=== PATIENT | male | born 1950 | race Caucasian/White ===

== ENCOUNTER 2016-09-15 09:40 | Inpatient (IN) | payer MEDICARE, OTHER ==
[~2016-09-15] VITALS: Ht 182.9 cm; Wt 116.0 kg
[~2016-09-15 09:40] MED LIST: ALEN35TA23 PO; AMAN100C65 PO; AMAN100T PO; AMLO5TAB4 PO; BETH25TA PO; CITA-104 PO; DALF10TA PO; DOCU-159 PO; GLAT40SY SQ; MIRT30TA5 PO; MULTI PO; PANT40TA4 PO; SPIR50TA PO; TAMS0.4C2 PO; TERA10CA42 PO
[2016-09-15] MEDS ORDERED: CEFEPIME 2GM/50 ML (PMX) 50 ML IVPB STA (10:14)
[2016-09-15] MEDS ORDERED: ACETAMINOPHEN 325 MG TAB PO STA (10:14)
[2016-09-15] MEDS ORDERED: SODIUM CHLORIDE 0.9% 1L BAG IV* STA (10:14)
[2016-09-15] MEDS ORDERED: VANCOMYCIN 1 GM (PMX) 250 ML IVPB ONE (10:30)
--- NOTE | 2016-09-15 10:43 | ERA ---
ER Documentation Chief Complaint Date/Time DATE: 09/15/16 TIME: 10:32 Chief Complaint ABD DISTENSION & BILATERAL LEG SWELLING, SENT FROM [facility] HPI This is a 66-year-old male sent from a nursing facility for abdominal distention. The patient arrived to the ER the patient started having projectile vomiting multiple episodes. Patient states that he has no headache no chest pain but feels he has abdominal distention. He says he has chronic swelling in his scrotum and legs. Patient was found to have a 102 fever here as well. Says he is not coughing or has any dysuria. Vomit is nonbilious and nonbloody. Patient is a very poor historian ROS All systems reviewed and are negative except as per history of present illness. Medications Home Meds Active Scripts Pantoprazole (Protonix) 40 Mg Tabec, 40 MG PO DAILY@06, #30 Prov:HUMZA CALHOUN M.D. 03/26/14 Multivitamins* (Theragran*) 1 Tab Tab, 1 TAB PO DAILY, #30 TAB Prov:HUMZA CALHOUN M.D. 03/26/14 Reported Medications Amlodipine Besylate* (Amlodipine Besylate*) 5 Mg Tablet, 5 MG ORAL DAILY, #31 09/15/16 Metoprolol Tartrate* (Lopressor*) 25 Mg Tab, 25 MG ORAL BID, #16 09/15/16 Citalopram Hydrobromide* (Citalopram Hydrobromide*) 10 Mg Tablet, 10 MG ORAL BID , #90 09/15/16 Famotidine* (Famotidine*) 20 Mg Tablet, 20 MG ORAL DAILY, #31 09/15/16 Alendronate Sodium* (Fosamax*) 70 Mg Tablet, 70 MG ORAL WEEKLY, #4 09/15/16 Spironolactone* (Aldactone*) 50 Mg Tablet, 50 MG PO DAILY, #30 TAB 03/28/15 Bethanechol Chloride* (Bethanechol Chloride*) 25 Mg Tablet, 25 MG PO QID, TAB 03/28/15 Docusate Sodium* (Docusate Sodium*) 100 Mg Capsule, 100 MG PO BID, CAP 03/28/15 Tamsulosin Hcl* (Tamsulosin Hcl*) 0.4 Mg Cap.er.24h, 0.8 MG PO HS, CAP 03/28/15 Glatiramer Acetate (Copaxone) 40 Mg/1 Ml Syringe, 40 MG SQ MONWEDFRI 03/28/15 Amantadine Hcl* (Amantadine Hcl*) 100 Mg Capsule, 200 MG PO AT NOON, CAP 03/28/15 Amantadine Hcl* (Amantadine Hcl*) 100 Mg Tablet, 100 MG PO QAM, TAB 03/18/14 Mirtazapine* (Mirtazapine*) 30 Mg Tablet, 15 MG PO DAILY, TAB 03/18/14 Terazosin Hcl* (Terazosin Hcl*) 10 Mg Capsule, 10 MG PO HS, CAP 03/18/14 Dalfampridine (Ampyra) 10 Mg Tab.sr.12h, 10 MG PO BID 03/18/14 Discontinued Reported Medications Citalopram Hydrobromide* (Citalopram Hydrobromide*) 40 Mg Tablet, 40 MG PO DAILY , TAB 03/18/14 Alendronate Sodium* (Alendronate Sodium*) 35 Mg Tablet, 35 MG PO EVERY THURSDAY , TAB 03/18/14 Discontinued Scripts Amlodipine Besylate* (Norvasc*) 5 Mg Tab, 10 MG PO DAILY, #30 Prov:HUMZA CALHOUN M.D. 03/26/14 Allergies Allergies: Coded Allergies: Penicillins (Verified Allergy, Unknown, HIVES, 03/20/14) PT STATES HE GETS HIVES WHEN HE GOT PENICILLIN Sulfa (Sulfonamide Antibiotics) (Verified Allergy, Unknown, UNKNOWN, 03/20) PT ONLY KNOWS THAT HES ALLERGIC TO IT WHEN HE WAS YOUNGER PMhx/Soc History of Surgery: Yes (R knee surgery) Anesthesia Reaction: No Hx Neurological Disorder: Yes (MS ) Hx Respiratory Disorders: No Hx Cardiac Disorders: Yes (HTN) Hx Psychiatric Problems: No Hx Miscellaneous Medical Probl: Yes (MS) Hx Alcohol Use: No Hx Substance Use: No Hx Tobacco Use: No FmHx Family History: No coronary disease Physical Exam Vitals Vital Signs Date Time Temp Pulse Resp B/P Pulse Ox O2 Delivery O2 Flow Rate FiO2 09/15/16 15:01 98.0 122 26 97/67 96 Nasal Cannula 4.0 09/15/16 14:14 126 28 100/69 96 Nasal Cannula 4.0 09/15/16 13:48 125 28 117/71 96 Nasal Cannula 4.0 09/15/16 13:10 122 30 114/75 96 Nasal Cannula 4.0 09/15/16 12:11 122 30 130/83 96 Nasal Cannula 4.0 09/15/16 10:43 Nasal Cannula 09/15/16 09:52 102.1 140 24 183/119 96 Physical Exam Const: Well-developed, well-nourished Head: Atraumatic, normocephalic Eyes: Normal Conjunctiva, PERRLA, EOMI, normal sclera, no nystagmus ENT: Normal External Ears, Nose and Mouth, moist mucus membranes. Neck: Full range of motion. No meningismus, no lymphadenopathy. Resp: Clear to auscultation bilaterally, no wheezing, rhonchi, rales Cardio: Tachycardia, no murmurs, S1 S2 present Abd: Soft, distended, diffuse mild tenderness. Normal bowel sounds, no guarding or rebound, no pulsitile abdominal masses or bruits, scrotal edema with erythema to the scrotum and thickened scrotum and erythema to the penis, there is a demarcated line across the mons pubis erythema consistent with cellulitis, no crepitus is was palpated Skin: No petechiae or rashes, no ecchymosis , no maculopapular rash Back: No midline or flank tenderness Ext: No cyanosis, or edema, FROM x 4, edema to legs, neurovascularly intact x 4 Neur: Awake and alert, STR 5/5 x 4, sensation intact x 4, no focal findings, cerebellum intact Psych: Normal Mood and Affect Result Diagram: 09/15/16 1043 09/15/16 1043 Results 24 hrs Laboratory Tests Test 09/15/16 10:43 09/15/16 12:51 White Blood Count 4.010^3/ul Red Blood Count 4.8010^6/ul Hemoglobin 14.3g/dl Hematocrit 44.9% Mean Corpuscular Volume 93.5fl Mean Corpuscular Hemoglobin 29.8pg Mean Corpuscular Hemoglobin Concent 31.8g/dl Red Cell Distribution Width 14.3% Platelet Count 88683^3/UL Mean Platelet Volume 8.2fl Neutrophils % 89.4% Lymphocytes % 6.8% Monocytes % 2.0% Eosinophils % 0.0% Basophils % 0.3% Nucleated Red Blood Cells % 0.5/100WBC Neutrophils # 3.610^3/ul Lymphocytes # 0.310^3/ul Monocytes # 0.110^3/ul Eosinophils # 0.010^3/ul Basophils # 0.010^3/ul Nucleated Red Blood Cells # 0.010^3/ul Prothrombin Time 14.9Sec Prothrombin Time Ratio 1.2 INR International Normalized Ratio 1.16 Activated Partial Thromboplast Time 28.2Sec Sodium Level 141mmol/L Potassium Level 5.0mmol/L Chloride Level 102mmol/L Carbon Dioxide Level 20mmol/L Anion Gap 24 Blood Urea Nitrogen 40mg/dl Creatinine 3.22mg/dl Glucose Level 183mg/dl Lactic Acid Level 6.3mmol/L 4.5mmol/L Calcium Level 9.5mg/dl Total Bilirubin 1.1mg/dl Direct Bilirubin 0.00mg/dl Indirect Bilirubin 1.1mg/dl Aspartate Amino Transf (AST/SGOT) 41IU/L Alanine Aminotransferase (ALT/SGPT) 37IU/L Alkaline Phosphatase 225IU/L Troponin I < 0.012ng/ml B-Type Natriuretic Peptide 638PG/ML Total Protein 8.2g/dl Albumin 4.2g/dl Globulin 4.00g/dl Albumin/Globulin Ratio 1.05 Lipase 11U/L Current Medications Medications (Trade) Dose Ordered Sig/Donte Route PRN Reason Start Time Stop Time Status Last Admin Dose Admin Sodium Chloride (NS) 3,520 ml BOLUS OVER 2 HOURS STAT IV* 09/15/16 10:14 09/15/16 10:24 DC 09/15/16 11:17 Acetaminophen 650 mg 650 mg ONCE STAT PO 09/15/16 10:14 09/15/16 10:24 DC 09/15/16 11:17 Vancomycin HCl 250 ml @ 125 mls/hr ONCE ONCE IVPB 09/15/16 10:30 09/15/16 12:29 DC 09/15/16 11:18 Cefepime HCl (Maxipime 2gm/50 ml (Pmx)) 50 ml @ 100 mls/hr ONCE STAT IVPB 09/15/16 10:14 09/15/16 10:43 DC 09/15/16 13:05 Ondansetron HCl 4 mg 4 mg ONCE STAT IV 09/15/16 10:58 09/15/16 10:59 DC 09/15/16 11:17 Sodium Chloride (NS) 1,000 ml @ 80 mls/hr [id number] IV 09/15/16 14:23 09/16/16 02:52 09/15/16 14:59 Ondansetron HCl (Zofran Inj) 4 mg ER BRIDGE PRN IV NAUSEA AND/OR VOMITING 09/15/16 14:30 09/16/16 14:29 Acetaminophen (Tylenol Tab) 650 mg ER BRIDGE PRN PO MILD PAIN/FEVER 09/15/16 14:30 09/16/16 14:29 Procedures/MDM PROCEDURE: Chest x-ray CLINICAL INDICATION: Shortness of breath TECHNIQUE: Chest single view COMPARISON: 03/25/2014 FINDINGS: The heart is normal in size. The pulmonary vessels are normal in caliber. There is mild bibasilar atelectasis. Lungs otherwise clear. Costophrenic angles are sharp. Bony thorax is unremarkable IMPRESSION: No acute cardiopulmonary disease. Mild bibasilar atelectasis RPTAT: HH .Carson Perkins MD, MD Date Time Electronically viewed and signed by .Carson Perkins MD, MD on 09/15/2016 11:40 .W/ CC: ROHAN BELLE DO PROCEDURE: CT Abdomen and Pelvis without contrast. CLINICAL INDICATION: Sepsis TECHNIQUE: CT of the abdomen and pelvis was performed on a multi-detector scanner without IV contrast. Coronal and sagittal images were reformatted from the axial data set. One or more of the following dose reduction techniques were used: automated exposure control, adjustment of the mA and/or kV according to patient size, use of iterative reconstruction technique. CTDI = 22.63 mGy. DLP = 1834.36 mGy-cm. COMPARISON: CT, 03/18/2014 FINDINGS: CT abdomen: The lung bases are clear. The heart size is normal, without pericardial effusion. Coronary arterial calcifications are noted. The liver is fatty infiltrated, without evidence of focal mass. Cholelithiasis is seen without evidence for cholecystitis. There is no biliary dilatation. 2.9 cm lobulated cystic structure is seen arising from pancreatic tail (3-74), stable in size and appearance when compared to the prior CT from 2013. Spleen demonstrates a small cyst anteriorly, decreased in size when compared to the prior exam. Adrenal glands are unremarkable. There is mild bilateral hydroureteronephrosis to the level of the urinary bladder. No urinary calculus is identified. The stomach is grossly unremarkable. The aorta is of normal caliber. Aortic vascular calcifications are present. There is no retroperitoneal lymphadenopathy. The bandar hepatis region is clear. CT pelvis: No bowel obstruction, free intraperitoneal air or abscess is identified. Scattered colonic diverticula are seen without diverticulitis. The appendix is well visualized and normal. There is no colitis. Urinary bladder is distended , concerning for urinary retention. Bladder wall is thickened and trabeculated , likely indicating muscular hypertrophy secondary to chronic retention. Indeterminate 4.6 x 4.6 cm gas and fluid collection is seen in the expected region of the urethra at the base of the penis (3-247). There is significant dilatation of the ureter proximally. Scrotal wall is diffusely thickened and edematous. Bilateral fat containing inguinal hernias are noted without incarceration. The surrounding osseous structures are remarkable for degenerative spondylosis of the spine. No osteolytic or osteoblastic lesion is detected. IMPRESSION: 1. Indeterminate 4.6 cm gas and fluid collection is seen in the expected location of the urethra at the base of the penis - considerations include abscess and urethral diverticulum. There is significant dilatation of the ureter proximally, compatible with at least partial ureteral obstruction by the above described collection. 2. Scrotal wall is diffusely thickened and edematous, possibly indicating cellulitis. 3. Urinary bladder is distended, likely indicating urinary retention. There is mild bilateral hydroureteronephrosis, likely representing urinary backflow secondary to bladder distension. Bladder wall is thickened and trabeculated, suggestive of chronic retention. 3 coronary arterial and aortoiliac atherosclerotic calcifications are present. 4. Hepatic steatosis is noted. 5. Lobulated 2.9 cm cystic structure is seen arising from pancreatic tail, stable in size and appearance when compared to prior CT from 2013, and presumed benign. 6. Scattered colonic diverticula are seen without diverticulitis. A call report was made to Rohan Welsh on 09/15/2016 1:43:07 PM. RPTAT: PP .Jl Garcia MD, Date Time Electronically viewed and signed by .Jl Garcia MD, MD on 09/15/2016 13: 43 .R/ CC: ROHAN BELLE DO Spoke with Dr. Reed of urology who will see the patient in consultation around 5 PM Admit MDM: Patient's infectious symptoms have not stabilized and the patient is at risk of rapid decompensation. The patient will be admitted for careful hydration, antibiotic therapy, and infectious source control. Severe Sepsis criteria: Infectious source: Scrotal cellulitis End organ damage indicated by: [] Lactate > 2.0 mmol/L Hypotension (SBP < 90 or >40 mmHG drop or MAP < 65) Acute Resp Failure (sat < 92% w/o oxygen) Locate Technician > 2.0 INR > 1.5 Plt < 100 Bili > 2 Sepsis Management: Time of recognition of severe sepsis/septic shock:11 Within 3 hours of recognition: Blood cultures x 2 before broad-spectrum antibiotics: Yes 30 ml/kg NS bolus []Completed Initial lactate 6.3 Repeat lactate 4. Septic Shock Assessment: Any lactic acid > 4.0 yes Persistent hypotension (SBP < 90 or 40 mmHg drop, MAP < 65) despite 30 mL/kg IV fluid bolus []No Volume Re-assessment for Septic Shock (post 30 ml/kg bolus @ 1410 time): Temp98 , BP104/69, HR 120, RR22, Pox 95 Heart 124Regular rate & rhythm Lungs No crackles Skin ]Warm & dry Cap Refill Less than 2 seconds Peripheral pulses Radially present Accepting Care Team Current data and ongoing care discussed. Time: [] Admitting Physician: jose Gas Tender(s): Outstanding Data: []None Critical Care Time: 35 minutes Treatments/Evaluations: Close monitoring and treatment of unstable vital signs, cardiorespiratory, and neurologic status, while maintaining tight balance of fluid, respiratory, and cardiac interventions. This includes the administration of emergency fluid management while maintaining close respiratory support as well as the provision of immediate and broad-spectrum antibiotic therapy, while performing a simultaneous assessment for possible sources in order to direct targeted therapy. This time includes discussing the case with the patient and the patient's family. This time also includes the consideration for invasive and chemical support to prevent cardiopulmonary collapse. This time does not include all procedures stated elsewhere in this record. This time also includes reviewing old records, labs and radiological studies. This time includes examining and re-examining the patient. Additionally, this time also includes arranging care with admitting and consulting physicians. EKG interpreted by me: Sinus tachycardia heart rate 135 right superior axis deviation, right ventricular hypertrophy, normal IA QRS and QT, abnormal EKG Departure Diagnosis: Primary Impression: Sepsis Qualified Code: A41.9 - Sepsis, due to unspecified organism Additional Impressions: Cellulitis of scrotum Penile abscess Condition: ROHAN Butler DO September 15, 2016 10:43
[2016-09-15] MEDS ORDERED: ONDANSETRON 4 MG INJ IV STA (10:58)
[2016-09-15 11:01] LABS: ADD SCAN DIFF NO
[2016-09-15 11:09] LABS: ABNORMAL IP MESSAGE 1; BASOPHILS % 0.3 % (0.0-2.0); HEMATOCRIT 44.9 % (42.0-52.0); HEMOGLOBIN 14.3 g/dl (14.0-18.0); LYMPHOCYTES # 0.3 10^3/ul (0.8-2.9); LYMPHOCYTES % 6.8 % (15.0-51.0); MEAN CORPUSCULAR HEMOGLOBIN 29.8 pg (29.0-33.0); MEAN CORPUSCULAR HGB CONC 31.8 g/dl (32.0-37.0); MEAN CORPUSCULAR VOLUME 93.5 fl (82.0-101.0); MEAN PLATELET VOLUME 8.2 fl (7.4-10.4); MONOCYTE # 0.1 10^3/ul (0.3-0.9); NEUTROPHIL # 3.6 10^3/ul (1.6-7.5); NEUTROPHILS % 89.4 % (39.0-77.0); NUCLEATED RED BLOOD CELLS% 0.5 /100WBC (0.0-0.0); PLATELET COUNT 147 10^3/UL (140-415); RED CELL DISTRIBUTION WIDTH 14.3 % (11.5-14.5)
[2016-09-15 11:19] LABS: ALBUMIN 4.2 g/dl (3.3-4.9); CHLORIDE 102 mmol/L (97-110); SODIUM 141 mmol/L (135-144)
[2016-09-15] MEDS ORDERED: ALEN70TA30 ORAL (11:19)
[2016-09-15 11:21] LABS: CREATININE 3.22 mg/dl (0.61-1.24)
[2016-09-15 11:22] LABS: ALANINE AMINOTRANSFERASE 37 IU/L (13-69); ALBUMIN/GLOBULIN RATIO 1.05; ALKALINE PHOSPHATASE 225 IU/L (42-121); ANION GAP 24 (8-16); ASPARTATE AMINO TRANSFERASE 41 IU/L (15-46); BILIRUBIN,INDIRECT 1.1 mg/dl (0-1.1); BILIRUBIN,TOTAL 1.1 mg/dl (0.2-1.3); BLOOD UREA NITROGEN 40 mg/dl (7-20); CALCIUM 9.5 mg/dl (8.4-10.2); CARBON DIOXIDE 20 mmol/L (21-31); GLUCOSE 183 mg/dl (70-220); TOTAL PROTEIN 8.2 g/dl (6.1-8.1)
[2016-09-15] MEDS ORDERED: METO-448 ORAL (11:22)
[2016-09-15] MEDS ORDERED: FAMO20TA18 ORAL (11:22)
[2016-09-15] MEDS ORDERED: CITA10TA84 ORAL (11:22)
[2016-09-15] MEDS ORDERED: AMLO-145 ORAL (11:25)
[2016-09-15 11:33] LABS: TROPONIN-I < 0.012 ng/ml (0.00-0.12)
--- NOTE | 2016-09-15 11:40 | RADRPT ---
PROCEDURE: Chest x-ray CLINICAL INDICATION: Shortness of breath TECHNIQUE: Chest single view COMPARISON: 03/25/2014 FINDINGS: The heart is normal in size. The pulmonary vessels are normal in caliber. There is mild bibasilar a telectasis. Lungs otherwise clear. Costophrenic angles are sharp. Bony thorax is unremarkable IMPRESSION: No acute cardiopulmonary disease. Mild bibasilar atelectasis RPTAT: HH .Carson Perkins MD, Date Time Electronically viewed and signed by .Carson Perkins MD, on 09/15/2016 11:40 .W/
[2016-09-15 11:46] LABS: INR 1.16; PARTIAL THROMBOPLASTIN TIME 28.2 Sec (25.0-35.0); PROTIME 14.9 Sec (12.2-14.2); PT RATIO 1.2
--- NOTE | 2016-09-15 13:43 | RADRPT ---
PROCEDURE: CT Abdomen and Pelvis without contrast. CLINICAL INDICATION: Sepsis TECHNIQUE: CT of the abdomen and pelvis was performed on a multi-detector scanner without IV contr ast. Coronal and sagittal images were reformatted from the axial data set. One or more of the foll owing dose reduction techniques were used: automated exposure control, adjustment of the mA and/or kV according to patient size, use of iterative reconstruction technique. CTDI = 22.63 mGy. DLP = 18 34.36 mGy-cm. COMPARISON: CT, 03/18/2014 FINDINGS: CT abdomen: The lung bases are clear. The heart size is normal, without pericardial effusion. Coronary arteria l calcifications are noted. The liver is fatty infiltrated, without evidence of focal mass. Cholel ithiasis is seen without evidence for cholecystitis. There is no biliary dilatation. 2.9 cm lobula damian cystic structure is seen arising from pancreatic tail (3-74), stable in size and appearance when compared to the prior CT from 2013. Spleen demonstrates a small cyst anteriorly, decreased in size when compared to the prior exam. Adrenal glands are unremarkable. There is mild bilateral hydrour eteronephrosis to the level of the urinary bladder. No urinary calculus is identified. The stomach is grossly unremarkable. The aorta is of normal caliber. Aortic vascular calcifications are present. There is no retroperit cassidy lymphadenopathy. The bandar hepatis region is clear. CT pelvis: No bowel obstruction, free intraperitoneal air or abscess is identified. Scattered colonic divertic karin are seen without diverticulitis. The appendix is well visualized and normal. There is no colit is. Urinary bladder is distended, concerning for urinary retention. Bladder wall is thickened and trabeculated, likely indicating muscular hypertrophy secondary to chronic retention. Indeterminate 4.6 x 4.6 cm gas and fluid collection is seen in the expected region of the urethra at the base of t he penis (3-247). There is significant dilatation of the ureter proximally. Scrotal wall is diffuse ly thickened and edematous. Bilateral fat containing inguinal hernias are noted without incarcerati on. The surrounding osseous structures are remarkable for degenerative spondylosis of the spine. No ost eolytic or osteoblastic lesion is detected. IMPRESSION: 1. Indeterminate 4.6 cm gas and fluid collection is seen in the expected location of the urethra at the base of the penis - considerations include abscess and urethral diverticulum. There is signifi cant dilatation of the ureter proximally, compatible with at least partial ureteral obstruction by t he above described collection. 2. Scrotal wall is diffusely thickened and edematous, possibly indicating cellulitis. 3. Urinary bladder is distended, likely indicating urinary retention. There is mild bilateral hydr oureteronephrosis, likely representing urinary backflow secondary to bladder distension. Bladder wa ll is thickened and trabeculated, suggestive of chronic retention. 3 coronary arterial and aortoili ac atherosclerotic calcifications are present. 4. Hepatic steatosis is noted. 5. Lobulated 2.9 cm cystic structure is seen arising from pancreatic tail, stable in size and appea juan when compared to prior CT from 2013, and presumed benign. 6. Scattered colonic diverticula are seen without diverticulitis. A call report was made to Rohan Welsh on 09/15/2016 1:43:07 PM. RPTAT: PP .Jl Garcia MD, MD Date Time Electronically viewed and signed by .Jl Garcia MD, MD on 09/15/2016 13:43 .R/
[2016-09-15] MEDS ORDERED: SOD CHLORIDE 0.9% 1,000 ML IV SCH (14:23)
[2016-09-15] MEDS ORDERED: ACETAMINOPHEN 325 MG TAB PO PRN (14:30)
[2016-09-15] MEDS ORDERED: ONDANSETRON 4 MG INJ IV PRN ×2 (14:30→17:00)
[2016-09-15 15:01] VITALS: TEMP 98
--- NOTE | 2016-09-15 15:07 | RADRPT ---
PROCEDURE: Scrotal ultrasound CLINICAL INDICATION: Scrotal thickening seen on CT. TECHNIQUE: Scrotal ultrasound was performed with sagittal and transverse views. Finch scale and co dian imaging was performed. Images were reviewed on high resolution PACS monitors. COMPARISON: CT abdomen pelvis from earlier the same date. FINDINGS: The right testicle measures 4.3 x 3.2 x 3.2 cm. The left testicle measures 3.9 x 3.0 x 2.2 cm. Testes are normal in size with microlithiasis seen bilaterally.. Blood flow is seen to both testes and epididymi. There is some scrotal hyperemia Right epididymis is mildly enlarged and demonstrates a 1.7 x 1.9 cm cyst. No hydrocele is identified. There is no evidence for varicocele. There is marked scrotal thickening and edema IMPRESSION: 1. Marked scrotal thickening and hyperemia suggestive of cellulitis. 2. Mild right epididymal enlargement with a 1.7 x 1.9 cm cyst identified. No evidence of epididymit is or abscess. 3. Trace bilateral hydroceles. The bilateral hernias seen on the CT may have reduced since the CT and are not observed on ultrasound. 4. The testes are remarkable for bilateral microlithiasis. No evidence of orchitis or abscess. RPTAT: [facility] Physician Axel Date Time Electronically viewed and signed by Physician Axel on 09/15/2016 15:07 /
[2016-09-15] MEDS: SOD CHLORIDE 0.9% 1,000 ML IV SCH ×2 (16:42→22:13)
[2016-09-15] MEDS ORDERED: LIDOCAINE 1% (MDV) 20 ML INJ ONE (16:57)
[2016-09-15] MEDS ORDERED: VANCOMYCIN IV PER PHARMACY XX SCH (17:00)
[2016-09-15] MEDS ORDERED: DOCUSATE SODIUM 100 MG CAP PO PRN (17:00)
[2016-09-15] MEDS ORDERED: BISACODYL 10 MG SUPP PR PRN (17:00)
[2016-09-15] MEDS ORDERED: ACETAMINOPHEN 650 MG SUPP PR PRN (17:00)
[2016-09-15] MEDS ORDERED: MAGNESIUM HYDROXIDE 30ML CUP PO PRN (17:00)
[2016-09-15] MEDS ORDERED: BETHANECHOL 25 MG TAB PO SCH (17:00)
[2016-09-15] MEDS ORDERED: NACL 0.9% 3 ML SYG IV SCH (17:00)
[2016-09-15] MEDS ORDERED: HYDROCODONE/APAP (5/325) TAB PO PRN ×2 (17:00)
--- NOTE | 2016-09-15 17:18 | HP ---
Date/Time of Note Date/Time of Note DATE: 09/15/16 TIME: 17:05 Assessment/Plan VTE Prophylaxis VTE Prophylaxis Intervention: SCD's Assessment/Plan Chief Complaint/Hosp Course Impression and plan 1. Sepsis secondary to scrotal cellulitis as well as possible penile abscess/ cellulitis. Urologist consulted. Will also get ID consult to follow. Will follow up on wound culture as well as urine culture. Continue on antibiotics for now. Will provide with IV hydration and antipyretics as needed 2. Urinary retention. Per CT scan of the abdomen and pelvis did show loculation of the urethra at the base of the penis as well as possible ureteral obstruction. Urologist consultation pending. Await placement of catheter. 3. Acute on likely chronic kidney injury. Patient with noted creatinine of 3.22 likely secondary to his urinary retention. Will get marble installer to follow. Monitor renal panel. Medications to be renally dosed. 4. History of BPH. Patient to be resumed on his Flomax and terazosin. Await urologist consultation. 5. History of multiple sclerosis. Patient to be resumed on his home medications 6. History of essential hypertension. Continue antihypertensives and adjust as needed 7. Deconditioning secondary to multiple sclerosis. Will get physical therapy to follow. 8. Tachycardia secondary to septic state. Continue antibiotics. 9. Possible CHF. Patient noted with elevated BNP and increased swelling bilateral lower extremities. Follow-up on echocardiogram Admission process 40 minutes Discussed plan of care with Dr. Burden Problems: HPI/ROS Admit Date/Time Admit Date/Time Hx of Present Illness This is a 66-year-old male with history of multiple sclerosis, dyslipidemia hypertension,, major depression, lower extremity weakness secondary to his multiple sclerosis who came to [facility] due to reports of reported vomiting as well as abdominal distention. Patient does currently reside at a boarding care facility. He did report that he had been having difficulty with urination for 1 week duration but more notably he has not had any urinary output for 2 days. He states that he was previously with a Carson catheter for urine a half due to inability to urinate from his MS. Reported that he had his Carson catheter removed about a month ago. As such she has been having difficulty with urination. Upon examination patient did have abdominal pelvic CT scan that did show indeterminate 4.6 cm gas and fluid collection seen in the expected location of the urethra at the base of the penis. There is suspicion for abscess and urethral diverticulum. The significant dilation of the ureter proximally was compatible with at least partial ureteral obstruction. There was also seen scrotal wall diffuse thickness and edematous possibly indicating cellulitis. His urinary bladder was noted to be distended from urinary retention and there is also seen now mild bilateral hydroureteronephrosis. Bladder was also noted to be thickened suggestive of chronic retention. Notably there is also seen scattered colonic diverticula without diverticulitis. Patient did have also additional testicular ultrasound that did show marked scrotal thickening and hyperemia suggestive of cellulitis as well as a mild right epididymal enlargement with a 1.7 x 1.9 cm cyst. Of note testes were also remarkable for bilateral microlithiasis but no evidence of orchitis or abscess. Patient was seen with elevated temperature as high as 102.1 and also seen to be tachycardic. He did have septic picture. He also had a lactic acid as high as 6.3 on admission and renal injury with creatinine of 3.22. Patient denied any shortness of breath but did report having some subjective fevers on the day of his admission. He only reports having abdominal pain more lower parts of the abdomen likely where his bladder is. Denies any chest pain. He did also report having increased bilateral lower extremity edema for a week and noted with a BNP of 638 although he denies any history of heart failure. We will evaluate him for the aformentiond issues ROS 12 point review of systems obtained entirely negative except as mentioned in history of present illness PMH/Family/Social Past Medical History Medical/surgical history multiple sclerosis, dyslipidemia hypertension,, major depression, lower extremity weakness secondary to his multiple sclerosis, chronic urinary retention Social History Alcohol Use: none Smoking Status: Never smoker Drug Use: none Exam/Review of Systems Vital Signs Vitals Vital Signs Date Time Temp Pulse Resp B/P Pulse Ox O2 Delivery O2 Flow Rate FiO2 09/15/16 15:46 124 26 109/66 96 Nasal Cannula 4.0 09/15/16 15:01 98.0 Exam Constitutional: alert, oriented Psych: nl mood/affect Neck: supple, No jvd Respiratory: clear to auscultation Cardiovascular: other Gastrointestinal: soft (Tachycardic), tender ( on lower abdomen) Genitourinary - Male: No nl penis ( noted with erythematous penis), No nl scrotum (Edematous. No obvious drainage seen. Seen with erythema) Musculoskeletal: swelling (Edema seen bilateral lower extremities), No nl gait and stance (Bilateral lower extremity weakness) Labs Result Diagram: 09/15/16 1043 09/15/16 1043 Medications Medications Current Medications Sodium Chloride (NS) 1,000 ml @ 80 mls/hr [id number] IV Last administered on 09/15t 14:59; Admin Dose 80 MLS/HR; Start 09/15/16 at 14:23; Stop 09/16/16 at 02: 52 Amantadine HCl (Symmetrel) 100 mg QAM PO ; Start 09/16/16 at 09:00; Status UNV Amlodipine Besylate (Norvasc) 5 mg DAILY PO ; Start 09/16/16 at 09:00; Status UNV Bethanechol Chloride (Urecholine) 25 mg QID PO ; Start 09/15/16 at 17:00; Status UNV Citalopram Hydrobromide (Celexa) 10 mg BID PO ; Start 09/15/16 at 21:00; Status UNV Docusate Sodium (Colace) 100 mg BID PO ; Start 09/15/16 at 21:00; Status UNV Famotidine (Pepcid) 20 mg DAILY PO ; Start 09/16/16 at 09:00; Status UNV Metoprolol Tartrate (Lopressor) 25 mg BID PO ; Start 09/15/16 at 21:00; Status UNV Mirtazapine (Remeron) 15 mg DAILY PO ; Start 09/16/16 at 09:00; Status UNV Multivitamins Therapeutic (Theragran) 1 tab DAILY PO ; Start 09/16/16 at 09:00; Status UNV Pantoprazole (Protonix Tab) 40 mg DAILY@06 PO ; Start 09/16/16 at 06:00; Status UNV Spironolactone (Aldactone) 50 mg DAILY PO ; Start 09/16/16 at 09:00; Status UNV Tamsulosin HCl (Flomax) 0.8 mg HS PO ; Start 09/15/16 at 21:00; Status UNV Terazosin HCl (Hytrin) 10 mg HS PO ; Start 09/15/16 at 21:00; Status UNV Miscellaneous Information 10 mg BID PO ; Start 09/15/16 at 21:00; Status UNV Miscellaneous Information 40 mg 40 mg [id number] SQ ; Start 09/17/16 at 09:00; Status UNV Cefepime HCl 50 ml @ 100 mls/hr BID IVPB ; Start 09/15/16 at 21:00; Status UNV Sodium Chloride (NS) 1,000 ml @ 80 mls/hr [id number] IV ; Start 09/15/16 at 16:42 ; Status UNV Ondansetron HCl (Zofran Inj) 4 mg Q6H PRN IV NAUSEA AND/OR VOMITING; Start at 17:00; Status UNV Acetaminophen (Tylenol Tab) 650 mg Q6H PRN PO PAIN LEVEL 1-3 OR FEVER; Start at 17:00; Status UNV Acetaminophen (Tylenol Supp) 650 mg Q6H PRN TN PAIN LEVEL 1-3 OR FEVER; Start 09/15/16 at 17:00; Status UNV Acetaminophen/ Hydrocodone Bitart (Campus (5/325)) 1 tab Q6H PRN PO MODERATE PAIN LEVEL 4-6; Start 09/15/16 at 17:00; Status UNV Acetaminophen/ Hydrocodone Bitart (Campus (5/325)) 2 tab Q6H PRN PO SEVERE PAIN LEVEL 7-10; Start 09/15/16 at 17:00; Status UNV Morphine Sulfate (morphine) 2 mg Q4H PRN IV SEVERE PAIN LEVEL 7-10; Start 09/15 at 17:00; Status UNV Docusate Sodium (Colace) 100 mg Q12H PRN PO CONSTIPATION; Start 09/15/16 at 17: 00; Status UNV Magnesium Hydroxide (Milk Of Mag) 30 ml DAILY PRN PO CONSTIPATION; Start at 17:00; Status UNV Bisacodyl (Dulcolax Supp) 10 mg DAILY PRN TN CONSTIPATION; Start 09/15/16 at 17 :00; Status UNV Pantoprazole (Protonix Iv) 40 mg DAILY@06 IV ; Start 09/16/16 at 06:00; Status UNV Heparin Sodium (Porcine) (Heparin (5000 Units/0.5 ml)) 5,000 unit Q12 SC ; Start 09/15/16 at 21:00; Status UNV SEGUNDO TONY September 15, 2016 17:17
[2016-09-15] MEDS: DALFAMPRIDINE 10 MG XX SCH (17:30)
[2016-09-15] MEDS ORDERED: VANCOMYCIN 1.25 GM in SOD CHLORIDE 0.9% 250 ML IVPB SCH (18:00)
[2016-09-15] MEDS ORDERED: LIDOCAINE 2% 20 ML UROJET SYRINGE MM ONE (18:00)
[2016-09-15 18:27] LABS: ADD UMIC YES; URINE BILIRUBIN (Dip) NEGATIVE (NEGATIVE); URINE BLOOD (Dip) 3+ (NEGATIVE); URINE COLOR YELLOW (YELLOW); URINE GLUCOSE (Dip) NEGATIVE (NEGATIVE); URINE KETONES (Dip) TRACE (NEGATIVE); URINE LEUKOCYTE ESTERASE (Dip) 3+ (NEGATIVE); URINE NITRITE (Dip) POSITIVE (NEGATIVE); URINE TOTAL PROTEIN (Dip) TRACE (NEGATIVE); URINE UROBILINOGEN (Dip) 0.2 E.U./dL (0.1-1.0)
[2016-09-15 18:34] LABS: BACTERIA,URINE MANY
[2016-09-15 18:35] LABS: URINE RBCS 25-50 /HPF (0)
--- NOTE | 2016-09-15 20:12 | HP ---
DATE OF ADMISSION: 09/15/2016 CHIEF COMPLAINT: Difficulty in urination, increasing scrotal swelling, and scrotal erythema. HISTORY OF PRESENT ILLNESS: The patient is a 66-year-old gentleman well known to me from previous a dmission and I [facility]. The patient nurse called me because of increasingly swollen scrotum and erythema and suprapubic pain. The patient was sent to [facility] ER where he was noted to have temperature of 102.1. The patient was tachycardic with heart rate of 140, respirations in mid 20s to low 30s. The patient had lactic acid level of 6 .3. BUN was 40, creatinine of 3.2. The patient's recent labs done at the [facility] back in July 2016 revealed BUN of 23, creatinine of 1.3, which is close to his baseline. The patie nt was diagnosed with sepsis due to urinary tract infection as well as scrotal cellulitis. The [place] ent also reported that he has not been able to urinate. The patient underwent CT of the abdomen and pelvis in the ER, which revealed 4.6 cm gas and fluid collection in the expected location of the ur eter at the base of the penis. Considerations include abscess and urethral diverticulum. I met Dr. Norton from urology standpoint in the ER and he is unable to insert Carson catheter and the plan is to try one more time and, if he is unable to do so, he will be inserting a suprapubic catheter. Th e patient's CT scan also revealed diffusely thickened scrotal wall, indicating cellulitis, and there was incidental finding of ____.9 cm cystic structure arising from the pancreatic tail, stable in si ze and appearance when compared to CT in 2014. The patient also underwent testicular ultrasound, wh ich revealed remarkable for bilateral microlithiasis and there is mild right epididymal enlargement with 1.7 x 1.9 cm cyst. The patient has marked scrotal thickening and hyperemia suggestive of cellu litis. Chest x-ray was unremarkable except for mild bibasilar atelectasis. The patient is being ad mitted for further evaluation and management. The patient has weakness in all extremities due to mu ltiple sclerosis. The patient is wheelchair bound. The patient also has history of benign prostati c hypertrophy, hypertension, and depression. The patient denied any nausea, vomiting, no reported c hest pain. The patient is breathing comfortably at rest, although does report generalized weakness and is diaphoretic. The patient denies any resting pain in lower extremity. The patient has chroni c bilateral lower extremity edema, but it is only mild. The patient denies any headache, cough, sor e throat. No reported hematuria. PAST MEDICAL HISTORY: As stated above. PAST SURGICAL HISTORY: The patient is status post bilateral knee surgery. ALLERGIES: 1. PENICILLIN. 2. SULFA. SOCIAL HISTORY: No smoking, no alcohol. MEDICATIONS: List from intermediate reviewed and reconciled. FAMILY HISTORY: Noncontributory to the patient's condition. PHYSICAL EXAMINATION: GENERAL: The patient is conscious, awake, alert, fairly oriented. VITAL SIGNS: In the ER, temperature 102.1, pulse 140, respirations 24, blood pressure 183/119, O2 s aturation 96% on 4 liters nasal cannula. HEENT: Atraumatic, normocephalic. Conjunctivae and lids normal. Oropharynx revealed dry oral muco sa. Nose and ears normal. NECK: Supple. No mass, no thyromegaly. LUNGS: Diminished air entry at bases. No use of accessory muscles. CARDIOVASCULAR: S1, S2 normal. Sinus tachycardia. ABDOMEN: Soft. The patient has suprapubic tenderness. No guarding, rigidity. Bowel sounds plus. EXTREMITIES: 1+ edema. No clubbing, cyanosis. Pedal pulses palpable. GENITOURINARY: The patient has large scrotal swelling and erythema. LABORATORY DATA: Done in the ER: Sodium 141, potassium 5, BUN 40, creatinine 3.2, glucose 183. La ctic acid 6.3. Calcium 9.5. AST 41, ALT 27, alkaline phosphatase 225. Troponin negative. Albumin 4.2, lipase 11. CBC revealed WBC 4, hemoglobin 14.3, platelet 147 with ____% neutrophils. IMPRESSION: 1. Acute urinary retention. 2. Severe sepsis due to urinary tract infection. 3. Scrotal cellulitis. 4. Acute on chronic kidney injury. 5. Multiple sclerosis. 6. Benign prostatic hypertrophy. 7. Hypertension. 8. Depression. PLAN: The patient admitted on telemetry floor. The patient will be started on IV fluids. The [place] ent received IV cefepime in ER and IV vancomycin. ID consult from Dr. Godfrey has been requested. T he patient will be continued on Norvasc. Will hold off on urecholine for now. Continue metoprolol. The patient is also on Flomax and Hytrin for BPH. If ultimately requires suprapubic catheter, may not need Flomax. Will hold off on Aldactone, as the patient's potassium is 5 and the patient has a BUN of 40, creatinine 3.2 and is likely at risk for developing hyperkalemia. ID consult from Dr. Jacquie andrade and urology consult from Dr. Norton have been requested. Will repeat renal functions tomorro w. If the patient's creatinine does not improve, then we will obtain a nephrology consultation also . The patient may also have acute tubular injury due to urinary tract infection and scrotal celluli tis. Urine sample is pending, but patient does have clinical evidence of scrotal cellulitis. We wi ll do follow up labs. I spoke with the patient's mother who happened to be in the ER and updated he r regarding plan of care. As far as depression is concerned, patient will be continued on Remeron a nd Celexa. Further recommendations will depend on patient's hospital course. Dictated By: GISELA ROWAN/NTS Conf#: [id number] DID#: [id number]
[2016-09-15] MEDS: METOPROLOL 25 MG TAB PO SCH (21:00)
[2016-09-15] MEDS ORDERED: DALFAMPRIDINE 10 MG XX SCH (21:00)
[2016-09-15] MEDS: HEPARIN 5,000 UNIT/0.5 ML VIAL SC SCH (21:00)
[2016-09-15] MEDS: TERAZOSIN 5 MG CAP PO SCH (21:00)
[2016-09-15 21:28] VITALS: PULSE 110
[2016-09-15] MEDS: DOCUSATE SODIUM 100 MG CAP PO SCH (21:55)
[2016-09-15] MEDS: TAMSULOSIN (SR) 0.4 MG CAP PO SCH (21:55)
[2016-09-15] MEDS: CITALOPRAM 20 MG TAB PO SCH (21:59)
[2016-09-15 22:00] VITALS: Ht 182.9 cm; Wt 116.0 kg
[2016-09-15 22:14] VITALS: BP 92/56; RESP 17
[2016-09-15] MEDS ORDERED: SOD CHLORIDE 0.9% 500 ML IV ONE (22:30)
[2016-09-15 23:47] VITALS: BP 102/68; RESP 20
[2016-09-16] VITALS (11 sets, daily range): BP systolic 86–101; BP diastolic 54–61; PULSE 108–123; RESP 18–21
[2016-09-16] MEDS: DALFAMPRIDINE 10 MG XX SCH (01:30)
[2016-09-16] MEDS: SOD CHLORIDE 0.9% 1,000 ML IV SCH ×3 (04:39→19:30)
[2016-09-16] MEDS ORDERED: PANTOPRAZOLE 40 MG INJ IV SCH (06:00)
[2016-09-16] MEDS: PANTOPRAZOLE (EC) 40 MG TAB PO SCH (06:49)
[2016-09-16 08:10] LABS: ALBUMIN 2.7 g/dl (3.3-4.9); ALBUMIN/GLOBULIN RATIO 0.9; BILIRUBIN,INDIRECT 0.2 mg/dl (0-1.1); BILIRUBIN,TOTAL 0.2 mg/dl (0.2-1.3); CALCIUM 8.1 mg/dl (8.4-10.2); CHOL/HDL RATIO 6.2 RATIO; CREATININE 3.06 mg/dl (0.61-1.24); MAGNESIUM 2.4 mg/dl (1.7-2.5); PHOSPHORUS 4.1 mg/dl (2.5-4.9); POTASSIUM 5.6 mmol/L (3.5-5.1); TOTAL PROTEIN 5.7 g/dl (6.1-8.1)
[2016-09-16 08:24] LABS: T3 UPTAKE 44.7 % (23.5-40.5)
[2016-09-16 08:37] LABS: THYROID STIMULATING HORMONE 2.06 MIU/L (0.465-4.680)
[2016-09-16] MEDS ORDERED: SPIRONOLACTONE 50 MG TAB PO SCH (09:00)
[2016-09-16] MEDS: METOPROLOL 25 MG TAB PO SCH ×2 (09:00→21:00)
[2016-09-16] MEDS ORDERED: AMLODIPINE 5 MG TAB PO SCH (09:00)
[2016-09-16] MEDS: DOCUSATE SODIUM 100 MG CAP PO SCH ×2 (10:34→21:10)
[2016-09-16] MEDS: CITALOPRAM 20 MG TAB PO SCH ×2 (10:35→21:10)
[2016-09-16] MEDS: FAMOTIDINE 20 MG TAB PO SCH (10:35)
[2016-09-16] MEDS: MIRTAZAPINE 15 MG TAB PO SCH (10:35)
[2016-09-16] MEDS: AMANTADINE 100 MG CAP PO SCH (10:35)
[2016-09-16] MEDS: HEPARIN 5,000 UNIT/0.5 ML VIAL SC SCH ×2 (10:37→21:27)
[2016-09-16] MEDS: MULTIVITAMINS THERAPEUTIC TAB PO SCH (10:43)
[2016-09-16] MEDS ORDERED: SOD CHLORIDE 0.9% 250 ML IV ONE (12:00)
[2016-09-16] MEDS ORDERED: CEFEPIME 2GM/50 ML (PMX) 50 ML IVPB SCH (13:00)
[2016-09-16] MEDS: ACETAMINOPHEN 325 MG TAB PO PRN ×2 (13:12→21:21)
--- NOTE | 2016-09-16 13:27 | RADRPT ---
Echocardiogram Report Patient Name: TIMI HERNANDEZ Gender: Male Date: 1950 Study Date: 16-Sep-2016 Silver Chaser: Jazzy Sun [facility] Location: 5550 Ref. Physician: SEGUNOD TONY Quality: Adequate Procedures: Transthoracic echocardiogram with complete 2D, M-Mode, and doppler examination. Indications: suspect Congestive Heart Failure. 2D/M Mode Doppler Measurement Value Normal Ranges Measurement Value Normal Ranges LVIDd 2D 4.5 3.5 - 5.6 cm AV Peak [place] 1.4 m/sec LVIDs 2D 2.3 2.1 - 4.1 cm AV Peak PG 7.7 mmHg LVPWd 2D 1.2 0.6 - 1.1 cm LVOT Peak [place] 1.3 m/sec IVSd 2D 1.2 0.6 - 1.1 cm LVOT Peak PG 6.3 mmHg AoR Diam 2D 3.4 2.0 - 3.7 cm MV E Peak [place] 0.6 m/sec EDV 2D 91.0 cm3 MV A Peak [place] 0.7 m/sec ESV 2D 12.5 cm3 MV E/A 0.8 LA Dimen 2D 3.4 2.3 - 4.0 cm MV Decel Time 106 msec MV Decel Harrison 6 MV E/A 0.8 Findings Left Ventricle: Normal left ventricular systolic function. Normal left ventricular cavity size. Mild concentric left ventricular hypertrophy. Ejection fraction is visually estimated at 65 - 70 %. Tissue Doppler/Mitral Doppler indices are consistent with impaired relaxation (Stage I diastolic dysfunction). Right Ventricle: Normal right ventricular size. Normal right ventricular systolic function. Left Atrium: The left atrium is normal in size. Right Atrium: The right atrium is normal in size. Mitral Valve: Normal appearance and function of the mitral valve with trace physiologic regurgitation. Aortic Valve: Normal appearance of the aortic valve. No significant aortic stenosis or insufficiency. Tricuspid Valve: Normal appearance of the tricuspid valve. Unable to obtain RVSP due to minimal presence of tricuspid regurgitation. Pulmonic Valve: Pulmonic valve not well visualized. Pericardium: Normal pericardium with no significant pericardial effusion. Aorta: Normal aortic root. IVC: Normal size and normal respiratory collapse consistent with normal right atrial pressure. Conclusions 1.Normal left ventricular systolic function. Normal left ventricular cavity size. Mild concentric left ventricular hypertrophy. Ejection fraction is visually estimated at 65 - 70 %. Tissue Doppler/Mitral Doppler indices are consistent with impaired relaxation (Stage I diastolic dysfunction). 2.Normal appearance of the aortic valve. No significant aortic stenosis or insufficiency. 3.Normal appearance and function of the mitral valve with trace physiologic regurgitation. 4.Normal appearance of the tricuspid valve. Unable to obtain RVSP due to minimal presence of tricuspid regurgitation. Electronically Signed By: Danish Head 16-Sep-2016 13:26:59 -0700 Patient Name: TIMI HERNANDEZ Study Date: 16-Sep-2016 [id number]
--- NOTE | 2016-09-16 17:16 | CONS ---
Date/Time of Note Date/Time of Note DATE: 09/16/16 TIME: 17:13 Assessment/Plan Assessment/Plan Additional Assessment/Plan 1. Acute urinary retention. 2. Severe sepsis due to urinary tract infection. 3. Scrotal cellulitis. 4. Acute on chronic kidney injury. 5. Multiple sclerosis. 6. Benign prostatic hypertrophy. 7. Hypertension. 8. Depression. 9. Hyperkalemia BRUCE in the setting above, Obstructive Uropathy S/p SP Catheter Non oliguric No acute indication for HD Cont to monitor electrolytes, UO, Volume status and renal function daily. Will order Kayexalate for K+>5.5 Repeat Labs in am Hold Anti_HTN Rx at this time due to Borderline BPs F/u Urine Cxs Avoid nephrotoxic Rx whenever possible. Renal dose Rx. Consultation Date/Type/Reason Admit Date/Time September 15, 2016 at 14:26 Type of Consultation: Nephrology Reason for Consultation BRUCE Referring Provider: GISELA GREER MD 24 HR Interval Summary Free Text/Dictation 66-year-old male [facility] with increasing scrotum swelling and redness, pain. The patient was sent to [facility] ER where he was found to have temperature of 102.1, tachycardia a lactic acid level of 6.3 and elevated BUN 40, creatinine of 3.2. Baseline 1.3 Pt was diagnosed with sepsis due to urinary tract infection and scrotal cellulitis. Patient also reported that he has not been able to urinate, underwent CT of the abdomen and pelvis in the ER, which revealed 4.6 cm gas and fluid collection in the expected location of the ureter at the base of the penis. S/p Suprapubic catheter placement with immediate UO. Today patient has already put out approx 2L UO. States he is doing much better today. Constitutional: requiring O2 Exam/Review of Systems Vital Signs Vitals Vital Signs Date Time Temp Pulse Resp B/P Pulse Ox O2 Delivery O2 Flow Rate FiO2 09/16/16 16:40 118 09/16/16 16:11 99.5 21 98/55 92 09/16/16 07:45 Nasal Cannula 3.0 Intake and Output 09/15/16 09/15/16 09/16/16 15:00 23:00 07:00 Intake Total 1300 ml Output Total 1850 ml Balance -550 ml Exam Constitutional: alert, oriented, No distress Eyes: EOMI ENMT: mucosa pink and moist Neck: No jvd Respiratory: No diminished breath sounds, No labored breathing Cardiovascular: edema, other (Sinus tachy) Gastrointestinal: soft, tender (SP), No distended Genitourinary - Male: other (as noted) Extremities: edema Neurological: nl mental status, No confused, No lethargic Skin: No diaphoresis, No rash or lesions Results Result Diagram: 09/15/16 1043 09/16/16 0716 Results 24 hrs Laboratory Tests Test 09/15/16 18:06 09/16/16 07:16 Urine Color YELLOW Urine Clarity CLEAR Urine pH 6.0 Urine Specific [place] 1.010 Urine Ketones TRACE Urine Nitrite POSITIVE H Urine Bilirubin NEGATIVE Urine Urobilinogen 0.2 E.U./dL Urine Leukocyte Esterase 3+ H Urine Microscopic RBC 25-50 Urine Microscopic WBC >200 Urine Bacteria MANY Urine Hemoglobin 3+ H Urine Glucose NEGATIVE Urine Total Protein TRACE Sodium Level 139 Potassium Level 5.6 H Chloride Level 111 H Carbon Dioxide Level 21 Anion Gap 13 # Blood Urea Nitrogen 44 H Creatinine 3.06 H Glucose Level 105 # Hemoglobin A1c 5.6 Calcium Level 8.1 L Phosphorus Level 4.1 Magnesium Level 2.4 Total Bilirubin 0.2 Direct Bilirubin 0.00 Indirect Bilirubin 0.2 Aspartate Amino Transf (AST/SGOT) 22 Alanine Aminotransferase (ALT/SGPT) 30 Alkaline Phosphatase 110 # Total Protein 5.7 #L Albumin 2.7 #L Globulin 3.00 Albumin/Globulin Ratio 0.90 Triglycerides Level 164 H Cholesterol Level 87 L LDL Cholesterol, Calculated 40 HDL Cholesterol 14 L Cholesterol/HDL Ratio 6.2 Thyroid Stimulating Hormone (TSH) 2.060 Free Thyroxine Index 2.64 Thyroxine (T4) 5.9 Triiodothyronine (T3) Uptake 44.7 H Medications Medications Current Medications Amantadine HCl (Symmetrel) 100 mg QAM PO Last administered on 09/16/16 10:35; Admin Dose 100 MG; Start 09/16/16 at 09:00 Amlodipine Besylate (Norvasc) 5 mg DAILY PO ; Start 09/16/16 at 09:00 Citalopram Hydrobromide (Celexa) 10 mg BID PO Last administered on 09/16/16 10 :35; Admin Dose 10 MG; Start 09/15/16 at 21:00 Docusate Sodium (Colace) 100 mg BID PO Last administered on 09/16/16 10:34; Admin Dose 100 MG; Start 09/15/16 at 21:00 Famotidine (Pepcid) 20 mg DAILY PO Last administered on 09/16/16 10:35; Admin Dose 20 MG; Start 09/16/16 at 09:00 Metoprolol Tartrate (Lopressor) 25 mg BID PO ; Start 09/15/16 at 21:00 Mirtazapine (Remeron) 15 mg DAILY PO Last administered on 09/16/16 10:35; Admin Dose 15 MG; Start 09/16/16 at 09:00 Multivitamins Therapeutic (Theragran) 1 tab DAILY PO Last administered on 10:43; Admin Dose 1 TAB; Start 09/16/16 at 09:00 Pantoprazole (Protonix Tab) 40 mg DAILY@06 PO Last administered on 09/16/16 06 :49; Admin Dose 40 MG; Start 09/16/16 at 06:00 Tamsulosin HCl (Flomax) 0.8 mg HS PO Last administered on 09/15/16 21:55; Admin Dose 0.8 MG; Start 09/15/16 at 21:00 Terazosin HCl (Hytrin) 10 mg HS PO ; Start 09/15/16 at 21:00 Miscellaneous Information 10 mg BID XX ; Start 09/15/16 at 21:00; Status UNV Miscellaneous Information 40 mg 40 mg MONWEDFRI XX ; Start 09/17/16 at 09:00; Status UNV Sodium Chloride (NS) 1,000 ml @ 80 mls/hr [id number] IV Last administered on 09/15 22:13; Admin Dose 80 MLS/HR; Start 09/15/16 at 16:42 Ondansetron HCl (Zofran Inj) 4 mg Q6H PRN IV NAUSEA AND/OR VOMITING; Start at 17:00 Acetaminophen (Tylenol Tab) 650 mg Q6H PRN PO PAIN LEVEL 1-3 OR FEVER Last administered on 09/16/16 13:12; Admin Dose 650 MG; Start 09/15/16 at 17:00 Acetaminophen (Tylenol Supp) 650 mg Q6H PRN [place] PAIN LEVEL 1-3 OR FEVER; Start 09/15/16 at 17:00 Acetaminophen/ Hydrocodone Bitart ([place] (5/325)) 1 tab Q6H PRN PO MODERATE PAIN LEVEL 4-6; Start 09/15/16 at 17:00 Acetaminophen/ Hydrocodone Bitart ([place] (5/325)) 2 tab Q6H PRN PO SEVERE PAIN LEVEL 7-10; Start 09/15/16 at 17:00 Morphine Sulfate (morphine) 2 mg Q4H PRN IV SEVERE PAIN LEVEL 7-10; Start 09/15 at 17:00 Docusate Sodium (Colace) 100 mg Q12H PRN PO CONSTIPATION; Start 09/15/16 at 17: 00 Magnesium Hydroxide (Milk Of Mag) 30 ml DAILY PRN PO CONSTIPATION; Start at 17:00 Bisacodyl (Dulcolax Supp) 10 mg DAILY PRN [place] CONSTIPATION; Start 09/15/16 at 17 :00 Heparin Sodium (Porcine) (Heparin (5000 Units/0.5 ml)) 5,000 unit Q12 SC Last administered on 09/16/16t 10:37; Admin Dose 5,000 UNIT; Start 09/15/16 at 21:00 Miscellaneous Information VANCO RANDOM W/ AM LABS... ONCE ONCE XX ; Start 09/17 at 05:00; Stop 09/17/16 at 05:01 Meropenem (Merrem 500 Mg/ 100 ml (Pmx)) 100 ml @ 200 mls/hr Q12 IVPB ; Start at 21:00 Procedures Procedures CXR IMPRESSION: No acute cardiopulmonary disease. Mild bibasilar atelectasis RPTAT: HH .Carson Perkins MD, MD Date Time Electronically viewed and signed by .Carson Perkins MD, on 09/15/2016 11:40 CT ABD IMPRESSION: 1. Indeterminate 4.6 cm gas and fluid collection is seen in the expected location of the urethra at the base of the penis - considerations include abscess and urethral diverticulum. There is significant dilatation of the ureter proximally, compatible with at least partial ureteral obstruction by the above described collection. 2. Scrotal wall is diffusely thickened and edematous, possibly indicating cellulitis. 3. Urinary bladder is distended, likely indicating urinary retention. There is mild bilateral hydroureteronephrosis, likely representing urinary backflow secondary to bladder distension. Bladder wall is thickened and trabeculated, suggestive of chronic retention. 3 coronary arterial and aortoiliac atherosclerotic calcifications are present. 4. Hepatic steatosis is noted. 5. Lobulated 2.9 cm cystic structure is seen arising from pancreatic tail, stable in size and appearance when compared to prior CT from 2013, and presumed benign. 6. Scattered colonic diverticula are seen without diverticulitis. A call report was made to Rohan Welsh on 09/15/2016 1:43:07 PM. RPTAT: PP .Jl Garcia MD, MD Date Time Electronically viewed and signed by .Jl Garcia MD, MD on 09/15/2016 13: 43 Testicular US IMPRESSION: 1. Marked scrotal thickening and hyperemia suggestive of cellulitis. 2. Mild right epididymal enlargement with a 1.7 x 1.9 cm cyst identified. No evidence of epididymitis or abscess. 3. Trace bilateral hydroceles. The bilateral hernias seen on the CT may have reduced since the CT and are not observed on ultrasound. 4. The testes are remarkable for bilateral microlithiasis. No evidence of orchitis or abscess. SAEED SUGGS MD September 16, 2016 17:16
--- NOTE | 2016-09-16 18:25 | PN ---
Date/Time of Note Date/Time of Note DATE: 09/16/16 TIME: 18:18 Assessment/Plan VTE Prophylaxis VTE Prophylaxis Intervention: SCD's Lines/Catheters IV [facility]atheter [facility] (from [facility]): Peripheral IV Urinary Cath still in place: No Assessment/Plan Chief Complaint/Hosp Course Patient is sitting at bedside eating dinner, stated that he feels better. Patient is status post suprapubic catheter insertion. Assessment and plan: - Severe sepsis with bacteremia due to urinary tract infection. Dr. Godfrey is following patient in ID consultation. Continue broad-spectrum antibiotics. Follow up on cultures. - Urinary tract infection. - Urinary retention, status post supra pubic catheter insertion. - Scrotal cellulitis. - Acute on chronic kidney injury. - Multiple sclerosis. - Benign prostatic hypertrophy. - Hypertension. - Depression. -Obesity Further recommendations based on clinical course. Plan of care discussed with Dr. Samson. 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 intact Results Result Diagram: 09/15/16 1043 09/16/16 0716 Results 24 hrs Laboratory Tests Test 09/16/16 07:16 Sodium Level 139 Potassium Level 5.6 H Chloride Level 111 H Carbon Dioxide Level 21 Anion Gap 13 # Blood Urea Nitrogen 44 H Creatinine 3.06 H Glucose Level 105 # Hemoglobin A1c 5.6 Calcium Level 8.1 L Phosphorus Level 4.1 Magnesium Level 2.4 Total Bilirubin 0.2 Direct Bilirubin 0.00 Indirect Bilirubin 0.2 Aspartate Amino Transf (AST/SGOT) 22 Alanine Aminotransferase (ALT/SGPT) 30 Alkaline Phosphatase 110 # Total Protein 5.7 #L Albumin 2.7 #L Globulin 3.00 Albumin/Globulin Ratio 0.90 Triglycerides Level 164 H Cholesterol Level 87 L LDL Cholesterol, Calculated 40 HDL Cholesterol 14 L Cholesterol/HDL Ratio 6.2 Thyroid Stimulating Hormone (TSH) 2.060 Free Thyroxine Index 2.64 Thyroxine (T4) 5.9 Triiodothyronine (T3) Uptake 44.7 H Medications Medications Current Medications Amantadine HCl (Symmetrel) 100 mg QAM PO Last administered on 09/16/16 10:35; Admin Dose 100 MG; Start 09/16/16 at 09:00 Citalopram Hydrobromide (Celexa) 10 mg BID PO Last administered on 09/16/16 10 :35; Admin Dose 10 MG; Start 09/15/16 at 21:00 Docusate Sodium (Colace) 100 mg BID PO Last administered on 09/16/16 10:34; Admin Dose 100 MG; Start 09/15/16 at 21:00 Famotidine (Pepcid) 20 mg DAILY PO Last administered on 09/16/16 10:35; Admin Dose 20 MG; Start 09/16/16 at 09:00 Metoprolol Tartrate (Lopressor) 25 mg BID PO ; Start 09/15/16 at 21:00 Mirtazapine (Remeron) 15 mg DAILY PO Last administered on 09/16/16 10:35; Admin Dose 15 MG; Start 09/16/16 at 09:00 Multivitamins Therapeutic (Theragran) 1 tab DAILY PO Last administered on 10:43; Admin Dose 1 TAB; Start 09/16/16 at 09:00 Pantoprazole (Protonix Tab) 40 mg DAILY@06 PO Last administered on 09/16/16 06 :49; Admin Dose 40 MG; Start 09/16/16 at 06:00 Tamsulosin HCl (Flomax) 0.8 mg HS PO Last administered on 09/15/16 21:55; Admin Dose 0.8 MG; Start 09/15/16 at 21:00 Terazosin HCl (Hytrin) 10 mg HS PO ; Start 09/15/16 at 21:00 Miscellaneous Information 10 mg BID XX ; Start 09/15/16 at 21:00; Status UNV Miscellaneous Information 40 mg 40 mg MONWEDFRI XX ; Start 09/17/16 at 09:00; Status UNV Sodium Chloride (NS) 1,000 ml @ 80 mls/hr [id number] IV Last administered on 09/16 17:51; Admin Dose 80 MLS/HR; Start 09/15/16 at 16:42 Ondansetron HCl (Zofran Inj) 4 mg Q6H PRN IV NAUSEA AND/OR VOMITING; Start at 17:00 Acetaminophen (Tylenol Tab) 650 mg Q6H PRN PO PAIN LEVEL 1-3 OR FEVER Last administered on 09/16/16 13:12; Admin Dose 650 MG; Start 09/15/16 at 17:00 Acetaminophen (Tylenol Supp) 650 mg Q6H PRN [place] PAIN LEVEL 1-3 OR FEVER; Start 09/15/16 at 17:00 Acetaminophen/ Hydrocodone Bitart ([place] (5/325)) 1 tab Q6H PRN PO MODERATE PAIN LEVEL 4-6; Start 09/15/16 at 17:00 Acetaminophen/ Hydrocodone Bitart ([place] (5/325)) 2 tab Q6H PRN PO SEVERE PAIN LEVEL 7-10; Start 09/15/16 at 17:00 Morphine Sulfate (morphine) 2 mg Q4H PRN IV SEVERE PAIN LEVEL 7-10; Start 09/15 at 17:00 Docusate Sodium (Colace) 100 mg Q12H PRN PO CONSTIPATION; Start 09/15/16 at 17: 00 Magnesium Hydroxide (Milk Of Mag) 30 ml DAILY PRN PO CONSTIPATION; Start at 17:00 Bisacodyl (Dulcolax Supp) 10 mg DAILY PRN [place] CONSTIPATION; Start 09/15/16 at 17 :00 Heparin Sodium (Porcine) (Heparin (5000 Units/0.5 ml)) 5,000 unit Q12 SC Last administered on 09/16/16 10:37; Admin Dose 5,000 UNIT; Start 09/15/16 at 21:00 Miscellaneous Information VANCO RANDOM W/ AM LABS... ONCE ONCE XX ; Start 09/17 at 05:00; Stop 09/17/16 at 05:01 Meropenem (Merrem 500 Mg/ 100 ml (Pmx)) 100 ml @ 200 mls/hr Q12 IVPB ; Start at 21:00 CLARIBEL HERNANDEZ September 16, 2016 18:25
--- NOTE | 2016-09-16 18:59 | CONS ---
DATE OF ADMISSION: 09/15/2016 DATE OF CONSULTATION: 09/16/2016 TYPE OF CONSULTATION: Infectious Disease. REASON FOR CONSULTATION: Antibiotic management. HISTORY OF PRESENT ILLNESS: Bari Gonzalez is a 66-year-old male who comes in with difficulty in urin ation with increasing scrotal swelling and erythema. The patient is a resident of a [facility] facility. He has a number of problems includin. Multiple sclerosis. 2. Dyslipidemia. 3. Hypertension. 4. Major depression. 5. Lower extremity weakness secondary to multiple sclerosis. He came in with reported vomiting as well as abdominal distention. He has had difficulty in urinating for the last week or so and had no urinary output for 2 days. He previously had a [place] catheter but it was removed about a month ago . He had an abdominal pelvic CT scan, which did show indeterminate 4.6 cm with gas and fluid collec tions seen in the expected location of the urethra the base of the penis. There was suspicion for a bscess in the diverticulum. There is significant dilatation of the ureter proximally which is roge tible with at least partial ureteral obstruction. The scrotal wall had diffuse thickness and edema, possibly intermittent cellulitis. Urinary bladder was noted to be distended from urinary retention and he has mild bilateral hydroureteronephrosis. Bladder was also noted to be thickened suggesting chronic retention. His testicular ultrasound did show marked scrotal thickening and hyperemia sugg estive of cellulitis as well as small right epididymal enlargement with 1.7 x 1.9 cm cyst. There is no evidence of orchitis or abscess there. He had a temperature of 102.1 and was tachycardic and temple d a septic picture with lactic acid which was 6.3 on admission. His white count was 4.0, H and H 14 .3 and 44.9, platelet count 147,000. BUN and creatinine are 40/3.22. Random glucose of 183. BNP w as 638. PAST MEDICAL HISTORY: As outlined. FAMILY HISTORY: Noncontributory. SOCIAL HISTORY: He does not smoke, drink or abuse drugs. ALLERGIES: NONE TO PENICILLIN, SULFA OR FOODS. MEDICATIONS: Per chart. REVIEW OF SYSTEMS: As per HPI. PHYSICAL EXAMINATION: GENERAL: The patient is a chronically ill appearing male who is alert, responsive, in no acute dist ress. VITAL SIGNS: Stable. He is currently afebrile, although his T-max is 102.1. SKIN: Without generalized rash. HEENT: Within normal limits. NECK: Supple. LYMPH NODES: None palpable. CHEST: Decreased breath sounds at the bases. HEART: Tachycardic. ABDOMEN: Soft, tender in the lower abdomen. There is no organosplenomegaly or masses. EXTREMITIES: Without cyanosis or clubbing. He has edema bilaterally lower extremities. RECTAL: Deferred. GENITOURINARY: He had an erythematous penis. His scrotum was edematous with erythema. MICROBIOLOGY: The patient has gram-negative rods in his urine and his blood and he is on cefepime. I may change him to meropenem. He received vancomycin for UTI with sepsis. 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 There is no evidence of that, but we need a urologist to take a look, I belie ve Dr. Norton. When it has been called, I will dictate my findings to Dr. Samson and to the hosp italist. Dictated By: INGRIS CAMACHO MD, JD/LEIGH Conf#: [id number] DID#: [id number]
[2016-09-16] MEDS ORDERED: NA POLYST SULFON 15 GM/60 ML BTL PO ONE ×2 (19:00)
--- NOTE | 2016-09-16 19:01 | PN ---
DATE: 09/16/2016 SUBJECTIVE: No acute changes overnight. The patient is lying comfortably in bed. He is awake, com plaining of scrotal pain. He is in no distress. No CBC this morning. BUN 44, creatinine 3.06. La ctic acid yesterday was 4. MICROBIOLOGY: Blood and urine cultures growing gram-negative rods. DIAGNOSTICS: Testicular ultrasound from yesterday revealed cellulitis with right epididymal enlarge ment with a cyst. No evidence of epididymitis or abscess. No evidence for orchitis. CT of the abd omen and pelvis revealed 4.26 cm gas and fluid collection in the expected location of the urethra at the base of the penis. Considerations include abscess and urethral diverticulum. Urinary bladder distended but mild bilateral hydroureteronephrosis, likely representing urinary back-flow secondary to bladder distention. ANTIMICROBIALS: The patient was started on meropenem, status post cefepime. He is also on IV vanco mycin. PHYSICAL EXAMINATION: GENERAL: This is a chronically ill-appearing, elderly man who is awake, sluggish and in no distress . HEENT: Head atraumatic, normocephalic. Sclerae anicteric. Buccal mucosa dry. NECK: Supple, trachea midline. CHEST: Rise symmetrical. Breath sounds diminished to bases. HEART: S1, S2. ABDOMEN: Soft. Bowel tones present. Suprapubic catheter present. GENITALIA: Scrotum with severe edema, swelling, erythema and painful on palpation. EXTREMITIES: With trace edema. ASSESSMENT: 1. Severe sepsis with fever, tachycardia, lactic acidosis. 2. Gram-negative doron bacteremia, likely secondary to #3. 3. Gram-negative doron urinary tract infection. 4. Scrotal edema with questionable penile abscess. 5. Benign prostatic hypertrophy. 6. History of multiple sclerosis. 7. Urinary retention. PLAN: The patient remains stable clinically. He is on appropriate antimicrobials. Cultures are pe nding. Urology evaluation pending. Continue scrotal elevation, pain management and supportive dorita ures. Dictated By: KAVITA ANDERSON INFECTIOUS DISEASES PHYSICIAN for INGRIS CONNORS/LEIGH Conf#: [id number] DID#: [id number]
[2016-09-16] MEDS: TERAZOSIN 5 MG CAP PO SCH (21:00)
[2016-09-16] MEDS: TAMSULOSIN (SR) 0.4 MG CAP PO SCH (21:10)
[2016-09-16] MEDS: MEROPENEM 500 MG/100 ML (PMX) 100 ML IVPB SCH (21:11)
[2016-09-17] VITALS (12 sets, daily range): BP systolic 99–144; BP diastolic 55–71; PULSE 110–124; RESP 16–20
[2016-09-17] MEDS: ACETAMINOPHEN 325 MG TAB PO PRN ×3 (04:57→20:08)
[2016-09-17] MEDS: PANTOPRAZOLE (EC) 40 MG TAB PO SCH (05:05)
[2016-09-17] MEDS: SOD CHLORIDE 0.9% 1,000 ML IV SCH ×2 (05:22→18:57)
[2016-09-17 05:42] LABS: ADD SCAN DIFF NO
[2016-09-17 06:01] LABS: ABNORMAL IP MESSAGE 1; BASOPHIL # 0.1 10^3/ul (0.0-0.1); BASOPHILS % 0.5 % (0.0-2.0); EOSINOPHILS # 0.3 10^3/ul (0.0-0.5); EOSINOPHILS % 2.6 % (0.0-7.0); HEMATOCRIT 33.1 % (42.0-52.0); HEMOGLOBIN 10.9 g/dl (14.0-18.0); LYMPHOCYTES # 0.6 10^3/ul (0.8-2.9); LYMPHOCYTES % 5.4 % (15.0-51.0); MEAN CORPUSCULAR HEMOGLOBIN 31.1 pg (29.0-33.0); MEAN CORPUSCULAR HGB CONC 32.9 g/dl (32.0-37.0); MEAN CORPUSCULAR VOLUME 94.6 fl (82.0-101.0); MONOCYTE # 0.5 10^3/ul (0.3-0.9); MONOCYTES % 4.8 % (0.0-11.0); NEUTROPHIL # 9.7 10^3/ul (1.6-7.5); NEUTROPHILS % 86.2 % (39.0-77.0); PLATELET COUNT 131 10^3/UL (140-415); RED CELL DISTRIBUTION WIDTH 15.3 % (11.5-14.5); WHITE BLOOD COUNT 11.3 10^3/ul (4.8-10.8)
[2016-09-17 06:11] LABS: ALBUMIN 2.8 g/dl (3.3-4.9)
[2016-09-17 06:12] LABS: POTASSIUM 4.4 mmol/L (3.5-5.1)
[2016-09-17 06:14] LABS: ALBUMIN/GLOBULIN RATIO 0.77; BILIRUBIN,INDIRECT 0.3 mg/dl (0-1.1); BILIRUBIN,TOTAL 0.3 mg/dl (0.2-1.3); CREATININE 2.23 mg/dl (0.61-1.24); TOTAL PROTEIN 6.4 g/dl (6.1-8.1)
[2016-09-17 06:15] LABS: CALCIUM 8.2 mg/dl (8.4-10.2)
[2016-09-17] MEDS ORDERED: NON-FORMULARY/PATIENT OWN MED (Glatiramer Acetate (Copaxone) 40 MG) XX SCH (09:00)
[2016-09-17] MEDS: FAMOTIDINE 20 MG TAB PO SCH (09:05)
[2016-09-17] MEDS: MIRTAZAPINE 15 MG TAB PO SCH (09:05)
[2016-09-17] MEDS: AMANTADINE 100 MG CAP PO SCH (09:05)
[2016-09-17] MEDS: CITALOPRAM 20 MG TAB PO SCH ×2 (09:05→20:07)
[2016-09-17] MEDS: MULTIVITAMINS THERAPEUTIC TAB PO SCH (09:05)
[2016-09-17] MEDS: DOCUSATE SODIUM 100 MG CAP PO SCH ×2 (09:05→20:06)
[2016-09-17] MEDS: METOPROLOL 25 MG TAB PO SCH ×2 (09:06→20:08)
[2016-09-17] MEDS: HEPARIN 5,000 UNIT/0.5 ML VIAL SC SCH ×2 (09:13→20:03)
[2016-09-17] MEDS: MEROPENEM 500 MG/100 ML (PMX) 100 ML IVPB SCH ×2 (09:21→20:00)
[2016-09-17] MEDS: VANCOMYCIN 2 GM in SOD CHLORIDE 0.9% 500 ML IVPB SCH (11:22)
--- NOTE | 2016-09-17 13:55 | PN ---
DATE: 09/17/2016 SUBJECTIVE: No acute changes. The patient is awake, feels better. Looks comfortable, still with l ow grade fevers. LABORATORY DATA: WBC today 11.3 with platelets 131, neutrophils 86.2, no bands. BUN 41, creatinine 2.23. MICROBIOLOGY: Blood culture and urine culture growing gram-negative rods. Scrotal culture growing gram-negative rods. Urine culture also growing Staph aureus , preliminary. ANTIMICROBIALS: The patient is on: 1. Vancomycin. 2. Merrem. INDWELLINGS: Suprapubic catheter. PHYSICAL EXAMINATION: GENERAL: Obese, chronically ill-appearing, elderly man who is in no distress. HEENT: Head atraumatic, normocephalic. Sclerae anicteric. Buccal mucosa dry. NECK: Supple, trachea midline. CHEST: Rise symmetrical. Breath sounds diminished to bases. HEART: S1, S2. ABDOMEN: Soft, bowel sounds present. EXTREMITIES: Without cyanosis. ASSESSMENT: 1. Severe sepsis with acute encephalopathy, fevers, tachycardia, and lactic acidosis. 2. Bacteremia, likely secondary to urinary tract infection. 3. Multidrug resistant urinary tract infection. 4. Significant urinary retention, status post suprapubic catheter placement. 5. Scrotal edema. 6. Advanced multiple sclerosis. 7. Benign prostatic hypertrophy. PLAN: The patient remains stable, covered with appropriate antimicrobials. Overall improving. We will continue him on current regimen. Follow repeat blood cultures. Follow final cultures. Yehuda morataya urology evaluation if not done yet. Dictated By: KAVITA ANDERSON BOTTOM MAN for INGRIS CONNORS/LEIGH Conf#: [id number] DID#: [id number]
--- NOTE | 2016-09-17 14:58 | CONS ---
Date/Time of Note Date/Time of Note DATE: 09/17/16 TIME: 14:58 Assessment/Plan Assessment/Plan Additional Assessment/Plan 1. Acute urinary retention. 2. Severe sepsis due to urinary tract infection. 3. Scrotal cellulitis. 4. Acute on chronic kidney injury. 5. Multiple sclerosis. 6. Benign prostatic hypertrophy. 7. Hypertension. 8. Depression. 9. Hyperkalemia BRUCE in the setting above, Obstructive Uropathy S/p SP Catheter Non oliguric No acute indication for HD Cont to monitor electrolytes, UO, Volume status and renal function daily. Repeat Labs in am Hold Anti_HTN Rx at this time due to Borderline BPs F/u Urine Cxs Avoid nephrotoxic Rx whenever possible. Renal dose Rx. Consultation Date/Type/Reason Admit Date/Time September 15, 2016 at 14:26 Type of Consultation: Nephrology Referring Provider: GISELA GREER MD Exam/Review of Systems Vital Signs Vitals Vital Signs Date Time Temp Pulse Resp B/P Pulse Ox O2 Delivery O2 Flow Rate FiO2 09/17/16 12:00 110 09/17/16 11:47 99.6 20 116/58 90 09/17/16 07:30 Nasal Cannula 3.0 Intake and Output 09/16/16 09/16/16 09/17/16 15:00 23:00 07:00 Intake Total 1800 ml 1430 ml Output Total 2300 ml 1800 ml Balance -500 ml -370 ml Exam Constitutional: No distress Head: atraumatic Eyes: EOMI Neck: No jvd Respiratory: clear to auscultation Cardiovascular: regular rate and rhythm, No edema Gastrointestinal: non-tender, soft Extremities: edema Neurological: No confused, No lethargic Results Result Diagram: 09/17/16 0420 09/17/16 0420 Results 24 hrs Laboratory Tests Test 09/17/16 04:20 White Blood Count 11.3 #H Red Blood Count 3.50 #L Hemoglobin 10.9 #L Hematocrit 33.1 #L Mean Corpuscular Volume 94.6 Mean Corpuscular Hemoglobin 31.1 Mean Corpuscular Hemoglobin Concent 32.9 Red Cell Distribution Width 15.3 H Platelet Count 131 L Mean Platelet Volume 9.0 Neutrophils % 86.2 H Lymphocytes % 5.4 L Monocytes % 4.8 Eosinophils % 2.6 Basophils % 0.5 Nucleated Red Blood Cells % 0.0 Neutrophils # 9.7 H Lymphocytes # 0.6 L Monocytes # 0.5 Eosinophils # 0.3 Basophils # 0.1 Nucleated Red Blood Cells # 0.0 Sodium Level 144 Potassium Level 4.4 Chloride Level 109 Carbon Dioxide Level 24 Anion Gap 15 Blood Urea Nitrogen 41 H Creatinine 2.23 H Glucose Level 115 Calcium Level 8.2 L Total Bilirubin 0.3 Direct Bilirubin 0.00 Indirect Bilirubin 0.3 Aspartate Amino Transf (AST/SGOT) 21 Alanine Aminotransferase (ALT/SGPT) 30 Alkaline Phosphatase 160 H Total Protein 6.4 Albumin 2.8 L Globulin 3.60 H Albumin/Globulin Ratio 0.77 Random Vancomycin Level 5.3 Medications Medications Current Medications Amantadine HCl (Symmetrel) 100 mg QAM PO Last administered on 09/17/16 09:05; Admin Dose 100 MG; Start 09/16/16 at 09:00 Citalopram Hydrobromide (Celexa) 10 mg BID PO Last administered on 09/17/16 09 :05; Admin Dose 10 MG; Start 09/15/16 at 21:00 Docusate Sodium (Colace) 100 mg BID PO Last administered on 09/17/16 09:05; Admin Dose 100 MG; Start 09/15/16 at 21:00 Famotidine (Pepcid) 20 mg DAILY PO Last administered on 09/17/16 09:05; Admin Dose 20 MG; Start 09/16/16 at 09:00 Metoprolol Tartrate (Lopressor) 25 mg BID PO Last administered on 09/17/16 09: 06; Admin Dose 25 MG; Start 09/15/16 at 21:00 Mirtazapine (Remeron) 15 mg DAILY PO Last administered on 09/17/16 09:05; Admin Dose 15 MG; Start 09/16/16 at 09:00 Multivitamins Therapeutic (Theragran) 1 tab DAILY PO Last administered on 09:05; Admin Dose 1 TAB; Start 09/16/16 at 09:00 Pantoprazole (Protonix Tab) 40 mg DAILY@06 PO Last administered on 09/17/16 05 :05; Admin Dose 40 MG; Start 09/16/16 at 06:00 Tamsulosin HCl (Flomax) 0.8 mg HS PO Last administered on 09/16/16 21:10; Admin Dose 0.8 MG; Start 09/15/16 at 21:00 Terazosin HCl 10 mg 10 mg HS PO ; Start 09/15/16 at 21:00 Sodium Chloride (NS) 1,000 ml @ 80 mls/hr [id number] IV Last administered on 09/16 19:30; Admin Dose 80 MLS/HR; Start 09/15/16 at 16:42 Ondansetron HCl (Zofran Inj) 4 mg Q6H PRN IV NAUSEA AND/OR VOMITING; Start at 17:00 Acetaminophen (Tylenol Tab) 650 mg Q6H PRN PO PAIN LEVEL 1-3 OR FEVER Last administered on 09/17/16 09:05; Admin Dose 650 MG; Start 09/15/16 at 17:00 Acetaminophen (Tylenol Supp) 650 mg Q6H PRN [place] PAIN LEVEL 1-3 OR FEVER; Start 09/15/16 at 17:00 Acetaminophen/ Hydrocodone Bitart ([place] (5/325)) 1 tab Q6H PRN PO MODERATE PAIN LEVEL 4-6; Start 09/15/16 at 17:00 Acetaminophen/ Hydrocodone Bitart ([place] (5/325)) 2 tab Q6H PRN PO SEVERE PAIN LEVEL 7-10; Start 09/15/16 at 17:00 Morphine Sulfate (morphine) 2 mg Q4H PRN IV SEVERE PAIN LEVEL 7-10; Start 09/15 at 17:00 Docusate Sodium (Colace) 100 mg Q12H PRN PO CONSTIPATION; Start 09/15/16 at 17: 00 Magnesium Hydroxide (Milk Of Mag) 30 ml DAILY PRN PO CONSTIPATION; Start at 17:00 Bisacodyl (Dulcolax Supp) 10 mg DAILY PRN [place] CONSTIPATION; Start 09/15/16 at 17 :00 Heparin Sodium (Porcine) 5000 unit 5,000 unit Q12 SC Last administered on 09:13; Admin Dose 5,000 UNIT; Start 09/15/16 at 21:00 Meropenem 100 ml @ 200 mls/hr Q12 IVPB Last administered on 09/17/16 09:21; Admin Dose 200 MLS/HR; Start 09/16/16 at 21:00 Vancomycin HCl/ Sodium Chloride (Vancocin/NS) 500 ml @ 125 mls/hr Q24H IVPB Last administered on 09/17/16t 11:22; Admin Dose 125 MLS/HR; Start 09/17/16 at 11:00 SAEED SUGGS MD September 17, 2016 14:58
--- NOTE | 2016-09-17 18:29 | PN ---
Date/Time of Note Date/Time of Note DATE: 09/17/16 TIME: 18:25 Assessment/Plan VTE Prophylaxis VTE Prophylaxis Intervention: SCD's Lines/Catheters IV Catheter Type (from [facility]): Peripheral IV Urinary Cath still in place: No (suprapubic catheter) Assessment/Plan Chief Complaint/Hosp Course Patient is tachycardic with low-grade fever, patient stated that he feels better , good urine output via suprapubic catheter. Assessment and plan: - Severe sepsis with polymicrobial bacteremia due to urinary tract infection. Dr. Godfrey is following patient in ID consultation. Continue broad-spectrum antibiotics. Follow up on cultures. - Urinary tract infection. - Urinary retention, status post supra pubic catheter insertion. - Scrotal cellulitis. - Acute on chronic kidney injury. Dr. Walter is following in nephrology consultation. - Multiple sclerosis. - Benign prostatic hypertrophy. Continue Flomax. - Hypertension. - Depression. - Obesity Further recommendations based on clinical course. Plan of care discussed with Dr. Samson. Problems: Subjective 24 Hr Interval Summary Constitutional: no complaints Exam/Review of Systems Vital Signs Vitals Vital Signs Date Time Temp Pulse Resp B/P Pulse Ox O2 Delivery O2 Flow Rate FiO2 09/17/16 16:00 110 09/17/16 15:56 98.6 20 128/67 91 09/17/16 07:30 Nasal Cannula 3.0 Intake and Output 09/16/16 09/16/16 09/17/16 14:59 22:59 06:59 Intake Total 1800 ml 1430 ml Output Total 2300 ml 1800 ml Balance -500 ml -370 ml Exam Constitutional: alert, obese Head: normocephalic Neck: supple Respiratory: clear to auscultation Cardiovascular: regular rate and rhythm Gastrointestinal: non-tender, soft Genitourinary - Male: other (Suprapubic catheter) Extremities: normal pulses Skin: nl turgor Results Result Diagram: 09/17/1641909/17/16419 Results 24 hrs Laboratory Tests Test 09/17/16 04:20 White Blood Count 11.3 #H Red Blood Count 3.50 #L Hemoglobin 10.9 #L Hematocrit 33.1 #L Mean Corpuscular Volume 94.6 Mean Corpuscular Hemoglobin 31.1 Mean Corpuscular Hemoglobin Concent 32.9 Red Cell Distribution Width 15.3 H Platelet Count 131 L Mean Platelet Volume 9.0 Neutrophils % 86.2 H Lymphocytes % 5.4 L Monocytes % 4.8 Eosinophils % 2.6 Basophils % 0.5 Nucleated Red Blood Cells % 0.0 Neutrophils # 9.7 H Lymphocytes # 0.6 L Monocytes # 0.5 Eosinophils # 0.3 Basophils # 0.1 Nucleated Red Blood Cells # 0.0 Sodium Level 144 Potassium Level 4.4 Chloride Level 109 Carbon Dioxide Level 24 Anion Gap 15 Blood Urea Nitrogen 41 H Creatinine 2.23 H Glucose Level 115 Calcium Level 8.2 L Total Bilirubin 0.3 Direct Bilirubin 0.00 Indirect Bilirubin 0.3 Aspartate Amino Transf (AST/SGOT) 21 Alanine Aminotransferase (ALT/SGPT) 30 Alkaline Phosphatase 160 H Total Protein 6.4 Albumin 2.8 L Globulin 3.60 H Albumin/Globulin Ratio 0.77 Random Vancomycin Level 5.3 Medications Medications Current Medications Amantadine HCl (Symmetrel) 100 mg QAM PO Last administered on 09/17/16 09:05; Admin Dose 100 MG; Start 09/16/16 at 09:00 Citalopram Hydrobromide (Celexa) 10 mg BID PO Last administered on 09/17/16 09 :05; Admin Dose 10 MG; Start 09/15/16 at 21:00 Docusate Sodium (Colace) 100 mg BID PO Last administered on 09/17/16 09:05; Admin Dose 100 MG; Start 09/15/16 at 21:00 Famotidine (Pepcid) 20 mg DAILY PO Last administered on 09/17/16 09:05; Admin Dose 20 MG; Start 09/16/16 at 09:00 Metoprolol Tartrate (Lopressor) 25 mg BID PO Last administered on 09/17/16 09: 06; Admin Dose 25 MG; Start 09/15/16 at 21:00 Mirtazapine (Remeron) 15 mg DAILY PO Last administered on 09/17/16 09:05; Admin Dose 15 MG; Start 09/16/16 at 09:00 Multivitamins Therapeutic (Theragran) 1 tab DAILY PO Last administered on 09:05; Admin Dose 1 TAB; Start 09/16/16 at 09:00 Pantoprazole (Protonix Tab) 40 mg DAILY@06 PO Last administered on 09/17/16 05 :05; Admin Dose 40 MG; Start 09/16/16 at 06:00 Tamsulosin HCl (Flomax) 0.8 mg HS PO Last administered on 09/16/16 21:10; Admin Dose 0.8 MG; Start 09/15/16 at 21:00 Terazosin HCl 10 mg 10 mg HS PO ; Start 09/15/16 at 21:00 Sodium Chloride (NS) 1,000 ml @ 80 mls/hr [id number] IV Last administered on 09/16 19:30; Admin Dose 80 MLS/HR; Start 09/15/16 at 16:42 Ondansetron HCl (Zofran Inj) 4 mg Q6H PRN IV NAUSEA AND/OR VOMITING; Start at 17:00 Acetaminophen (Tylenol Tab) 650 mg Q6H PRN PO PAIN LEVEL 1-3 OR FEVER Last administered on 09/17/16 09:05; Admin Dose 650 MG; Start 09/15/16 at 17:00 Acetaminophen (Tylenol Supp) 650 mg Q6H PRN [place] PAIN LEVEL 1-3 OR FEVER; Start 09/15/16 at 17:00 Acetaminophen/ Hydrocodone Bitart ([place] (5/325)) 1 tab Q6H PRN PO MODERATE PAIN LEVEL 4-6; Start 09/15/16 at 17:00 Acetaminophen/ Hydrocodone Bitart ([place] (5/325)) 2 tab Q6H PRN PO SEVERE PAIN LEVEL 7-10; Start 09/15/16 at 17:00 Morphine Sulfate (morphine) 2 mg Q4H PRN IV SEVERE PAIN LEVEL 7-10; Start 09/15 at 17:00 Docusate Sodium (Colace) 100 mg Q12H PRN PO CONSTIPATION; Start 09/15/16 at 17: 00 Magnesium Hydroxide (Milk Of Mag) 30 ml DAILY PRN PO CONSTIPATION; Start at 17:00 Bisacodyl (Dulcolax Supp) 10 mg DAILY PRN [place] CONSTIPATION; Start 09/15/16 at 17 :00 Heparin Sodium (Porcine) 5000 unit 5,000 unit Q12 SC Last administered on 09:13; Admin Dose 5,000 UNIT; Start 09/15/16 at 21:00 Meropenem 100 ml @ 200 mls/hr Q12 IVPB Last administered on 09/17/16 09:21; Admin Dose 200 MLS/HR; Start 09/16/16 at 21:00 Vancomycin HCl/ Sodium Chloride (Vancocin/NS) 500 ml @ 125 mls/hr Q24H IVPB Last administered on 09/17/16 11:22; Admin Dose 125 MLS/HR; Start 09/17/16 at 11:00 CLARIBEL HERNANDEZ September 17, 2016 18:29
[2016-09-17] MEDS: TAMSULOSIN (SR) 0.4 MG CAP PO SCH (20:06)
[2016-09-17] MEDS: TERAZOSIN 5 MG CAP PO SCH (20:07)
[2016-09-18] VITALS (12 sets, daily range): BP systolic 106–148; BP diastolic 65–82; PULSE 99–106; RESP 17–21
[2016-09-18] MEDS: PANTOPRAZOLE (EC) 40 MG TAB PO SCH (05:11)
[2016-09-18] MEDS: SOD CHLORIDE 0.9% 1,000 ML IV SCH ×3 (05:13→20:00)
[2016-09-18 07:16] LABS: ADD SCAN DIFF NO
[2016-09-18 07:26] LABS: HEMOGLOBIN 10.7 g/dl (14.0-18.0); MEAN CORPUSCULAR HEMOGLOBIN 30.7 pg (29.0-33.0); MEAN CORPUSCULAR HGB CONC 33.4 g/dl (32.0-37.0); MEAN PLATELET VOLUME 9.1 fl (7.4-10.4); PLATELET COUNT 147 10^3/UL (140-415); RED BLOOD COUNT 3.48 10^6/ul (4.70-6.10); RED CELL DISTRIBUTION WIDTH 15.4 % (11.5-14.5); WHITE BLOOD COUNT 12.3 10^3/ul (4.8-10.8)
[2016-09-18 07:43] LABS: CREATININE 1.59 mg/dl (0.61-1.24); POTASSIUM 3.9 mmol/L (3.5-5.1)
--- NOTE | 2016-09-18 08:53 | CONS ---
Date/Time of Note Date/Time of Note DATE: 09/18/16 TIME: 08:53 Assessment/Plan Assessment/Plan Additional Assessment/Plan 1. Acute urinary retention. 2. Severe sepsis due to urinary tract infection. 3. Scrotal cellulitis. 4. Acute on chronic kidney injury. 5. Multiple sclerosis. 6. Benign prostatic hypertrophy. 7. Hypertension. 8. Depression. 9. Hyperkalemia BRUCE in the setting above, Obstructive Uropathy S/p SP Catheter Renal function continues to improve Non oliguric Cont to monitor electrolytes, UO, Volume status and renal function daily. Consultation Date/Type/Reason Admit Date/Time September 15, 2016 at 14:26 Type of Consultation: Nephrology Referring Provider: GISELA GREER MD Exam/Review of Systems Vital Signs Vitals Vital Signs Date Time Temp Pulse Resp B/P Pulse Ox O2 Delivery O2 Flow Rate FiO2 09/18/16 07:36 Nasal Cannula 3.0 09/18/16 07:28 98.6 104 20 137/82 94 Intake and Output 09/17/16 09/17/16 09/18/16 15:00 23:00 07:00 Intake Total 100 ml 1960 ml 1600 ml Output Total 1400 ml 1800 ml Balance 100 ml 560 ml -200 ml Exam Constitutional: No distress ENMT: mucosa pink and moist Cardiovascular: edema Gastrointestinal: soft Neurological: No lethargic Results Result Diagram: 09/18/1670409/18/16704 Results 24 hrs Laboratory Tests Test 09/18/16 07:05 White Blood Count 12.3 H Red Blood Count 3.48 L Hemoglobin 10.7 L Hematocrit 32.0 L Mean Corpuscular Volume 92.0 Mean Corpuscular Hemoglobin 30.7 Mean Corpuscular Hemoglobin Concent 33.4 Red Cell Distribution Width 15.4 H Platelet Count 147 Mean Platelet Volume 9.1 Neutrophils % Eosinophils % Neutrophils # Eosinophils # Sodium Level 140 Potassium Level 3.9 Chloride Level 111 H Carbon Dioxide Level 24 Anion Gap 9 # Blood Urea Nitrogen 33 H Creatinine 1.59 H Glucose Level 102 Calcium Level 8.0 L Medications Medications Current Medications Amantadine HCl (Symmetrel) 100 mg QAM PO Last administered on 09/17/16t 09:05; Admin Dose 100 MG; Start 09/16/16 at 09:00 Citalopram Hydrobromide (Celexa) 10 mg BID PO Last administered on 09/17/16 20 :07; Admin Dose 10 MG; Start 09/15/16 at 21:00 Docusate Sodium (Colace) 100 mg BID PO Last administered on 09/17/16 20:06; Admin Dose 100 MG; Start 09/15/16 at 21:00 Famotidine (Pepcid) 20 mg DAILY PO Last administered on 09/17/16 09:05; Admin Dose 20 MG; Start 09/16/16 at 09:00 Metoprolol Tartrate (Lopressor) 25 mg BID PO Last administered on 09/17/16 20: 08; Admin Dose 25 MG; Start 09/15/16 at 21:00 Mirtazapine (Remeron) 15 mg DAILY PO Last administered on 09/17/16 09:05; Admin Dose 15 MG; Start 09/16/16 at 09:00 Multivitamins Therapeutic (Theragran) 1 tab DAILY PO Last administered on 09:05; Admin Dose 1 TAB; Start 09/16/16 at 09:00 Pantoprazole (Protonix Tab) 40 mg DAILY@06 PO Last administered on 09/18/16 05 :11; Admin Dose 40 MG; Start 09/16/16 at 06:00 Tamsulosin HCl (Flomax) 0.8 mg HS PO Last administered on 09/17/16 20:06; Admin Dose 0.8 MG; Start 09/15/16 at 21:00 Terazosin HCl 10 mg 10 mg HS PO Last administered on 09/17/16 20:07; Admin Dose 10 MG; Start 09/15/16 at 21:00 Sodium Chloride (NS) 1,000 ml @ 80 mls/hr [id number] IV Last administered on 09/18 05:13; Admin Dose 80 MLS/HR; Start 09/15/16 at 16:42 Ondansetron HCl (Zofran Inj) 4 mg Q6H PRN IV NAUSEA AND/OR VOMITING; Start at 17:00 Acetaminophen (Tylenol Tab) 650 mg Q6H PRN PO PAIN LEVEL 1-3 OR FEVER Last administered on 09/17/16 20:08; Admin Dose 650 MG; Start 09/15/16 at 17:00 Acetaminophen (Tylenol Supp) 650 mg Q6H PRN [place] PAIN LEVEL 1-3 OR FEVER; Start 09/15/16 at 17:00 Acetaminophen/ Hydrocodone Bitart ([place] (5/325)) 1 tab Q6H PRN PO MODERATE PAIN LEVEL 4-6; Start 09/15/16 at 17:00 Acetaminophen/ Hydrocodone Bitart ([place] (5/325)) 2 tab Q6H PRN PO SEVERE PAIN LEVEL 7-10; Start 09/15/16 at 17:00 Morphine Sulfate (morphine) 2 mg Q4H PRN IV SEVERE PAIN LEVEL 7-10; Start 09/15 at 17:00 Docusate Sodium (Colace) 100 mg Q12H PRN PO CONSTIPATION; Start 09/15/16 at 17: 00 Magnesium Hydroxide (Milk Of Mag) 30 ml DAILY PRN PO CONSTIPATION; Start at 17:00 Bisacodyl (Dulcolax Supp) 10 mg DAILY PRN [place] CONSTIPATION; Start 09/15/16 at 17 :00 Heparin Sodium (Porcine) 5000 unit 5,000 unit Q12 SC Last administered on 20:03; Admin Dose 5,000 UNIT; Start 09/15/16 at 21:00 Meropenem 100 ml @ 200 mls/hr Q12 IVPB Last administered on 09/17/16 20:00; Admin Dose 200 MLS/HR; Start 09/16/16 at 21:00 Vancomycin HCl/ Sodium Chloride (Vancocin/NS) 500 ml @ 125 mls/hr Q24H IVPB Last administered on 09/17/16 11:22; Admin Dose 125 MLS/HR; Start 09/17/16 at 11:00 SAEED SUGGS MD September 18, 2016 08:53
[2016-09-18] MEDS: FAMOTIDINE 20 MG TAB PO SCH (09:37)
[2016-09-18] MEDS: AMANTADINE 100 MG CAP PO SCH (09:37)
[2016-09-18] MEDS: CITALOPRAM 20 MG TAB PO SCH ×2 (09:37→20:53)
[2016-09-18] MEDS: MIRTAZAPINE 15 MG TAB PO SCH (09:37)
[2016-09-18] MEDS: MULTIVITAMINS THERAPEUTIC TAB PO SCH (09:37)
[2016-09-18] MEDS: METOPROLOL 25 MG TAB PO SCH ×2 (09:37→20:53)
[2016-09-18] MEDS: DOCUSATE SODIUM 100 MG CAP PO SCH ×2 (09:37→20:54)
[2016-09-18] MEDS: HEPARIN 5,000 UNIT/0.5 ML VIAL SC SCH ×2 (09:41→20:43)
[2016-09-18] MEDS: MEROPENEM 500 MG/100 ML (PMX) 100 ML IVPB SCH (10:05)
[2016-09-18 11:17] LABS: EOSINOPHILS # 0.2 10^3/ul (0.0-0.5); LYMPHOCYTES # 0.6 10^3/ul (0.8-2.9); MONOCYTE # 0.7 10^3/ul (0.3-0.9); NEUTROPHIL # 10.5 10^3/ul (1.6-7.5)
[2016-09-18] MEDS: VANCOMYCIN 2 GM in SOD CHLORIDE 0.9% 500 ML IVPB SCH (12:07)
--- NOTE | 2016-09-18 13:48 | CONS ---
Date/Time of Note Date/Time of Note DATE: 09/18/16 TIME: 13:45 Assessment/Plan Assessment/Plan Chief Complaint/Hosp Course SUBJECTIVE: No acute changes. The patient is awake. Looks comfortable MICROBIOLOGY: Blood culture and urine culture growing multiple bacteria ANTIMICROBIALS: 1. Vancomycin. 2. Merrem. INDWELLINGS: Suprapubic catheter. PHYSICAL EXAMINATION: GENERAL: Obese, chronically ill-appearing, elderly man who is in no distress. HEENT: Head atraumatic, normocephalic. Sclerae anicteric. Buccal mucosa dry. NECK: Supple, trachea midline. CHEST: Rise symmetrical. Breath sounds diminished to bases. HEART: S1, S2. ABDOMEN: Soft, bowel sounds present. EXTREMITIES: Without cyanosis. ASSESSMENT: 1. Severe sepsis with acute encephalopathy, fevers, tachycardia, and lactic acidosis. 2. Bacteremia, likely secondary to urinary tract infection. 3. Multidrug resistant urinary tract infection. 4. Significant urinary retention, status post suprapubic catheter placement. 5. Scrotal edema/cellulitis. 6. Advanced multiple sclerosis. 7. Benign prostatic hypertrophy. PLAN: The patient remains stable, covered with appropriate antimicrobials. Pending repeat blood cultures. Consider urology eval. DW staff Problems: Consultation Date/Type/Reason Admit Date/Time September 15, 2016 at 14:26 Initial Consult Date Type of Consultation: id Referring Provider: GISELA GREER MD Exam/Review of Systems Vital Signs Vitals Vital Signs Date Time Temp Pulse Resp B/P Pulse Ox O2 Delivery O2 Flow Rate FiO2 09/18/16 12:49 101 09/18/16 11:55 98.7 20 137/66 96 09/18/16 07:36 Nasal Cannula 3.0 Intake and Output 09/17/16 09/17/16 09/18/16 15:00 23:00 07:00 Intake Total 100 ml 1960 ml 1600 ml Output Total 1400 ml 1800 ml Balance 100 ml 560 ml -200 ml Results Result Diagram: 09/18/1670409/18/16704 Results 24 hrs Laboratory Tests Test 09/18/16 07:05 White Blood Count 12.3 H Red Blood Count 3.48 L Hemoglobin 10.7 L Hematocrit 32.0 L Mean Corpuscular Volume 92.0 Mean Corpuscular Hemoglobin 30.7 Mean Corpuscular Hemoglobin Concent 33.4 Red Cell Distribution Width 15.4 H Platelet Count 147 Mean Platelet Volume 9.1 Neutrophils % 85.0 H Band Neutrophils % 2.0 Lymphocytes % 5.0 L Monocytes % 6.0 Eosinophils % 2.0 Neutrophils # 10.5 H Lymphocytes # 0.6 L Monocytes # 0.7 Eosinophils # 0.2 Sodium Level 140 Potassium Level 3.9 Chloride Level 111 H Carbon Dioxide Level 24 Anion Gap 9 # Blood Urea Nitrogen 33 H Creatinine 1.59 H Glucose Level 102 Calcium Level 8.0 L Medications Medications Current Medications Amantadine HCl (Symmetrel) 100 mg QAM PO Last administered on 09/18/16 09:37; Admin Dose 100 MG; Start 09/16/16 at 09:00 Citalopram Hydrobromide (Celexa) 10 mg BID PO Last administered on 09/18/16 09 :37; Admin Dose 10 MG; Start 09/15/16 at 21:00 Docusate Sodium (Colace) 100 mg BID PO Last administered on 09/18/16 09:37; Admin Dose 100 MG; Start 09/15/16 at 21:00 Famotidine (Pepcid) 20 mg DAILY PO Last administered on 09/18/16 09:37; Admin Dose 20 MG; Start 09/16/16 at 09:00 Metoprolol Tartrate (Lopressor) 25 mg BID PO Last administered on 09/18/16 09: 37; Admin Dose 25 MG; Start 09/15/16 at 21:00 Mirtazapine (Remeron) 15 mg DAILY PO Last administered on 09/18/16 09:37; Admin Dose 15 MG; Start 09/16/16 at 09:00 Multivitamins Therapeutic (Theragran) 1 tab DAILY PO Last administered on 09:37; Admin Dose 1 TAB; Start 09/16/16 at 09:00 Pantoprazole (Protonix Tab) 40 mg DAILY@06 PO Last administered on 09/18/16 05 :11; Admin Dose 40 MG; Start 09/16/16 at 06:00 Tamsulosin HCl (Flomax) 0.8 mg HS PO Last administered on 09/17/16 20:06; Admin Dose 0.8 MG; Start 09/15/16 at 21:00 Terazosin HCl 10 mg 10 mg HS PO Last administered on 09/17/16 20:07; Admin Dose 10 MG; Start 09/15/16 at 21:00 Sodium Chloride (NS) 1,000 ml @ 80 mls/hr [id number] IV Last administered on 09/18 05:13; Admin Dose 80 MLS/HR; Start 09/15/16 at 16:42 Ondansetron HCl (Zofran Inj) 4 mg Q6H PRN IV NAUSEA AND/OR VOMITING; Start at 17:00 Acetaminophen (Tylenol Tab) 650 mg Q6H PRN PO PAIN LEVEL 1-3 OR FEVER Last administered on 09/17/16 20:08; Admin Dose 650 MG; Start 09/15/16 at 17:00 Acetaminophen (Tylenol Supp) 650 mg Q6H PRN [place] PAIN LEVEL 1-3 OR FEVER; Start 09/15/16 at 17:00 Acetaminophen/ Hydrocodone Bitart ([place] (5/325)) 1 tab Q6H PRN PO MODERATE PAIN LEVEL 4-6; Start 09/15/16 at 17:00 Acetaminophen/ Hydrocodone Bitart ([place] (5/325)) 2 tab Q6H PRN PO SEVERE PAIN LEVEL 7-10; Start 09/15/16 at 17:00 Morphine Sulfate (morphine) 2 mg Q4H PRN IV SEVERE PAIN LEVEL 7-10; Start 09/15 at 17:00 Docusate Sodium (Colace) 100 mg Q12H PRN PO CONSTIPATION; Start 09/15/16 at 17: 00 Magnesium Hydroxide (Milk Of Mag) 30 ml DAILY PRN PO CONSTIPATION; Start at 17:00 Bisacodyl (Dulcolax Supp) 10 mg DAILY PRN [place] CONSTIPATION; Start 09/15/16 at 17 :00 Heparin Sodium (Porcine) 5000 unit 5,000 unit Q12 SC Last administered on 09:41; Admin Dose 5,000 UNIT; Start 09/15/16 at 21:00 Vancomycin HCl 2 gm/Sodium Chloride 500 ml @ 125 mls/hr Q24H IVPB Last administered on 09/18/16 12:07; Admin Dose 125 MLS/HR; Start 09/17/16 at 11:00 Meropenem (Merrem 1 Gm/100 ml (Pmx)) 100 ml @ 200 mls/hr Q12 IVPB ; Start 09/18 at 21:00 KAVITA ANDERSON NP September 18, 2016 13:48
--- NOTE | 2016-09-18 18:02 | PN ---
Date/Time of Note Date/Time of Note DATE: 09/18/16 TIME: 17:57 Assessment/Plan VTE Prophylaxis VTE Prophylaxis Intervention: other Lines/Catheters IV Catheter Type (from [facility]): Peripheral IV Urinary Cath still in place: No (SUPRAPUBIC CATHETER) Assessment/Plan Assessment/Plan - Severe sepsis with polymicrobial bacteremia due to urinary tract infection. Dr. Godfrey is following patient in ID consultation. Continue broad-spectrum antibiotics. Follow up on cultures. - Urinary tract infection. - Urinary retention, status post supra pubic catheter insertion. - Scrotal cellulitis. - Acute on chronic kidney injury. Dr. Walter is following in nephrology consultation. - Multiple sclerosis. - Benign prostatic hypertrophy. Continue Flomax. - Hypertension. - Depression. - Obesity Further recommendations based on clinical course. Plan of care discussed with Dr. Samson. Exam/Review of Systems Vital Signs Vitals Vital Signs Date Time Temp Pulse Resp B/P Pulse Ox O2 Delivery O2 Flow Rate FiO2 09/18/16 16:17 99 09/18/16 15:41 98.6 20 148/70 93 09/18/16 07:36 Nasal Cannula 3.0 Intake and Output 09/17/16 09/17/16 09/18/16 15:00 23:00 07:00 Intake Total 100 ml 1960 ml 1600 ml Output Total 1400 ml 1800 ml Balance 100 ml 560 ml -200 ml Exam Constitutional: alert Psych: nl mood/affect Respiratory: clear to auscultation Cardiovascular: nl pulses Gastrointestinal: non-tender, soft Neurological: nl mental status Skin: nl turgor Lymph: nontender Results Result Diagram: 09/18/16 0709/18/16704 Results 24 hrs Laboratory Tests Test 09/18/16 07:05 White Blood Count 12.3 H Red Blood Count 3.48 L Hemoglobin 10.7 L Hematocrit 32.0 L Mean Corpuscular Volume 92.0 Mean Corpuscular Hemoglobin 30.7 Mean Corpuscular Hemoglobin Concent 33.4 Red Cell Distribution Width 15.4 H Platelet Count 147 Mean Platelet Volume 9.1 Neutrophils % 85.0 H Band Neutrophils % 2.0 Lymphocytes % 5.0 L Monocytes % 6.0 Eosinophils % 2.0 Neutrophils # 10.5 H Lymphocytes # 0.6 L Monocytes # 0.7 Eosinophils # 0.2 Sodium Level 140 Potassium Level 3.9 Chloride Level 111 H Carbon Dioxide Level 24 Anion Gap 9 # Blood Urea Nitrogen 33 H Creatinine 1.59 H Glucose Level 102 Calcium Level 8.0 L Medications Medications Current Medications Amantadine HCl (Symmetrel) 100 mg QAM PO Last administered on 09/18/16 09:37; Admin Dose 100 MG; Start 09/16/16 at 09:00 Citalopram Hydrobromide (Celexa) 10 mg BID PO Last administered on 09/18/16 09 :37; Admin Dose 10 MG; Start 09/15/16 at 21:00 Docusate Sodium (Colace) 100 mg BID PO Last administered on 09/18/16 09:37; Admin Dose 100 MG; Start 09/15/16 at 21:00 Famotidine (Pepcid) 20 mg DAILY PO Last administered on 09/18/16 09:37; Admin Dose 20 MG; Start 09/16/16 at 09:00 Metoprolol Tartrate (Lopressor) 25 mg BID PO Last administered on 09/18/16 09: 37; Admin Dose 25 MG; Start 09/15/16 at 21:00 Mirtazapine (Remeron) 15 mg DAILY PO Last administered on 09/18/16 09:37; Admin Dose 15 MG; Start 09/16/16 at 09:00 Multivitamins Therapeutic (Theragran) 1 tab DAILY PO Last administered on 09:37; Admin Dose 1 TAB; Start 09/16/16 at 09:00 Pantoprazole (Protonix Tab) 40 mg DAILY@06 PO Last administered on 09/18/16 05 :11; Admin Dose 40 MG; Start 09/16/16 at 06:00 Tamsulosin HCl (Flomax) 0.8 mg HS PO Last administered on 09/17/16 20:06; Admin Dose 0.8 MG; Start 09/15/16 at 21:00 Terazosin HCl 10 mg 10 mg HS PO Last administered on 09/17/16 20:07; Admin Dose 10 MG; Start 09/15/16 at 21:00 Sodium Chloride (NS) 1,000 ml @ 80 mls/hr [id number] IV Last administered on 09/18 05:13; Admin Dose 80 MLS/HR; Start 09/15/16 at 16:42 Ondansetron HCl (Zofran Inj) 4 mg Q6H PRN IV NAUSEA AND/OR VOMITING; Start at 17:00 Acetaminophen (Tylenol Tab) 650 mg Q6H PRN PO PAIN LEVEL 1-3 OR FEVER Last administered on 09/17/16 20:08; Admin Dose 650 MG; Start 09/15/16 at 17:00 Acetaminophen (Tylenol Supp) 650 mg Q6H PRN [place] PAIN LEVEL 1-3 OR FEVER; Start 09/15/16 at 17:00 Acetaminophen/ Hydrocodone Bitart ([place] (5/325)) 1 tab Q6H PRN PO MODERATE PAIN LEVEL 4-6; Start 09/15/16 at 17:00 Acetaminophen/ Hydrocodone Bitart ([place] (5/325)) 2 tab Q6H PRN PO SEVERE PAIN LEVEL 7-10; Start 09/15/16 at 17:00 Morphine Sulfate (morphine) 2 mg Q4H PRN IV SEVERE PAIN LEVEL 7-10; Start 09/15 at 17:00 Docusate Sodium (Colace) 100 mg Q12H PRN PO CONSTIPATION; Start 09/15/16 at 17: 00 Magnesium Hydroxide (Milk Of Mag) 30 ml DAILY PRN PO CONSTIPATION; Start at 17:00 Bisacodyl (Dulcolax Supp) 10 mg DAILY PRN [place] CONSTIPATION; Start 09/15/16 at 17 :00 Heparin Sodium (Porcine) 5000 unit 5,000 unit Q12 SC Last administered on 09:41; Admin Dose 5,000 UNIT; Start 09/15/16 at 21:00 Vancomycin HCl 2 gm/Sodium Chloride 500 ml @ 125 mls/hr Q24H IVPB Last administered on 09/18/16 12:07; Admin Dose 125 MLS/HR; Start 09/17/16 at 11:00 Meropenem (Merrem 1 Gm/100 ml (Pmx)) 100 ml @ 200 mls/hr Q12 IVPB ; Start 09/18 at 21:00 WHITNEY WEINSTEIN September 18, 2016 18:02
[2016-09-18] MEDS ORDERED: LACTULOSE 30ML CUP PO PRN (18:30)
[2016-09-18] MEDS ORDERED: BISACODYL (EC) 5 MG TAB PO PRN (18:30)
[2016-09-18] MEDS: TERAZOSIN 5 MG CAP PO SCH (20:52)
[2016-09-18] MEDS: TAMSULOSIN (SR) 0.4 MG CAP PO SCH (20:52)
[2016-09-18] MEDS: ACETAMINOPHEN 325 MG TAB PO PRN (20:53)
[2016-09-18] MEDS: morphine 2 MG INJ IV PRN (20:54)
[2016-09-18] MEDS ORDERED: MEROPENEM 1 GM/100 ML (PMX) 100 ML IVPB SCH (21:00)
[2016-09-19] VITALS (12 sets, daily range): BP systolic 108–150; BP diastolic 62–87; PULSE 90–102; RESP 15–21
[2016-09-19] MEDS: morphine 2 MG INJ IV PRN (01:32)
[2016-09-19] MEDS: PANTOPRAZOLE (EC) 40 MG TAB PO SCH (06:08)
[2016-09-19 08:55] LABS: ADD SCAN DIFF NO
[2016-09-19 08:59] LABS: BASOPHILS % 0.3 % (0.0-2.0); EOSINOPHILS # 0.6 10^3/ul (0.0-0.5); EOSINOPHILS % 6.1 % (0.0-7.0); HEMATOCRIT 32.8 % (42.0-52.0); HEMOGLOBIN 10.7 g/dl (14.0-18.0); LYMPHOCYTES # 0.8 10^3/ul (0.8-2.9); MEAN CORPUSCULAR HEMOGLOBIN 30.4 pg (29.0-33.0); MEAN CORPUSCULAR HGB CONC 32.6 g/dl (32.0-37.0); MEAN CORPUSCULAR VOLUME 93.2 fl (82.0-101.0); MONOCYTE # 0.9 10^3/ul (0.3-0.9); MONOCYTES % 9.1 % (0.0-11.0); NEUTROPHIL # 7.3 10^3/ul (1.6-7.5); NEUTROPHILS % 73.8 % (39.0-77.0); PLATELET COUNT 149 10^3/UL (140-415); RED BLOOD COUNT 3.52 10^6/ul (4.70-6.10); WHITE BLOOD COUNT 9.9 10^3/ul (4.8-10.8)
[2016-09-19] MEDS: DOCUSATE SODIUM 100 MG CAP PO SCH ×2 (09:18→20:49)
[2016-09-19] MEDS: FAMOTIDINE 20 MG TAB PO SCH (09:18)
[2016-09-19] MEDS: MULTIVITAMINS THERAPEUTIC TAB PO SCH (09:18)
[2016-09-19] MEDS: AMANTADINE 100 MG CAP PO SCH (09:18)
[2016-09-19] MEDS: MIRTAZAPINE 15 MG TAB PO SCH (09:18)
[2016-09-19] MEDS: METOPROLOL 25 MG TAB PO SCH ×2 (09:19→20:51)
[2016-09-19] MEDS: CITALOPRAM 20 MG TAB PO SCH ×2 (09:19→20:50)
[2016-09-19] MEDS: HEPARIN 5,000 UNIT/0.5 ML VIAL SC SCH ×2 (09:22→20:53)
[2016-09-19 09:23] LABS: CALCIUM 7.9 mg/dl (8.4-10.2); CREATININE 1.48 mg/dl (0.61-1.24); POTASSIUM 4.5 mmol/L (3.5-5.1)
[2016-09-19] MEDS ORDERED: LINEZOLID 600 MG/D5W (PMX) 300 ML IVPB SCH (12:00)
[2016-09-19] MEDS: SOD CHLORIDE 0.9% 1,000 ML IV SCH (13:25)
[2016-09-19] MEDS: DAPTOMYCIN 700 MG in SOD CHLORIDE 0.9% 100 ML IVPB SCH (13:28)
[2016-09-19] MEDS: ERTAPENEM SODIUM 1 GM in SOD CHLORIDE 0.9% 100 ML IVPB SCH (14:24)
--- NOTE | 2016-09-19 14:24 | CONS ---
Date/Time of Note Date/Time of Note DATE: 09/19/16 TIME: 14:23 Assessment/Plan Assessment/Plan Additional Assessment/Plan 1. Acute urinary retention. 2. Severe sepsis due to urinary tract infection. 3. Scrotal cellulitis. 4. Acute on chronic kidney injury. 5. Multiple sclerosis. 6. Benign prostatic hypertrophy. 7. Hypertension. 8. Depression. 9. Hyperkalemia BRUCE in the setting above, Obstructive Uropathy S/p SP Catheter Renal function continues to improve Non oliguric Cont to monitor electrolytes, UO, Volume status and renal function daily. Consultation Date/Type/Reason Admit Date/Time September 15, 2016 at 14:26 Type of Consultation: Renal Referring Provider: GISELA GREER MD Exam/Review of Systems Vital Signs Vitals Vital Signs Date Time Temp Pulse Resp B/P Pulse Ox O2 Delivery O2 Flow Rate FiO2 09/19/16 12:14 90 09/19/16 11:48 97.8 18 117/65 98 09/19/16 08:20 Nasal Cannula 3.0 Intake and Output 09/18/16 09/18/16 09/19/16 15:00 23:00 07:00 Intake Total 1540 ml 1060 ml Output Total 1900 ml 1350 ml Balance -360 ml -290 ml Exam Constitutional: No distress ENMT: mucosa pink and moist Respiratory: No diminished breath sounds, No labored breathing Cardiovascular: edema Gastrointestinal: non-tender, soft Neurological: No lethargic Results Result Diagram: 09/19/16 0748 09/19/16 0745 Results 24 hrs Laboratory Tests Test 09/19/16 07:45 09/19/16 07:48 Sodium Level 139 Potassium Level 4.5 Chloride Level 109 Carbon Dioxide Level 23 Anion Gap 12 Blood Urea Nitrogen 31 H Creatinine 1.48 H Glucose Level 87 Calcium Level 7.9 L White Blood Count 9.9 Red Blood Count 3.52 L Hemoglobin 10.7 L Hematocrit 32.8 L Mean Corpuscular Volume 93.2 Mean Corpuscular Hemoglobin 30.4 Mean Corpuscular Hemoglobin Concent 32.6 Red Cell Distribution Width 16.0 H Platelet Count 149 Mean Platelet Volume 9.0 Neutrophils % 73.8 Lymphocytes % 8.0 L Monocytes % 9.1 Eosinophils % 6.1 Basophils % 0.3 Nucleated Red Blood Cells % 0.0 Neutrophils # 7.3 Lymphocytes # 0.8 Monocytes # 0.9 Eosinophils # 0.6 H Basophils # 0.0 Nucleated Red Blood Cells # 0.0 Medications Medications Current Medications Amantadine HCl (Symmetrel) 100 mg QAM PO Last administered on 09/19/16 09:18; Admin Dose 100 MG; Start 09/16/16 at 09:00 Citalopram Hydrobromide (Celexa) 10 mg BID PO Last administered on 09/19/16 09 :19; Admin Dose 10 MG; Start 09/15/16 at 21:00 Famotidine (Pepcid) 20 mg DAILY PO Last administered on 09/19/16 09:18; Admin Dose 20 MG; Start 09/16/16 at 09:00 Metoprolol Tartrate (Lopressor) 25 mg BID PO Last administered on 09/19/16 09: 19; Admin Dose 25 MG; Start 09/15/16 at 21:00 Mirtazapine (Remeron) 15 mg DAILY PO Last administered on 09/19/16 09:18; Admin Dose 15 MG; Start 09/16/16 at 09:00 Multivitamins Therapeutic (Theragran) 1 tab DAILY PO Last administered on 09:18; Admin Dose 1 TAB; Start 09/16/16 at 09:00 Pantoprazole (Protonix Tab) 40 mg DAILY@06 PO Last administered on 09/19/16 06 :08; Admin Dose 40 MG; Start 09/16/16 at 06:00 Tamsulosin HCl (Flomax) 0.8 mg HS PO Last administered on 09/18/16 20:52; Admin Dose 0.8 MG; Start 09/15/16 at 21:00 Terazosin HCl 10 mg 10 mg HS PO Last administered on 09/18/16 20:52; Admin Dose 10 MG; Start 09/15/16 at 21:00 Sodium Chloride (NS) 1,000 ml @ 80 mls/hr [id number] IV Last administered on 09/19 13:25; Admin Dose 80 MLS/HR; Start 09/15/16 at 16:42 Ondansetron HCl (Zofran Inj) 4 mg Q6H PRN IV NAUSEA AND/OR VOMITING; Start at 17:00 Acetaminophen (Tylenol Tab) 650 mg Q6H PRN PO PAIN LEVEL 1-3 OR FEVER Last administered on 09/18/16 20:53; Admin Dose 650 MG; Start 09/15/16 at 17:00 Acetaminophen (Tylenol Supp) 650 mg Q6H PRN [place] PAIN LEVEL 1-3 OR FEVER; Start 09/15/16 at 17:00 Acetaminophen/ Hydrocodone Bitart ([place] (5/325)) 1 tab Q6H PRN PO MODERATE PAIN LEVEL 4-6; Start 09/15/16 at 17:00 Acetaminophen/ Hydrocodone Bitart ([place] (5/325)) 2 tab Q6H PRN PO SEVERE PAIN LEVEL 7-10; Start 09/15/16 at 17:00 Morphine Sulfate (morphine) 2 mg Q4H PRN IV SEVERE PAIN LEVEL 7-10 Last administered on 09/19/16 01:32; Admin Dose 2 MG; Start 09/15/16 at 17:00 Docusate Sodium (Colace) 100 mg Q12H PRN PO CONSTIPATION; Start 09/15/16 at 17: 00 Magnesium Hydroxide (Milk Of Mag) 30 ml DAILY PRN PO CONSTIPATION; Start at 17:00 Bisacodyl (Dulcolax Supp) 10 mg DAILY PRN [place] CONSTIPATION; Start 09/15/16 at 17 :00 Heparin Sodium (Porcine) (Heparin (5000 Units/0.5 ml)) 5,000 unit Q12 SC Last administered on 09/19/16 09:22; Admin Dose 5,000 UNIT; Start 09/15/16 at 21:00 Docusate Sodium (Colace) 100 mg BID PO Last administered on 09/19/16 09:18; Admin Dose 100 MG; Start 09/18/16 at 21:00 Bisacodyl (Dulcolax) 5 mg DAILY PRN PO CONSTIPATION; Start 09/18/16 at 18:30 Lactulose 20 gm 20 gm DAILY PRN PO CONSTIPATION; Start 09/18/16 at 18:30 Ertapenem 1 gm/ Sodium Chloride 100 ml @ 200 mls/hr Q24H IVPB ; Start 09/19/16 at 12:00 Daptomycin/Sodium Chloride (Cubicin/NS) 100 ml @ 200 mls/hr Q24H IVPB Last administered on 09/19/16 13:28; Admin Dose 200 MLS/HR; Start 09/19/16 at 12:00 SAEED SUGGS MD September 19, 2016 14:24
[2016-09-19] MEDS ORDERED: LIDOCAINE 1% (MPF) 5 ML VIAL SC ONE (14:30)
--- NOTE | 2016-09-19 14:30 | CONS ---
Date/Time of Note Date/Time of Note DATE: 09/19/16 TIME: 14:27 Assessment/Plan Assessment/Plan Chief Complaint/Hosp Course SUBJECTIVE: No acute changes. The patient is sleeping. Looks comfortable, afebrile MICROBIOLOGY: Blood culture and urine culture growing multiple bacteria==> VRE/ BORIS/GNR ESBL ANTIMICROBIALS: 1. Vancomycin. 2. Merrem. INDWELLINGS: Suprapubic catheter. PHYSICAL EXAMINATION: GENERAL: Obese, chronically ill-appearing, elderly man who is in no distress. HEENT: Head atraumatic, normocephalic. Sclerae anicteric. Buccal mucosa dry. NECK: Supple, trachea midline. CHEST: Rise symmetrical. Breath sounds diminished to bases. HEART: S1, S2. ABDOMEN: Soft, bowel sounds present. EXTREMITIES: Without cyanosis. ASSESSMENT: 1. Severe sepsis with acute encephalopathy, fevers, tachycardia, and lactic acidosis. 2. Bacteremia, likely secondary to urinary tract infection. 3. Multidrug resistant urinary tract infection. 4. Significant urinary retention, status post suprapubic catheter placement. 5. Scrotal edema/cellulitis. 6. Advanced multiple sclerosis. 7. Benign prostatic hypertrophy. PLAN: The patient remains stable, will change abx to Daptomycin and Invanz, consider PICC DW staff Problems: Consultation Date/Type/Reason Admit Date/Time September 15, 2016 at 14:26 Type of Consultation: ID Referring Provider: GISELA GREER MD Exam/Review of Systems Vital Signs Vitals Vital Signs Date Time Temp Pulse Resp B/P Pulse Ox O2 Delivery O2 Flow Rate FiO2 09/19/16 12:14 90 09/19/16 11:48 97.8 18 117/65 98 09/19/16 08:20 Nasal Cannula 3.0 Intake and Output 09/18/16 09/18/16 09/19/16 15:00 23:00 07:00 Intake Total 1540 ml 1060 ml Output Total 1900 ml 1350 ml Balance -360 ml -290 ml Results Result Diagram: 09/19/16 0748 09/19/16 0745 Results 24 hrs Laboratory Tests Test 09/19/16 07:45 09/19/16 07:48 Sodium Level 139 Potassium Level 4.5 Chloride Level 109 Carbon Dioxide Level 23 Anion Gap 12 Blood Urea Nitrogen 31 H Creatinine 1.48 H Glucose Level 87 Calcium Level 7.9 L White Blood Count 9.9 Red Blood Count 3.52 L Hemoglobin 10.7 L Hematocrit 32.8 L Mean Corpuscular Volume 93.2 Mean Corpuscular Hemoglobin 30.4 Mean Corpuscular Hemoglobin Concent 32.6 Red Cell Distribution Width 16.0 H Platelet Count 149 Mean Platelet Volume 9.0 Neutrophils % 73.8 Lymphocytes % 8.0 L Monocytes % 9.1 Eosinophils % 6.1 Basophils % 0.3 Nucleated Red Blood Cells % 0.0 Neutrophils # 7.3 Lymphocytes # 0.8 Monocytes # 0.9 Eosinophils # 0.6 H Basophils # 0.0 Nucleated Red Blood Cells # 0.0 Medications Medications Current Medications Amantadine HCl (Symmetrel) 100 mg QAM PO Last administered on 09/19/16 09:18; Admin Dose 100 MG; Start 09/16/16 at 09:00 Citalopram Hydrobromide (Celexa) 10 mg BID PO Last administered on 09/19/16 09 :19; Admin Dose 10 MG; Start 09/15/16 at 21:00 Famotidine (Pepcid) 20 mg DAILY PO Last administered on 09/19/16 09:18; Admin Dose 20 MG; Start 09/16/16 at 09:00 Metoprolol Tartrate (Lopressor) 25 mg BID PO Last administered on 09/19/16 09: 19; Admin Dose 25 MG; Start 09/15/16 at 21:00 Mirtazapine (Remeron) 15 mg DAILY PO Last administered on 09/19/16 09:18; Admin Dose 15 MG; Start 09/16/16 at 09:00 Multivitamins Therapeutic (Theragran) 1 tab DAILY PO Last administered on 09:18; Admin Dose 1 TAB; Start 09/16/16 at 09:00 Pantoprazole (Protonix Tab) 40 mg DAILY@06 PO Last administered on 09/19/16 06 :08; Admin Dose 40 MG; Start 09/16/16 at 06:00 Tamsulosin HCl (Flomax) 0.8 mg HS PO Last administered on 09/18/16 20:52; Admin Dose 0.8 MG; Start 09/15/16 at 21:00 Terazosin HCl 10 mg 10 mg HS PO Last administered on 09/18/16 20:52; Admin Dose 10 MG; Start 09/15/16 at 21:00 Sodium Chloride (NS) 1,000 ml @ 80 mls/hr [id number] IV Last administered on 09/19 13:25; Admin Dose 80 MLS/HR; Start 09/15/16 at 16:42 Ondansetron HCl (Zofran Inj) 4 mg Q6H PRN IV NAUSEA AND/OR VOMITING; Start at 17:00 Acetaminophen (Tylenol Tab) 650 mg Q6H PRN PO PAIN LEVEL 1-3 OR FEVER Last administered on 09/18/16 20:53; Admin Dose 650 MG; Start 09/15/16 at 17:00 Acetaminophen (Tylenol Supp) 650 mg Q6H PRN [place] PAIN LEVEL 1-3 OR FEVER; Start 09/15/16 at 17:00 Acetaminophen/ Hydrocodone Bitart ([place] (5/325)) 1 tab Q6H PRN PO MODERATE PAIN LEVEL 4-6; Start 09/15/16 at 17:00 Acetaminophen/ Hydrocodone Bitart ([place] (5/325)) 2 tab Q6H PRN PO SEVERE PAIN LEVEL 7-10; Start 09/15/16 at 17:00 Morphine Sulfate (morphine) 2 mg Q4H PRN IV SEVERE PAIN LEVEL 7-10 Last administered on 09/19/16 01:32; Admin Dose 2 MG; Start 09/15/16 at 17:00 Docusate Sodium (Colace) 100 mg Q12H PRN PO CONSTIPATION; Start 09/15/16 at 17: 00 Magnesium Hydroxide (Milk Of Mag) 30 ml DAILY PRN PO CONSTIPATION; Start at 17:00 Bisacodyl (Dulcolax Supp) 10 mg DAILY PRN [place] CONSTIPATION; Start 09/15/16 at 17 :00 Heparin Sodium (Porcine) (Heparin (5000 Units/0.5 ml)) 5,000 unit Q12 SC Last administered on 09/19/16 09:22; Admin Dose 5,000 UNIT; Start 09/15/16 at 21:00 Docusate Sodium (Colace) 100 mg BID PO Last administered on 09/19/16 09:18; Admin Dose 100 MG; Start 09/18/16 at 21:00 Bisacodyl (Dulcolax) 5 mg DAILY PRN PO CONSTIPATION; Start 09/18/16 at 18:30 Lactulose 20 gm 20 gm DAILY PRN PO CONSTIPATION; Start 09/18/16 at 18:30 Ertapenem 1 gm/ Sodium Chloride 100 ml @ 200 mls/hr Q24H IVPB Last administered on 09/19/16 14:24; Admin Dose 200 MLS/HR; Start 09/19/16 at 12:00 Daptomycin/Sodium Chloride (Cubicin/NS) 100 ml @ 200 mls/hr Q24H IVPB Last administered on 09/19/16 13:28; Admin Dose 200 MLS/HR; Start 09/19/16 at 12:00 KAVITA ANDERSON NP September 19, 2016 14:29
--- NOTE | 2016-09-19 16:55 | PN ---
Date/Time of Note Date/Time of Note DATE: 09/19/16 TIME: 16:53 Assessment/Plan VTE Prophylaxis VTE Prophylaxis Intervention: SCD's Lines/Catheters IV Catheter Type (from [facility]): Peripheral IV Urinary Cath still in place: Yes (SUPRA PUBIC CATHETER.) Reason Cath still needed: urinary retention Assessment/Plan Chief Complaint/Hosp Course Patient stated that she feels better, remains afebrile, good urine urine output via suprapubic catheter Assessment and plan: - Severe sepsis with polymicrobial bacteremia due to urinary tract infection. Dr. Godfrey is following patient in ID consultation. Continue broad-spectrum antibiotics. Follow up on cultures. - Urinary tract infection. - Urinary retention, status post supra pubic catheter insertion. - Scrotal cellulitis. - Acute on chronic kidney injury. Dr. Walter is following in nephrology consultation. - Multiple sclerosis. - Benign prostatic hypertrophy. Continue Flomax. - Hypertension. - Depression. - Obesity Further recommendations based on clinical course. Plan of care discussed with Dr. Samson. Problems: Exam/Review of Systems Vital Signs Vitals Vital Signs Date Time Temp Pulse Resp B/P Pulse Ox O2 Delivery O2 Flow Rate FiO2 09/19/16 16:19 99 09/19/16 16:09 97.5 18 150/87 97 09/19/16 15:06 2.0 09/19/16 08:20 Nasal Cannula Intake and Output 09/18/16 09/18/16 09/19/16 15:00 23:00 07:00 Intake Total 1540 ml 1060 ml Output Total 1900 ml 1350 ml Balance -360 ml -290 ml Exam Constitutional: alert, obese Head: normocephalic Neck: supple Respiratory: clear to auscultation Cardiovascular: regular rate and rhythm Gastrointestinal: non-tender, soft Genitourinary - Male: other (Suprapubic catheter) Extremities: normal pulses Skin: nl turgor Results Result Diagram: 09/19/16 0748 09/19/16 0745 Results 24 hrs Laboratory Tests Test 09/19/16 07:45 09/19/16 07:48 Sodium Level 139 Potassium Level 4.5 Chloride Level 109 Carbon Dioxide Level 23 Anion Gap 12 Blood Urea Nitrogen 31 H Creatinine 1.48 H Glucose Level 87 Calcium Level 7.9 L White Blood Count 9.9 Red Blood Count 3.52 L Hemoglobin 10.7 L Hematocrit 32.8 L Mean Corpuscular Volume 93.2 Mean Corpuscular Hemoglobin 30.4 Mean Corpuscular Hemoglobin Concent 32.6 Red Cell Distribution Width 16.0 H Platelet Count 149 Mean Platelet Volume 9.0 Neutrophils % 73.8 Lymphocytes % 8.0 L Monocytes % 9.1 Eosinophils % 6.1 Basophils % 0.3 Nucleated Red Blood Cells % 0.0 Neutrophils # 7.3 Lymphocytes # 0.8 Monocytes # 0.9 Eosinophils # 0.6 H Basophils # 0.0 Nucleated Red Blood Cells # 0.0 Medications Medications Current Medications Amantadine HCl (Symmetrel) 100 mg QAM PO Last administered on 09/19/16 09:18; Admin Dose 100 MG; Start 09/16/16 at 09:00 Citalopram Hydrobromide (Celexa) 10 mg BID PO Last administered on 09/19/16 09 :19; Admin Dose 10 MG; Start 09/15/16 at 21:00 Famotidine (Pepcid) 20 mg DAILY PO Last administered on 09/19/16 09:18; Admin Dose 20 MG; Start 09/16/16 at 09:00 Metoprolol Tartrate (Lopressor) 25 mg BID PO Last administered on 09/19/16 09: 19; Admin Dose 25 MG; Start 09/15/16 at 21:00 Mirtazapine (Remeron) 15 mg DAILY PO Last administered on 09/19/16 09:18; Admin Dose 15 MG; Start 09/16/16 at 09:00 Multivitamins Therapeutic (Theragran) 1 tab DAILY PO Last administered on 09:18; Admin Dose 1 TAB; Start 09/16/16 at 09:00 Pantoprazole (Protonix Tab) 40 mg DAILY@06 PO Last administered on 09/19/16 06 :08; Admin Dose 40 MG; Start 09/16/16 at 06:00 Tamsulosin HCl (Flomax) 0.8 mg HS PO Last administered on 09/18/16 20:52; Admin Dose 0.8 MG; Start 09/15/16 at 21:00 Terazosin HCl 10 mg 10 mg HS PO Last administered on 09/18/16 20:52; Admin Dose 10 MG; Start 09/15/16 at 21:00 Sodium Chloride (NS) 1,000 ml @ 80 mls/hr [id number] IV Last administered on 09/19 13:25; Admin Dose 80 MLS/HR; Start 09/15/16 at 16:42 Ondansetron HCl (Zofran Inj) 4 mg Q6H PRN IV NAUSEA AND/OR VOMITING; Start at 17:00 Acetaminophen (Tylenol Tab) 650 mg Q6H PRN PO PAIN LEVEL 1-3 OR FEVER Last administered on 09/18/16 20:53; Admin Dose 650 MG; Start 09/15/16 at 17:00 Acetaminophen (Tylenol Supp) 650 mg Q6H PRN [place] PAIN LEVEL 1-3 OR FEVER; Start 09/15/16 at 17:00 Acetaminophen/ Hydrocodone Bitart ([place] (5/325)) 1 tab Q6H PRN PO MODERATE PAIN LEVEL 4-6; Start 09/15/16 at 17:00 Acetaminophen/ Hydrocodone Bitart ([place] (5/325)) 2 tab Q6H PRN PO SEVERE PAIN LEVEL 7-10; Start 09/15/16 at 17:00 Morphine Sulfate (morphine) 2 mg Q4H PRN IV SEVERE PAIN LEVEL 7-10 Last administered on 09/19/16 01:32; Admin Dose 2 MG; Start 09/15/16 at 17:00 Docusate Sodium (Colace) 100 mg Q12H PRN PO CONSTIPATION; Start 09/15/16 at 17: 00 Magnesium Hydroxide (Milk Of Mag) 30 ml DAILY PRN PO CONSTIPATION; Start at 17:00 Bisacodyl (Dulcolax Supp) 10 mg DAILY PRN [place] CONSTIPATION; Start 09/15/16 at 17 :00 Heparin Sodium (Porcine) (Heparin (5000 Units/0.5 ml)) 5,000 unit Q12 SC Last administered on 09/19/16 09:22; Admin Dose 5,000 UNIT; Start 09/15/16 at 21:00 Docusate Sodium (Colace) 100 mg BID PO Last administered on 09/19/16 09:18; Admin Dose 100 MG; Start 09/18/16 at 21:00 Bisacodyl (Dulcolax) 5 mg DAILY PRN PO CONSTIPATION; Start 09/18/16 at 18:30 Lactulose 20 gm 20 gm DAILY PRN PO CONSTIPATION; Start 09/18/16 at 18:30 Ertapenem 1 gm/ Sodium Chloride 100 ml @ 200 mls/hr Q24H IVPB Last administered on 09/19/16 14:24; Admin Dose 200 MLS/HR; Start 09/19/16 at 12:00 Daptomycin/Sodium Chloride (Cubicin/NS) 100 ml @ 200 mls/hr Q24H IVPB Last administered on 09/19/16 13:28; Admin Dose 200 MLS/HR; Start 09/19/16 at 12:00 CLARIBEL HERNANDEZ September 19, 2016 16:55
[2016-09-19] MEDS: TAMSULOSIN (SR) 0.4 MG CAP PO SCH (20:50)
[2016-09-19] MEDS: TERAZOSIN 5 MG CAP PO SCH (20:51)
[2016-09-20] VITALS (12 sets, daily range): BP systolic 106–139; BP diastolic 59–77; PULSE 93–104; RESP 18–19
[2016-09-20] MEDS: SOD CHLORIDE 0.9% 1,000 ML IV SCH ×3 (03:05→21:40)
[2016-09-20] MEDS: PANTOPRAZOLE (EC) 40 MG TAB PO SCH (05:50)
[2016-09-20 08:18] LABS: ADD SCAN DIFF NO
[2016-09-20 08:19] LABS: BASOPHILS % 0.4 % (0.0-2.0); EOSINOPHILS # 0.5 10^3/ul (0.0-0.5); EOSINOPHILS % 4.6 % (0.0-7.0); HEMATOCRIT 32.2 % (42.0-52.0); HEMOGLOBIN 10.7 g/dl (14.0-18.0); LYMPHOCYTES # 1.1 10^3/ul (0.8-2.9); LYMPHOCYTES % 9.7 % (15.0-51.0); MEAN CORPUSCULAR HEMOGLOBIN 30.7 pg (29.0-33.0); MEAN CORPUSCULAR HGB CONC 33.2 g/dl (32.0-37.0); MEAN CORPUSCULAR VOLUME 92.5 fl (82.0-101.0); MEAN PLATELET VOLUME 8.9 fl (7.4-10.4); MONOCYTE # 0.8 10^3/ul (0.3-0.9); MONOCYTES % 6.9 % (0.0-11.0); NEUTROPHILS % 73.5 % (39.0-77.0); PLATELET COUNT 191 10^3/UL (140-415); RED BLOOD COUNT 3.48 10^6/ul (4.70-6.10); RED CELL DISTRIBUTION WIDTH 15.7 % (11.5-14.5); WHITE BLOOD COUNT 10.9 10^3/ul (4.8-10.8)
[2016-09-20] MEDS: MULTIVITAMINS THERAPEUTIC TAB PO SCH (08:31)
[2016-09-20] MEDS: FAMOTIDINE 20 MG TAB PO SCH (08:31)
[2016-09-20] MEDS: AMANTADINE 100 MG CAP PO SCH (08:31)
[2016-09-20] MEDS: MIRTAZAPINE 15 MG TAB PO SCH (08:31)
[2016-09-20] MEDS: DOCUSATE SODIUM 100 MG CAP PO SCH ×2 (08:31→20:26)
[2016-09-20] MEDS: METOPROLOL 25 MG TAB PO SCH ×2 (08:31→20:29)
[2016-09-20] MEDS: CITALOPRAM 20 MG TAB PO SCH ×2 (08:32→20:28)
[2016-09-20] MEDS: HEPARIN 5,000 UNIT/0.5 ML VIAL SC SCH ×2 (08:33→20:30)
[2016-09-20 08:43] LABS: CREATININE 1.44 mg/dl (0.61-1.24); POTASSIUM 3.9 mmol/L (3.5-5.1)
[2016-09-20] MEDS: DAPTOMYCIN 700 MG in SOD CHLORIDE 0.9% 100 ML IVPB SCH (12:23)
[2016-09-20] MEDS: ERTAPENEM SODIUM 1 GM in SOD CHLORIDE 0.9% 100 ML IVPB SCH (13:18)
--- NOTE | 2016-09-20 13:22 | PN ---
Date/Time of Note Date/Time of Note DATE: 09/20/16 TIME: 13:21 Assessment/Plan VTE Prophylaxis VTE Prophylaxis Intervention: other Lines/Catheters [facility] Type (from [facility] Peripheral IV Urinary Cath still in place: Yes (SUPRA PUBIC CATHETER.) Reason Cath still needed: skin wounds contaminated by urine Assessment/Plan Chief Complaint/Hosp Course - Severe sepsis with polymicrobial bacteremia due to urinary tract infection. Dr. Godfrey is following patient in ID consultation. Continue broad-spectrum antibiotics. Follow up on cultures. - Urinary tract infection. - Urinary retention, status post supra pubic catheter insertion. - Scrotal cellulitis. - Acute on chronic kidney injury. Dr. Walter is following in nephrology consultation. - Multiple sclerosis. - Benign prostatic hypertrophy. Continue Flomax. - Hypertension. - Depression. - Obesity Problems: Subjective 24 Hr Interval Summary Free Text/Dictation Patient states is feeling better Exam/Review of Systems Vital Signs Vitals Vital Signs Date Time Temp Pulse Resp B/P Pulse Ox O2 Delivery O2 Flow Rate FiO2 09/20/16 12:19 97 09/20/16 11:21 98.3 18 106/67 97 09/20/16 08:10 2.0 09/20/16 08:00 Nasal Cannula Intake and Output 09/19/16 09/19/16 09/20/16 15:00 23:00 07:00 Intake Total 100 ml 100 ml 1150 ml Output Total 1600 ml 1800 ml Balance 100 ml -1500 ml -650 ml Exam Constitutional: well developed Head: atraumatic, normocephalic Neck: supple Respiratory: diminished breath sounds Cardiovascular: regular rate and rhythm Gastrointestinal: non-tender, soft Extremities: normal pulses Results Result Diagram: 09/20/16 0719 09/20/16 0719 Results 24 hrs Laboratory Tests Test 09/20/16 07:19 White Blood Count 10.9 H Red Blood Count 3.48 L Hemoglobin 10.7 L Hematocrit 32.2 L Mean Corpuscular Volume 92.5 Mean Corpuscular Hemoglobin 30.7 Mean Corpuscular Hemoglobin Concent 33.2 Red Cell Distribution Width 15.7 H Platelet Count 191 # Mean Platelet Volume 8.9 Neutrophils % 73.5 Lymphocytes % 9.7 L Monocytes % 6.9 Eosinophils % 4.6 Basophils % 0.4 Nucleated Red Blood Cells % 0.0 Neutrophils # 8.0 H Lymphocytes # 1.1 Monocytes # 0.8 Eosinophils # 0.5 Basophils # 0.0 Nucleated Red Blood Cells # 0.0 Sodium Level 138 Potassium Level 3.9 Chloride Level 107 Carbon Dioxide Level 25 Anion Gap 10 Blood Urea Nitrogen 28 H Creatinine 1.44 H Glucose Level 89 Calcium Level 8.0 L Creatine Kinase 111 Medications Medications Current Medications Amantadine HCl (Symmetrel) 100 mg QAM PO Last administered on 09/20/16 08:31; Admin Dose 100 MG; Start 09/16/16 at 09:00 Citalopram Hydrobromide (Celexa) 10 mg BID PO Last administered on 09/20/16 08 :32; Admin Dose 10 MG; Start 09/15/16 at 21:00 Famotidine (Pepcid) 20 mg DAILY PO Last administered on 09/20/16 08:31; Admin Dose 20 MG; Start 09/16/16 at 09:00 Metoprolol Tartrate (Lopressor) 25 mg BID PO Last administered on 09/20/16 08: 31; Admin Dose 25 MG; Start 09/15/16 at 21:00 Mirtazapine (Remeron) 15 mg DAILY PO Last administered on 09/20/16 08:31; Admin Dose 15 MG; Start 09/16/16 at 09:00 Multivitamins Therapeutic (Theragran) 1 tab DAILY PO Last administered on 08:31; Admin Dose 1 TAB; Start 09/16/16 at 09:00 Pantoprazole (Protonix Tab) 40 mg DAILY@06 PO Last administered on 09/20/16 05 :50; Admin Dose 40 MG; Start 09/16/16 at 06:00 Tamsulosin HCl (Flomax) 0.8 mg HS PO Last administered on 09/19/16 20:50; Admin Dose 0.8 MG; Start 09/15/16 at 21:00 Terazosin HCl 10 mg 10 mg HS PO Last administered on 09/19/16 20:51; Admin Dose 10 MG; Start 09/15/16 at 21:00 Sodium Chloride (NS) 1,000 ml @ 80 mls/hr [id number] IV Last administered on 09/20 03:05; Admin Dose 80 MLS/HR; Start 09/15/16 at 16:42 Ondansetron HCl (Zofran Inj) 4 mg Q6H PRN IV NAUSEA AND/OR VOMITING; Start at 17:00 Acetaminophen (Tylenol Tab) 650 mg Q6H PRN [place] PAIN LEVEL 1-3 OR FEVER Last administered on 09/18/16 20:53; Admin Dose 650 MG; Start 09/15/16 at 17:00 Acetaminophen (Tylenol Supp) 650 mg Q6H PRN [place] PAIN LEVEL 1-3 OR FEVER; Start 09/15/16 at 17:00 Acetaminophen/ Hydrocodone Bitart ([place] (5/325)) 1 tab Q6H PRN PO MODERATE PAIN LEVEL 4-6; Start 09/15/16 at 17:00 Acetaminophen/ Hydrocodone Bitart ([place] (5/325)) 2 tab Q6H PRN PO SEVERE PAIN LEVEL 7-10; Start 09/15/16 at 17:00 Morphine Sulfate (morphine) 2 mg Q4H PRN IV SEVERE PAIN LEVEL 7-10 Last administered on 09/19/16 01:32; Admin Dose 2 MG; Start 09/15/16 at 17:00 Docusate Sodium (Colace) 100 mg Q12H PRN PO CONSTIPATION; Start 09/15/16 at 17: 00 Magnesium Hydroxide (Milk Of Mag) 30 ml DAILY PRN PO CONSTIPATION; Start at 17:00 Bisacodyl (Dulcolax Supp) 10 mg DAILY PRN [place] CONSTIPATION; Start 09/15/16 at 17 :00 Heparin Sodium (Porcine) (Heparin (5000 Units/0.5 ml)) 5,000 unit Q12 SC Last administered on 09/20/16 08:33; Admin Dose 5,000 UNIT; Start 09/15/16 at 21:00 Docusate Sodium (Colace) 100 mg BID PO Last administered on 09/20/16 08:31; Admin Dose 100 MG; Start 09/18/16 at 21:00 Bisacodyl (Dulcolax) 5 mg DAILY PRN PO CONSTIPATION; Start 09/18/16 at 18:30 Lactulose 20 gm 20 gm DAILY PRN PO CONSTIPATION; Start 09/18/16 at 18:30 Ertapenem 1 gm/ Sodium Chloride 100 ml @ 200 mls/hr Q24H IVPB Last administered on 09/20/16 13:18; Admin Dose 200 MLS/HR; Start 09/19/16 at 12:00 Daptomycin/Sodium Chloride (Cubicin/NS) 100 ml @ 200 mls/hr Q24H IVPB Last administered on 09/20/16t 12:23; Admin Dose 200 MLS/HR; Start 09/19/16 at 12:00 RAJ FERRER September 20, 2016 13:22
--- NOTE | 2016-09-20 20:04 | CONS ---
Date/Time of Note Date/Time of Note DATE: 09/20/16 TIME: 19:56 Assessment/Plan Assessment/Plan Chief Complaint/Hosp Course ID PROGRESS NOTE ABX: Daptomycin + Invanz s/p Vanco Merrem 24H INTERVAL SUMMARY * A/A/O -- very pleasant, agrees to PICC line after risks/benefits reviewed * Feels better, no fevers, O2 via NC without dyspnea PHYSICAL EXAMINATION: GENERAL: Large M A/A/O, no fevers, VSS, NAD HEENT: Unremarkable -- NECK: Supple, trachea midline. CHEST: Rise symmetrical without dyspnea ABDOMEN: Soft : Deferred -- see photos EXTREMITIES: Moves all extremities, Without cyanosis. ID ASSESSMENT: 66 yo M admit with: 1. Severe sepsis with acute encephalopathy, fevers, tachycardia, and lactic acidosis. 2. Bacteremia, likely secondary to urinary tract infection. Organism 1 ESCHERICHIA COLI (ESBL) Organism 2 KLEBSIELLA PNEUMONIAE Organism 3 STAPHYLOCOCCUS AUREUS 3. Multidrug resistant urinary tract infection. * uRINE CULTURE Final Organism 1 STAPHYLOCOCCUS AUREUS COLONY COUNT 50,000 - 60,000 CFU/ml Organism 2 ESCHERICHIA COLI (ESBL) COLONY COUNT 50,000 - 60,000 CFU/ml . MULTI DRUG RESISTANT ORGANISM 4. Significant urinary retention, status post suprapubic catheter placement. 5. Scrotal edema/cellulitis * WOUND CULTURE Final Organism 1 ESCHERICHIA COLI (ESBL) QUANTITY 3+ . MULTI DRUG RESISTANT ORGANISM Organism 2 VANCO RESISTANT ENTEROCOCCUS QUANTITY 3+ . MULTI DRUG RESISTANT ORGANISM Organism 3 PROTEUS MIRABILIS 6. Advanced multiple sclerosis. 7. Benign prostatic hypertrophy. (-) MRSA Nares screen INVASIVES: PIV ALLERGY: PCN/SULFA CURRENT ABX: Daptomycin + Invanz s/p Vanco Merrem ID PLAN: * Continue ABX => Will need at minimum 14 days total to cover septicemia, possibly longer until scrotal cellulitis/wound resolves. . Problems: Consultation Date/Type/Reason Admit Date/Time September 15, 2016 at 14:26 Initial Consult Date Type of Consultation: ID Referring Provider: GISELA GREER MD Exam/Review of Systems Vital Signs Vitals Vital Signs Date Time Temp Pulse Resp B/P Pulse Ox O2 Delivery O2 Flow Rate FiO2 09/20/16 19:45 Nasal Cannula 3.0 09/20/16 16:17 104 09/20/16 15:32 98.1 18 137/77 98 Intake and Output 09/19/16 09/19/16 09/20/16 15:00 23:00 07:00 Intake Total 100 ml 100 ml 1150 ml Output Total 1600 ml 1800 ml Balance 100 ml -1500 ml -650 ml Results Result Diagram: 09/20/1619 09/20/16 0719 Results 24 hrs Laboratory Tests Test 09/20/16 07:19 White Blood Count 10.9 H Red Blood Count 3.48 L Hemoglobin 10.7 L Hematocrit 32.2 L Mean Corpuscular Volume 92.5 Mean Corpuscular Hemoglobin 30.7 Mean Corpuscular Hemoglobin Concent 33.2 Red Cell Distribution Width 15.7 H Platelet Count 191 # Mean Platelet Volume 8.9 Neutrophils % 73.5 Lymphocytes % 9.7 L Monocytes % 6.9 Eosinophils % 4.6 Basophils % 0.4 Nucleated Red Blood Cells % 0.0 Neutrophils # 8.0 H Lymphocytes # 1.1 Monocytes # 0.8 Eosinophils # 0.5 Basophils # 0.0 Nucleated Red Blood Cells # 0.0 Sodium Level 138 Potassium Level 3.9 Chloride Level 107 Carbon Dioxide Level 25 Anion Gap 10 Blood Urea Nitrogen 28 H Creatinine 1.44 H Glucose Level 89 Calcium Level 8.0 L Creatine Kinase 111 Medications Medications Current Medications Amantadine HCl (Symmetrel) 100 mg QAM PO Last administered on 09/20/16 08:31; Admin Dose 100 MG; Start 09/16/16 at 09:00 Citalopram Hydrobromide (Celexa) 10 mg BID PO Last administered on 09/20/16 08 :32; Admin Dose 10 MG; Start 09/15/16 at 21:00 Famotidine (Pepcid) 20 mg DAILY PO Last administered on 09/20/16 08:31; Admin Dose 20 MG; Start 09/16/16 at 09:00 Metoprolol Tartrate (Lopressor) 25 mg BID PO Last administered on 09/20/16 08: 31; Admin Dose 25 MG; Start 09/15/16 at 21:00 Mirtazapine (Remeron) 15 mg DAILY PO Last administered on 09/20/16 08:31; Admin Dose 15 MG; Start 09/16/16 at 09:00 Multivitamins Therapeutic (Theragran) 1 tab DAILY PO Last administered on 08:31; Admin Dose 1 TAB; Start 09/16/16 at 09:00 Pantoprazole (Protonix Tab) 40 mg DAILY@06 PO Last administered on 09/20/16 05 :50; Admin Dose 40 MG; Start 09/16/16 at 06:00 Tamsulosin HCl (Flomax) 0.8 mg HS PO Last administered on 09/19/16 20:50; Admin Dose 0.8 MG; Start 09/15/16 at 21:00 Terazosin HCl 10 mg 10 mg HS PO Last administered on 09/19/16 20:51; Admin Dose 10 MG; Start 09/15/16 at 21:00 Sodium Chloride (NS) 1,000 ml @ 80 mls/hr [id number] IV Last administered on 09/20 03:05; Admin Dose 80 MLS/HR; Start 09/15/16 at 16:42 Ondansetron HCl (Zofran Inj) 4 mg Q6H PRN IV NAUSEA AND/OR VOMITING; Start at 17:00 Acetaminophen (Tylenol Tab) 650 mg Q6H PRN PO PAIN LEVEL 1-3 OR FEVER Last administered on 09/18/16 20:53; Admin Dose 650 MG; Start 09/15/16 at 17:00 Acetaminophen (Tylenol Supp) 650 mg Q6H PRN [place] PAIN LEVEL 1-3 OR FEVER; Start 09/15/16 at 17:00 Acetaminophen/ Hydrocodone Bitart ([place] (5/325)) 1 tab Q6H PRN PO MODERATE PAIN LEVEL 4-6; Start 09/15/16 at 17:00 Acetaminophen/ Hydrocodone Bitart ([place] (5/325)) 2 tab Q6H PRN PO SEVERE PAIN LEVEL 7-10; Start 09/15/16 at 17:00 Morphine Sulfate (morphine) 2 mg Q4H PRN IV SEVERE PAIN LEVEL 7-10 Last administered on 09/19/16 01:32; Admin Dose 2 MG; Start 09/15/16 at 17:00 Docusate Sodium (Colace) 100 mg Q12H PRN PO CONSTIPATION; Start 09/15/16 at 17: 00 Magnesium Hydroxide (Milk Of Mag) 30 ml DAILY PRN PO CONSTIPATION; Start at 17:00 Bisacodyl (Dulcolax Supp) 10 mg DAILY PRN [place] CONSTIPATION; Start 09/15/16 at 17 :00 Heparin Sodium (Porcine) (Heparin (5000 Units/0.5 ml)) 5,000 unit Q12 SC Last administered on 09/20/16 08:33; Admin Dose 5,000 UNIT; Start 09/15/16 at 21:00 Docusate Sodium (Colace) 100 mg BID PO Last administered on 09/20/16 08:31; Admin Dose 100 MG; Start 09/18/16 at 21:00 Bisacodyl (Dulcolax) 5 mg DAILY PRN PO CONSTIPATION; Start 09/18/16 at 18:30 Lactulose 20 gm 20 gm DAILY PRN PO CONSTIPATION; Start 09/18/16 at 18:30 Ertapenem 1 gm/ Sodium Chloride 100 ml @ 200 mls/hr Q24H IVPB Last administered on 09/20/16 13:18; Admin Dose 200 MLS/HR; Start 09/19/16 at 12:00 Daptomycin/Sodium Chloride (Cubicin/NS) 100 ml @ 200 mls/hr Q24H IVPB Last administered on 09/20/16 12:23; Admin Dose 200 MLS/HR; Start 09/19/16 at 12:00 KARUNA LONGORIA NP September 20, 2016 20:04
[2016-09-20] MEDS: TAMSULOSIN (SR) 0.4 MG CAP PO SCH (20:27)
[2016-09-20] MEDS: TERAZOSIN 5 MG CAP PO SCH (20:28)
[2016-09-21] VITALS (12 sets, daily range): BP systolic 113–135; BP diastolic 60–83; PULSE 90–102; RESP 18–20
[2016-09-21] MEDS: PANTOPRAZOLE (EC) 40 MG TAB PO SCH (06:37)
[2016-09-21] MEDS: DOCUSATE SODIUM 100 MG CAP PO SCH ×2 (09:01→21:18)
[2016-09-21] MEDS: AMANTADINE 100 MG CAP PO SCH (09:01)
[2016-09-21] MEDS: FAMOTIDINE 20 MG TAB PO SCH (09:01)
[2016-09-21] MEDS: MIRTAZAPINE 15 MG TAB PO SCH (09:01)
[2016-09-21] MEDS: MULTIVITAMINS THERAPEUTIC TAB PO SCH (09:01)
[2016-09-21] MEDS: METOPROLOL 25 MG TAB PO SCH ×2 (09:02→21:18)
[2016-09-21] MEDS: CITALOPRAM 20 MG TAB PO SCH ×2 (09:03→21:19)
[2016-09-21] MEDS: HEPARIN 5,000 UNIT/0.5 ML VIAL SC SCH ×2 (09:03→21:32)
[2016-09-21] MEDS: DAPTOMYCIN 700 MG in SOD CHLORIDE 0.9% 100 ML IVPB SCH (11:14)
[2016-09-21] MEDS: SOD CHLORIDE 0.9% 1,000 ML IV SCH ×2 (11:14→23:45)
[2016-09-21] MEDS: ERTAPENEM SODIUM 1 GM in SOD CHLORIDE 0.9% 100 ML IVPB SCH (12:13)
--- NOTE | 2016-09-21 13:33 | PN ---
Date/Time of Note Date/Time of Note DATE: 09/21/16 TIME: 13:32 Assessment/Plan VTE Prophylaxis VTE Prophylaxis Intervention: other Lines/Catheters IV Catheter Type (from [facility]): Peripheral IV Urinary Cath still in place: Yes (SUPRA PUBIC CATHETER.) Reason Cath still needed: skin wounds contaminated by urine Assessment/Plan Chief Complaint/Hosp Course - Severe sepsis with polymicrobial bacteremia due to urinary tract infection. Dr. Godfrey is following patient in ID consultation. Continue broad-spectrum antibiotics. Follow up on cultures. - Urinary tract infection. - Urinary retention, status post supra pubic catheter insertion. - Scrotal cellulitis. - Acute on chronic kidney injury. Dr. Walter is following in nephrology consultation. - Multiple sclerosis. - Benign prostatic hypertrophy. Continue Flomax. - Hypertension. - Depression. - Obesity Problems: Subjective 24 Hr Interval Summary Free Text/Dictation Patient has no complaints Exam/Review of Systems Vital Signs Vitals Vital Signs Date Time Temp Pulse Resp B/P Pulse Ox O2 Delivery O2 Flow Rate FiO2 09/21/16 12:23 90 09/21/16 11:26 98.1 18 118/62 97 09/21/16 08:20 Nasal Cannula 3.0 Intake and Output 09/20/16 09/20/16 09/21/16 15:00 23:00 07:00 Intake Total 200 ml 1480 ml 200 ml Output Total 2500 ml 1400 ml Balance 200 ml -1020 ml -1200 ml Exam Constitutional: well developed Head: atraumatic, normocephalic Respiratory: clear to auscultation Cardiovascular: regular rate and rhythm Gastrointestinal: non-tender, soft Extremities: normal pulses Results Result Diagram: 09/20/16 0719 09/20/16 0719 Medications Medications Current Medications Amantadine HCl (Symmetrel) 100 mg QAM PO Last administered on 09/21/16 09:01; Admin Dose 100 MG; Start 09/16/16 at 09:00 Citalopram Hydrobromide (Celexa) 10 mg BID PO Last administered on 09/21/16 09 :03; Admin Dose 10 MG; Start 09/15/16 at 21:00 Famotidine (Pepcid) 20 mg DAILY PO Last administered on 09/21/16 09:01; Admin Dose 20 MG; Start 09/16/16 at 09:00 Metoprolol Tartrate (Lopressor) 25 mg BID PO Last administered on 09/21/16 09: 02; Admin Dose 25 MG; Start 09/15/16 at 21:00 Mirtazapine (Remeron) 15 mg DAILY PO Last administered on 09/21/16 09:01; Admin Dose 15 MG; Start 09/16/16 at 09:00 Multivitamins Therapeutic (Theragran) 1 tab DAILY PO Last administered on 09:01; Admin Dose 1 TAB; Start 09/16/16 at 09:00 Pantoprazole (Protonix Tab) 40 mg DAILY@06 PO Last administered on 09/21/16 06 :37; Admin Dose 40 MG; Start 09/16/16 at 06:00 Tamsulosin HCl (Flomax) 0.8 mg HS PO Last administered on 09/20/16 20:27; Admin Dose 0.8 MG; Start 09/15/16 at 21:00 Terazosin HCl 10 mg 10 mg HS PO Last administered on 09/20/16 20:28; Admin Dose 10 MG; Start 09/15/16 at 21:00 Sodium Chloride (NS) 1,000 ml @ 80 mls/hr [id number] IV Last administered on 09/21 11:14; Admin Dose 80 MLS/HR; Start 09/15/16 at 16:42 Ondansetron HCl (Zofran Inj) 4 mg Q6H PRN IV NAUSEA AND/OR VOMITING; Start at 17:00 Acetaminophen (Tylenol Tab) 650 mg Q6H PRN PO PAIN LEVEL 1-3 OR FEVER Last administered on 09/18/16 20:53; Admin Dose 650 MG; Start 09/15/16 at 17:00 Acetaminophen (Tylenol Supp) 650 mg Q6H PRN [place] PAIN LEVEL 1-3 OR FEVER; Start 09/15/16 at 17:00 Acetaminophen/ Hydrocodone Bitart ([place] (5/325)) 1 tab Q6H PRN PO MODERATE PAIN LEVEL 4-6; Start 09/15/16 at 17:00 Acetaminophen/ Hydrocodone Bitart ([place] (5/325)) 2 tab Q6H PRN PO SEVERE PAIN LEVEL 7-10; Start 09/15/16 at 17:00 Morphine Sulfate (morphine) 2 mg Q4H PRN IV SEVERE PAIN LEVEL 7-10 Last administered on 09/19/16 01:32; Admin Dose 2 MG; Start 09/15/16 at 17:00 Docusate Sodium (Colace) 100 mg Q12H PRN PO CONSTIPATION; Start 09/15/16 at 17: 00 Magnesium Hydroxide (Milk Of Mag) 30 ml DAILY PRN PO CONSTIPATION; Start at 17:00 Bisacodyl (Dulcolax Supp) 10 mg DAILY PRN [place] CONSTIPATION; Start 09/15/16 at 17 :00 Heparin Sodium (Porcine) (Heparin (5000 Units/0.5 ml)) 5,000 unit Q12 SC Last administered on 09/21/16 09:03; Admin Dose 5,000 UNIT; Start 09/15/16 at 21:00 Docusate Sodium (Colace) 100 mg BID PO Last administered on 09/21/16 09:01; Admin Dose 100 MG; Start 09/18/16 at 21:00 Bisacodyl (Dulcolax) 5 mg DAILY PRN PO CONSTIPATION; Start 09/18/16 at 18:30 Lactulose 20 gm 20 gm DAILY PRN PO CONSTIPATION; Start 09/18/16 at 18:30 Ertapenem 1 gm/ Sodium Chloride 100 ml @ 200 mls/hr Q24H IVPB Last administered on 09/21/16 12:13; Admin Dose 200 MLS/HR; Start 09/19/16 at 12:00 Daptomycin/Sodium Chloride (Cubicin/NS) 100 ml @ 200 mls/hr Q24H IVPB Last administered on 09/21/16 11:14; Admin Dose 200 MLS/HR; Start 09/19/16 at 12:00 RAJ FERRER September 21, 2016 13:33
--- NOTE | 2016-09-21 13:37 | RADRPT ---
PROCEDURE: XR Chest. CLINICAL INDICATION: PICC line placement TECHNIQUE: Single frontal chest x-ray. COMPARISON: None. FINDINGS: Left PICC line is in place with tip in mid SVC. There are scattered bilateral atelectasis. The car diomediastinal silhouette is magnified. There are no pleural effusions or pneumothoraces. The osse ous structures are intact. IMPRESSION: Left PICC line is in satisfactory position. RPTAT: QQ .Akua Ny MD, Date Time Electronically viewed and signed by .Akua Ny MD, on 09/21/2016 13:36 .O/
--- NOTE | 2016-09-21 14:14 | CONS ---
Date/Time of Note Date/Time of Note DATE: 09/21/16 TIME: 14:13 Assessment/Plan Assessment/Plan Chief Complaint/Hosp Course ID PROGRESS NOTE ABX: Daptomycin + Invanz s/p Vanco Merrem 24H INTERVAL SUMMARY * New PICC -- patient is coping well, NAD, pleasant * Feels better, no fevers, O2 via NC without dyspnea PHYSICAL EXAMINATION: GENERAL: Large M A/A/O, no fevers, VSS, NAD HEENT: Unremarkable -- NECK: Supple, trachea midline. CHEST: Rise symmetrical without dyspnea ABDOMEN: Soft : Deferred -- see photos EXTREMITIES: Moves all extremities, Without cyanosis. ID ASSESSMENT: 66 yo M admit with: 1. Severe sepsis with acute encephalopathy, fevers, tachycardia, and lactic acidosis=RESOLVING 2. Bacteremia, likely secondary to urinary tract infection. Organism 1 ESCHERICHIA COLI (ESBL) Organism 2 KLEBSIELLA PNEUMONIAE Organism 3 STAPHYLOCOCCUS AUREUS 3. Multidrug resistant urinary tract infection. * uRINE CULTURE Final Organism 1 STAPHYLOCOCCUS AUREUS COLONY COUNT 50,000 - 60,000 CFU/ml Organism 2 ESCHERICHIA COLI (ESBL) COLONY COUNT 50,000 - 60,000 CFU/ml . MULTI DRUG RESISTANT ORGANISM 4. Significant urinary retention, status post suprapubic catheter placement. 5. Scrotal edema/cellulitis * WOUND CULTURE Final Organism 1 ESCHERICHIA COLI (ESBL) QUANTITY 3+ . MULTI DRUG RESISTANT ORGANISM Organism 2 VANCO RESISTANT ENTEROCOCCUS QUANTITY 3+ . MULTI DRUG RESISTANT ORGANISM Organism 3 PROTEUS MIRABILIS 6. Advanced multiple sclerosis. 7. Benign prostatic hypertrophy. (-) MRSA Nares screen INVASIVES: PIV ALLERGY: PCN/SULFA CURRENT ABX: Daptomycin + Invanz s/p Vanco Merrem ID PLAN: * Continue ABX => Will need at minimum 14 days total to cover septicemia, possibly longer until scrotal cellulitis/wound resolves. . Problems: Consultation Date/Type/Reason Admit Date/Time September 15, 2016 at 14:26 Type of Consultation: ID Referring Provider: GISELA GREER MD Exam/Review of Systems Vital Signs Vitals Vital Signs Date Time Temp Pulse Resp B/P Pulse Ox O2 Delivery O2 Flow Rate FiO2 09/21/16 12:23 90 09/21/16 11:26 98.1 18 118/62 97 09/21/16 08:20 Nasal Cannula 3.0 Intake and Output 509/20/16 09/21/16 15:00 23:00 07:00 Intake Total 200 ml 1480 ml 200 ml Output Total 2500 ml 1400 ml Balance 200 ml -1020 ml -1200 ml Results Result Diagram: 09/20/1619 09/20/1619 Medications Medications Current Medications Amantadine HCl (Symmetrel) 100 mg QAM PO Last administered on 09/21/16 09:01; Admin Dose 100 MG; Start 09/16/16 at 09:00 Citalopram Hydrobromide (Celexa) 10 mg BID PO Last administered on 09/21/16 09 :03; Admin Dose 10 MG; Start 09/15/16 at 21:00 Famotidine (Pepcid) 20 mg DAILY PO Last administered on 09/21/16 09:01; Admin Dose 20 MG; Start 09/16/16 at 09:00 Metoprolol Tartrate (Lopressor) 25 mg BID PO Last administered on 09/21/16 09: 02; Admin Dose 25 MG; Start 09/15/16 at 21:00 Mirtazapine (Remeron) 15 mg DAILY PO Last administered on 09/21/16 09:01; Admin Dose 15 MG; Start 09/16/16 at 09:00 Multivitamins Therapeutic (Theragran) 1 tab DAILY PO Last administered on 09:01; Admin Dose 1 TAB; Start 09/16/16 at 09:00 Pantoprazole (Protonix Tab) 40 mg DAILY@06 PO Last administered on 09/21/16 06 :37; Admin Dose 40 MG; Start 09/16/16 at 06:00 Tamsulosin HCl (Flomax) 0.8 mg HS PO Last administered on 09/20/16 20:27; Admin Dose 0.8 MG; Start 09/15/16 at 21:00 Terazosin HCl 10 mg 10 mg HS PO Last administered on 09/20/16 20:28; Admin Dose 10 MG; Start 09/15/16 at 21:00 Sodium Chloride (NS) 1,000 ml @ 80 mls/hr [id number] IV Last administered on 09/21 11:14; Admin Dose 80 MLS/HR; Start 09/15/16 at 16:42 Ondansetron HCl (Zofran Inj) 4 mg Q6H PRN IV NAUSEA AND/OR VOMITING; Start at 17:00 Acetaminophen (Tylenol Tab) 650 mg Q6H PRN [place] PAIN LEVEL 1-3 OR FEVER Last administered on 09/18/16 20:53; Admin Dose 650 MG; Start 09/15/16 at 17:00 Acetaminophen (Tylenol Supp) 650 mg Q6H PRN [place] PAIN LEVEL 1-3 OR FEVER; Start 09/15/16 at 17:00 Acetaminophen/ Hydrocodone Bitart ([place] (5/325)) 1 tab Q6H PRN PO MODERATE PAIN LEVEL 4-6; Start 09/15/16 at 17:00 Acetaminophen/ Hydrocodone Bitart ([place] (5/325)) 2 tab Q6H PRN PO SEVERE PAIN LEVEL 7-10; Start 09/15/16 at 17:00 Morphine Sulfate (morphine) 2 mg Q4H PRN [place] SEVERE PAIN LEVEL 7-10 Last administered on 09/19/16 01:32; Admin Dose 2 MG; Start 09/15/16 at 17:00 Docusate Sodium (Colace) 100 mg Q12H PRN PO CONSTIPATION; Start 09/15/16 at 17: 00 Magnesium Hydroxide (Milk Of Mag) 30 ml DAILY PRN PO CONSTIPATION; Start at 17:00 Bisacodyl (Dulcolax Supp) 10 mg DAILY PRN [place] CONSTIPATION; Start 09/15/16 at 17 :00 Heparin Sodium (Porcine) (Heparin (5000 Units/0.5 ml)) 5,000 unit Q12 SC Last administered on 09/21/16 09:03; Admin Dose 5,000 UNIT; Start 09/15/16 at 21:00 Docusate Sodium (Colace) 100 mg BID PO Last administered on 09/21/16 09:01; Admin Dose 100 MG; Start 09/18/16 at 21:00 Bisacodyl (Dulcolax) 5 mg DAILY PRN PO CONSTIPATION; Start 09/18/16 at 18:30 Lactulose 20 gm 20 gm DAILY PRN PO CONSTIPATION; Start 09/18/16 at 18:30 Ertapenem 1 gm/ Sodium Chloride 100 ml @ 200 mls/hr Q24H IVPB Last administered on 09/21/16 12:13; Admin Dose 200 MLS/HR; Start 09/19/16 at 12:00 Daptomycin/Sodium Chloride (Cubicin/NS) 100 ml @ 200 mls/hr Q24H IVPB Last administered on 09/21/16t 11:14; Admin Dose 200 MLS/HR; Start 09/19/16 at 12:00 KARUNA LONGORIA NP September 21, 2016 14:14
[2016-09-21] MEDS ORDERED: HEPARIN (10 UNITS/ML) 5ML SYG IV ONE (16:30)
[2016-09-21] MEDS: TAMSULOSIN (SR) 0.4 MG CAP PO SCH (21:18)
[2016-09-21] MEDS: TERAZOSIN 5 MG CAP PO SCH (21:18)
[2016-09-22] VITALS (12 sets, daily range): BP systolic 102–145; BP diastolic 62–68; PULSE 87–100; RESP 18–20
[2016-09-22] MEDS: PANTOPRAZOLE (EC) 40 MG TAB PO SCH (05:52)
[2016-09-22] MEDS: CITALOPRAM 20 MG TAB PO SCH ×2 (09:24→20:59)
[2016-09-22] MEDS: FAMOTIDINE 20 MG TAB PO SCH (09:24)
[2016-09-22] MEDS: DOCUSATE SODIUM 100 MG CAP PO SCH ×2 (09:24→21:00)
[2016-09-22] MEDS: MIRTAZAPINE 15 MG TAB PO SCH (09:25)
[2016-09-22] MEDS: AMANTADINE 100 MG CAP PO SCH (09:25)
[2016-09-22] MEDS: MULTIVITAMINS THERAPEUTIC TAB PO SCH (09:25)
[2016-09-22] MEDS: METOPROLOL 25 MG TAB PO SCH ×2 (09:25→21:00)
[2016-09-22] MEDS: HEPARIN 5,000 UNIT/0.5 ML VIAL SC SCH ×2 (09:26→21:02)
--- NOTE | 2016-09-22 10:57 | PN ---
Date/Time of Note Date/Time of Note DATE: 09/22/16 TIME: 10:57 Assessment/Plan VTE Prophylaxis VTE Prophylaxis Intervention: other Lines/Catheters IV [facility] Type (from [facility] PICC Line Central line still needed: Yes Urinary Cath still in place: No (SUPRAPUBIC) Assessment/Plan Chief Complaint/Hosp Course - Severe sepsis with polymicrobial bacteremia due to urinary tract infection. Dr. Godfrey is following patient in ID consultation. Continue broad-spectrum antibiotics. Follow up on cultures. - Urinary tract infection. - Urinary retention, status post supra pubic catheter insertion. - Scrotal cellulitis. - Acute on chronic kidney injury. Dr. Walter is following in nephrology consultation. - Multiple sclerosis. - Benign prostatic hypertrophy. Continue Flomax. - Hypertension. - Depression. - Obesity Problems: Subjective 24 Hr Interval Summary Free Text/Dictation Patient has no complaints Exam/Review of Systems Vital Signs Vitals Vital Signs Date Time Temp Pulse Resp B/P Pulse Ox O2 Delivery O2 Flow Rate FiO2 09/22/16 08:26 88 09/22/16 07:48 98.2 18 145/68 95 09/21/16 23:47 5.0 09/21/16 21:00 Nasal Cannula Intake and Output 09/21/16 09/21/16 09/22/16 15:00 23:00 07:00 Intake Total 200 ml 1520 ml 250 ml Output Total 1700 ml 2200 ml Balance 200 ml -180 ml -1950 ml Exam Constitutional: well developed Head: atraumatic, normocephalic Neck: supple Respiratory: diminished breath sounds Cardiovascular: regular rate and rhythm Gastrointestinal: non-tender, soft Extremities: normal pulses Results Result Diagram: 09/20/16 0719 09/20/16 0719 Medications Medications Current Medications Amantadine HCl (Symmetrel) 100 mg QAM PO Last administered on 09/22/16 09:25; Admin Dose 100 MG; Start 09/16/16 at 09:00 Citalopram Hydrobromide (Celexa) 10 mg BID PO Last administered on 09/22/16 09 :24; Admin Dose 10 MG; Start 09/15/16 at 21:00 Famotidine (Pepcid) 20 mg DAILY PO Last administered on 09/22/16 09:24; Admin Dose 20 MG; Start 09/16/16 at 09:00 Metoprolol Tartrate (Lopressor) 25 mg BID PO Last administered on 09/22/16 09: 25; Admin Dose 25 MG; Start 09/15/16 at 21:00 Mirtazapine (Remeron) 15 mg DAILY PO Last administered on 09/22/16 09:25; Admin Dose 15 MG; Start 09/16/16 at 09:00 Multivitamins Therapeutic (Theragran) 1 tab DAILY PO Last administered on 09:25; Admin Dose 1 TAB; Start 09/16/16 at 09:00 Pantoprazole (Protonix Tab) 40 mg DAILY@06 PO Last administered on 09/22/16 05 :52; Admin Dose 40 MG; Start 09/16/16 at 06:00 Tamsulosin HCl (Flomax) 0.8 mg HS PO Last administered on 09/21/16 21:18; Admin Dose 0.8 MG; Start 09/15/16 at 21:00 Terazosin HCl 10 mg 10 mg HS PO Last administered on 09/21/16 21:18; Admin Dose 10 MG; Start 09/15/16 at 21:00 Sodium Chloride (NS) 1,000 ml @ 80 mls/hr [id number] IV Last administered on 09/21 23:45; Admin Dose 80 MLS/HR; Start 09/15/16 at 16:42 Ondansetron HCl (Zofran Inj) 4 mg Q6H PRN IV NAUSEA AND/OR VOMITING; Start at 17:00 Acetaminophen (Tylenol Tab) 650 mg Q6H PRN PO PAIN LEVEL 1-3 OR FEVER Last administered on 09/18/16 20:53; Admin Dose 650 MG; Start 09/15/16 at 17:00 Acetaminophen (Tylenol Supp) 650 mg Q6H PRN [place] PAIN LEVEL 1-3 OR FEVER; Start 09/15/16 at 17:00 Acetaminophen/ Hydrocodone Bitart ([place] (5/325)) 1 tab Q6H PRN PO MODERATE PAIN LEVEL 4-6; Start 09/15/16 at 17:00 Acetaminophen/ Hydrocodone Bitart ([place] (5/325)) 2 tab Q6H PRN PO SEVERE PAIN LEVEL 7-10; Start 09/15/16 at 17:00 Morphine Sulfate (morphine) 2 mg Q4H PRN IV SEVERE PAIN LEVEL 7-10 Last administered on 09/19/16 01:32; Admin Dose 2 MG; Start 09/15/16 at 17:00 Docusate Sodium (Colace) 100 mg Q12H PRN PO CONSTIPATION; Start 09/15/16 at 17: 00 Magnesium Hydroxide (Milk Of Mag) 30 ml DAILY PRN PO CONSTIPATION; Start at 17:00 Bisacodyl (Dulcolax Supp) 10 mg DAILY PRN [place] CONSTIPATION; Start 09/15/16 at 17 :00 Heparin Sodium (Porcine) (Heparin (5000 Units/0.5 ml)) 5,000 unit Q12 SC Last administered on 09/22/16 09:26; Admin Dose 5,000 UNIT; Start 09/15/16 at 21:00 Docusate Sodium (Colace) 100 mg BID PO Last administered on 09/22/16 09:24; Admin Dose 100 MG; Start 09/18/16 at 21:00 Bisacodyl (Dulcolax) 5 mg DAILY PRN PO CONSTIPATION; Start 09/18/16 at 18:30 Lactulose 20 gm 20 gm DAILY PRN PO CONSTIPATION; Start 09/18/16 at 18:30 Ertapenem 1 gm/ Sodium Chloride 100 ml @ 200 mls/hr Q24H IVPB Last administered on 09/21/16 12:13; Admin Dose 200 MLS/HR; Start 09/19/16 at 12:00 Daptomycin/Sodium Chloride (Cubicin/NS) 100 ml @ 200 mls/hr Q24H IVPB Last administered on 09/21/16 11:14; Admin Dose 200 MLS/HR; Start 09/19/16 at 12:00 RAJ FERRER September 22, 2016 10:57
--- NOTE | 2016-09-22 10:58 | RADRPT ---
PROCEDURE: PICC line placement under ultrasound guidance CLINICAL INDICATION: Central line placement TECHNIQUE: Informed consent was obtained following care for examinations of the base and benefits of the proced ure. Study: Left upper arm prepped with Betadine and covered with a sterile drape. Skin and subcutaneous tissues anesthesized with 3 ccs of 1 percent lidocaine. 21 gauge micropuncture needle placed in the left basilic vein via a single wall technique with ultrasound guidance with an ultrasound image cuco rded. Stainless steel 018 straight wire advanced and placed in the superior vena cava under fluorosc opic control. 5 Fr tear-away sheath advanced over the wire and placed in the vein. 5 Fr PICC. advanc edand placed in the cavoatrial junction with radiographic confirmation. Catheter secured in place w ith an adhesive fixation device and covered with Tegaderm. Catheter ports flushed with heparinized s jung. No complications encountered. COMPARISON: None FINDINGS: Left-sided PICC line with its tip overlying the cavoatrial junction. Position was confirmed with ra diograph. RPTAT: AA IMPRESSION: Uncomplicated placement of a left-sided PICC line. .Julianne Shaw MD, Date Time Electronically viewed and signed by .Julianne Shaw MD, MD on 09/22/2016 10:58 .J/
[2016-09-22] MEDS: SOD CHLORIDE 0.9% 1,000 ML IV SCH ×3 (11:12→23:42)
[2016-09-22] MEDS: ERTAPENEM SODIUM 1 GM in SOD CHLORIDE 0.9% 100 ML IVPB SCH (12:08)
[2016-09-22] MEDS: DAPTOMYCIN 700 MG in SOD CHLORIDE 0.9% 100 ML IVPB SCH (12:47)
--- NOTE | 2016-09-22 17:20 | CONS ---
Date/Time of Note Date/Time of Note DATE: 09/22/16 TIME: 17:19 Assessment/Plan Assessment/Plan Chief Complaint/Hosp Course ID PROGRESS NOTE ABX: Daptomycin + Invanz s/p Vanco Merrem 24H INTERVAL SUMMARY * Napping -- VSS, no fevers, doing well, O2 via NC without dyspnea PHYSICAL EXAMINATION: GENERAL: Large M A/A/O, no fevers, VSS, NAD HEENT: Unremarkable -- NECK: Supple, trachea midline. CHEST: Rise symmetrical without dyspnea ABDOMEN: Soft : Deferred -- see photos EXTREMITIES: Moves all extremities, Without cyanosis. ID ASSESSMENT: 66 yo M admit with: 1. Severe sepsis with acute encephalopathy, fevers, tachycardia, and lactic acidosis=RESOLVING 2. Bacteremia, likely secondary to urinary tract infection. Organism 1 ESCHERICHIA COLI (ESBL) Organism 2 KLEBSIELLA PNEUMONIAE Organism 3 STAPHYLOCOCCUS AUREUS 3. Multidrug resistant urinary tract infection. * uRINE CULTURE Final Organism 1 STAPHYLOCOCCUS AUREUS COLONY COUNT 50,000 - 60,000 CFU/ml Organism 2 ESCHERICHIA COLI (ESBL) COLONY COUNT 50,000 - 60,000 CFU/ml . MULTI DRUG RESISTANT ORGANISM 4. Significant urinary retention, status post suprapubic catheter placement. 5. Scrotal edema/cellulitis * WOUND CULTURE Final Organism 1 ESCHERICHIA COLI (ESBL) QUANTITY 3+ . MULTI DRUG RESISTANT ORGANISM Organism 2 VANCO RESISTANT ENTEROCOCCUS QUANTITY 3+ . MULTI DRUG RESISTANT ORGANISM Organism 3 PROTEUS MIRABILIS 6. Advanced multiple sclerosis. 7. Benign prostatic hypertrophy. (-) MRSA Nares screen INVASIVES: PIV ALLERGY: PCN/SULFA CURRENT ABX: Daptomycin + Invanz s/p Vanco Merrem ID PLAN: * Continue ABX => Will need at minimum 14 days total to cover septicemia, possibly longer until scrotal cellulitis/wound resolves. . Problems: Consultation Date/Type/Reason Admit Date/Time September 15, 2016 at 14:26 Type of Consultation: ID Referring Provider: GISELA GREER MD Exam/Review of Systems Vital Signs Vitals Vital Signs Date Time Temp Pulse Resp B/P Pulse Ox O2 Delivery O2 Flow Rate FiO2 09/22/16 16:22 98.7 96 18 137/66 96 09/22/16 16:14 5.0 09/22/16 08:20 Nasal Cannula Intake and Output 09/21/16 09/21/16 09/22/16 15:00 23:00 07:00 Intake Total 200 ml 1520 ml 250 ml Output Total 1700 ml 2200 ml Balance 200 ml -180 ml -1950 ml Results Result Diagram: 09/20/1671809/20/16718 Medications Medications Current Medications Amantadine HCl (Symmetrel) 100 mg QAM PO Last administered on 09/22/16 09:25; Admin Dose 100 MG; Start 09/16/16 at 09:00 Citalopram Hydrobromide (Celexa) 10 mg BID PO Last administered on 09/22/16 09 :24; Admin Dose 10 MG; Start 09/15/16 at 21:00 Famotidine (Pepcid) 20 mg DAILY PO Last administered on 09/22/16 09:24; Admin Dose 20 MG; Start 09/16/16 at 09:00 Metoprolol Tartrate (Lopressor) 25 mg BID PO Last administered on 09/22/16 09: 25; Admin Dose 25 MG; Start 09/15/16 at 21:00 Mirtazapine (Remeron) 15 mg DAILY PO Last administered on 09/22/16 09:25; Admin Dose 15 MG; Start 09/16/16 at 09:00 Multivitamins Therapeutic (Theragran) 1 tab DAILY PO Last administered on 09:25; Admin Dose 1 TAB; Start 09/16/16 at 09:00 Pantoprazole (Protonix Tab) 40 mg DAILY@06 PO Last administered on 09/22/16 05 :52; Admin Dose 40 MG; Start 09/16/16 at 06:00 Tamsulosin HCl (Flomax) 0.8 mg HS PO Last administered on 09/21/16 21:18; Admin Dose 0.8 MG; Start 09/15/16 at 21:00 Terazosin HCl 10 mg 10 mg HS PO Last administered on 09/21/16 21:18; Admin Dose 10 MG; Start 09/15/16 at 21:00 Sodium Chloride (NS) 1,000 ml @ 80 mls/hr [id number] IV Last administered on 09/21 23:45; Admin Dose 80 MLS/HR; Start 09/15/16 at 16:42 Ondansetron HCl (Zofran Inj) 4 mg Q6H PRN IV NAUSEA AND/OR VOMITING; Start at 17:00 Acetaminophen (Tylenol Tab) 650 mg Q6H PRN PO PAIN LEVEL 1-3 OR FEVER Last administered on 09/18/16 20:53; Admin Dose 650 MG; Start 09/15/16 at 17:00 Acetaminophen (Tylenol Supp) 650 mg Q6H PRN [place] PAIN LEVEL 1-3 OR FEVER; Start 09/15/16 at 17:00 Acetaminophen/ Hydrocodone Bitart ([place] (5/325)) 1 tab Q6H PRN PO MODERATE PAIN LEVEL 4-6; Start 09/15/16 at 17:00 Acetaminophen/ Hydrocodone Bitart ([place] (5/325)) 2 tab Q6H PRN PO SEVERE PAIN LEVEL 7-10; Start 09/15/16 at 17:00 Morphine Sulfate (morphine) 2 mg Q4H PRN IV SEVERE PAIN LEVEL 7-10 Last administered on 09/19/16 01:32; Admin Dose 2 MG; Start 09/15/16 at 17:00 Docusate Sodium (Colace) 100 mg Q12H PRN PO CONSTIPATION; Start 09/15/16 at 17: 00 Magnesium Hydroxide (Milk Of Mag) 30 ml DAILY PRN PO CONSTIPATION; Start at 17:00 Bisacodyl (Dulcolax Supp) 10 mg DAILY PRN [place] CONSTIPATION; Start 09/15/16 at 17 :00 Heparin Sodium (Porcine) (Heparin (5000 Units/0.5 ml)) 5,000 unit Q12 SC Last administered on 09/22/16 09:26; Admin Dose 5,000 UNIT; Start 09/15/16 at 21:00 Docusate Sodium (Colace) 100 mg BID PO Last administered on 09/22/16 09:24; Admin Dose 100 MG; Start 09/18/16 at 21:00 Bisacodyl (Dulcolax) 5 mg DAILY PRN PO CONSTIPATION; Start 09/18/16 at 18:30 Lactulose 20 gm 20 gm DAILY PRN PO CONSTIPATION; Start 09/18/16 at 18:30 Ertapenem 1 gm/ Sodium Chloride 100 ml @ 200 mls/hr Q24H IVPB Last administered on 09/22/16 12:08; Admin Dose 200 MLS/HR; Start 09/19/16 at 12:00 Daptomycin/Sodium Chloride (Cubicin/NS) 100 ml @ 200 mls/hr Q24H IVPB Last administered on 09/22/16t 12:47; Admin Dose 200 MLS/HR; Start 09/19/16 at 12:00 KARUNA LONGORIA NP September 22, 2016 17:20
[2016-09-22] MEDS: TAMSULOSIN (SR) 0.4 MG CAP PO SCH (20:59)
[2016-09-22] MEDS: TERAZOSIN 5 MG CAP PO SCH (21:00)
[2016-09-23] VITALS (12 sets, daily range): BP systolic 100–145; BP diastolic 57–72; PULSE 85–95; RESP 17–19
[2016-09-23] MEDS: PANTOPRAZOLE (EC) 40 MG TAB PO SCH (06:00)
[2016-09-23 07:11] LABS: ADD SCAN DIFF NO
[2016-09-23 07:17] LABS: BASOPHILS % 0.3 % (0.0-2.0); EOSINOPHILS # 0.4 10^3/ul (0.0-0.5); EOSINOPHILS % 3.1 % (0.0-7.0); HEMATOCRIT 30.3 % (42.0-52.0); LYMPHOCYTES # 1.1 10^3/ul (0.8-2.9); MEAN CORPUSCULAR HEMOGLOBIN 30.3 pg (29.0-33.0); MEAN CORPUSCULAR VOLUME 91.8 fl (82.0-101.0); MEAN PLATELET VOLUME 8.5 fl (7.4-10.4); MONOCYTE # 0.9 10^3/ul (0.3-0.9); MONOCYTES % 6.7 % (0.0-11.0); NEUTROPHIL # 9.8 10^3/ul (1.6-7.5); NEUTROPHILS % 77.6 % (39.0-77.0); PLATELET COUNT 370 10^3/UL (140-415); RED CELL DISTRIBUTION WIDTH 15.4 % (11.5-14.5); WHITE BLOOD COUNT 12.6 10^3/ul (4.8-10.8)
[2016-09-23 07:32] LABS: POTASSIUM 4.4 mmol/L (3.5-5.1)
[2016-09-23 07:34] LABS: CREATININE 1.24 mg/dl (0.61-1.24)
[2016-09-23 07:35] LABS: CALCIUM 8.5 mg/dl (8.4-10.2)
[2016-09-23] MEDS: DOCUSATE SODIUM 100 MG CAP PO SCH ×2 (09:20→20:54)
[2016-09-23] MEDS: AMANTADINE 100 MG CAP PO SCH (09:20)
[2016-09-23] MEDS: FAMOTIDINE 20 MG TAB PO SCH (09:20)
[2016-09-23] MEDS: MULTIVITAMINS THERAPEUTIC TAB PO SCH (09:20)
[2016-09-23] MEDS: CITALOPRAM 20 MG TAB PO SCH ×2 (09:20→20:54)
[2016-09-23] MEDS: MIRTAZAPINE 15 MG TAB PO SCH (09:21)
[2016-09-23] MEDS: METOPROLOL 25 MG TAB PO SCH ×2 (09:21→20:53)
[2016-09-23] MEDS: HEPARIN 5,000 UNIT/0.5 ML VIAL SC SCH ×2 (09:24→20:55)
[2016-09-23] MEDS: ERTAPENEM SODIUM 1 GM in SOD CHLORIDE 0.9% 100 ML IVPB SCH (12:09)
[2016-09-23] MEDS: SOD CHLORIDE 0.9% 1,000 ML IV SCH ×3 (12:12→23:45)
[2016-09-23] MEDS: DAPTOMYCIN 700 MG in SOD CHLORIDE 0.9% 100 ML IVPB SCH (12:48)
[2016-09-23] MEDS ORDERED: COLLAGENASE 30 GM TUBE TOP PRN (14:30)
--- NOTE | 2016-09-23 15:06 | PN ---
Date/Time of Note Date/Time of Note DATE: 09/23/16 TIME: 15:03 Assessment/Plan VTE Prophylaxis VTE Prophylaxis Intervention: SCD's Lines/Catheters IV C[facility] Type ([facility] PICC Line Central line still needed: Yes Urinary Cath still in place: Yes (suprapubic catheter) Reason Cath still needed: urinary retention Assessment/Plan Chief Complaint/Hosp Course Patient's remains afebrile however with persistent leukocytosis. Sinus rhythm on telemetry no ectopy. Patient remains hemodynamically stable. Creatinine is within normal limits today, no electrolytes abnormalities, okay to transfer patient to [facility]. Assessment and plan: - Severe sepsis with polymicrobial bacteremia due to urinary tract infection, resolving. Dr. Godfrey is following patient in ID consultation. Continue antibiotics per ID. - Urinary tract infection. - Urinary retention, status post supra pubic catheter insertion. - Scrotal cellulitis. - Acute on chronic kidney injury, resolved. Dr. Childs is following in nephrology consultation. - Multiple sclerosis. - Benign prostatic hypertrophy. Continue Flomax. - Hypertension. Continue metoprolol. - Depression. - Obesity Further recommendations based on clinical course. Plan of care discussed with Dr. Samson. Problems: Exam/Review of Systems Vital Signs Vitals Vital Signs Date Time Temp Pulse Resp B/P Pulse Ox O2 Delivery O2 Flow Rate FiO2 09/23/16 12:09 85 09/23/16 08:15 Nasal Cannula 3.0 09/23/16 07:23 97.8 19 128/66 93 Intake and Output 09/22/16 09/22/16 09/23/16 15:00 23:00 07:00 Intake Total 200 ml 1500 ml 1350 ml Output Total 2000 ml 1800 ml Balance 200 ml -500 ml -450 ml Exam Constitutional: alert, obese Head: normocephalic Neck: supple Respiratory: clear to auscultation Cardiovascular: regular rate and rhythm Gastrointestinal: non-tender, soft Genitourinary - Male: other (Suprapubic catheter) Extremities: normal pulses Skin: nl turgor Results Result Diagram: 09/23/16 0640 09/23/16 0640 Results 24 hrs Laboratory Tests Test 09/23/16 06:40 White Blood Count 12.6 H Red Blood Count 3.30 L Hemoglobin 10.0 L Hematocrit 30.3 L Mean Corpuscular Volume 91.8 Mean Corpuscular Hemoglobin 30.3 Mean Corpuscular Hemoglobin Concent 33.0 Red Cell Distribution Width 15.4 H Platelet Count 370 # Mean Platelet Volume 8.5 Neutrophils % 77.6 H Lymphocytes % 9.0 L Monocytes % 6.7 Eosinophils % 3.1 Basophils % 0.3 Nucleated Red Blood Cells % 0.0 Neutrophils # 9.8 H Lymphocytes # 1.1 Monocytes # 0.9 Eosinophils # 0.4 Basophils # 0.0 Nucleated Red Blood Cells # 0.0 Sodium Level 138 Potassium Level 4.4 Chloride Level 109 Carbon Dioxide Level 28 Anion Gap 5 L Blood Urea Nitrogen 22 H Creatinine 1.24 Glucose Level 94 Calcium Level 8.5 Medications Medications Current Medications Amantadine HCl (Symmetrel) 100 mg QAM PO Last administered on 09/23/16 09:20; Admin Dose 100 MG; Start 09/16/16 at 09:00 Citalopram Hydrobromide (Celexa) 10 mg BID PO Last administered on 09/23/16 09 :20; Admin Dose 10 MG; Start 09/15/16 at 21:00 Famotidine (Pepcid) 20 mg DAILY PO Last administered on 09/23/16 09:20; Admin Dose 20 MG; Start 09/16/16 at 09:00 Metoprolol Tartrate (Lopressor) 25 mg BID PO Last administered on 09/23/16 09: 21; Admin Dose 25 MG; Start 09/15/16 at 21:00 Mirtazapine (Remeron) 15 mg DAILY PO Last administered on 09/23/16 09:21; Admin Dose 15 MG; Start 09/16/16 at 09:00 Multivitamins Therapeutic (Theragran) 1 tab DAILY PO Last administered on 09:20; Admin Dose 1 TAB; Start 09/16/16 at 09:00 Pantoprazole (Protonix Tab) 40 mg DAILY@06 PO Last administered on 09/23/16 06 :00; Admin Dose 40 MG; Start 09/16/16 at 06:00 Tamsulosin HCl (Flomax) 0.8 mg HS PO Last administered on 09/22/16 20:59; Admin Dose 0.8 MG; Start 09/15/16 at 21:00 Terazosin HCl 10 mg 10 mg HS PO Last administered on 09/22/16 21:00; Admin Dose 10 MG; Start 09/15/16 at 21:00 Sodium Chloride (NS) 1,000 ml @ 80 mls/hr [id number] IV Last administered on 09/22 23:42; Admin Dose 80 MLS/HR; Start 09/15/16 at 16:42 Ondansetron HCl (Zofran Inj) 4 mg Q6H PRN IV NAUSEA AND/OR VOMITING; Start at 17:00 Acetaminophen (Tylenol Tab) 650 mg Q6H PRN PO PAIN LEVEL 1-3 OR FEVER Last administered on 09/18/16 20:53; Admin Dose 650 MG; Start 09/15/16 at 17:00 Acetaminophen (Tylenol Supp) 650 mg Q6H PRN [place] PAIN LEVEL 1-3 OR FEVER; Start 09/15/16 at 17:00 Acetaminophen/ Hydrocodone Bitart ([place] (5/325)) 1 tab Q6H PRN PO MODERATE PAIN LEVEL 4-6; Start 09/15/16 at 17:00 Acetaminophen/ Hydrocodone Bitart ([place] (5/325)) 2 tab Q6H PRN PO SEVERE PAIN LEVEL 7-10; Start 09/15/16 at 17:00 Morphine Sulfate (morphine) 2 mg Q4H PRN IV SEVERE PAIN LEVEL 7-10 Last administered on 09/19/16 01:32; Admin Dose 2 MG; Start 09/15/16 at 17:00 Docusate Sodium (Colace) 100 mg Q12H PRN PO CONSTIPATION; Start 09/15/16 at 17: 00 Magnesium Hydroxide (Milk Of Mag) 30 ml DAILY PRN PO CONSTIPATION; Start at 17:00 Bisacodyl (Dulcolax Supp) 10 mg DAILY PRN [place] CONSTIPATION; Start 09/15/16 at 17 :00 Heparin Sodium (Porcine) (Heparin (5000 Units/0.5 ml)) 5,000 unit Q12 SC Last administered on 09/23/16 09:24; Admin Dose 5,000 UNIT; Start 09/15/16 at 21:00 Docusate Sodium (Colace) 100 mg BID PO Last administered on 09/23/16 09:20; Admin Dose 100 MG; Start 09/18/16 at 21:00 Bisacodyl (Dulcolax) 5 mg DAILY PRN PO CONSTIPATION Last administered on 09:21; Admin Dose 5 MG; Start 09/18/16 at 18:30 Lactulose 20 gm 20 gm DAILY PRN PO CONSTIPATION; Start 09/18/16 at 18:30 Ertapenem 1 gm/ Sodium Chloride 100 ml @ 200 mls/hr Q24H IVPB Last administered on 09/23/16 12:09; Admin Dose 200 MLS/HR; Start 09/19/16 at 12:00 Daptomycin/Sodium Chloride (Cubicin/NS) 100 ml @ 200 mls/hr Q24H IVPB Last administered on 09/23/16 12:48; Admin Dose 200 MLS/HR; Start 09/19/16 at 12:00 Collagenase (Santyl) 1 applic DAILY TOP ; Start 09/23/16 at 18:00 Collagenase (Santyl) 1 applic PRN PRN TOP WOUND CARE; Start 09/23/16 at 14:30 CLARIBEL HERNANDEZ September 23, 2016 15:06
[2016-09-23] MEDS: COLLAGENASE 30 GM TUBE TOP SCH (17:26)
[2016-09-23] MEDS: TAMSULOSIN (SR) 0.4 MG CAP PO SCH (20:53)
[2016-09-23] MEDS: TERAZOSIN 5 MG CAP PO SCH (20:53)
[2016-09-23] MEDS: ACETAMINOPHEN 325 MG TAB PO PRN (23:06)
[2016-09-24] MEDS: PANTOPRAZOLE (EC) 40 MG TAB PO SCH (06:05)
[2016-09-24] MEDS ORDERED: PENDING SANTYL ORDER FOR WOUND CARE XX PRN (06:30)
[2016-09-24 06:41] LABS: ADD SCAN DIFF NO
[2016-09-24 07:08] LABS: CALCIUM 8.6 mg/dl (8.4-10.2); CREATININE 1.42 mg/dl (0.61-1.24); POTASSIUM 3.9 mmol/L (3.5-5.1)
--- NOTE | 2016-09-24 07:22 | PN ---
DATE: 09/23/2016 SUBJECTIVE: No events overnight. The patient is awake, looks comfortable, no fevers. WBC 12.6, platelets 370, neutrophils 77.6, BUN 22, creatinine 1.24. ANTIMICROBIALS: 1. Invanz. 2. Daptomycin. MICROBIOLOGY: Scrotal wound culture growing E. coli, ESBL, VRE and Proteus mirabilis. Blood cultur e on admission grew Klebsiella pneumoniae, E. coli, ESBL, and oxacillin-sensitive Staphylococcus aur eus. Repeat blood cultures since 09/17/2016 remain negative. PHYSICAL EXAMINATION: GENERAL: This is a chronically ill-appearing elderly man who is in no distress. HEENT: Head atraumatic, normocephalic. Sclerae anicteric. Buccal mucosa dry. NECK: Supple, trachea midline. CHEST: Rise symmetrical. Breath sounds diminished to bases. HEART: S1, S2. ABDOMEN: Soft. Bowel sounds present. Scrotum still edematous with dry skin and erythema, but over all improving. EXTREMITIES: Without cyanosis. ASSESSMENT: 1. Severe sepsis with fevers, leukocytosis, and polymicrobial bacteremia on admission secondary to #2 liters. 2. Urinary tract infection. 3. Scrotal cellulitis. 4. Advantage multiple sclerosis. 5. BPH with significant retention on admissions, status post suprapubic catheter placement. 6. ALLERGY TO SULFA AND PENICILLIN, reaction unknown. PLAN: The patient remains stable. A repeat blood culture is negative. We will continue him on cur rent antimicrobials and recommend urologic evaluation. Dictated By: KAVITA ANDERSON RESPIRATORY THERAPY ASSISTANT for [facility] Conf#: [id number] DID#: [id number]
[2016-09-24 08:05] VITALS: BP 98/62; RESP 20
[2016-09-24] MEDS: MULTIVITAMINS THERAPEUTIC TAB PO SCH (08:24)
[2016-09-24] MEDS: METOPROLOL 25 MG TAB PO SCH ×2 (08:25→20:27)
[2016-09-24] MEDS: FAMOTIDINE 20 MG TAB PO SCH (08:27)
[2016-09-24] MEDS: AMANTADINE 100 MG CAP PO SCH (08:27)
[2016-09-24] MEDS: DOCUSATE SODIUM 100 MG CAP PO SCH ×2 (08:27→20:27)
[2016-09-24] MEDS: CITALOPRAM 20 MG TAB PO SCH ×2 (08:27→20:27)
[2016-09-24] MEDS: MIRTAZAPINE 15 MG TAB PO SCH (08:27)
[2016-09-24] MEDS: HEPARIN 5,000 UNIT/0.5 ML VIAL SC SCH ×2 (09:15→20:44)
[2016-09-24 10:34] LABS: BASOPHILS % 0.4 % (0.0-2.0); EOSINOPHILS # 0.3 10^3/ul (0.0-0.5); EOSINOPHILS % 2.7 % (0.0-7.0); HEMATOCRIT 30.3 % (42.0-52.0); HEMOGLOBIN 9.8 g/dl (14.0-18.0); LYMPHOCYTES # 1.2 10^3/ul (0.8-2.9); MEAN CORPUSCULAR HEMOGLOBIN 30.4 pg (29.0-33.0); MEAN CORPUSCULAR HGB CONC 32.3 g/dl (32.0-37.0); MEAN CORPUSCULAR VOLUME 94.1 fl (82.0-101.0); MEAN PLATELET VOLUME 9.3 fl (7.4-10.4); MONOCYTE # 0.8 10^3/ul (0.3-0.9); MONOCYTES % 7.8 % (0.0-11.0); NEUTROPHIL # 7.4 10^3/ul (1.6-7.5); NEUTROPHILS % 75.3 % (39.0-77.0); PLATELET COUNT 428 10^3/UL (140-415); RED BLOOD COUNT 3.22 10^6/ul (4.70-6.10); RED CELL DISTRIBUTION WIDTH 15.6 % (11.5-14.5); WHITE BLOOD COUNT 9.9 10^3/ul (4.8-10.8)
[2016-09-24] MEDS: SOD CHLORIDE 0.9% 1,000 ML IV SCH (11:09)
[2016-09-24] MEDS: COLLAGENASE 30 GM TUBE TOP SCH (11:10)
[2016-09-24] MEDS: ERTAPENEM SODIUM 1 GM in SOD CHLORIDE 0.9% 100 ML IVPB SCH (12:06)
[2016-09-24] MEDS: DAPTOMYCIN 700 MG in SOD CHLORIDE 0.9% 100 ML IVPB SCH (13:42)
--- NOTE | 2016-09-24 16:25 | PN ---
Date/Time of Note Date/Time of Note DATE: 09/24/16 TIME: 16:19 Assessment/Plan VTE Prophylaxis VTE Prophylaxis Intervention: SCD's Lines/Catheters IV Catheter Type (from [facility]): PICC Line Central line still needed: Yes Urinary Cath still in place: Yes (SUPRAPUBIC) Reason Cath still needed: urinary retention Assessment/Plan Chief Complaint/Hosp Course Liquid urine output from suprapubic catheter, leukocytosis resolved, patient's complaints of scrotal swelling and tenderness. Assessment and plan: - Severe sepsis with polymicrobial bacteremia due to urinary tract infection, resolving. Dr. Godfrey is following patient in ID consultation. Continue antibiotics per ID. - Polymicrobial UTI, continue antibiotics per ID. - Urinary retention, status post supra pubic catheter insertion by Dr. Norton in the emergency room. - Scrotal cellulitis. Dr. Ulloa is asked to see patient in urology consultation. - Acute on chronic kidney injury, resolved. Dr. Childs is following in nephrology consultation. - Hypertension. Continue metoprolol. - Multiple sclerosis. - Benign prostatic hypertrophy. Continue Flomax. - Depression. Continue Celexa. - Obesity Further recommendations based on clinical course. Plan of care discussed with Dr. Samson. Problems: Exam/Review of Systems Vital Signs Vitals Vital Signs Date Time Temp Pulse Resp B/P Pulse Ox O2 Delivery O2 Flow Rate FiO2 09/24/16 12:00 3.0 32 09/24/16 08:05 97.6 85 20 98/62 95 09/23/16 08:15 Nasal Cannula Intake and Output 09/23/16 09/23/16 09/24/16 15:00 23:00 07:00 Intake Total 200 ml 1400 ml 1305 ml Output Total 2000 ml 1000 ml Balance 200 ml -600 ml 305 ml Exam Constitutional: alert, obese Head: normocephalic Neck: supple Respiratory: clear to auscultation Cardiovascular: regular rate and rhythm Gastrointestinal: non-tender, soft Genitourinary - Male: other (Suprapubic catheter) Extremities: normal pulses Skin: nl turgor Results Result Diagram: 09/24/16 0544 09/24/16 0544 Results 24 hrs Laboratory Tests Test 09/24/16 05:44 White Blood Count 9.9 # Red Blood Count 3.22 L Hemoglobin 9.8 L Hematocrit 30.3 L Mean Corpuscular Volume 94.1 Mean Corpuscular Hemoglobin 30.4 Mean Corpuscular Hemoglobin Concent 32.3 Red Cell Distribution Width 15.6 H Platelet Count 428 H Mean Platelet Volume 9.3 Neutrophils % 75.3 Lymphocytes % 12.0 L Monocytes % 7.8 Eosinophils % 2.7 Basophils % 0.4 Nucleated Red Blood Cells % 0.0 Neutrophils # 7.4 Lymphocytes # 1.2 Monocytes # 0.8 Eosinophils # 0.3 Basophils # 0.0 Nucleated Red Blood Cells # 0.0 Sodium Level 134 L Potassium Level 3.9 Chloride Level 105 Carbon Dioxide Level 26 Anion Gap 7 L Blood Urea Nitrogen 26 H Creatinine 1.42 H Glucose Level 96 Calcium Level 8.6 Medications Medications Current Medications Amantadine HCl (Symmetrel) 100 mg QAM PO Last administered on 09/24/16 08:27; Admin Dose 100 MG; Start 09/16/16 at 09:00 Citalopram Hydrobromide (Celexa) 10 mg BID PO Last administered on 09/24/16 08 :27; Admin Dose 10 MG; Start 09/15/16 at 21:00 Famotidine (Pepcid) 20 mg DAILY PO Last administered on 09/24/16 08:27; Admin Dose 20 MG; Start 09/16/16 at 09:00 Metoprolol Tartrate (Lopressor) 25 mg BID PO Last administered on 09/23/16 20: 53; Admin Dose 25 MG; Start 09/15/16 at 21:00 Mirtazapine (Remeron) 15 mg DAILY PO Last administered on 09/24/16 08:27; Admin Dose 15 MG; Start 09/16/16 at 09:00 Multivitamins Therapeutic (Theragran) 1 tab DAILY PO Last administered on 08:24; Admin Dose 1 TAB; Start 09/16/16 at 09:00 Pantoprazole (Protonix Tab) 40 mg DAILY@06 PO Last administered on 09/24/16 06 :05; Admin Dose 40 MG; Start 09/16/16 at 06:00 Tamsulosin HCl (Flomax) 0.8 mg HS PO Last administered on 09/23/16 20:53; Admin Dose 0.8 MG; Start 09/15/16 at 21:00 Terazosin HCl 10 mg 10 mg HS PO Last administered on 09/23/16 20:53; Admin Dose 10 MG; Start 09/15/16 at 21:00 Sodium Chloride (NS) 1,000 ml @ 80 mls/hr [id number] IV Last administered on 09/24 11:09; Admin Dose 80 MLS/HR; Start 09/15/16 at 16:42 Ondansetron HCl (Zofran Inj) 4 mg Q6H PRN IV NAUSEA AND/OR VOMITING; Start at 17:00 Acetaminophen (Tylenol Tab) 650 mg Q6H PRN PO PAIN LEVEL 1-3 OR FEVER Last administered on 09/23/16 23:06; Admin Dose 650 MG; Start 09/15/16 at 17:00 Acetaminophen (Tylenol Supp) 650 mg Q6H PRN [place] PAIN LEVEL 1-3 OR FEVER; Start 09/15/16 at 17:00 Acetaminophen/ Hydrocodone Bitart ([place] (5/325)) 1 tab Q6H PRN PO MODERATE PAIN LEVEL 4-6; Start 09/15/16 at 17:00 Acetaminophen/ Hydrocodone Bitart ([place] (5/325)) 2 tab Q6H PRN PO SEVERE PAIN LEVEL 7-10; Start 09/15/16 at 17:00 Morphine Sulfate (morphine) 2 mg Q4H PRN IV SEVERE PAIN LEVEL 7-10 Last administered on 09/19/16 01:32; Admin Dose 2 MG; Start 09/15/16 at 17:00 Docusate Sodium (Colace) 100 mg Q12H PRN PO CONSTIPATION; Start 09/15/16 at 17: 00 Magnesium Hydroxide (Milk Of Mag) 30 ml DAILY PRN PO CONSTIPATION; Start at 17:00 Bisacodyl (Dulcolax Supp) 10 mg DAILY PRN [place] CONSTIPATION; Start 09/15/16 at 17 :00 Heparin Sodium (Porcine) (Heparin (5000 Units/0.5 ml)) 5,000 unit Q12 SC Last administered on 09/24/16 09:15; Admin Dose 5,000 UNIT; Start 09/15/16 at 21:00 Docusate Sodium (Colace) 100 mg BID PO Last administered on 09/24/16 08:27; Admin Dose 100 MG; Start 09/18/16 at 21:00 Bisacodyl (Dulcolax) 5 mg DAILY PRN PO CONSTIPATION Last administered on 09:21; Admin Dose 5 MG; Start 09/18/16 at 18:30 Lactulose 20 gm 20 gm DAILY PRN PO CONSTIPATION; Start 09/18/16 at 18:30 Ertapenem 1 gm/ Sodium Chloride 100 ml @ 200 mls/hr Q24H IVPB Last administered on 09/24/16 12:06; Admin Dose 200 MLS/HR; Start 09/19/16 at 12:00 Daptomycin/Sodium Chloride (Cubicin/NS) 100 ml @ 200 mls/hr Q24H IVPB Last administered on 09/24/16 13:42; Admin Dose 200 MLS/HR; Start 09/19/16 at 12:00 Collagenase (Santyl) 1 applic DAILY TOP Last administered on 09/24/16 11:10; Admin Dose 1 APPLIC; Start 09/23/16 at 18:00 Collagenase (Santyl) 1 applic PRN PRN TOP WOUND CARE; Start 09/23/16 at 14:30 Miscellaneous Information (Pending Santyl Order For Wound Care) This patient temple... PRN PRN XX WOUND CARE; Start 09/24/16 at 06:30 CLARIBEL HERNANDEZ September 24, 2016 16:25
--- NOTE | 2016-09-24 19:30 | CONS ---
Date/Time of Note Date/Time of Note DATE: 09/24/16 TIME: 19:30 Assessment/Plan Assessment/Plan Chief Complaint/Hosp Course SUBJECTIVE: No events overnight. The patient is awake, looks comfortable, no fevers. ANTIMICROBIALS: 1. Invanz. 2. Daptomycin. MICROBIOLOGY: Scrotal wound culture growing E. coli, ESBL, VRE and Proteus mirabilis. Blood culture on admission grew Klebsiella pneumoniae, E. coli, ESBL , and oxacillin-sensitive Staphylococcus aureus. Repeat blood cultures since remain negative. PHYSICAL EXAMINATION: GENERAL: This is a chronically ill-appearing elderly man who is in no distress. HEENT: Head atraumatic, normocephalic. Sclerae anicteric. Buccal mucosa dry. NECK: Supple, trachea midline. CHEST: Rise symmetrical. Breath sounds diminished to bases. HEART: S1, S2. ABDOMEN: Soft. Bowel sounds present. Scrotum still edematous with dry skin and erythema, but overall improving. EXTREMITIES: Without cyanosis. ASSESSMENT: 1. Severe sepsis with fevers, leukocytosis, and polymicrobial bacteremia on admission secondary to #2 liters. 2. Urinary tract infection. 3. Scrotal cellulitis. 4. [place]age multiple sclerosis. 5. BPH with significant retention on admissions, status post suprapubic catheter placement. 6. ALLERGY TO SULFA AND PENICILLIN, reaction unknown. PLAN: The patient remains stable. Repeat blood culture is negative. Continue antibiotics, scrotal elevation. DW pt/staff Problems: Consultation Date/Type/Reason Admit Date/Time September 15, 2016 at 14:26 Type of Consultation: ID Referring Provider: GISELA GREER MD Exam/Review of Systems Vital Signs Vitals Vital Signs Date Time Temp Pulse Resp B/P Pulse Ox O2 Delivery O2 Flow Rate FiO2 09/24/16 18:27 3.0 32 09/24/16 08:05 97.6 85 20 98/62 95 09/24/16 08:00 Nasal Cannula Intake and Output 09/23/16 09/23/16 09/24/16 15:00 23:00 07:00 Intake Total 200 ml 1400 ml 1305 ml Output Total 2000 ml 1000 ml Balance 200 ml -600 ml 305 ml Results Result Diagram: 09/24/16 0544 09/24/16 0544 Results 24 hrs Laboratory Tests Test 09/24/16 05:44 White Blood Count 9.9 # Red Blood Count 3.22 L Hemoglobin 9.8 L Hematocrit 30.3 L Mean Corpuscular Volume 94.1 Mean Corpuscular Hemoglobin 30.4 Mean Corpuscular Hemoglobin Concent 32.3 Red Cell Distribution Width 15.6 H Platelet Count 428 H Mean Platelet Volume 9.3 Neutrophils % 75.3 Lymphocytes % 12.0 L Monocytes % 7.8 Eosinophils % 2.7 Basophils % 0.4 Nucleated Red Blood Cells % 0.0 Neutrophils # 7.4 Lymphocytes # 1.2 Monocytes # 0.8 Eosinophils # 0.3 Basophils # 0.0 Nucleated Red Blood Cells # 0.0 Sodium Level 134 L Potassium Level 3.9 Chloride Level 105 Carbon Dioxide Level 26 Anion Gap 7 L Blood Urea Nitrogen 26 H Creatinine 1.42 H Glucose Level 96 Calcium Level 8.6 Medications Medications Current Medications Amantadine HCl (Symmetrel) 100 mg QAM PO Last administered on 09/24/16 08:27; Admin Dose 100 MG; Start 09/16/16 at 09:00 Citalopram Hydrobromide (Celexa) 10 mg BID PO Last administered on 09/24/16 08 :27; Admin Dose 10 MG; Start 09/15/16 at 21:00 Famotidine (Pepcid) 20 mg DAILY PO Last administered on 09/24/16 08:27; Admin Dose 20 MG; Start 09/16/16 at 09:00 Metoprolol Tartrate (Lopressor) 25 mg BID PO Last administered on 09/23/16 20: 53; Admin Dose 25 MG; Start 09/15/16 at 21:00 Mirtazapine (Remeron) 15 mg DAILY PO Last administered on 09/24/16 08:27; Admin Dose 15 MG; Start 09/16/16 at 09:00 Multivitamins Therapeutic (Theragran) 1 tab DAILY PO Last administered on 08:24; Admin Dose 1 TAB; Start 09/16/16 at 09:00 Pantoprazole (Protonix Tab) 40 mg DAILY@06 PO Last administered on 09/24/16 06 :05; Admin Dose 40 MG; Start 09/16/16 at 06:00 Tamsulosin HCl (Flomax) 0.8 mg HS PO Last administered on 09/23/16 20:53; Admin Dose 0.8 MG; Start 09/15/16 at 21:00 Terazosin HCl 10 mg 10 mg HS PO Last administered on 09/23/16 20:53; Admin Dose 10 MG; Start 09/15/16 at 21:00 Sodium Chloride (NS) 1,000 ml @ 80 mls/hr [id number] IV Last administered on 09/24 11:09; Admin Dose 80 MLS/HR; Start 09/15/16 at 16:42 Ondansetron HCl (Zofran Inj) 4 mg Q6H PRN IV NAUSEA AND/OR VOMITING; Start at 17:00 Acetaminophen (Tylenol Tab) 650 mg Q6H PRN PO PAIN LEVEL 1-3 OR FEVER Last administered on 09/23/16 23:06; Admin Dose 650 MG; Start 09/15/16 at 17:00 Acetaminophen (Tylenol Supp) 650 mg Q6H PRN [place] PAIN LEVEL 1-3 OR FEVER; Start 09/15/16 at 17:00 Acetaminophen/ Hydrocodone Bitart ([place] (5/325)) 1 tab Q6H PRN PO MODERATE PAIN LEVEL 4-6; Start 09/15/16 at 17:00 Acetaminophen/ Hydrocodone Bitart ([place] (5/325)) 2 tab Q6H PRN PO SEVERE PAIN LEVEL 7-10; Start 09/15/16 at 17:00 Morphine Sulfate (morphine) 2 mg Q4H PRN IV SEVERE PAIN LEVEL 7-10 Last administered on 09/19/16 01:32; Admin Dose 2 MG; Start 09/15/16 at 17:00 Docusate Sodium (Colace) 100 mg Q12H PRN PO CONSTIPATION; Start 09/15/16 at 17: 00 Magnesium Hydroxide (Milk Of Mag) 30 ml DAILY PRN PO CONSTIPATION; Start at 17:00 Bisacodyl (Dulcolax Supp) 10 mg DAILY PRN [place] CONSTIPATION; Start 09/15/16 at 17 :00 Heparin Sodium (Porcine) (Heparin (5000 Units/0.5 ml)) 5,000 unit Q12 SC Last administered on 09/24/16 09:15; Admin Dose 5,000 UNIT; Start 09/15/16 at 21:00 Docusate Sodium (Colace) 100 mg BID PO Last administered on 09/24/16 08:27; Admin Dose 100 MG; Start 09/18/16 at 21:00 Bisacodyl (Dulcolax) 5 mg DAILY PRN PO CONSTIPATION Last administered on 09:21; Admin Dose 5 MG; Start 09/18/16 at 18:30 Lactulose 20 gm 20 gm DAILY PRN PO CONSTIPATION; Start 09/18/16 at 18:30 Ertapenem 1 gm/ Sodium Chloride 100 ml @ 200 mls/hr Q24H IVPB Last administered on 09/24/16 12:06; Admin Dose 200 MLS/HR; Start 09/19/16 at 12:00 Daptomycin/Sodium Chloride (Cubicin/NS) 100 ml @ 200 mls/hr Q24H IVPB Last administered on 09/24/16 13:42; Admin Dose 200 MLS/HR; Start 09/19/16 at 12:00 Collagenase (Santyl) 1 applic DAILY TOP Last administered on 09/24/16 11:10; Admin Dose 1 APPLIC; Start 09/23/16 at 18:00 Collagenase (Santyl) 1 applic PRN PRN TOP WOUND CARE; Start 09/23/16 at 14:30 Miscellaneous Information (Pending Santyl Order For Wound Care) This patient temple... PRN PRN XX WOUND CARE; Start 09/24/16 at 06:30 KAVITA ANDERSON NP September 24, 2016 19:30
[2016-09-24 20:01] VITALS: BP 111/67; RESP 20
[2016-09-24] MEDS: TAMSULOSIN (SR) 0.4 MG CAP PO SCH (20:25)
[2016-09-24] MEDS: TERAZOSIN 5 MG CAP PO SCH (20:26)
[2016-09-25] MEDS: SOD CHLORIDE 0.9% 1,000 ML IV SCH ×2 (01:17→17:51)
[2016-09-25] MEDS: PANTOPRAZOLE (EC) 40 MG TAB PO SCH (05:29)
[2016-09-25] MEDS: MIRTAZAPINE 15 MG TAB PO SCH (09:02)
[2016-09-25] MEDS: CITALOPRAM 20 MG TAB PO SCH ×2 (09:02→20:48)
[2016-09-25] MEDS: MULTIVITAMINS THERAPEUTIC TAB PO SCH (09:02)
[2016-09-25] MEDS: AMANTADINE 100 MG CAP PO SCH (09:02)
[2016-09-25] MEDS: DOCUSATE SODIUM 100 MG CAP PO SCH ×2 (09:02→20:48)
[2016-09-25] MEDS: FAMOTIDINE 20 MG TAB PO SCH (09:02)
[2016-09-25] MEDS: METOPROLOL 25 MG TAB PO SCH ×2 (09:06→20:51)
[2016-09-25] MEDS: HEPARIN 5,000 UNIT/0.5 ML VIAL SC SCH ×2 (09:10→20:55)
[2016-09-25 10:06] VITALS: BP 115/59; RESP 19
--- NOTE | 2016-09-25 10:21 | CONS ---
DATE OF ADMISSION: 09/15/2016 DATE OF CONSULTATION: 09/25/2016 TYPE OF CONSULTATION: Urology REQUESTING PHYSICIAN: Dong Samson MD Dear Dr. Samson: Thank you for asking me to see this patient in urological consultation. HISTORY OF PRESENT ILLNESS: This patient is a 66-year-old male who is known to have a history of mu ltiple sclerosis and neurogenic bladder, has had urinary retention in the past and needed to have an indwelling Carson catheter and intermittent catheterization and has been also on Urecholine in the p ast. Apparently, the patient has been living in the [facility] and he was sen t to [facility] because of difficulty urinating and increasing scrotal swelling an d scrotal edema. In the emergency room, the patient was seen and was in urinary retention. He had a CT scan that showed urinary retention. Attempts to insert a Carson catheter were not successful. The emergency room at that time called Dr. Norton, who came in and saw him and was not able to inse rt a Carson catheter. Therefore, he inserted a suprapubic tube. Since then, the suprapubic tube has been draining well. The patient was also septic and he has been on the antibiotics. He was found to have a urinary tract infection with MRSA and E. coli ESBL and is being treated with antibiotics. I was called yesterday to see him because of the suprapubic tube and to follow up his urological ca re. It appears that Dr. Norton has not seen him the insertion of the suprapubic tube. PAST MEDICAL HISTORY: Again, this patient does have a history of multiple sclerosis, and has been o n Urecholine and has a neurogenic bladder. He did have bilateral knee arthroscopies in the past. L eft inguinal hernia repair as a child. He is known to have a history of hypertension. ALLERGIES: HE IS ALLERGIC TO: 1. PENICILLIN. 2. SULFA. SOCIAL HISTORY: He does not smoke or drink any alcohol. MEDICATIONS: He is on presently include: 1. Santyl for his wound care. 2. Ertapenem. 3. Daptomycin 4. Colace. 5. Dulcolax. 6. Lactulose. 7. Amantadine. 8. Famotidine. 9. Mirtazapine. 10. Multivitamin. 11. Protonix. 12. Celexa. 13. Lopressor. 14. Tamsulosin 0.8 mg. 15. Terazosin 10 mg, 16. Heparin subcutaneous. 17. Zofran p.r.n. 18. Tylenol p.r.n. 19. [place] p.r.n. 20. Colace p.r.n. 21. Milk of magnesia p.r.n. 22. Dulcolax p.r.n. PHYSICAL EXAMINATION: GENERAL: Reveals a 66-year-old. He weighs 116 kg, he is 72 inches tall. The patient is alert, brian ke, and denies any pain. VITAL SIGNS: Temperature is 99.9, the pulse is 94, respirations 20, blood pressure 111/67. ABDOMEN : Soft and enlarged. He does have the suprapubic tube in place and it is draining well. EXTERNAL GENITALIA: The penis has erosion of the urethra because of prior history of indwelling Fol ey catheter. The scrotum is swollen and still a little erythematous, but it appears that the swelli ng has decreased remarkably because he does have scrotal skin scaling from decrease of the edema. T here is no area of loculation there to indicate any abscess collection. EXTREMITIES: Reveal no edema. He does have scars from prior surgeries. LABORATORY DATA: His last CBC shows a white count of 9.9, hemoglobin 9.8, hematocrit 30.3. The BUN is 26, creatinine 1.42. On admission, his creatinine was 3.22 and it has since come down with the bladder drainage. Sodium 134, potassium 3.9, chloride 105, CO2 of 26. PT is 14.9, INR 1.16. The b lood cultures were positive for E. coli ESBL Klebsiella pneumoniae as well and Staph aureus. Urine culture on admission showed a Staph aureus and E. coli ESBL. IMAGING: The CT scan of the abdomen and pelvis at the time of admission again was reported as a 4.6 cm gas and fluid collection seen in the expected location of the urethra, at the base of the penis. Considerations include abscess and urethral diverticulum, but most likely the problem is that the patient was supposed to have had an indwelling Carson catheter and there was difficulty inserting a c atheter. Most likely in that area, there was a catheter with the balloon inflated in that area that caused the dilatation of the urethra. There is significant dilatation of the ureter proximally com patible with partial ureteral obstruction by the above described collection. I do not think it is b ecause of that collection, but I think it is because of urinary retention and neurogenic bladder and reflux to the upper urinary system. The scrotal wall is diffusely thickened and edematous, possibl y indicating cellulitis. It was reported also that the urinary bladder is distended and that was ma naged already by the suprapubic tube. The remaining on the reading of the CT scan as mentioned in t he report, but not urinary related issues. IMPRESSION: That this patient does have a neurogenic bladder and has had an indwelling Carson cathet er in the past. There was difficulty inserting catheters for him in the past, most likely he did temple ve a catheter inserted and not all the way in the bladder and the balloon inflated into the urethra, causing the ureteral dilatation that is reported on the CAT scan. Then, the patient had urinary re tention and bilateral hydronephrosis secondary to that. The patient also has scrotal edema and cell ulitis because of the obstruction by the catheter type he may had and because of the infection. The refore, the recommendation at the present is to keep the suprapubic tube. Do not attempt to insert a Carson catheter and change the suprapubic tube regularly every month or so. The suprapubic tube is easier to insert and change, but we cannot change it right now. We have to wait until the tract ma tures, then we could change it and keep on changing it regularly to a larger size. As far as the sc rotal erythema, it appears that it is responding well to the antibiotic and the treatment and does n ot need any intervention at the present. Dictated By: KEYUR DUNHAM/ELIGH Conf#: [id number] DID#: [id number]
[2016-09-25] MEDS: DAPTOMYCIN 700 MG in SOD CHLORIDE 0.9% 100 ML IVPB SCH (12:17)
[2016-09-25] MEDS: ERTAPENEM SODIUM 1 GM in SOD CHLORIDE 0.9% 100 ML IVPB SCH (12:17)
[2016-09-25] MEDS: COLLAGENASE 30 GM TUBE TOP SCH (12:17)
--- NOTE | 2016-09-25 12:21 | PN ---
Date/Time of Note Date/Time of Note DATE: 09/25/16 TIME: 12:18 Assessment/Plan VTE Prophylaxis VTE Prophylaxis Intervention: other Lines/Catheters IV [facility] Type (from [facility]): PICC Line Assessment/Plan Assessment/Plan - Severe sepsis with polymicrobial bacteremia due to urinary tract infection, resolving. Dr. Godfrey is following patient in ID consultation. Continue antibiotics per ID. - Polymicrobial UTI, continue antibiotics per ID. - Scrotal cellulitis. Dr. Ulloa is asked to see patient in urology consultation. - Urinary retention, status post supra pubic catheter insertion by Dr. Norton in the emergency room. - Acute on chronic kidney injury, resolved. Dr. Childs is following in nephrology consultation. - Hypertension. Continue metoprolol. - Multiple sclerosis. - Benign prostatic hypertrophy. Continue Flomax. - Depression. Continue Celexa. - Obesity Further recommendations based on clinical course. Plan of care discussed with Dr. Samson. Exam/Review of Systems Vital Signs Vitals Vital Signs Date Time Temp Pulse Resp B/P Pulse Ox O2 Delivery O2 Flow Rate FiO2 09/25/16 10:06 99.1 83 19 115/59 96 09/25/16 05:47 3.0 09/25/16 01:21 Nasal Cannula 09/24/16 18:27 32 Intake and Output 09/24/16 09/24/16 09/25/16 15:00 23:00 07:00 Intake Total 375 ml 1120 ml 980 ml Output Total 1300 ml 2500 ml Balance 375 ml -180 ml -1520 ml Exam Constitutional: alert, obese Neck: non-tender, supple Respiratory: clear to auscultation, normal air movement Cardiovascular: nl pulses Gastrointestinal: non-tender, soft Genitourinary - Male: other (swollen scrotum) Musculoskeletal: muscle weakness Extremities: normal pulses Lymph: nontender Results Result Diagram: 09/24/1654309/24/16543 Medications Medications Current Medications Amantadine HCl (Symmetrel) 100 mg QAM PO Last administered on 09/25/16 09:02; Admin Dose 100 MG; Start 09/16/16 at 09:00 Citalopram Hydrobromide (Celexa) 10 mg BID PO Last administered on 09/25/16 09: 02; Admin Dose 10 MG; Start 09/15/16 at 21:00 Famotidine (Pepcid) 20 mg DAILY PO Last administered on 09/25/16 09:02; Admin Dose 20 MG; Start 09/16/16 at 09:00 Metoprolol Tartrate (Lopressor) 25 mg BID PO Last administered on 09/25/16 09: 06; Admin Dose 25 MG; Start 09/15/16 at 21:00 Mirtazapine (Remeron) 15 mg DAILY PO Last administered on 09/25/16 09:02; Admin Dose 15 MG; Start 09/16/16 at 09:00 Multivitamins Therapeutic (Theragran) 1 tab DAILY PO Last administered on 09:02; Admin Dose 1 TAB; Start 09/16/16 at 09:00 Pantoprazole (Protonix Tab) 40 mg DAILY@06 PO Last administered on 09/25/16 05: 29; Admin Dose 40 MG; Start 09/16/16 at 06:00 Tamsulosin HCl (Flomax) 0.8 mg HS PO Last administered on 09/24/16 20:25; Admin Dose 0.8 MG; Start 09/15/16 at 21:00 Terazosin HCl 10 mg 10 mg HS PO Last administered on 09/24/16 20:26; Admin Dose 10 MG; Start 09/15/16 at 21:00 Sodium Chloride (NS) 1,000 ml @ 80 mls/hr [id number] IV Last administered on 01:17; Admin Dose 80 MLS/HR; Start 09/15/16 at 16:42 Ondansetron HCl (Zofran Inj) 4 mg Q6H PRN IV NAUSEA AND/OR VOMITING; Start at 17:00 Acetaminophen (Tylenol Tab) 650 mg Q6H PRN PO PAIN LEVEL 1-3 OR FEVER Last administered on 09/23/16 23:06; Admin Dose 650 MG; Start 09/15/16 at 17:00 Acetaminophen (Tylenol Supp) 650 mg Q6H PRN [place] PAIN LEVEL 1-3 OR FEVER; Start 09/15/16 at 17:00 Acetaminophen/ Hydrocodone Bitart ([place] (5/325)) 1 tab Q6H PRN PO MODERATE PAIN LEVEL 4-6; Start 09/15/16 at 17:00 Acetaminophen/ Hydrocodone Bitart ([place] (5/325)) 2 tab Q6H PRN PO SEVERE PAIN LEVEL 7-10; Start 09/15/16 at 17:00 Morphine Sulfate (morphine) 2 mg Q4H PRN IV SEVERE PAIN LEVEL 7-10 Last administered on 09/19/16 01:32; Admin Dose 2 MG; Start 09/15/16 at 17:00 Docusate Sodium (Colace) 100 mg Q12H PRN PO CONSTIPATION; Start 09/15/16 at 17: 00 Magnesium Hydroxide (Milk Of Mag) 30 ml DAILY PRN PO CONSTIPATION; Start at 17:00 Bisacodyl (Dulcolax Supp) 10 mg DAILY PRN [place] CONSTIPATION; Start 09/15/16 at 17 :00 Heparin Sodium (Porcine) (Heparin (5000 Units/0.5 ml)) 5,000 unit Q12 SC Last administered on 09/25/16 09:10; Admin Dose 5,000 UNIT; Start 09/15/16 at 21:00 Docusate Sodium (Colace) 100 mg BID PO Last administered on 09/25/16 09:02; Admin Dose 100 MG; Start 09/18/16 at 21:00 Bisacodyl (Dulcolax) 5 mg DAILY PRN PO CONSTIPATION Last administered on 09:21; Admin Dose 5 MG; Start 09/18/16 at 18:30 Lactulose 20 gm 20 gm DAILY PRN PO CONSTIPATION; Start 09/18/16 at 18:30 Ertapenem 1 gm/ Sodium Chloride 100 ml @ 200 mls/hr Q24H IVPB Last administered on 09/24/16 12:06; Admin Dose 200 MLS/HR; Start 09/19/16 at 12:00 Daptomycin/Sodium Chloride (Cubicin/NS) 100 ml @ 200 mls/hr Q24H IVPB Last administered on 09/24/16 13:42; Admin Dose 200 MLS/HR; Start 09/19/16 at 12:00 Collagenase (Santyl) 1 applic DAILY TOP Last administered on 09/24/16 11:10; Admin Dose 1 APPLIC; Start 09/23/16 at 18:00 Collagenase (Santyl) 1 applic PRN PRN TOP WOUND CARE; Start 09/23/16 at 14:30 Miscellaneous Information (Pending Santyl Order For Wound Care) This patient temple... PRN PRN XX WOUND CARE; Start 09/24/16 at 06:30 WHITNEY WEINSTEIN Sep 25, 2016 12:21
--- NOTE | 2016-09-25 13:42 | PN ---
DATE: 09/25/2016 SUBJECTIVE: No events overnight. The patient is alert, looks comfortable, no fevers. VITAL SIGNS: T-max yesterday was 100.1, T-current 99.1. No labs this morning. MICROBIOLOGY: Blood culture on admission grew E. coli ESBL, Klebsiella pneumoniae, oxacillin-sensit bernardo Staphylococcus aureus. Urine culture grew Staphylococcus aureus and E. coli ESBL. Scrotal woun d culture grew E. coli ESBL, Proteus VRE. ANTIMICROBIALS: The patient is on: 1. Daptomycin. 2. Invanz. ALLERGIES 1. PENICILLIN. 2. SULFA. PHYSICAL EXAMINATION: GENERAL: Chronically ill-appearing, elderly man who is in no distress. HEENT: Head atraumatic, normocephalic. Sclerae anicteric. Buccal mucosa dry. NECK: Supple, trachea midline. CHEST: Rise symmetrical. Breath sounds diminished to bases. HEART: S1, S2. ABDOMEN: Soft, bowel tones present. EXTREMITIES: No cyanosis. ASSESSMENT: 1. Sepsis with fevers, leukocytosis on admission and acute encephalopathy. 2. Polymicrobial bacteremia with repeat blood cultures being negative. 3. Polymicrobial urinary tract infection. 4. Scrotal cellulitis with infected wound. 5. Advanced multiple sclerosis. 6. Urinary retention, status post suprapubic catheter placement. PLAN: The patient remains stable. Urology recommendations noted. We will continue him on current a ntimicrobials. We will order a chest x-ray to make sure he is not developing pneumonia, given the l ow-grade fevers. Continue scrotal elevation and antibiotics. Dictated By: KAVITA ANDERSON ORACLE SOA CONSULTANT for [facility]/LEIGH Conf#: [id number] DID#: [id number]
[2016-09-25 20:23] VITALS: BP 128/60; RESP 18
[2016-09-25] MEDS: TERAZOSIN 5 MG CAP PO SCH (20:48)
[2016-09-25] MEDS: TAMSULOSIN (SR) 0.4 MG CAP PO SCH (20:49)
[2016-09-25] MEDS: ACETAMINOPHEN 325 MG TAB PO PRN (21:12)
[2016-09-25 22:00] VITALS: BP 118/60; PULSE 88; RESP 18
[2016-09-26 02:00] VITALS: BP 124/66; PULSE 78; RESP 18
[2016-09-26] MEDS: SOD CHLORIDE 0.9% 1,000 ML IV SCH ×3 (02:42→21:31)
[2016-09-26] MEDS: PANTOPRAZOLE (EC) 40 MG TAB PO SCH (05:34)
[2016-09-26 06:39] LABS: CREATININE 1.59 mg/dl (0.61-1.24)
--- NOTE | 2016-09-26 06:55 | RADRPT ---
PROCEDURE: XR Chest. CLINICAL INDICATION: Pneumonia TECHNIQUE: Portable single view of the chest COMPARISON: 09/21 FINDINGS: Cardiomegaly and left PICC line again seen. Pulmonary vascular congestion is again seen. There is decrease in alveolar opacity in the right lung which may be due to improved lung volumes compared wi th prior. Scattered areas of subsegmental atelectasis are seen. IMPRESSION: Slightly improved aeration of the right lung. Otherwise stable exam. RPTAT: [facility] Physician Jack Date Time Electronically viewed and signed by Rosa Isela Townsend Physician on 09/26/2016 06:55 LE/
[2016-09-26 07:47] VITALS: BP 124/68; RESP 16
--- NOTE | 2016-09-26 09:37 | PN ---
DATE: 09/26/2016 SUBJECTIVE: Urinary retention and penoscrotal edema and erythema. OBJECTIVE: VITAL SIGNS: The patient is afebrile. Temperature is 98.7, blood pressure 124/68, pulse 85, respir ations 16. ABDOMEN: Suprapubic tube is draining well and the urine is clear. GENITALIA: The penoscrotal swelling is decreasing, but is still a little erythematous, but there is no fluctuation and it is much less than it had been before. LABORATORY DATA: Shows that his CBC shows a white count of 9.9, hemoglobin 9.8, hematocrit 30.3. T he BUN is 25, creatinine 1.59. IMPRESSION: Urinary retention that has been treated with a suprapubic tube. The patient does have probably a urethral stricture and that is the reason a Carson catheter was not able to be inserted fr om the urethra. The urinary tract infection is being managed, treated with antibiotic. RECOMMENDATION: Keep the suprapubic tube in and we will change it to a larger size gradually, usual ly about 3 weeks after the initial insertion and then every month as needed. Continue the antibioti cs. Dictated By: KEYUR DUNHAM/LEIGH Conf#: [id number] DID#: [id number]
[2016-09-26] MEDS: CITALOPRAM 20 MG TAB PO SCH ×2 (09:39→21:35)
[2016-09-26] MEDS: METOPROLOL 25 MG TAB PO SCH ×2 (09:40→21:00)
[2016-09-26] MEDS: AMANTADINE 100 MG CAP PO SCH (09:40)
[2016-09-26] MEDS: MULTIVITAMINS THERAPEUTIC TAB PO SCH (09:41)
[2016-09-26] MEDS: DOCUSATE SODIUM 100 MG CAP PO SCH ×2 (09:41→21:35)
[2016-09-26] MEDS: MIRTAZAPINE 15 MG TAB PO SCH (09:41)
[2016-09-26] MEDS: FAMOTIDINE 20 MG TAB PO SCH (09:41)
[2016-09-26] MEDS: HEPARIN 5,000 UNIT/0.5 ML VIAL SC SCH ×2 (09:53→21:53)
[2016-09-26] MEDS: DAPTOMYCIN 700 MG in SOD CHLORIDE 0.9% 100 ML IVPB SCH (12:34)
[2016-09-26] MEDS: ERTAPENEM SODIUM 1 GM in SOD CHLORIDE 0.9% 100 ML IVPB SCH (12:36)
[2016-09-26] MEDS: COLLAGENASE 30 GM TUBE TOP SCH (12:38)
--- NOTE | 2016-09-26 13:13 | CONS ---
Date/Time of Note Date/Time of Note DATE: 09/26/16 TIME: 13:11 Assessment/Plan Assessment/Plan Chief Complaint/Hosp Course SUBJECTIVE: No events overnight. The patient looks comfortable, no fevers. MICROBIOLOGY: Blood culture on admission grew E. coli ESBL, Klebsiella pneumoniae, oxacillin-sensitive Staphylococcus aureus. Urine culture grew Staphylococcus aureus and E. coli ESBL. Scrotal wound culture grew E. coli ESBL , Proteus VRE. ANTIMICROBIALS: The patient is on: 1. Daptomycin. 2. Invanz. ALLERGIES 1. PENICILLIN. 2. SULFA. PHYSICAL EXAMINATION: GENERAL: Chronically ill-appearing, elderly man who is in no distress. HEENT: Head atraumatic, normocephalic. Sclerae anicteric. Buccal mucosa dry. NECK: Supple, trachea midline. CHEST: Rise symmetrical. Breath sounds diminished to bases. HEART: S1, S2. ABDOMEN: Soft, bowel tones present. EXTREMITIES: No cyanosis. ASSESSMENT: 1. Sepsis with fevers, leukocytosis on admission and acute encephalopathy. 2. Polymicrobial bacteremia with repeat blood cultures being negative. 3. Polymicrobial urinary tract infection. 4. Scrotal cellulitis with infected wound===> improving. 5. Advanced multiple sclerosis. 6. Urinary retention, status post suprapubic catheter placement. PLAN: The patient remains stable. Continue abx, scrotal elevation, f/u Urology recommendations. CXR with improved R lung aeration, f/u labs tomorrow [facility] staff Problems: Consultation Date/Type/Reason Admit Date/Time September 15, 2016 at 14:26 Type of Consultation: ID Referring Provider: GISELA GREER MD Exam/Review of Systems Vital Signs Vitals Vital Signs Date Time Temp Pulse Resp B/P Pulse Ox O2 Delivery O2 Flow Rate FiO2 09/26/16 07:47 98.7 85 16 124/68 98 09/26/16 02:49 3.0 09/26/16 02:00 Nasal Cannula 09/24/16 18:27 32 Intake and Output 09/25/16 09/25/16 09/26/16 15:00 23:00 07:00 Intake Total 1780 ml 1000 ml Output Total 1100 ml 1850 ml Balance 680 ml -850 ml Results Result Diagram: 09/24/16 0544 09/26/16 0545 Results 24 hrs Laboratory Tests Test 09/26/16 05:45 Blood Urea Nitrogen 25 H Creatinine 1.59 H Medications Medications Current Medications Amantadine HCl (Symmetrel) 100 mg QAM PO Last administered on 09/26/16 09:40; Admin Dose 100 MG; Start 09/16/16 at 09:00 Citalopram Hydrobromide (Celexa) 10 mg BID PO Last administered on 09/26/16 09: 39; Admin Dose 10 MG; Start 09/15/16 at 21:00 Famotidine (Pepcid) 20 mg DAILY PO Last administered on 09/26/16 09:41; Admin Dose 20 MG; Start 09/16/16 at 09:00 Metoprolol Tartrate (Lopressor) 25 mg BID PO Last administered on 09/26/16 09: 40; Admin Dose 25 MG; Start 09/15/16 at 21:00 Mirtazapine (Remeron) 15 mg DAILY PO Last administered on 09/26/16 09:41; Admin Dose 15 MG; Start 09/16/16 at 09:00 Multivitamins Therapeutic (Theragran) 1 tab DAILY PO Last administered on 09:41; Admin Dose 1 TAB; Start 09/16/16 at 09:00 Pantoprazole (Protonix Tab) 40 mg DAILY@06 PO Last administered on 09/26/16 05: 34; Admin Dose 40 MG; Start 09/16/16 at 06:00 Tamsulosin HCl (Flomax) 0.8 mg HS PO Last administered on 09/25/16 20:49; Admin Dose 0.8 MG; Start 09/15/16 at 21:00 Terazosin HCl 10 mg 10 mg HS PO Last administered on 09/25/16 20:48; Admin Dose 10 MG; Start 09/15/16 at 21:00 Sodium Chloride (NS) 1,000 ml @ 80 mls/hr [id number] IV Last administered on 06:58; Admin Dose 80 MLS/HR; Start 09/15/16 at 16:42 Ondansetron HCl (Zofran Inj) 4 mg Q6H PRN IV NAUSEA AND/OR VOMITING; Start at 17:00 Acetaminophen (Tylenol Tab) 650 mg Q6H PRN PO PAIN LEVEL 1-3 OR FEVER Last administered on 09/25/16 21:12; Admin Dose 650 MG; Start 09/15/16 at 17:00 Acetaminophen (Tylenol Supp) 650 mg Q6H PRN [place] PAIN LEVEL 1-3 OR FEVER; Start 09/15/16 at 17:00 Acetaminophen/ Hydrocodone Bitart ([place] (5/325)) 1 tab Q6H PRN PO MODERATE PAIN LEVEL 4-6; Start 09/15/16 at 17:00 Acetaminophen/ Hydrocodone Bitart ([place] (5/325)) 2 tab Q6H PRN PO SEVERE PAIN LEVEL 7-10; Start 09/15/16 at 17:00 Morphine Sulfate (morphine) 2 mg Q4H PRN IV SEVERE PAIN LEVEL 7-10 Last administered on 09/19/16 01:32; Admin Dose 2 MG; Start 09/15/16 at 17:00 Docusate Sodium (Colace) 100 mg Q12H PRN PO CONSTIPATION; Start 09/15/16 at 17: 00 Magnesium Hydroxide (Milk Of Mag) 30 ml DAILY PRN PO CONSTIPATION; Start at 17:00 Bisacodyl (Dulcolax Supp) 10 mg DAILY PRN [place] CONSTIPATION; Start 09/15/16 at 17 :00 Heparin Sodium (Porcine) (Heparin (5000 Units/0.5 ml)) 5,000 unit Q12 SC Last administered on 09/26/16 09:53; Admin Dose 5,000 UNIT; Start 09/15/16 at 21:00 Docusate Sodium (Colace) 100 mg BID PO Last administered on 09/26/16 09:41; Admin Dose 100 MG; Start 09/18/16 at 21:00 Bisacodyl (Dulcolax) 5 mg DAILY PRN PO CONSTIPATION Last administered on 09:21; Admin Dose 5 MG; Start 09/18/16 at 18:30 Lactulose 20 gm 20 gm DAILY PRN PO CONSTIPATION; Start 09/18/16 at 18:30 Ertapenem 1 gm/ Sodium Chloride 100 ml @ 200 mls/hr Q24H IVPB Last administered on 09/26/16 12:36; Admin Dose 200 MLS/HR; Start 09/19/16 at 12:00 Daptomycin/Sodium Chloride (Cubicin/NS) 100 ml @ 200 mls/hr Q24H IVPB Last administered on 09/26/16 12:34; Admin Dose 200 MLS/HR; Start 09/19/16 at 12:00 Collagenase (Santyl) 1 applic DAILY TOP Last administered on 09/26/16 12:38; Admin Dose 1 APPLIC; Start 09/23/16 at 18:00 Collagenase (Santyl) 1 applic PRN PRN TOP WOUND CARE; Start 09/23/16 at 14:30 Miscellaneous Information (Pending Santyl Order For Wound Care) This patient temple... PRN PRN XX WOUND CARE; Start 09/24/16 at 06:30 KAVITA ANDERSON NP Sep 26, 2016 13:13
--- NOTE | 2016-09-26 14:23 | PN ---
Date/Time of Note Date/Time of Note DATE: 09/26/16 TIME: 14:21 Assessment/Plan VTE Prophylaxis VTE Prophylaxis Intervention: SCD's Lines/Catheters IV Catheter Type (from Nrs): PICC Line Central line still needed: Yes Urinary Cath still in place: Yes (SUPRAPUBIC VALERY IN PLACED) Reason Cath still needed: urinary retention Assessment/Plan Chief Complaint/Hosp Course No fever, good urine output via suprapubic catheter. Assessment and plan: - Severe sepsis with polymicrobial bacteremia due to urinary tract infection, resolving. Dr. Godfrey is following patient in ID consultation. Continue antibiotics per ID. - Polymicrobial UTI, continue antibiotics per ID. - Urinary retention, status post supra pubic catheter insertion by Dr. Norton in the emergency room. - Scrotal cellulitis. Dr. Ulloa is following in urology consultation. - Acute on chronic kidney injury, resolved. Dr. Childs is following in nephrology consultation. - Hypertension. Continue metoprolol. - Multiple sclerosis. - Benign prostatic hypertrophy. Continue Flomax. - Depression. Continue Celexa. - Obesity Further recommendations based on clinical course. Plan of care discussed with Dr. Samson. Problems: Exam/Review of Systems Vital Signs Vitals Vital Signs Date Time Temp Pulse Resp B/P Pulse Ox O2 Delivery O2 Flow Rate FiO2 09/26/16 13:51 3.0 09/26/16 07:47 98.7 85 16 124/68 98 09/26/16 02:00 Nasal Cannula 09/24/16 18:27 32 Intake and Output 09/25/16 09/25/16 09/26/16 15:00 23:00 07:00 Intake Total 1780 ml 1000 ml Output Total 1100 ml 1850 ml Balance 680 ml -850 ml Exam Constitutional: alert, obese Head: normocephalic Neck: supple Respiratory: clear to auscultation Cardiovascular: regular rate and rhythm Gastrointestinal: non-tender, soft Genitourinary - Male: other (Suprapubic catheter) Extremities: normal pulses Skin: nl turgor Results Result Diagram: 09/24/16 0544 09/26/16 0545 Results 24 hrs Laboratory Tests Test 09/26/16 05:45 Blood Urea Nitrogen 25 H Creatinine 1.59 H Medications Medications Current Medications Amantadine HCl (Symmetrel) 100 mg QAM PO Last administered on 09/26/16 09:40; Admin Dose 100 MG; Start 09/16/16 at 09:00 Citalopram Hydrobromide (Celexa) 10 mg BID PO Last administered on 09/26/16 09: 39; Admin Dose 10 MG; Start 09/15/16 at 21:00 Famotidine (Pepcid) 20 mg DAILY PO Last administered on 09/26/16 09:41; Admin Dose 20 MG; Start 09/16/16 at 09:00 Metoprolol Tartrate (Lopressor) 25 mg BID PO Last administered on 09/26/16 09: 40; Admin Dose 25 MG; Start 09/15/16 at 21:00 Mirtazapine (Remeron) 15 mg DAILY PO Last administered on 09/26/16 09:41; Admin Dose 15 MG; Start 09/16/16 at 09:00 Multivitamins Therapeutic (Theragran) 1 tab DAILY PO Last administered on 09:41; Admin Dose 1 TAB; Start 09/16/16 at 09:00 Pantoprazole (Protonix Tab) 40 mg DAILY@06 PO Last administered on 09/26/16 05: 34; Admin Dose 40 MG; Start 09/16/16 at 06:00 Tamsulosin HCl (Flomax) 0.8 mg HS PO Last administered on 09/25/16 20:49; Admin Dose 0.8 MG; Start 09/15/16 at 21:00 Terazosin HCl 10 mg 10 mg HS PO Last administered on 09/25/16 20:48; Admin Dose 10 MG; Start 09/15/16 at 21:00 Sodium Chloride (NS) 1,000 ml @ 80 mls/hr [id number] IV Last administered on 06:58; Admin Dose 80 MLS/HR; Start 09/15/16 at 16:42 Ondansetron HCl (Zofran Inj) 4 mg Q6H PRN IV NAUSEA AND/OR VOMITING; Start at 17:00 Acetaminophen (Tylenol Tab) 650 mg Q6H PRN PO PAIN LEVEL 1-3 OR FEVER Last administered on 09/25/16 21:12; Admin Dose 650 MG; Start 09/15/16 at 17:00 Acetaminophen (Tylenol Supp) 650 mg Q6H PRN [place] PAIN LEVEL 1-3 OR FEVER; Start 09/15/16 at 17:00 Acetaminophen/ Hydrocodone Bitart ([place] (5/325)) 1 tab Q6H PRN PO MODERATE PAIN LEVEL 4-6; Start 09/15/16 at 17:00 Acetaminophen/ Hydrocodone Bitart ([place] (5/325)) 2 tab Q6H PRN PO SEVERE PAIN LEVEL 7-10; Start 09/15/16 at 17:00 Morphine Sulfate (morphine) 2 mg Q4H PRN IV SEVERE PAIN LEVEL 7-10 Last administered on 09/19/16 01:32; Admin Dose 2 MG; Start 09/15/16 at 17:00 Docusate Sodium (Colace) 100 mg Q12H PRN PO CONSTIPATION; Start 09/15/16 at 17: 00 Magnesium Hydroxide (Milk Of Mag) 30 ml DAILY PRN PO CONSTIPATION; Start at 17:00 Bisacodyl (Dulcolax Supp) 10 mg DAILY PRN [place] CONSTIPATION; Start 09/15/16 at 17 :00 Heparin Sodium (Porcine) (Heparin (5000 Units/0.5 ml)) 5,000 unit Q12 SC Last administered on 09/26/16 09:53; Admin Dose 5,000 UNIT; Start 09/15/16 at 21:00 Docusate Sodium (Colace) 100 mg BID PO Last administered on 09/26/16 09:41; Admin Dose 100 MG; Start 09/18/16 at 21:00 Bisacodyl (Dulcolax) 5 mg DAILY PRN PO CONSTIPATION Last administered on 09:21; Admin Dose 5 MG; Start 09/18/16 at 18:30 Lactulose 20 gm 20 gm DAILY PRN PO CONSTIPATION; Start 09/18/16 at 18:30 Ertapenem 1 gm/ Sodium Chloride 100 ml @ 200 mls/hr Q24H IVPB Last administered on 09/26/16 12:36; Admin Dose 200 MLS/HR; Start 09/19/16 at 12:00 Daptomycin/Sodium Chloride (Cubicin/NS) 100 ml @ 200 mls/hr Q24H IVPB Last administered on 09/26/16 12:34; Admin Dose 200 MLS/HR; Start 09/19/16 at 12:00 Collagenase (Santyl) 1 applic DAILY TOP Last administered on 09/26/16t 12:38; Admin Dose 1 APPLIC; Start 09/23/16 at 18:00 Collagenase (Santyl) 1 applic PRN PRN TOP WOUND CARE; Start 09/23/16 at 14:30 Miscellaneous Information (Pending Santyl Order For Wound Care) This patient temple... PRN PRN XX WOUND CARE; Start 09/24/16 at 06:30 CLARIBEL HERNANDEZ Sep 26, 2016 14:22
[2016-09-26] MEDS: ACETAMINOPHEN 325 MG TAB PO PRN (17:48)
[2016-09-26 20:07] VITALS: BP 99/55; RESP 20
[2016-09-26] MEDS: LINEZOLID 600 MG/D5W (PMX) 300 ML IVPB SCH (21:33)
[2016-09-26] MEDS: TERAZOSIN 5 MG CAP PO SCH (21:34)
[2016-09-26] MEDS: TAMSULOSIN (SR) 0.4 MG CAP PO SCH (21:35)
[2016-09-27] MEDS: SOD CHLORIDE 0.9% 1,000 ML IV SCH ×3 (03:42→16:12)
[2016-09-27 05:55] LABS: ADD SCAN DIFF NO
[2016-09-27 06:02] LABS: BASOPHILS % 0.7 % (0.0-2.0); EOSINOPHILS # 0.1 10^3/ul (0.0-0.5); HEMATOCRIT 31.5 % (42.0-52.0); HEMOGLOBIN 10.2 g/dl (14.0-18.0); LYMPHOCYTES # 1.1 10^3/ul (0.8-2.9); LYMPHOCYTES % 18.5 % (15.0-51.0); MEAN CORPUSCULAR HEMOGLOBIN 30.3 pg (29.0-33.0); MEAN CORPUSCULAR HGB CONC 32.4 g/dl (32.0-37.0); MEAN CORPUSCULAR VOLUME 93.5 fl (82.0-101.0); MEAN PLATELET VOLUME 8.1 fl (7.4-10.4); MONOCYTE # 0.8 10^3/ul (0.3-0.9); MONOCYTES % 13.4 % (0.0-11.0); NEUTROPHIL # 3.8 10^3/ul (1.6-7.5); NEUTROPHILS % 64.7 % (39.0-77.0); PLATELET COUNT 432 10^3/UL (140-415); RED BLOOD COUNT 3.37 10^6/ul (4.70-6.10); RED CELL DISTRIBUTION WIDTH 14.9 % (11.5-14.5); WHITE BLOOD COUNT 5.9 10^3/ul (4.8-10.8)
[2016-09-27] MEDS: GUAIFENESIN/DM 5ML CUP PO PRN ×3 (06:10→18:52)
[2016-09-27] MEDS: PANTOPRAZOLE (EC) 40 MG TAB PO SCH (06:10)
[2016-09-27 08:29] VITALS: BP 105/57; RESP 16
[2016-09-27] MEDS: METOPROLOL 25 MG TAB PO SCH ×2 (09:00→21:52)
[2016-09-27] MEDS: LINEZOLID 600 MG/D5W (PMX) 300 ML IVPB SCH ×2 (09:33→21:50)
[2016-09-27] MEDS: MIRTAZAPINE 15 MG TAB PO SCH (09:34)
[2016-09-27] MEDS: MULTIVITAMINS THERAPEUTIC TAB PO SCH (09:34)
[2016-09-27] MEDS: CITALOPRAM 20 MG TAB PO SCH ×2 (09:34→21:52)
[2016-09-27] MEDS: AMANTADINE 100 MG CAP PO SCH (09:34)
[2016-09-27] MEDS: FAMOTIDINE 20 MG TAB PO SCH (09:34)
[2016-09-27] MEDS: DOCUSATE SODIUM 100 MG CAP PO SCH ×2 (09:34→21:51)
[2016-09-27] MEDS: COLLAGENASE 30 GM TUBE TOP SCH (09:36)
[2016-09-27] MEDS: HEPARIN 5,000 UNIT/0.5 ML VIAL SC SCH ×2 (09:54→22:33)
[2016-09-27 09:56] VITALS: PULSE 84
[2016-09-27] MEDS: ERTAPENEM SODIUM 1 GM in SOD CHLORIDE 0.9% 100 ML IVPB SCH (12:15)
--- NOTE | 2016-09-27 14:10 | PN ---
Date/Time of Note Date/Time of Note DATE: 09/27/16 TIME: 14:06 Assessment/Plan VTE Prophylaxis VTE Prophylaxis Intervention: other Lines/Catheters IV Catheter Type (from [facility]): PICC Line Urinary Cath still in place: Yes Assessment/Plan Assessment/Plan - Severe sepsis with polymicrobial bacteremia due to urinary tract infection, resolving. Dr. Godfrey is following patient in ID consultation. Continue antibiotics per ID. - Polymicrobial UTI, continue antibiotics per ID. - Urinary retention, status post supra pubic catheter insertion by Dr. Norton in the emergency room. - Scrotal cellulitis. Dr. Ulloa is following in urology consultation. - Acute on chronic kidney injury, resolved. Dr. Childs is following in nephrology consultation. - Hypertension. Continue metoprolol. - Multiple sclerosis. - Benign prostatic hypertrophy. Continue Flomax. - Depression. Continue Celexa. - Obesity-weight management Further recommendations based on clinical course. Plan of care discussed with Dr. Samson. Exam/Review of Systems Vital Signs Vitals Vital Signs Date Time Temp Pulse Resp B/P Pulse Ox O2 Delivery O2 Flow Rate FiO2 09/27/16 09:56 84 94 Nasal Cannula 2.0 09/27/16 08:29 99.5 16 105/57 09/24/16 18:27 32 Intake and Output 09/26/16 09/26/16 09/27/16 15:00 23:00 07:00 Intake Total 200 ml 2100 ml 850 ml Output Total 2000 ml 800 ml Balance 200 ml 100 ml 50 ml Exam Constitutional: alert, oriented, well developed Eyes: nl sclera ENMT: nl external ears & nose Respiratory: clear to auscultation, normal air movement Cardiovascular: nl pulses, regular rate and rhythm Gastrointestinal: non-tender, soft Genitourinary - Male: other (Swollen scrotum) Extremities: normal pulses Neurological: nl speech Lymph: nontender Results Result Diagram: 09/27/16 0516 09/26/16 0545 Results 24 hrs Laboratory Tests Test 09/27/16 05:16 White Blood Count 5.9 # Red Blood Count 3.37 L Hemoglobin 10.2 L Hematocrit 31.5 L Mean Corpuscular Volume 93.5 Mean Corpuscular Hemoglobin 30.3 Mean Corpuscular Hemoglobin Concent 32.4 Red Cell Distribution Width 14.9 H Platelet Count 432 H Mean Platelet Volume 8.1 Neutrophils % 64.7 Lymphocytes % 18.5 Monocytes % 13.4 H Eosinophils % 2.0 Basophils % 0.7 Nucleated Red Blood Cells % 0.0 Neutrophils # 3.8 Lymphocytes # 1.1 Monocytes # 0.8 Eosinophils # 0.1 Basophils # 0.0 Nucleated Red Blood Cells # 0.0 Creatine Kinase 58 Medications Medications Current Medications Amantadine HCl (Symmetrel) 100 mg QAM PO Last administered on 09/27/16 09:34; Admin Dose 100 MG; Start 09/16/16 at 09:00 Citalopram Hydrobromide (Celexa) 10 mg BID PO Last administered on 09/27/16 09: 34; Admin Dose 10 MG; Start 09/15/16 at 21:00 Famotidine (Pepcid) 20 mg DAILY PO Last administered on 09/27/16 09:34; Admin Dose 20 MG; Start 09/16/16 at 09:00 Metoprolol Tartrate (Lopressor) 25 mg BID PO Last administered on 09/26/16 09: 40; Admin Dose 25 MG; Start 09/15/16 at 21:00 Mirtazapine (Remeron) 15 mg DAILY PO Last administered on 09/27/16 09:34; Admin Dose 15 MG; Start 09/16/16 at 09:00 Multivitamins Therapeutic (Theragran) 1 tab DAILY PO Last administered on 09:34; Admin Dose 1 TAB; Start 09/16/16 at 09:00 Pantoprazole (Protonix Tab) 40 mg DAILY@06 PO Last administered on 09/27/16 06: 10; Admin Dose 40 MG; Start 09/16/16 at 06:00 Tamsulosin HCl (Flomax) 0.8 mg HS PO Last administered on 09/26/16 21:35; Admin Dose 0.8 MG; Start 09/15/16 at 21:00 Terazosin HCl 10 mg 10 mg HS PO Last administered on 09/26/16 21:34; Admin Dose 10 MG; Start 09/15/16 at 21:00 Sodium Chloride (NS) 1,000 ml @ 80 mls/hr [id number] IV Last administered on 12:16; Admin Dose 80 MLS/HR; Start 09/15/16 at 16:42 Ondansetron HCl (Zofran Inj) 4 mg Q6H PRN IV NAUSEA AND/OR VOMITING; Start at 17:00 Acetaminophen (Tylenol Tab) 650 mg Q6H PRN PO PAIN LEVEL 1-3 OR FEVER Last administered on 09/26/16 17:48; Admin Dose 650 MG; Start 09/15/16 at 17:00 Acetaminophen (Tylenol Supp) 650 mg Q6H PRN [place] PAIN LEVEL 1-3 OR FEVER; Start 09/15/16 at 17:00 Acetaminophen/ Hydrocodone Bitart ([place] (5/325)) 1 tab Q6H PRN PO MODERATE PAIN LEVEL 4-6; Start 09/15/16 at 17:00 Acetaminophen/ Hydrocodone Bitart ([place] (5/325)) 2 tab Q6H PRN PO SEVERE PAIN LEVEL 7-10; Start 09/15/16 at 17:00 Morphine Sulfate (morphine) 2 mg Q4H PRN IV SEVERE PAIN LEVEL 7-10 Last administered on 09/19/16 01:32; Admin Dose 2 MG; Start 09/15/16 at 17:00 Docusate Sodium (Colace) 100 mg Q12H PRN PO CONSTIPATION; Start 09/15/16 at 17: 00 Magnesium Hydroxide (Milk Of Mag) 30 ml DAILY PRN PO CONSTIPATION; Start at 17:00 Bisacodyl (Dulcolax Supp) 10 mg DAILY PRN [place] CONSTIPATION; Start 09/15/16 at 17 :00 Heparin Sodium (Porcine) (Heparin (5000 Units/0.5 ml)) 5,000 unit Q12 SC Last administered on 09/27/16 09:54; Admin Dose 5,000 UNIT; Start 09/15/16 at 21:00 Docusate Sodium (Colace) 100 mg BID PO Last administered on 09/27/16 09:34; Admin Dose 100 MG; Start 09/18/16 at 21:00 Bisacodyl (Dulcolax) 5 mg DAILY PRN PO CONSTIPATION Last administered on 09:21; Admin Dose 5 MG; Start 09/18/16 at 18:30 Lactulose 20 gm 20 gm DAILY PRN PO CONSTIPATION; Start 09/18/16 at 18:30 Ertapenem/Sodium Chloride (Invanz/NS) 100 ml @ 200 mls/hr Q24H IVPB Last administered on 09/27/16 12:15; Admin Dose 200 MLS/HR; Start 09/19/16 at 12:00 Collagenase (Santyl) 1 applic DAILY TOP Last administered on 09/27/16 09:36; Admin Dose 1 APPLIC; Start 09/23/16 at 18:00 Collagenase (Santyl) 1 applic PRN PRN TOP WOUND CARE; Start 09/23/16 at 14:30 Miscellaneous Information This patient temple... PRN PRN XX WOUND CARE; Start 09/24 at 06:30 Linezolid (Zyvox 600mg/D5W (Pmx)) 300 ml @ 300 mls/hr Q12 IVPB Last administered on 09/27/16 09:33; Admin Dose 300 MLS/HR; Start 09/26/16 at 21:00 Guaifenesin/ Dextromethorphan (Robitussin Dm Liquid Cup) 5 ml Q4H PRN PO COUGH Last administered on 09/27/16 12:13; Admin Dose 5 ML; Start 09/27/16 at 05:30 WHITNEY WEINSTEIN Sep 27, 2016 14:10
--- NOTE | 2016-09-27 14:50 | PN ---
DATE: 09/27/2016 INFECTIOUS DISEASE PROGRESS NOTE SUBJECTIVE: Patient is alert, feels good. Denies pain. He spiked a fever of 103 last night. Cultu res were sent. Antibiotics were changed from daptomycin to Zyvox. The patient remains on Invanz. DIAGNOSTICS: Chest x-ray from 09/27/2016 revealed slightly improved aeration of the right lung. LABORATORY DATA: WBC today 5.9, platelets 432, neutrophils 25, creatinine 1.59. INDWELLINGS: The patient had a PICC line placed on 09/21/2016. PHYSICAL EXAMINATION: GENERAL: Well-developed, chronically ill-appearing, elderly man, who is alert, in no distress. HEENT: Head atraumatic, normocephalic. Sclerae anicteric. Buccal mucosa pink. NECK: Supple. CHEST: Chest rise is symmetrical. Breath sounds clear. Diminished to the bases. HEART: S1, S2. ABDOMEN: Soft, bowel tones present. EXTREMITIES: Without cyanosis. ASSESSMENT: 1. Status post a high fever last night. Rule out pneumonia. Questionable aspiration. The patient is on Zyvox and Invanz. Status post sepsis. Polymicrobial bacteremia on admission. Blood culture g rew E. coli ESBL, Klebsiella pneumoniae and methicillin sensitive Staphylococcus aureus, covered wit h antibiotics. Repeat blood cultures since 09/17/2016 remain negative. 2. Polymicrobial urinary tract infection. 3. Scrotal cellulitis. Drainage culture grew E. coli, ESBL, VRE and Proteus mirabilis. 4. Advanced multiple sclerosis. 5. Urinary retention, status post suprapubic catheter placement. PLAN: The patient is clinically stable. We are going to continue him on the current antimicrobials . Repeat chest x-ray. We will follow up the blood cultures that were sent yesterday. Patient riley lewis had multiple bowel movements last night and we will start him on empiric Flagyl and send stoo l for C. difficile. Dictated By: KAVITA ANDERSON MEDICAL ADVISOR for [facility]/NTS Conf#: [id number] DID#: [id number]
--- NOTE | 2016-09-27 16:05 | PN ---
DATE: 09/27/2016 SUBJECTIVE: Urinary retention, urethral stricture, neurogenic bladder and the patient is status pos t suprapubic catheter insertion. The patient himself is feeling comfortable. OBJECTIVE: VITAL SIGNS: Temperature is 99.5, blood pressure 105/57, pulse is 84, respirations 16. ABDOMEN: Soft. The suprapubic catheter is draining clear urine. LABORATORY DATA: CBC shows a white count of 5.9, hemoglobin 10.2, hematocrit 31.5. BUN is 25, crea tinine 1.59. Last urine culture, no growth after 24 hours. IMPRESSION: The patient has a urethral stricture and had urinary retention. He is status post inser tion of a suprapubic tube on the day of his admission. Suprapubic tube is draining well and the uri ne is clear. RECOMMENDATION: Continue keeping the suprapubic tube in and change it when the track is mature, whic h usually is about 2 to 3 weeks from the date of insertion. As far as his urine infection that he temple d, it was E. coli ESBL and vancomycin-resistant Proteus. He is being treated and will leave it to t he infectious disease persons to decide when they want to stop the antibiotic. Dictated By: KEYUR DUNHAM/LEIGH Conf#: [id number] DID#: [id number]
[2016-09-27 20:00] VITALS: BP 112/70; RESP 20
[2016-09-27] MEDS: TAMSULOSIN (SR) 0.4 MG CAP PO SCH (21:51)
[2016-09-27] MEDS: metroNIDAZOLE 500 MG TAB NGT SCH (21:52)
[2016-09-27] MEDS: TERAZOSIN 5 MG CAP PO SCH (21:52)
[2016-09-28] MEDS: SOD CHLORIDE 0.9% 1,000 ML IV SCH ×2 (02:23→17:57)
[2016-09-28 06:03] LABS: ADD SCAN DIFF NO
[2016-09-28] MEDS: PANTOPRAZOLE (EC) 40 MG TAB PO SCH (06:06)
[2016-09-28] MEDS: metroNIDAZOLE 500 MG TAB NGT SCH ×3 (06:06→21:31)
[2016-09-28 06:08] LABS: BASOPHILS % 0.7 % (0.0-2.0); EOSINOPHILS # 0.2 10^3/ul (0.0-0.5); HEMATOCRIT 31.3 % (42.0-52.0); LYMPHOCYTES # 1.6 10^3/ul (0.8-2.9); MEAN CORPUSCULAR HEMOGLOBIN 29.9 pg (29.0-33.0); MEAN CORPUSCULAR HGB CONC 31.9 g/dl (32.0-37.0); MEAN CORPUSCULAR VOLUME 93.4 fl (82.0-101.0); MEAN PLATELET VOLUME 8.3 fl (7.4-10.4); MONOCYTE # 0.9 10^3/ul (0.3-0.9); NEUTROPHILS % 51.3 % (39.0-77.0); PLATELET COUNT 422 10^3/UL (140-415); RED BLOOD COUNT 3.35 10^6/ul (4.70-6.10); RED CELL DISTRIBUTION WIDTH 14.9 % (11.5-14.5); WHITE BLOOD COUNT 5.8 10^3/ul (4.8-10.8)
[2016-09-28 06:12] LABS: MONOCYTES % 15.8 % (0.0-11.0)
[2016-09-28 06:27] LABS: CALCIUM 8.2 mg/dl (8.4-10.2); CREATININE 1.51 mg/dl (0.61-1.24); POTASSIUM 4.6 mmol/L (3.5-5.1)
[2016-09-28 08:20] VITALS: BP 94/51; RESP 16
[2016-09-28] MEDS: LINEZOLID 600 MG/D5W (PMX) 300 ML IVPB SCH ×2 (08:33→21:31)
[2016-09-28] MEDS: CITALOPRAM 20 MG TAB PO SCH ×2 (08:33→21:32)
[2016-09-28] MEDS: MULTIVITAMINS THERAPEUTIC TAB PO SCH (08:34)
[2016-09-28] MEDS: MIRTAZAPINE 15 MG TAB PO SCH (08:34)
[2016-09-28] MEDS: AMANTADINE 100 MG CAP PO SCH (08:34)
[2016-09-28] MEDS: DOCUSATE SODIUM 100 MG CAP PO SCH ×2 (08:34→21:31)
[2016-09-28] MEDS: FAMOTIDINE 20 MG TAB PO SCH (08:34)
[2016-09-28] MEDS: METOPROLOL 25 MG TAB PO SCH ×2 (08:39→21:32)
[2016-09-28] MEDS: COLLAGENASE 30 GM TUBE TOP SCH (08:54)
[2016-09-28] MEDS: HEPARIN 5,000 UNIT/0.5 ML VIAL SC SCH ×2 (08:54→21:44)
--- NOTE | 2016-09-28 10:51 | RADRPT ---
PROCEDURE: XR Chest. CLINICAL INDICATION: Pneumonia. TECHNIQUE: Single frontal chest x-ray. COMPARISON: 09/25/2016 FINDINGS: The lungs are clear of acute infiltrates, edema, effusions, or masses. There is linear atelectasis i n the right mid lung field new since prior exam.. There is increased atelectasis at the left costoph renic angle as well. The cardiomediastinal silhouette is unremarkable. The osseous structures are i ntact. There is a left arm PICC line in place unchanged. IMPRESSION: Increased linear atelectasis in the right mid lung and left costophrenic angle. Left arm PICC line in place.. RPTAT: QQ .Harrison Carpio MD, MD Date Time Electronically viewed and signed by .Harrison Carpio MD, on 09/28/2016 10:51 .L/
--- NOTE | 2016-09-28 14:19 | PN ---
Date/Time of Note Date/Time of Note DATE: 09/28/16 TIME: 14:16 Assessment/Plan VTE Prophylaxis VTE Prophylaxis Intervention: other Lines/Catheters IV Catheter Type (from [facility]): PICC Line Urinary Cath still in place: Yes (suprapubic cath) Assessment/Plan Assessment/Plan - Severe sepsis with polymicrobial bacteremia due to urinary tract infection, resolving. Dr. Godfrey is following patient in ID consultation. Continue antibiotics per ID. - Polymicrobial UTI, continue antibiotics per ID. - Urinary retention, status post supra pubic catheter insertion by Dr. Norton in the emergency room. - Scrotal cellulitis. Dr. Ulloa is following in urology consultation. - Acute on chronic kidney injury, resolved. Dr. Childs is following in nephrology consultation. - Hypertension. Continue metoprolol. - Multiple sclerosis. - Benign prostatic hypertrophy. Continue Flomax. - Depression. Continue Celexa. - Obesity-weight management Further recommendations based on clinical course. Plan of care discussed with Dr. Samson. Exam/Review of Systems Vital Signs Vitals Vital Signs Date Time Temp Pulse Resp B/P Pulse Ox O2 Delivery O2 Flow Rate FiO2 09/28/16 08:20 99.0 73 16 94/51 96 09/28/16 08:00 Nasal Cannula 2.0 09/24/16 18:27 32 Intake and Output 09/27/16 09/27/16 09/28/16 15:00 23:00 07:00 Intake Total 750 ml 1740 ml 1670 ml Output Total 2150 ml 2050 ml Balance 750 ml -410 ml -380 ml Exam Constitutional: alert ENMT: nl external ears & nose Respiratory: clear to auscultation, normal air movement Cardiovascular: nl pulses, regular rate and rhythm Gastrointestinal: non-tender, soft Extremities: normal pulses Neurological: nl mental status Lymph: nontender Results Result Diagram: 09/28/16 0510 09/28/16 0510 Results 24 hrs Laboratory Tests Test 09/28/16 05:10 White Blood Count 5.8 Red Blood Count 3.35 L Hemoglobin 10.0 L Hematocrit 31.3 L Mean Corpuscular Volume 93.4 Mean Corpuscular Hemoglobin 29.9 Mean Corpuscular Hemoglobin Concent 31.9 L Red Cell Distribution Width 14.9 H Platelet Count 422 H Mean Platelet Volume 8.3 Neutrophils % 51.3 Lymphocytes % 27.0 Monocytes % 15.8 H Eosinophils % 4.0 Basophils % 0.7 Nucleated Red Blood Cells % 0.0 Neutrophils # 3.0 Lymphocytes # 1.6 Monocytes # 0.9 Eosinophils # 0.2 Basophils # 0.0 Nucleated Red Blood Cells # 0.0 Sodium Level 139 Potassium Level 4.6 Chloride Level 106 Carbon Dioxide Level 26 Anion Gap 12 Blood Urea Nitrogen 22 H Creatinine 1.51 H Glucose Level 109 Calcium Level 8.2 L Medications Medications Current Medications Amantadine HCl (Symmetrel) 100 mg QAM PO Last administered on 09/28/16 08:34; Admin Dose 100 MG; Start 09/16/16 at 09:00 Citalopram Hydrobromide (Celexa) 10 mg BID PO Last administered on 09/28/16 08: 33; Admin Dose 10 MG; Start 09/15/16 at 21:00 Famotidine (Pepcid) 20 mg DAILY PO Last administered on 09/28/16 08:34; Admin Dose 20 MG; Start 09/16/16 at 09:00 Metoprolol Tartrate (Lopressor) 25 mg BID PO Last administered on 09/27/16 21: 52; Admin Dose 25 MG; Start 09/15/16 at 21:00 Mirtazapine (Remeron) 15 mg DAILY PO Last administered on 09/28/16 08:34; Admin Dose 15 MG; Start 09/16/16 at 09:00 Multivitamins Therapeutic (Theragran) 1 tab DAILY PO Last administered on 08:34; Admin Dose 1 TAB; Start 09/16/16 at 09:00 Pantoprazole (Protonix Tab) 40 mg DAILY@06 PO Last administered on 09/28/16 06: 06; Admin Dose 40 MG; Start 09/16/16 at 06:00 Tamsulosin HCl (Flomax) 0.8 mg HS PO Last administered on 09/27/16 21:51; Admin Dose 0.8 MG; Start 09/15/16 at 21:00 Terazosin HCl 10 mg 10 mg HS PO Last administered on 09/27/16 21:52; Admin Dose 10 MG; Start 09/15/16 at 21:00 Sodium Chloride (NS) 1,000 ml @ 80 mls/hr [id number] IV Last administered on 02:23; Admin Dose 80 MLS/HR; Start 09/15/16 at 16:42 Ondansetron HCl (Zofran Inj) 4 mg Q6H PRN IV NAUSEA AND/OR VOMITING; Start at 17:00 Acetaminophen (Tylenol Tab) 650 mg Q6H PRN PO PAIN LEVEL 1-3 OR FEVER Last administered on 09/26/16 17:48; Admin Dose 650 MG; Start 09/15/16 at 17:00 Acetaminophen (Tylenol Supp) 650 mg Q6H PRN [place] PAIN LEVEL 1-3 OR FEVER; Start 09/15/16 at 17:00 Acetaminophen/ Hydrocodone Bitart ([place] (5/325)) 1 tab Q6H PRN PO MODERATE PAIN LEVEL 4-6; Start 09/15/16 at 17:00 Acetaminophen/ Hydrocodone Bitart ([place] (5/325)) 2 tab Q6H PRN PO SEVERE PAIN LEVEL 7-10; Start 09/15/16 at 17:00 Morphine Sulfate (morphine) 2 mg Q4H PRN IV SEVERE PAIN LEVEL 7-10 Last administered on 09/19/16 01:32; Admin Dose 2 MG; Start 09/15/16 at 17:00 Docusate Sodium (Colace) 100 mg Q12H PRN PO CONSTIPATION; Start 09/15/16 at 17: 00 Magnesium Hydroxide (Milk Of Mag) 30 ml DAILY PRN PO CONSTIPATION; Start at 17:00 Bisacodyl (Dulcolax Supp) 10 mg DAILY PRN [place] CONSTIPATION; Start 09/15/16 at 17 :00 Heparin Sodium (Porcine) (Heparin (5000 Units/0.5 ml)) 5,000 unit Q12 SC Last administered on 09/28/16 08:54; Admin Dose 5,000 UNIT; Start 09/15/16 at 21:00 Docusate Sodium (Colace) 100 mg BID PO Last administered on 09/28/16 08:34; Admin Dose 100 MG; Start 09/18/16 at 21:00 Bisacodyl (Dulcolax) 5 mg DAILY PRN PO CONSTIPATION Last administered on 09:21; Admin Dose 5 MG; Start 09/18/16 at 18:30 Lactulose (Enulose) 20 gm DAILY PRN PO CONSTIPATION; Start 09/18/16 at 18:30 Collagenase (Santyl) 1 applic DAILY TOP Last administered on 09/27/16 09:36; Admin Dose 1 APPLIC; Start 09/23/16 at 18:00 Collagenase (Santyl) 1 applic PRN PRN TOP WOUND CARE; Start 09/23/16 at 14:30 Miscellaneous Information This patient temple... PRN PRN XX WOUND CARE; Start 09/24 at 06:30 Linezolid (Zyvox 600mg/D5W (Pmx)) 300 ml @ 300 mls/hr Q12 IVPB Last administered on 09/28/16 08:33; Admin Dose 300 MLS/HR; Start 09/26/16 at 21:00 Guaifenesin/ Dextromethorphan (Robitussin Dm Liquid Cup) 5 ml Q4H PRN PO COUGH Last administered on 09/27/16 18:52; Admin Dose 5 ML; Start 09/27/16 at 05:30 Metronidazole 500 mg 500 mg Q8 NGT Last administered on 09/28/16 06:06; Admin Dose 500 MG; Start 09/27/16 at 22:00 Meropenem (Merrem 500 Mg/ 100 ml (Pmx)) 100 ml @ 200 mls/hr Q8 IVPB ; Start 09/28/16 at 14:00 WHITNEY WEINSTEIN Sep 28, 2016 14:19
[2016-09-28] MEDS: MEROPENEM 500 MG/100 ML (PMX) 100 ML IVPB SCH ×2 (14:24→23:05)
[2016-09-28] MEDS: GUAIFENESIN/DM 5ML CUP PO PRN (14:35)
[2016-09-28 18:03] VITALS: BP 113/57; PULSE 86
[2016-09-28 20:10] VITALS: BP 109/50; RESP 18
[2016-09-28] MEDS: TAMSULOSIN (SR) 0.4 MG CAP PO SCH (21:31)
[2016-09-28] MEDS: TERAZOSIN 5 MG CAP PO SCH (21:32)
[2016-09-29] MEDS: MEROPENEM 500 MG/100 ML (PMX) 100 ML IVPB SCH ×3 (06:01→22:27)
[2016-09-29] MEDS: metroNIDAZOLE 500 MG TAB NGT SCH ×3 (06:01→21:13)
[2016-09-29] MEDS: PANTOPRAZOLE (EC) 40 MG TAB PO SCH (06:01)
[2016-09-29] MEDS: SOD CHLORIDE 0.9% 1,000 ML IV SCH ×3 (06:02→21:56)
--- NOTE | 2016-09-29 08:04 | PN ---
DATE: 09/28/2016 INFECTIOUS DISEASE PROGRESS NOTE SUBJECTIVE: Patient is alert, eating lunch, looks comfortable, no fevers overnight. WBC 5.8, no shift, no bands. BUN 22, creatinine 1.51. MICROBIOLOGY: Blood and urine cultures repeated on 09/26/2016 remain negative. DIAGNOSTICS: Chest x-ray this morning revealed increased linear atelectasis in the right mid lung and left costophrenic angle. INDWELLINGS: PICC line, suprapubic catheter. ANTIMICROBIALS: The patient is on: 1. Meropenem. 2. Flagyl. 3. Zyvox. PHYSICAL EXAMINATION: GENERAL: This is a well-developed, chronically ill-appearing, elderly man who is awake, in no distress. HEENT: Head atraumatic, normocephalic. Sclerae anicteric. Buccal mucosa dry. NECK: Supple, trachea midline. CHEST: Rise symmetrical. Breath sounds diminished to bases. HEART: S1, S2. ABDOMEN: Soft, bowel tones present. EXTREMITIES: No cyanosis. ASSESSMENT: 1. Resolving sepsis secondary to urinary tract infection, infected scrotal wound with bacteremia. 2. Recurrent fevers, possibly developing pneumonia. 3. Aspiration risk. 4. Multiple sclerosis. 5. Status post urinary tract infection with bacteremia. 6. Urinary retention, status post suprapubic catheter placement. PLAN: The patient remains clinically stable. We will continue him on current antimicrobials. Monitor chest x-ray. Start incentive spirometry. Continue anti-aspiration measures. ?Swallow eval Dictated By: KAVITA ANDERSON WAGE CONCILIATOR for [employer]/NTS Conf#: [id number] DID#: [id number] MTDD
[2016-09-29 08:07] VITALS: BP 100/60; RESP 18
[2016-09-29] MEDS: LINEZOLID 600 MG/D5W (PMX) 300 ML IVPB SCH ×2 (08:50→21:13)
[2016-09-29] MEDS: CITALOPRAM 20 MG TAB PO SCH ×2 (08:52→21:14)
[2016-09-29] MEDS: MIRTAZAPINE 15 MG TAB PO SCH (08:53)
[2016-09-29] MEDS: FAMOTIDINE 20 MG TAB PO SCH (08:53)
[2016-09-29] MEDS: MULTIVITAMINS THERAPEUTIC TAB PO SCH (08:54)
[2016-09-29] MEDS: AMANTADINE 100 MG CAP PO SCH (08:54)
[2016-09-29] MEDS: DOCUSATE SODIUM 100 MG CAP PO SCH ×2 (08:54→21:13)
[2016-09-29] MEDS: METOPROLOL 25 MG TAB PO SCH ×2 (08:57→21:00)
[2016-09-29] MEDS: COLLAGENASE 30 GM TUBE TOP SCH (08:59)
[2016-09-29] MEDS: HEPARIN 5,000 UNIT/0.5 ML VIAL SC SCH ×2 (09:05→21:19)
--- NOTE | 2016-09-29 13:50 | CONS ---
Date/Time of Note Date/Time of Note DATE: 09/29/16 TIME: 13:48 Assessment/Plan Assessment/Plan Chief Complaint/Hosp Course SUBJECTIVE: Patient is alert, looks comfortable, no fevers overnight. MICROBIOLOGY: Blood and urine cultures repeated on 09/26/2016 remain negative. DIAGNOSTICS: Chest x-ray 09/28 revealed increased linear atelectasis in the right mid lung and left costophrenic angle. INDWELLINGS: PICC line, suprapubic catheter. ANTIMICROBIALS: The patient is on: 1. Meropenem. 2. Flagyl. 3. Zyvox. PHYSICAL EXAMINATION: GENERAL: This is a well-developed, chronically ill-appearing, elderly man who is awake, in no distress. HEENT: Head atraumatic, normocephalic. Sclerae anicteric. Buccal mucosa dry. NECK: Supple, trachea midline. CHEST: Rise symmetrical. Breath sounds diminished to bases. HEART: S1, S2. ABDOMEN: Soft, bowel tones present. EXTREMITIES: No cyanosis. ASSESSMENT: 1. Resolving sepsis secondary to urinary tract infection, infected scrotal wound with bacteremia. 2. HCAP, poss aspiration 3. Aspiration risk. 4. Multiple sclerosis. 5. Status post urinary tract infection with bacteremia. 6. Urinary retention, status post suprapubic catheter placement. PLAN: The patient remains stable. We will continue him on current antimicrobials, continue incentive spirometry and anti-aspiration measures. ? Jessica [facility] pt/staff Problems: Consultation Date/Type/Reason Admit Date/Time September 15, 2016 at 14:26 Type of Consultation: ID Referring Provider: GISELA GREER MD Exam/Review of Systems Vital Signs Vitals Vital Signs Date Time Temp Pulse Resp B/P Pulse Ox O2 Delivery O2 Flow Rate FiO2 09/29/16 10:11 Nasal Cannula 3.0 09/29/16 08:07 97.6 74 18 100/60 98 Intake and Output 09/28/16 09/28/16 09/29/16 15:00 23:00 07:00 Intake Total 300 ml 2170 ml 2000 ml Output Total 2000 ml 1900 ml Balance 300 ml 170 ml 100 ml Results Result Diagram: 09/28/16 0510 09/28/16 0510 Medications Medications Current Medications Amantadine HCl (Symmetrel) 100 mg QAM PO Last administered on 09/29/16t 08:54; Admin Dose 100 MG; Start 09/16/16 at 09:00 Citalopram Hydrobromide (Celexa) 10 mg BID PO Last administered on 09/29/16 08: 52; Admin Dose 10 MG; Start 09/15/16 at 21:00 Famotidine (Pepcid) 20 mg DAILY PO Last administered on 09/29/16 08:53; Admin Dose 20 MG; Start 09/16/16 at 09:00 Metoprolol Tartrate (Lopressor) 25 mg BID PO Last administered on 09/28/16 21: 32; Admin Dose 25 MG; Start 09/15/16 at 21:00 Mirtazapine (Remeron) 15 mg DAILY PO Last administered on 09/29/16 08:53; Admin Dose 15 MG; Start 09/16/16 at 09:00 Multivitamins Therapeutic (Theragran) 1 tab DAILY PO Last administered on 08:54; Admin Dose 1 TAB; Start 09/16/16 at 09:00 Pantoprazole (Protonix Tab) 40 mg DAILY@06 PO Last administered on 09/29/16 06: 01; Admin Dose 40 MG; Start 09/16/16 at 06:00 Tamsulosin HCl (Flomax) 0.8 mg HS PO Last administered on 09/28/16 21:31; Admin Dose 0.8 MG; Start 09/15/16 at 21:00 Terazosin HCl 10 mg 10 mg HS PO Last administered on 09/28/16 21:32; Admin Dose 10 MG; Start 09/15/16 at 21:00 Sodium Chloride (NS) 1,000 ml @ 80 mls/hr [id number] IV Last administered on 06:02; Admin Dose 80 MLS/HR; Start 09/15/16 at 16:42 Ondansetron HCl (Zofran Inj) 4 mg Q6H PRN IV NAUSEA AND/OR VOMITING; Start at 17:00 Acetaminophen (Tylenol Tab) 650 mg Q6H PRN PO PAIN LEVEL 1-3 OR FEVER Last administered on 09/26/16 17:48; Admin Dose 650 MG; Start 09/15/16 at 17:00 Acetaminophen (Tylenol Supp) 650 mg Q6H PRN [place] PAIN LEVEL 1-3 OR FEVER; Start 09/15/16 at 17:00 Acetaminophen/ Hydrocodone Bitart ([place] (5/325)) 1 tab Q6H PRN PO MODERATE PAIN LEVEL 4-6; Start 09/15/16 at 17:00 Acetaminophen/ Hydrocodone Bitart ([place] (5/325)) 2 tab Q6H PRN PO SEVERE PAIN LEVEL 7-10; Start 09/15/16 at 17:00 Morphine Sulfate (morphine) 2 mg Q4H PRN IV SEVERE PAIN LEVEL 7-10 Last administered on 09/19/16 01:32; Admin Dose 2 MG; Start 09/15/16 at 17:00 Docusate Sodium (Colace) 100 mg Q12H PRN PO CONSTIPATION; Start 09/15/16 at 17: 00 Magnesium Hydroxide (Milk Of Mag) 30 ml DAILY PRN PO CONSTIPATION; Start at 17:00 Bisacodyl (Dulcolax Supp) 10 mg DAILY PRN [place] CONSTIPATION; Start 09/15/16 at 17 :00 Heparin Sodium (Porcine) (Heparin (5000 Units/0.5 ml)) 5,000 unit Q12 SC Last administered on 09/29/16 09:05; Admin Dose 5,000 UNIT; Start 09/15/16 at 21:00 Docusate Sodium (Colace) 100 mg BID PO Last administered on 09/29/16 08:54; Admin Dose 100 MG; Start 09/18/16 at 21:00 Bisacodyl (Dulcolax) 5 mg DAILY PRN PO CONSTIPATION Last administered on 09:21; Admin Dose 5 MG; Start 09/18/16 at 18:30 Lactulose (Enulose) 20 gm DAILY PRN PO CONSTIPATION; Start 09/18/16 at 18:30 Collagenase (Santyl) 1 applic DAILY TOP Last administered on 09/29/16 08:59; Admin Dose 1 APPLIC; Start 09/23/16 at 18:00 Collagenase (Santyl) 1 applic PRN PRN TOP WOUND CARE; Start 09/23/16 at 14:30 Miscellaneous Information This patient temple... PRN PRN XX WOUND CARE; Start 09/24 at 06:30 Linezolid (Zyvox 600mg/D5W (Pmx)) 300 ml @ 300 mls/hr Q12 IVPB Last administered on 09/29/16 08:50; Admin Dose 300 MLS/HR; Start 09/26/16 at 21:00 Guaifenesin/ Dextromethorphan (Robitussin Dm Liquid Cup) 5 ml Q4H PRN PO COUGH Last administered on 09/28/16 14:35; Admin Dose 5 ML; Start 09/27/16 at 05:30 Metronidazole 500 mg 500 mg Q8 NGT Last administered on 09/29/16 06:01; Admin Dose 500 MG; Start 09/27/16 at 22:00 Meropenem (Merrem 500 Mg/ 100 ml (Pmx)) 100 ml @ 200 mls/hr Q8 IVPB Last administered on 09/29/16 06:01; Admin Dose 200 MLS/HR; Start 09/28/16 at 14:00 KAVITA ANDERSON NP Sep 29, 2016 13:50
--- NOTE | 2016-09-29 18:26 | PN ---
DATE: 09/29/2016 SUBJECTIVE: Penoscrotal cellulitis and urinary retention. Patient is status post insertion of the suprapubic tube. GENERAL: The patient himself is feeling comfortable and denies having any pain. VITAL SIGNS: Temperature is 97.6, blood pressure 100/60, pulse is 74, respiration 18. ABDOMEN: Soft. The suprapubic tube is draining clear urine. The scrotum is less edematous and les s red and it is much less swollen as compared to before. EXTREMITIES: There is no area of loculation in the scrotal area. LABORATORY DATA: CBC last one shows a white count of 5.8, hemoglobin 10.0, hematocrit 31.3. The BU N is 22, creatinine 1.51. Sodium 139, potassium 4.6, chloride 106, CO2 26. Last urine culture from 09/26, no growth after 48 hours. IMPRESSION: Penoscrotal cellulitis and that is subsiding and responding to the treatment. The urin oj tract infection that is also responding to treatment and urinary retention, patient does have a suprapubic tube that is draining well. PLAN: To continue present treatment. Dictated By: KEYUR DUNHAM/LEIGH Conf#: [id number] DID#: [id number]
--- NOTE | 2016-09-29 19:45 | PN ---
Date/Time of Note Date/Time of Note DATE: 09/29/16 TIME: 19:44 Assessment/Plan VTE Prophylaxis VTE Prophylaxis Intervention: SCD's Lines/Catheters [facility] P[facility] Line Central line still needed: Yes Urinary Cath still in place: No (Suprapubic catheter) Assessment/Plan Chief Complaint/Hosp Course Patient stated that he is doing better, continues on supplemental oxygen. Assessment and plan: - Severe sepsis with polymicrobial bacteremia due to urinary tract infection, resolving. Dr. Godfrey is following patient in ID consultation. Continue antibiotics per ID. - Polymicrobial UTI, continue antibiotics per ID. - Urinary retention, status post supra pubic catheter insertion by Dr. Norton in the emergency room. - Scrotal cellulitis. Dr. Ulloa is following in urology consultation. - Acute on chronic kidney injury, resolved. Dr. Childs is following in nephrology consultation. - Hypertension. Continue metoprolol. - Multiple sclerosis. - Benign prostatic hypertrophy. Continue Flomax. - Depression. Continue Celexa. Further recommendations based on clinical course. Plan of care discussed with Dr. Samson. Problems: Exam/Review of Systems Vital Signs Vitals Vital Signs Date Time Temp Pulse Resp B/P Pulse Ox O2 Delivery O2 Flow Rate FiO2 09/29/16 16:56 3.0 09/29/16 10:11 Nasal Cannula 09/29/16 08:07 97.6 74 18 100/60 98 Intake and Output 09/28/16 09/28/16 09/29/16 15:00 23:00 07:00 Intake Total 300 ml 2170 ml 2000 ml Output Total 2000 ml 1900 ml Balance 300 ml 170 ml 100 ml Exam Constitutional: alert, obese Head: normocephalic Neck: supple Respiratory: clear to auscultation Cardiovascular: regular rate and rhythm Gastrointestinal: non-tender, soft Genitourinary - Male: other (Suprapubic catheter) Extremities: normal pulses Skin: nl turgor Results Result Diagram: 09/28/16 0510 09/28/16 0510 Medications Medications Current Medications Amantadine HCl (Symmetrel) 100 mg QAM PO Last administered on 09/29/16t 08:54; Admin Dose 100 MG; Start 09/16/16 at 09:00 Citalopram Hydrobromide (Celexa) 10 mg BID PO Last administered on 09/29/16 08: 52; Admin Dose 10 MG; Start 09/15/16 at 21:00 Famotidine (Pepcid) 20 mg DAILY PO Last administered on 09/29/16 08:53; Admin Dose 20 MG; Start 09/16/16 at 09:00 Metoprolol Tartrate (Lopressor) 25 mg BID PO Last administered on 09/28/16 21: 32; Admin Dose 25 MG; Start 09/15/16 at 21:00 Mirtazapine (Remeron) 15 mg DAILY PO Last administered on 09/29/16 08:53; Admin Dose 15 MG; Start 09/16/16 at 09:00 Multivitamins Therapeutic (Theragran) 1 tab DAILY PO Last administered on 08:54; Admin Dose 1 TAB; Start 09/16/16 at 09:00 Pantoprazole (Protonix Tab) 40 mg DAILY@06 PO Last administered on 09/29/16 06: 01; Admin Dose 40 MG; Start 09/16/16 at 06:00 Tamsulosin HCl (Flomax) 0.8 mg HS PO Last administered on 09/28/16 21:31; Admin Dose 0.8 MG; Start 09/15/16 at 21:00 Terazosin HCl 10 mg 10 mg HS PO Last administered on 09/28/16 21:32; Admin Dose 10 MG; Start 09/15/16 at 21:00 Sodium Chloride (NS) 1,000 ml @ 80 mls/hr [id number] IV Last administered on 06:02; Admin Dose 80 MLS/HR; Start 09/15/16 at 16:42 Ondansetron HCl (Zofran Inj) 4 mg Q6H PRN IV NAUSEA AND/OR VOMITING; Start at 17:00 Acetaminophen (Tylenol Tab) 650 mg Q6H PRN PO PAIN LEVEL 1-3 OR FEVER Last administered on 09/26/16 17:48; Admin Dose 650 MG; Start 09/15/16 at 17:00 Acetaminophen (Tylenol Supp) 650 mg Q6H PRN [place] PAIN LEVEL 1-3 OR FEVER; Start 09/15/16 at 17:00 Acetaminophen/ Hydrocodone Bitart ([place] (5/325)) 1 tab Q6H PRN PO MODERATE PAIN LEVEL 4-6; Start 09/15/16 at 17:00 Acetaminophen/ Hydrocodone Bitart ([place] (5/325)) 2 tab Q6H PRN PO SEVERE PAIN LEVEL 7-10; Start 09/15/16 at 17:00 Morphine Sulfate (morphine) 2 mg Q4H PRN IV SEVERE PAIN LEVEL 7-10 Last administered on 09/19/16 01:32; Admin Dose 2 MG; Start 09/15/16 at 17:00 Docusate Sodium (Colace) 100 mg Q12H PRN PO CONSTIPATION; Start 09/15/16 at 17: 00 Magnesium Hydroxide (Milk Of Mag) 30 ml DAILY PRN PO CONSTIPATION; Start at 17:00 Bisacodyl (Dulcolax Supp) 10 mg DAILY PRN [place] CONSTIPATION; Start 09/15/16 at 17 :00 Heparin Sodium (Porcine) (Heparin (5000 Units/0.5 ml)) 5,000 unit Q12 SC Last administered on 09/29/16 09:05; Admin Dose 5,000 UNIT; Start 09/15/16 at 21:00 Docusate Sodium (Colace) 100 mg BID PO Last administered on 09/29/16 08:54; Admin Dose 100 MG; Start 09/18/16 at 21:00 Bisacodyl (Dulcolax) 5 mg DAILY PRN PO CONSTIPATION Last administered on 09:21; Admin Dose 5 MG; Start 09/18/16 at 18:30 Lactulose (Enulose) 20 gm DAILY PRN PO CONSTIPATION; Start 09/18/16 at 18:30 Collagenase (Santyl) 1 applic DAILY TOP Last administered on 09/29/16 08:59; Admin Dose 1 APPLIC; Start 09/23/16 at 18:00 Collagenase (Santyl) 1 applic PRN PRN TOP WOUND CARE; Start 09/23/16 at 14:30 Miscellaneous Information This patient temple... PRN PRN XX WOUND CARE; Start 09/24 at 06:30 Linezolid (Zyvox 600mg/D5W (Pmx)) 300 ml @ 300 mls/hr Q12 IVPB Last administered on 09/29/16 08:50; Admin Dose 300 MLS/HR; Start 09/26/16 at 21:00 Guaifenesin/ Dextromethorphan (Robitussin Dm Liquid Cup) 5 ml Q4H PRN PO COUGH Last administered on 09/28/16 14:35; Admin Dose 5 ML; Start 09/27/16 at 05:30 Metronidazole 500 mg 500 mg Q8 NGT Last administered on 09/29/16 14:22; Admin Dose 500 MG; Start 09/27/16 at 22:00 Meropenem (Merrem 500 Mg/ 100 ml (Pmx)) 100 ml @ 200 mls/hr Q8 IVPB Last administered on 09/29/16 14:20; Admin Dose 200 MLS/HR; Start 09/28/16 at 14:00 CLARIBEL HERNANDEZ Sep 29, 2016 19:45
[2016-09-29 20:16] VITALS: BP 102/55; RESP 20
[2016-09-29] MEDS: TERAZOSIN 5 MG CAP PO SCH (21:00)
[2016-09-29] MEDS: TAMSULOSIN (SR) 0.4 MG CAP PO SCH (21:13)
[2016-09-30] MEDS: GUAIFENESIN/DM 5ML CUP PO PRN (03:23)
[2016-09-30] MEDS: SOD CHLORIDE 0.9% 1,000 ML IV SCH ×2 (05:24→13:57)
[2016-09-30] MEDS: PANTOPRAZOLE (EC) 40 MG TAB PO SCH (05:29)
[2016-09-30] MEDS: MEROPENEM 500 MG/100 ML (PMX) 100 ML IVPB SCH ×3 (05:29→22:51)
[2016-09-30] MEDS: metroNIDAZOLE 500 MG TAB NGT SCH ×3 (05:29→21:45)
[2016-09-30 06:55] LABS: CALCIUM 8.5 mg/dl (8.4-10.2); CREATININE 1.25 mg/dl (0.61-1.24)
[2016-09-30] MEDS: morphine 2 MG INJ IV PRN (07:43)
[2016-09-30 08:08] VITALS: BP 106/58; RESP 18
[2016-09-30] MEDS: METOPROLOL 25 MG TAB PO SCH ×2 (09:00→21:00)
[2016-09-30] MEDS: AMANTADINE 100 MG CAP PO SCH (09:28)
[2016-09-30] MEDS: MULTIVITAMINS THERAPEUTIC TAB PO SCH (09:29)
[2016-09-30] MEDS: CITALOPRAM 20 MG TAB PO SCH ×2 (09:29→21:45)
[2016-09-30] MEDS: FAMOTIDINE 20 MG TAB PO SCH (09:30)
[2016-09-30] MEDS: MIRTAZAPINE 15 MG TAB PO SCH (09:30)
[2016-09-30] MEDS: DOCUSATE SODIUM 100 MG CAP PO SCH ×2 (09:30→21:45)
[2016-09-30] MEDS: HEPARIN 5,000 UNIT/0.5 ML VIAL SC SCH ×2 (09:44→21:47)
[2016-09-30] MEDS: LINEZOLID 600 MG/D5W (PMX) 300 ML IVPB SCH ×2 (09:48→21:45)
[2016-09-30] MEDS: COLLAGENASE 30 GM TUBE TOP SCH (09:50)
--- NOTE | 2016-09-30 13:54 | CONS ---
Date/Time of Note Date/Time of Note DATE: 09/30/16 TIME: 13:53 Assessment/Plan Assessment/Plan Chief Complaint/Hosp Course SUBJECTIVE: Patient is alert, feel better, no fevers overnight. MICROBIOLOGY: Blood and urine cultures repeated on 09/26/2016 remain negative. DIAGNOSTICS: Chest x-ray 09/28 revealed increased linear atelectasis in the right mid lung and left costophrenic angle. INDWELLINGS: PICC line, suprapubic catheter. ANTIMICROBIALS: The patient is on: 1. Meropenem. 2. Flagyl. 3. Zyvox. PHYSICAL EXAMINATION: GENERAL: This is a well-developed, chronically ill-appearing, elderly man who is awake, in no distress. HEENT: Head atraumatic, normocephalic. Sclerae anicteric. Buccal mucosa dry. NECK: Supple, trachea midline. CHEST: Rise symmetrical. Breath sounds diminished to bases. HEART: S1, S2. ABDOMEN: Soft, bowel tones present. EXTREMITIES: No cyanosis. ASSESSMENT: 1. Resolving sepsis secondary to urinary tract infection, infected scrotal wound with bacteremia. 2. HCAP, poss aspiration 3. Aspiration risk. 4. Multiple sclerosis. 5. Status post urinary tract infection with bacteremia. 6. Urinary retention, status post suprapubic catheter placement. PLAN: The patient remains stable. Continue current antimicrobials, continue incentive spirometry and anti-aspiration measures. [facility] pt/staff Problems: Consultation Date/Type/Reason Admit Date/Time September 15, 2016 at 14:26 Type of Consultation: ID Referring Provider: GISELA GREER MD Exam/Review of Systems Vital Signs Vitals Vital Signs Date Time Temp Pulse Resp B/P Pulse Ox O2 Delivery O2 Flow Rate FiO2 09/30/16 08:08 98.1 69 18 106/58 96 09/30/16 07:52 Nasal Cannula 3.0 Intake and Output 09/29/16 09/29/16 09/30/16 15:00 23:00 07:00 Intake Total 400 ml 3600 ml 900 ml Output Total 800 ml 2000 ml Balance 400 ml 2800 ml -1100 ml Results Result Diagram: 09/28/16 0510 09/30/16 0541 Results 24 hrs Laboratory Tests Test 09/30/16 05:41 Sodium Level 142 Potassium Level 5.0 Chloride Level 107 Carbon Dioxide Level 27 Anion Gap 13 Blood Urea Nitrogen 23 H Creatinine 1.25 H Glucose Level 102 Calcium Level 8.5 Medications Medications Current Medications Amantadine HCl (Symmetrel) 100 mg QAM PO Last administered on 09/30/16 09:28; Admin Dose 100 MG; Start 09/16/16 at 09:00 Citalopram Hydrobromide (Celexa) 10 mg BID PO Last administered on 09/30/16 09: 29; Admin Dose 10 MG; Start 09/15/16 at 21:00 Famotidine (Pepcid) 20 mg DAILY PO Last administered on 09/30/16 09:30; Admin Dose 20 MG; Start 09/16/16 at 09:00 Metoprolol Tartrate (Lopressor) 25 mg BID PO Last administered on 09/28/16 21: 32; Admin Dose 25 MG; Start 09/15/16 at 21:00 Mirtazapine (Remeron) 15 mg DAILY PO Last administered on 09/30/16 09:30; Admin Dose 15 MG; Start 09/16/16 at 09:00 Multivitamins Therapeutic (Theragran) 1 tab DAILY PO Last administered on 09:29; Admin Dose 1 TAB; Start 09/16/16 at 09:00 Pantoprazole (Protonix Tab) 40 mg DAILY@06 PO Last administered on 09/30/16 05: 29; Admin Dose 40 MG; Start 09/16/16 at 06:00 Tamsulosin HCl (Flomax) 0.8 mg HS PO Last administered on 09/29/16 21:13; Admin Dose 0.8 MG; Start 09/15/16 at 21:00 Terazosin HCl 10 mg 10 mg HS PO Last administered on 09/28/16 21:32; Admin Dose 10 MG; Start 09/15/16 at 21:00 Sodium Chloride (NS) 1,000 ml @ 80 mls/hr [id number] IV Last administered on 21:56; Admin Dose 80 MLS/HR; Start 09/15/16 at 16:42 Ondansetron HCl (Zofran Inj) 4 mg Q6H PRN IV NAUSEA AND/OR VOMITING; Start at 17:00 Acetaminophen (Tylenol Tab) 650 mg Q6H PRN PO PAIN LEVEL 1-3 OR FEVER Last administered on 09/26/16 17:48; Admin Dose 650 MG; Start 09/15/16 at 17:00 Acetaminophen (Tylenol Supp) 650 mg Q6H PRN [place] PAIN LEVEL 1-3 OR FEVER; Start 09/15/16 at 17:00 Acetaminophen/ Hydrocodone Bitart ([place] (5/325)) 1 tab Q6H PRN PO MODERATE PAIN LEVEL 4-6; Start 09/15/16 at 17:00 Acetaminophen/ Hydrocodone Bitart ([place] (5/325)) 2 tab Q6H PRN PO SEVERE PAIN LEVEL 7-10; Start 09/15/16 at 17:00 Morphine Sulfate (morphine) 2 mg Q4H PRN IV SEVERE PAIN LEVEL 7-10 Last administered on 09/30/16 07:43; Admin Dose 2 MG; Start 09/15/16 at 17:00 Docusate Sodium (Colace) 100 mg Q12H PRN PO CONSTIPATION; Start 09/15/16 at 17: 00 Magnesium Hydroxide (Milk Of Mag) 30 ml DAILY PRN PO CONSTIPATION; Start at 17:00 Bisacodyl (Dulcolax Supp) 10 mg DAILY PRN [place] CONSTIPATION; Start 09/15/16 at 17 :00 Heparin Sodium (Porcine) (Heparin (5000 Units/0.5 ml)) 5,000 unit Q12 SC Last administered on 09/30/16 09:44; Admin Dose 5,000 UNIT; Start 09/15/16 at 21:00 Docusate Sodium (Colace) 100 mg BID PO Last administered on 09/30/16 09:30; Admin Dose 100 MG; Start 09/18/16 at 21:00 Bisacodyl (Dulcolax) 5 mg DAILY PRN PO CONSTIPATION Last administered on 09:21; Admin Dose 5 MG; Start 09/18/16 at 18:30 Lactulose (Enulose) 20 gm DAILY PRN PO CONSTIPATION; Start 09/18/16 at 18:30 Collagenase (Santyl) 1 applic DAILY TOP Last administered on 09/30/16 09:50; Admin Dose 1 APPLIC; Start 09/23/16 at 18:00 Collagenase (Santyl) 1 applic PRN PRN TOP WOUND CARE; Start 09/23/16 at 14:30 Miscellaneous Information This patient temple... PRN PRN XX WOUND CARE; Start 09/24 at 06:30 Linezolid (Zyvox 600mg/D5W (Pmx)) 300 ml @ 300 mls/hr Q12 IVPB Last administered on 09/30/16 09:48; Admin Dose 300 MLS/HR; Start 09/26/16 at 21:00 Guaifenesin/ Dextromethorphan (Robitussin Dm Liquid Cup) 5 ml Q4H PRN PO COUGH Last administered on 09/30/16 03:23; Admin Dose 5 ML; Start 09/27/16 at 05:30 Metronidazole 500 mg 500 mg Q8 NGT Last administered on 09/30/16 05:29; Admin Dose 500 MG; Start 09/27/16 at 22:00 Meropenem (Merrem 500 Mg/ 100 ml (Pmx)) 100 ml @ 200 mls/hr Q8 IVPB Last administered on 09/30/16 13:15; Admin Dose 200 MLS/HR; Start 09/28/16 at 14:00 KAVITA ANDERSON NP Sep 30, 2016 13:54
--- NOTE | 2016-09-30 19:03 | PN ---
Date/Time of Note Date/Time of Note DATE: 09/30/16 TIME: 19:00 Assessment/Plan VTE Prophylaxis VTE Prophylaxis Intervention: SCD's Lines/Catheters [facility] PICC Line Central line still needed: Yes Urinary Cath still in place: No (Suprapubic catheter) Assessment/Plan Chief Complaint/Hosp Course No acute events patient is awake alert, comfortable and supplemental oxygen. Will discuss with infection disease consult the length of antibiotics. Assessment and plan: - Severe sepsis with polymicrobial bacteremia due to urinary tract infection, resolving. Dr. Godfrey is following patient in ID consultation. Continue antibiotics per ID. - Polymicrobial UTI, continue antibiotics per ID. - Urinary retention, status post supra pubic catheter insertion by Dr. Norton in the emergency room. - Scrotal cellulitis. Dr. Ulloa is following in urology consultation. - Acute on chronic kidney injury, resolved. Dr. Childs is following in nephrology consultation. - Hypertension. Continue metoprolol. - Multiple sclerosis. - Benign prostatic hypertrophy. Continue Flomax. - Depression. Continue Celexa. PT evaluation and treatment ordered. Further recommendations based on clinical course. Plan of care discussed with Dr. Samson. Problems: Exam/Review of Systems Vital Signs Vitals Vital Signs Date Time Temp Pulse Resp B/P Pulse Ox O2 Delivery O2 Flow Rate FiO2 09/30/16 08:08 98.1 69 18 106/58 96 09/30/16 07:52 Nasal Cannula 3.0 Intake and Output 09/29/16 09/29/16 09/30/16 15:00 23:00 07:00 Intake Total 400 ml 3600 ml 900 ml Output Total 800 ml 2000 ml Balance 400 ml 2800 ml -1100 ml Exam Constitutional: alert, obese Head: normocephalic Neck: supple Respiratory: clear to auscultation Cardiovascular: regular rate and rhythm Gastrointestinal: non-tender, soft Genitourinary - Male: other (Suprapubic catheter) Extremities: normal pulses Skin: nl turgor Results Result Diagram: 09/28/16 0510 09/30/16 0541 Results 24 hrs Laboratory Tests Test 09/30/16 05:41 Sodium Level 142 Potassium Level 5.0 Chloride Level 107 Carbon Dioxide Level 27 Anion Gap 13 Blood Urea Nitrogen 23 H Creatinine 1.25 H Glucose Level 102 Calcium Level 8.5 Medications Medications Current Medications Amantadine HCl (Symmetrel) 100 mg QAM PO Last administered on 09/30/16 09:28; Admin Dose 100 MG; Start 09/16/16 at 09:00 Citalopram Hydrobromide (Celexa) 10 mg BID PO Last administered on 09/30/16 09: 29; Admin Dose 10 MG; Start 09/15/16 at 21:00 Famotidine (Pepcid) 20 mg DAILY PO Last administered on 09/30/16 09:30; Admin Dose 20 MG; Start 09/16/16 at 09:00 Metoprolol Tartrate (Lopressor) 25 mg BID PO Last administered on 09/28/16 21: 32; Admin Dose 25 MG; Start 09/15/16 at 21:00 Mirtazapine (Remeron) 15 mg DAILY PO Last administered on 09/30/16 09:30; Admin Dose 15 MG; Start 09/16/16 at 09:00 Multivitamins Therapeutic (Theragran) 1 tab DAILY PO Last administered on 09:29; Admin Dose 1 TAB; Start 09/16/16 at 09:00 Pantoprazole (Protonix Tab) 40 mg DAILY@06 PO Last administered on 09/30/16 05: 29; Admin Dose 40 MG; Start 09/16/16 at 06:00 Tamsulosin HCl (Flomax) 0.8 mg HS PO Last administered on 09/29/16 21:13; Admin Dose 0.8 MG; Start 09/15/16 at 21:00 Terazosin HCl 10 mg 10 mg HS PO Last administered on 09/28/16 21:32; Admin Dose 10 MG; Start 09/15/16 at 21:00 Sodium Chloride (NS) 1,000 ml @ 80 mls/hr [id number] IV Last administered on 13:57; Admin Dose 80 MLS/HR; Start 09/15/16 at 16:42 Ondansetron HCl (Zofran Inj) 4 mg Q6H PRN IV NAUSEA AND/OR VOMITING; Start at 17:00 Acetaminophen (Tylenol Tab) 650 mg Q6H PRN PO PAIN LEVEL 1-3 OR FEVER Last administered on 09/26/16 17:48; Admin Dose 650 MG; Start 09/15/16 at 17:00 Acetaminophen (Tylenol Supp) [address] PAIN LEVEL 1-3 OR FEVER; Start 09/15/16 at 17:00 Acetaminophen/ Hydrocodone Bitart ([place] (5/325)) 1 tab Q6H PRN PO MODERATE PAIN LEVEL 4-6; Start 09/15/16 at 17:00 Acetaminophen/ Hydrocodone Bitart ([place] (5/325)) 2 tab Q6H PRN PO SEVERE PAIN LEVEL 7-10; Start 09/15/16 at 17:00 Morphine Sulfate (morphine) 2 mg Q4H PRN IV SEVERE PAIN LEVEL 7-10 Last administered on 09/30/16 07:43; Admin Dose 2 MG; Start 09/15/16 at 17:00 Docusate Sodium (Colace) 100 mg Q12H PRN PO CONSTIPATION; Start 09/15/16 at 17: 00 Magnesium Hydroxide (Milk Of Mag) 30 ml DAILY PRN PO CONSTIPATION; Start at 17:00 Bisacodyl (Dulcolax Supp) [address] CONSTIPATION; Start 09/15/16 at 17 :00 Heparin Sodium (Porcine) (Heparin (5000 Units/0.5 ml)) 5,000 unit Q12 SC Last administered on 09/30/16 09:44; Admin Dose 5,000 UNIT; Start 09/15/16 at 21:00 Docusate Sodium (Colace) 100 mg BID PO Last administered on 09/30/16 09:30; Admin Dose 100 MG; Start 09/18/16 at 21:00 Bisacodyl (Dulcolax) 5 mg DAILY PRN PO CONSTIPATION Last administered on 09:21; Admin Dose 5 MG; Start 09/18/16 at 18:30 Lactulose (Enulose) 20 gm DAILY PRN PO CONSTIPATION; Start 09/18/16 at 18:30 Collagenase (Santyl) 1 applic DAILY TOP Last administered on 09/30/16 09:50; Admin Dose 1 APPLIC; Start 09/23/16 at 18:00 Collagenase (Santyl) 1 applic PRN PRN TOP WOUND CARE; Start 09/23/16 at 14:30 Miscellaneous Information This patient temple... PRN PRN XX WOUND CARE; Start 09/24 at 06:30 Linezolid (Zyvox 600mg/D5W (Pmx)) 300 ml @ 300 mls/hr Q12 IVPB Last administered on 09/30/16 09:48; Admin Dose 300 MLS/HR; Start 09/26/16 at 21:00 Guaifenesin/ Dextromethorphan (Robitussin Dm Liquid Cup) 5 ml Q4H PRN PO COUGH Last administered on 09/30/16 03:23; Admin Dose 5 ML; Start 09/27/16 at 05:30 Metronidazole 500 mg 500 mg Q8 NGT Last administered on 09/30/16 13:57; Admin Dose 500 MG; Start 09/27/16 at 22:00 Meropenem (Merrem 500 Mg/ 100 ml (Pmx)) 100 ml @ 200 mls/hr Q8 IVPB Last administered on 09/30/16 13:15; Admin Dose 200 MLS/HR; Start 09/28/16 at 14:00 CLARIBEL HERNANDEZ Sep 30, 2016 19:03
[2016-09-30 19:09] VITALS: BP 96/54; RESP 20
[2016-09-30] MEDS: TERAZOSIN 5 MG CAP PO SCH (21:00)
--- NOTE | 2016-09-30 21:17 | PN ---
DATE: 09/30/2016 SUBJECTIVE: Penoscrotal cellulitis and edema. The patient does have a suprapubic tube. At the pre sent he is comfortable and denies having any pain. OBJECTIVE: VITAL SIGNS: His temperature is 97.7, pulse 71, respiration 22, blood pressure 96/54. ABDOMEN: Soft. The suprapubic tube is draining clear urine. The scrotum is still mildly red, but there is no fluctuation and no evidence of any collection of pus. The swelling is much less than be fore. LABORATORY DATA: Last CBC shows a white count of 5.8, hemoglobin 10.0, hematocrit 31.3. The BUN is 23, creatinine 1.25, sodium 142, potassium 5.0, chloride 107, CO2 27. The last urine culture shows no growth after 48 hours. Blood cultures also have been negative. IMPRESSION: Urinary tract infection that has been treated, scrotal cellulitis, but no collection of an abscess or pus. From the urological standpoint, the patient is doing well and stable and recomm end to keep the suprapubic tube in place which will needed to be probably replace it in about a week or so. Second, as far as the scrotum, keep it elevated on a towel and if he could receive the anti biotic at the [facility] there is no problem from a urological standpoint to discharge him and con tinue the antibiotic at the [facility]. Dictated By: KEYUR BERNSTEIN MD BB/NTS Conf#: [id number] DID#: [id number] CC: GISELA GREER MD; INGRIS CAMACHO MD;*EndCC*
[2016-09-30] MEDS: TAMSULOSIN (SR) 0.4 MG CAP PO SCH (21:45)
[2016-10-01] MEDS: GUAIFENESIN/DM 5ML CUP PO PRN (02:55)
[2016-10-01] MEDS: SOD CHLORIDE 0.9% 1,000 ML IV SCH ×2 (04:28→07:42)
[2016-10-01] MEDS: PANTOPRAZOLE (EC) 40 MG TAB PO SCH (05:22)
[2016-10-01] MEDS: MEROPENEM 500 MG/100 ML (PMX) 100 ML IVPB SCH ×2 (05:22→14:08)
[2016-10-01] MEDS: metroNIDAZOLE 500 MG TAB NGT SCH (05:22)
[2016-10-01 06:16] LABS: ADD SCAN DIFF NO
[2016-10-01 06:21] LABS: HEMOGLOBIN 10.6 g/dl (14.0-18.0); MEAN CORPUSCULAR HEMOGLOBIN 30.2 pg (29.0-33.0); MEAN CORPUSCULAR HGB CONC 32.1 g/dl (32.0-37.0); MEAN PLATELET VOLUME 7.7 fl (7.4-10.4); PLATELET COUNT 418 10^3/UL (140-415); RED BLOOD COUNT 3.51 10^6/ul (4.70-6.10); RED CELL DISTRIBUTION WIDTH 14.4 % (11.5-14.5); WHITE BLOOD COUNT 6.9 10^3/ul (4.8-10.8)
[2016-10-01 06:48] LABS: CALCIUM 8.5 mg/dl (8.4-10.2); CREATININE 1.31 mg/dl (0.61-1.24); POTASSIUM 4.6 mmol/L (3.5-5.1)
[2016-10-01 08:09] VITALS: BP 118/56; RESP 18
[2016-10-01 08:14] LABS: EOSINOPHILS # 0.4 10^3/ul (0.0-0.5); LYMPHOCYTES # 1.6 10^3/ul (0.8-2.9); MONOCYTE # 0.6 10^3/ul (0.3-0.9); NEUTROPHIL # 4.3 10^3/ul (1.6-7.5); POLYCHROMASIA 1+
[2016-10-01] MEDS: FAMOTIDINE 20 MG TAB PO SCH (08:38)
[2016-10-01] MEDS: MULTIVITAMINS THERAPEUTIC TAB PO SCH (08:38)
[2016-10-01] MEDS: MIRTAZAPINE 15 MG TAB PO SCH (08:38)
[2016-10-01] MEDS: AMANTADINE 100 MG CAP PO SCH (08:39)
[2016-10-01] MEDS: CITALOPRAM 20 MG TAB PO SCH (08:39)
[2016-10-01] MEDS: LINEZOLID 600 MG/D5W (PMX) 300 ML IVPB SCH (08:39)
[2016-10-01] MEDS: METOPROLOL 25 MG TAB PO SCH (08:40)
[2016-10-01] MEDS: HEPARIN 5,000 UNIT/0.5 ML VIAL SC SCH (08:51)
[2016-10-01] MEDS: DOCUSATE SODIUM 100 MG CAP PO SCH (09:30)
[2016-10-01] MEDS: COLLAGENASE 30 GM TUBE TOP SCH (09:30)
--- NOTE | 2016-10-01 12:56 | CONS ---
Date/Time of Note Date/Time of Note DATE: 10/01/16 TIME: 12:55 Assessment/Plan Assessment/Plan Chief Complaint/Hosp Course SUBJECTIVE: Patient is alert, feel better, no fevers overnight. MICROBIOLOGY: Blood and urine cultures repeated on 09/26/2016 remain negative. DIAGNOSTICS: Chest x-ray 09/28 revealed increased linear atelectasis in the right mid lung and left costophrenic angle. INDWELLINGS: PICC line, suprapubic catheter. ANTIMICROBIALS: The patient is on: 1. Meropenem. 2. Flagyl. 3. Zyvox. PHYSICAL EXAMINATION: GENERAL: This is a well-developed, chronically ill-appearing, elderly man who is awake, in no distress. HEENT: Head atraumatic, normocephalic. Sclerae anicteric. Buccal mucosa dry. NECK: Supple, trachea midline. CHEST: Rise symmetrical. Breath sounds diminished to bases. HEART: S1, S2. ABDOMEN: Soft, bowel tones present. EXTREMITIES: No cyanosis. ASSESSMENT: 1. Resolving sepsis secondary to urinary tract infection, infected scrotal wound with bacteremia. 2. HCAP, poss aspiration 3. Aspiration risk. 4. Multiple sclerosis. 5. Status post urinary tract infection with bacteremia. 6. Urinary retention, status post suprapubic catheter placement. PLAN: The patient remains stable. Continue on current antimicrobials for 5 more days [facility] pt/staff Problems: Consultation Date/Type/Reason Admit Date/Time September 15, 2016 at 14:26 Type of Consultation: ID Referring Provider: GISELA GREER MD Exam/Review of Systems Vital Signs Vitals Vital Signs Date Time Temp Pulse Resp B/P Pulse Ox O2 Delivery O2 Flow Rate FiO2 10/01/16 08:45 Nasal Cannula 3.0 10/01/16 08:09 97.7 74 18 118/56 99 Intake and Output 09/30/16 09/30/16 10/01/16 15:00 23:00 07:00 Intake Total 1200 ml 1740 ml 1760 ml Output Total 1900 ml 2550 ml Balance 1200 ml -160 ml -790 ml Results Result Diagram: 10/01/16 0524 10/01/16 0524 Results 24 hrs Laboratory Tests Test 10/01/16 05:24 White Blood Count 6.9 Red Blood Count 3.51 L Hemoglobin 10.6 L Hematocrit 33.0 L Mean Corpuscular Volume 94.0 Mean Corpuscular Hemoglobin 30.2 Mean Corpuscular Hemoglobin Concent 32.1 Red Cell Distribution Width 14.4 Platelet Count 418 H Mean Platelet Volume 7.7 Neutrophils % 62.0 Lymphocytes % 23.0 Monocytes % 9.0 Eosinophils % 6.0 Nucleated Red Blood Cells % 1.0 H Neutrophils # 4.3 Lymphocytes # 1.6 Monocytes # 0.6 Eosinophils # 0.4 Polychromasia 1+ Sodium Level 142 Potassium Level 4.6 Chloride Level 109 Carbon Dioxide Level 27 Anion Gap 11 Blood Urea Nitrogen 22 H Creatinine 1.31 H Glucose Level 108 Calcium Level 8.5 Medications Medications Current Medications Amantadine HCl (Symmetrel) 100 mg QAM PO Last administered on 10/01/16 08:39; Admin Dose 100 MG; Start 09/16/16 at 09:00 Citalopram Hydrobromide (Celexa) 10 mg BID PO Last administered on 10/01/16 08: 39; Admin Dose 10 MG; Start 09/15/16 at 21:00 Famotidine (Pepcid) 20 mg DAILY PO Last administered on 10/01/16 08:38; Admin Dose 20 MG; Start 09/16/16 at 09:00 Metoprolol Tartrate (Lopressor) 25 mg BID PO Last administered on 10/01/16 08: 40; Admin Dose 25 MG; Start 09/15/16 at 21:00 Mirtazapine (Remeron) 15 mg DAILY PO Last administered on 10/01/16 08:38; Admin Dose 15 MG; Start 09/16/16 at 09:00 Multivitamins Therapeutic (Theragran) 1 tab DAILY PO Last administered on 08:38; Admin Dose 1 TAB; Start 09/16/16 at 09:00 Pantoprazole (Protonix Tab) 40 mg DAILY@06 PO Last administered on 10/01/16 05: 22; Admin Dose 40 MG; Start 09/16/16 at 06:00 Tamsulosin HCl (Flomax) 0.8 mg HS PO Last administered on 09/30/16 21:45; Admin Dose 0.8 MG; Start 09/15/16 at 21:00 Terazosin HCl 10 mg 10 mg HS PO Last administered on 09/28/16 21:32; Admin Dose 10 MG; Start 09/15/16 at 21:00 Sodium Chloride (NS) 1,000 ml @ 80 mls/hr [id number] IV Last administered on 04:28; Admin Dose 80 MLS/HR; Start 09/15/16 at 16:42 Ondansetron HCl (Zofran Inj) 4 mg Q6H PRN IV NAUSEA AND/OR VOMITING; Start at 17:00 Acetaminophen (Tylenol Tab) 650 mg Q6H PRN PO PAIN LEVEL 1-3 OR FEVER Last administered on 09/26/16 17:48; Admin Dose 650 MG; Start 09/15/16 at 17:00 Acetaminophen (Tylenol Supp) 650 mg Q6H PRN [place] PAIN LEVEL 1-3 OR FEVER; Start 09/15/16 at 17:00 Acetaminophen/ Hydrocodone Bitart ([place] (5/325)) 1 tab Q6H PRN PO MODERATE PAIN LEVEL 4-6; Start 09/15/16 at 17:00 Acetaminophen/ Hydrocodone Bitart ([place] (5/325)) 2 tab Q6H PRN PO SEVERE PAIN LEVEL 7-10; Start 09/15/16 at 17:00 Morphine Sulfate (morphine) 2 mg Q4H PRN IV SEVERE PAIN LEVEL 7-10 Last administered on 09/30/16 07:43; Admin Dose 2 MG; Start 09/15/16 at 17:00 Docusate Sodium (Colace) 100 mg Q12H PRN PO CONSTIPATION; Start 09/15/16 at 17: 00 Magnesium Hydroxide (Milk Of Mag) 30 ml DAILY PRN PO CONSTIPATION; Start at 17:00 Bisacodyl (Dulcolax Supp) 10 mg DAILY PRN [place] CONSTIPATION; Start 09/15/16 at 17 :00 Heparin Sodium (Porcine) (Heparin (5000 Units/0.5 ml)) 5,000 unit Q12 SC Last administered on 10/01/16 08:51; Admin Dose 5,000 UNIT; Start 09/15/16 at 21:00 Docusate Sodium (Colace) 100 mg BID PO Last administered on 10/01/16 09:30; Admin Dose 100 MG; Start 09/18/16 at 21:00 Bisacodyl (Dulcolax) 5 mg DAILY PRN PO CONSTIPATION Last administered on 09:21; Admin Dose 5 MG; Start 09/18/16 at 18:30 Lactulose (Enulose) 20 gm DAILY PRN PO CONSTIPATION; Start 09/18/16 at 18:30 Collagenase (Santyl) 1 applic DAILY TOP Last administered on 10/01/16 09:30; Admin Dose 1 APPLIC; Start 09/23/16 at 18:00 Collagenase (Santyl) 1 applic PRN PRN TOP WOUND CARE; Start 09/23/16 at 14:30 Miscellaneous Information This patient temple... PRN PRN XX WOUND CARE; Start 09/24 at 06:30 Linezolid (Zyvox 600mg/D5W (Pmx)) 300 ml @ 300 mls/hr Q12 IVPB Last administered on 10/01/16 08:39; Admin Dose 300 MLS/HR; Start 09/26/16 at 21:00 Guaifenesin/ Dextromethorphan (Robitussin Dm Liquid Cup) 5 ml Q4H PRN PO COUGH Last administered on 10/01/16 02:55; Admin Dose 5 ML; Start 09/27/16 at 05:30 Metronidazole 500 mg 500 mg Q8 NGT Last administered on 10/01/16 05:22; Admin Dose 500 MG; Start 09/27/16 at 22:00 Meropenem (Merrem 500 Mg/ 100 ml (Pmx)) 100 ml @ 200 mls/hr Q8 IVPB Last administered on 10/01/16 05:22; Admin Dose 200 MLS/HR; Start 09/28/16 at 14:00 KAVITA ANDERSON NP Oct 01, 2016 12:56
--- NOTE | 2016-10-01 13:49 | PN ---
DATE: 10/01/2016 SUBJECTIVE: Scrotal erythema and urinary retention. The patient is status post insertion of suprap ubic catheter. The patient himself is comfortable at the present. OBJECTIVE: VITAL SIGNS: Temperature 97.7, blood pressure 118/56, pulse is 74, respiration is 18. ABDOMEN: Obese and the suprapubic tube is draining clear urine. The scrotum is less swollen and st ill a little erythematous, but there is no fluctuation or collection to suspect any abscess in the s crotum. LABORATORY DATA: His CBC shows a white count of 6.9, hemoglobin 10.6, hematocrit 33.0, BUN is 22, c reatinine 1.31. Sodium 142, potassium 4.6, chloride 109, CO2 27. IMPRESSION: Scrotal cellulitis and that is improving and basically the patient from a urological [facility] is doing well. PLAN: To keep the suprapubic tube in place and treat the infections that he had with the antibiotic s as per the infectious disease recommendation. Dictated By: KEYUR DUNHAM/LEIGH Conf#: [id number] DID#: [id number]
--- NOTE | 2016-10-01 23:52 | DS ---
DATE OF ADMISSION: 09/15/2016 DATE OF DISCHARGE: 10/01/2016 FINAL DIAGNOSES: 1. Severe sepsis with polymicrobial bacteremia due to urinary tract infection, resolving. 2. Polymicrobial urinary tract infection. 3. Urinary retention, status post suprapubic catheter insertion. 4. Scrotal cellulitis, resolved. 5. Acute on chronic kidney injury. 6. Hypertension. 7. Advanced multiple sclerosis. 8. Benign prostatic hypertrophy. 9. Depression. BRIEF HISTORY: The patient is a 66-year-old gentleman with multiple sclerosis, BPH. The patient pr esented to [facility] ER with complaints of suprapubic pain and swollen scrotum an d fever. The patient was diagnosed with urinary retention. The patient had urologist, Dr. Norton, insert a suprapubic catheter, unable to insert [place] catheter. The patient was also diagnosed with scrotal cellulitis and was admitted for further evaluation and management. HOSPITAL COURSE: The patient was started on broad-spectrum antibiotics. The patient was evaluated by Dr. Godfrey in infectious disease consultation. The patient had polymicrobial bacteremia, polymic robial urinary infection and scrotal wound infection including E. coli ESBL. The patient was given vancomycin and meropenem, subsequently switched to Zyvox. The patient also completed treatment with Flagyl due to complaints of diarrhea. The patient was evaluated and followed by Dr. Ulloa in uro logy consultation with recommendations to continue to have suprapubic catheter with changing suprapu bic catheter to larger size gradually. The patient's condition improved. The patient was followed by Dr. Childs and Dr. Dee from nephrology standpoint. The patient has elevated creatinine and was diagnosed with acute on chronic kidney which is improved. The patient's creatinine on discharge is 1.31, on admission was 3.22. The patient continues to have good urine output via suprapubic cathete r. The patient's condition improved, and the patient will be discharged to shelter facility . CONDITION ON DISCHARGE: Hemodynamically stable. ACTIVITY: As patient tolerates. DISCHARGE DIET: Renal diet. MEDICATIONS ON DISCHARGE: 1. Tylenol. 2. Amantadine. 3. Dulcolax. 4. Celexa. 5. Santyl ointment daily. 6. Colace. 7. Pepcid. 8. Heparin 5000 units subQ q.12 hours. 9. Lactulose p.r.n. 10. Zyvox 600 mg every 12 hours for 5 more days until 10/05. 11. Milk of magnesia daily p.r.n. for constipation. 12. Meropenem 500 mg q.8 hours x5 more days until 10/05/2016. 13. Metoprolol. 14. Remeron. 15. Multivitamins. 16. Flomax. 17. Terazosin. 18. Alendronate on Saturdays. 19. Bethanechol chloride. 20. Ampyra. 21. Copaxone. Interdisciplinary plan of care was established for this patient. Plan of care was discussed with Dr Curtis Greer. Dictated By: CLARIBEL HERNANDEZ ROAD PACKER OPERATOR for GISELA GREER MD SR/NTS Conf#: [id number] DID#: [id number]
== END 2016-10-01 19:20 | DRG 871 ==
LOC: E/R 09:40 → MS4 14:26 → MS2 09-23 22:29
PROVIDERS: ADMIT Internal Medicine; ATTEND Internal Medicine
PROC: 02HV33Z Insertion of Infusion Device into Superior Vena Cava, Percutaneous Approach (ICD-10-PCS; principal; 2016-09-21)
PROC: 0T9B30Z Drainage of Bladder with Drainage Device, Percutaneous Approach (ICD-10-PCS; 2016-09-21)
DX: A41.51 Sepsis due to Escherichia coli [E. coli] (principal); N17.0 Acute kidney failure with tubular necrosis; E87.2 Acidosis; N39.0 Urinary tract infection, site not specified; N13.30 Unspecified hydronephrosis; N49.2 Inflammatory disorders of scrotum; R65.20 Severe sepsis without septic shock; E66.9 Obesity, unspecified; G35 Multiple sclerosis; Z68.34 Body mass index [BMI] 34.0-34.9, adult; I12.9 Hypertensive chronic kidney disease with stage 1 through stage 4 chronic kidney disease, or unspecified chronic kidney disease; N18.9 Chronic kidney disease, unspecified; N40.1 Benign prostatic hyperplasia with lower urinary tract symptoms; F32.9 Major depressive disorder, single episode, unspecified; E87.5 Hyperkalemia; K76.0 Fatty (change of) liver, not elsewhere classified; N31.9 Neuromuscular dysfunction of bladder, unspecified; B95.61 Methicillin susceptible Staphylococcus aureus infection as the cause of diseases classified elsewhere; B96.20 Unspecified Escherichia coli [E. coli] as the cause of diseases classified elsewhere; B96.1 Klebsiella pneumoniae [K. pneumoniae] as the cause of diseases classified elsewhere; A41.01 Sepsis due to Methicillin susceptible Staphylococcus aureus; A41.89 Other specified sepsis; B95.2 Enterococcus as the cause of diseases classified elsewhere; B96.4 Proteus (mirabilis) (morganii) as the cause of diseases classified elsewhere; Z16.21 Resistance to vancomycin; N35.9 Urethral stricture, unspecified; R33.8 Other retention of urine
CPT/HCPCS: 36415; 36569; 71010; 74176; 76870; 76937; 80048; 80053; 80061; 80202; 81001; 81003; 82550; 82565; 83036; 83605; 83690; 83735; 83880; 84100; 84436; 84443; 84479; 84484; 84520; 85025; 85610; 85730; 87040; 87070; 87081; 87086; 92526; 92610; 93005; 93306; 96374; 96375; 96376; A4310; C1751; J0692; J1335; J1642; J1644; J2185; J2270; J2405; J3370; J7030; J7040; J7050

== ENCOUNTER 2018-10-17 10:58 | Inpatient (IN) | payer MEDICARE, OTHER ==
[~2018-10-17] VITALS: Ht 182.9 cm; Wt 101.0 kg
[~2018-10-17 10:58] MED LIST changes: -ALEN35TA23 PO; +ALEN70TA5 ORAL; -AMAN100C65 PO; -AMLO5TAB4 PO; -CITA-104 PO; +CITA10TA5 ORAL; -DOCU-159 PO; +FAMO20TA18 ORAL; +METO-448 ORAL; -PANT40TA4 PO; -SPIR50TA PO; +TERA10CA3 PO; -TERA10CA42 PO
[2018-10-17] MEDS ORDERED: SOD CHLORIDE 0.9% 1,000 ML IV ONE (11:30)
[2018-10-17] MEDS ORDERED: AMPH20TA2 PO (11:41)
[2018-10-17] MEDS ORDERED: DOCU-144 PO (11:42)
[2018-10-17] MEDS ORDERED: CRAN425C6 PO (11:42)
[2018-10-17] MEDS ORDERED: DALF10TA PO (11:42)
[2018-10-17] MEDS ORDERED: BETH25TA39 PO (11:43)
[2018-10-17] MEDS ORDERED: CRAN3875 PO (11:43)
[2018-10-17] MEDS ORDERED: TRAM50TA PO (11:44)
[2018-10-17] MEDS ORDERED: ACET-141 PO (11:45)
[2018-10-17] MEDS ORDERED: ACET-2047 PO (11:45)
[2018-10-17] MEDS ORDERED: OMEG-158 PO (11:47)
[2018-10-17] MEDS ORDERED: TERA10CA3 PO (11:48)
[2018-10-17] MEDS ORDERED: METO-448 PO (11:48)
[2018-10-17] MEDS ORDERED: ALEN70TA5 PO (11:49)
[2018-10-17] MEDS ORDERED: TAMS-14 PO (11:49)
[2018-10-17] MEDS ORDERED: SODIUM CHLORIDE 0.9% 1L BAG IV* STA (12:58)
[2018-10-17] MEDS ORDERED: CEFEPIME 1GM/50 ML (PMX) 50 ML IVPB ONE (13:00)
[2018-10-17] MEDS ORDERED: ONDANSETRON 4 MG INJ IV PRN (13:30)
[2018-10-17] MEDS ORDERED: ACETAMINOPHEN 325 MG TAB PO PRN ×2 (13:30→17:00)
--- NOTE | 2018-10-17 14:30 | ERD ---
ER Documentation Chief Complaint Chief Complaint bleeding from boykin catheter. increased heart rate HPI This is a 68-year-old male with a past medical history of multiple sclerosis complicated by urinary retention status post suprapubic Boykin catheter which is been in place for approximately 2 years, followed by Dr. Ulloa, who is presenting with several days of feeling generally unwell and urinary retention with hematuria. The patient reports that he does not recall when the last time was that he noticed appropriate drainage from his suprapubic catheter. What has been draining has been bright red blood. The patient was found to be tachycardic in triage. He does not endorse any fever or chills. He does not report any trauma or injury. The suprapubic catheter was not excellently pulled out. The patient has had urinary tract infections in the past that have led to hematuria and urinary obstruction. He is concerned that this is what could be going on today. The patient has had no headache or vision changes. The patient does not endorse neck or back pain. The patient denies lightheadedness or dizziness. The patient has had no chest pain or trouble breathing. The patient denies nausea or vomiting. The patient reports suprapubic discomfort but no exquisite abdominal pain. The patient denies changes to bowel movements. The patient does endorse generalized weakness secondary to his multiple sclerosis. He does not report any new focal deficits. ROS All systems reviewed and are negative except as per history of present illness. Medications Home Meds Reported Medications Tamsulosin Hcl* (Flomax*) 0.4 Mg Cap.er.24h, 0.4 MG PO HS, CAP 10/17/18 Alendronate Sodium* (Fosamax*) 70 Mg Tablet, 70 MG PO EVERY THURSDAY, #4 TAB 10/17/18 Terazosin Hcl* (Terazosin Hcl*) 10 Mg Capsule, 10 MG PO HS, CAP 10/17/18 Metoprolol Tartrate* (Lopressor*) 25 Mg Tab, 25 MG PO BID WITH MEALS, #60 TAB HOLD IF SBP BELOW 110 OR HR BELOW 60/MIN 10/17/18 [place]-3/Dha/Epa/Fish Oil (FISH OIL 1,000 MG SOFTGEL) 1 Each Capsule, 2 EACH PO DAILY, CAP 10/17/18 Acetaminophen* (Acetaminophen*) 650 Mg Tablet, 650 MG PO Q6H PRN for MILD PAIN LEVEL 1-3, #30 TAB 10/17/18 Acetaminophen* (Acetaminophen*) 500 MG Extra Strength Tablet, 1000 MG PO Q4 PRN for MODERATE PAIN LEVEL 4-6, TAB 10/17/18 Tramadol Hcl* (Ultram*) 50 Mg Tablet, 50 MG PO BID PRN for PAIN, TAB 10/17/18 Bethanechol Chloride* (Urecholine*) 25 Mg Tab, 25 MG PO QID, TAB 10/17/18 Cran/Vitc/Mannose/Inulin/Brom (Uti-Stat Liquid) 3,875 Mg/30 Ml Liquid, 3875 MG PO BID 10/17/18 Cranberry Extract (Cranberry) 425 Mg Capsule, 425 MG PO BID, CAP 10/17/18 Docusate Sodium* (Colace*) 100 Mg Capsule, 200 MG PO QHS, #30 CAP 10/17/18 Dalfampridine (Ampyra) 10 Mg Tab.sr.12h, 10 MG PO BID, #60 TAB 10/17/18 Amphet Rpw-Dfigfr-N-Amphet (Adderall) 20 Mg Tablet, 20 MG PO DAILY, TAB 10/17/18 Discontinued Reported Medications Metoprolol Tartrate* (Lopressor*) 25 Mg Tab, 25 MG ORAL BID, #16 09/15/16 Citalopram Hydrobromide* (Citalopram Hydrobromide*) 10 Mg Tablet, 10 MG ORAL BID, #90 09/15/16 Famotidine* (Famotidine*) 20 Mg Tablet, 20 MG ORAL DAILY, #31 09/15/16 Alendronate Sodium* (Fosamax*) 70 Mg Tablet, 70 MG ORAL WEEKLY, #4 09/15/16 Bethanechol Chloride* (Bethanechol Chloride*) 25 Mg Tablet, 25 MG PO QID, TAB 03/28/15 Tamsulosin Hcl* (Tamsulosin Hcl*) 0.4 Mg Cap.er.24h, 0.8 MG PO HS, CAP 03/28/15 Glatiramer Acetate (Copaxone) 40 Mg/1 Ml Syringe, 40 MG SQ MONWEDFRI 03/28/15 Amantadine Hcl* (Amantadine Hcl*) 100 Mg Tablet, 100 MG PO QAM, TAB 03/18/14 Mirtazapine* (Mirtazapine*) 30 Mg Tablet, 15 MG PO DAILY, TAB 03/18/14 Terazosin Hcl* (Terazosin Hcl*) 10 Mg Capsule, 10 MG PO HS, CAP 03/18/14 Dalfampridine (Ampyra) 10 Mg Tab.sr.12h, 10 MG PO BID 03/18/14 Discontinued Scripts Multivitamins* (Theragran*) 1 Tab Tab, 1 TAB PO DAILY, #30 TAB Prov:HUMZA CALHOUN M.D. 03/26/14 Allergies Allergies: Coded Allergies: Penicillins (Verified Allergy, Unknown, HIVES, 10/17/18) PT STATES HE GETS HIVES WHEN HE GOT PENICILLIN Sulfa (Sulfonamide Antibiotics) (Verified Allergy, Unknown, UNKNOWN, 10/17/18) PT ONLY KNOWS THAT HES ALLERGIC TO IT WHEN HE WAS YOUNGER PMhx/Soc History of Surgery: Yes (BILATERAL KNEE REPLACEMENT) Anesthesia Reaction: No Hx Neurological Disorder: Yes (MULTIPLE SCLEROSIS) Hx Respiratory Disorders: No Hx Cardiac Disorders: Yes (HYPERLIPIDEMIA,HTN) Hx Psychiatric Problems: Yes (MAJOR DEPRESSIVE DISORDER (RECCURENT);) Hx Miscellaneous Medical Probl: Yes (Urinary retention status post suprapubic Boykin catheter) Hx Alcohol Use: No Hx Substance Use: No Hx Tobacco Use: No Smoking Status: Unknown if ever smoked FmHx Family History: No diabetes Physical Exam Vitals Vital Signs Date Temp Pulse Resp B/P (MAP) Pulse Ox O2 O2 Flow FiO2 Time Delivery Rate 10/17/18 Nasal 2 12:40 Cannula 10/17/18 114 16 124/85 96 Room Air 12:27 (98) 10/17/18 98.2 138 20 114/80 97 11:10 (91) Physical Exam Const: No apparent distress, well-developed, well-nourished Head: Normocephalic, Atraumatic Eyes: Normal Conjunctiva. Extraocular movements grossly intact. ENT: Normal External Ears, Nose and Mouth. Neck: Full range of motion. No meningismus. Resp: Clear to auscultation bilaterally, No wheezes, rales or rhonchi Cardio: Regular rhythm. Tachycardia. No murmurs, rubs or gallops Abd: Suprapubic fullness. Urostomy present with suprapubic catheter in place but no drainage of urine. Normal bowel sounds. No guarding or rebound. Skin: No petechiae or rashes Back: No midline tenderness. No CVA tenderness Ext: No cyanosis, or edema Neur: Awake and alert, oriented 4. Psych: Normal Mood and Affect Result Diagram: 10/17/18 1143 10/17/18 1143 Results 24 hrs Laboratory Tests Test 10/17/18 11:43 10/17/18 13:00 10/17/18 13:43 White Blood Count 31.6 10^3/ul Red Blood Count 5.65 10^6/ul Hemoglobin 17.1 g/dl Hematocrit 51.1 % Mean Corpuscular Volume 90.4 fl Mean Corpuscular Hemoglobin 30.3 pg Mean Corpuscular 33.5 g/dl Hemoglobin Concent Red Cell Distribution Width 13.3 % Platelet Count 223 10^3/UL Mean Platelet Volume 8.1 fl Immature Granulocytes % 0.900 % Neutrophils % 94.7 % Lymphocytes % 0.6 % Monocytes % 3.3 % Eosinophils % 0.0 % Basophils % 0.5 % Nucleated Red Blood Cells % 0.0 /100WBC Immature Granulocytes # 0.290 10^3/ul Neutrophils # 29.9 10^3/ul Lymphocytes # 0.2 10^3/ul Monocytes # 1.0 10^3/ul Eosinophils # 0.0 10^3/ul Basophils # 0.2 10^3/ul Nucleated Red Blood Cells # 0.0 10^3/ul Prothrombin Time 14.4 Sec Prothrombin Time Ratio 1.1 INR International 1.11 Normalized Ratio Activated Partial Thromboplast 30.0 Sec Time Sodium Level 142 mmol/L Potassium Level 4.2 mmol/L Chloride Level 106 mmol/L Carbon Dioxide Level 18 mmol/L Anion Gap 18 Blood Urea Nitrogen 45 mg/dl Creatinine 2.85 mg/dl Est Glomerular Filtrat 22 mL/min Rate mL/min Glucose Level 167 mg/dl Calcium Level 9.5 mg/dl Urine Color NYASIA Urine Clarity CLOUDY Urine pH 8.0 Urine Specific [place] 1.020 Urine Ketones 1+ mg/dL Urine Nitrite POSITIVE mg/dL Urine Bilirubin NEGATIVE mg/dL Urine Urobilinogen NEGATIVE mg/dL Urine Leukocyte Esterase NEGATIVE Nicole/ul Urine Microscopic RBC 0 /HPF Urine Microscopic WBC 0 /HPF Urine Squamous Epithelial Cells FEW /HPF Urine Mucus MODERATE /HPF Urine Hemoglobin 2+ mg/dL Urine Glucose 1+ mg/dL Urine Total Protein 3+ mg/dl POC Venous Lactate 3.3 mmol/L Current Medications Medications Dose Sig/Donte Start Time Status Last (Trade) Ordered Route PRN Stop Time Admin Dose Reason Admin Sodium 1,000 ml @ Q1H ONCE 10/17/18 DC 10/17/18 Chloride 1,000 mls/hr IV 11:30 12:15 10/17/18 12:29 Sodium 3,000 ml BOLUS OVER 2 10/17/18 DC 10/17/18 Chloride HOURS STAT 12:58 13:25 (NS) IV* 10/17/18 12:59 Cefepime HCl 50 ml @ ONCE ONCE 10/17/18 DC 10/17/18 100 mls/hr IVPB 13:00 13:24 10/17/18 13:29 Ondansetron 4 mg BRIDGE ORDER 10/17/18 HCl (Zofran PRN IV 13:30 Inj) NAUSEA/VOMITI 10/18/18 13:29 NG 650 mg ER BRIDGE 10/17/18 Acetaminophen PRN PO 13:30 (Tylenol .MILD PAIN 10/18/18 13:29 Tab) 1-3 OR TEMP Procedures/MDM MDM The patient's presentation warrants further investigation. Previous medical r ecords, if available, were reviewed. LABS The patient's laboratory testing was obtained and reviewed. No emergent treatment was required unless described below. CBC: Significant leukocytosis with shift, concerning for a systemic infection. No E/o anemia or thrombocytopenia Chemistry: Elevated BUN and creatinine, concerning for acute on chronic kidney injury. Mild anion gap metabolic acidosis. No E/o diabetic ketoacidosis PT/INR: No E/o significant coagulopathy Lactate: E/o severe sepsis Urine: E/o acute infection with hematuria EKG EKG read by me: Rate/Rhythm: Sinus tachycardia at 101 bpm Intervals: Normal Preston: Left axis deviation Impression: No evidence of acute ischemia or arrhythmia IMAGING Imaging and Radiology interpretation reviewed. CXR FINDINGS: There is mild left basilar atelectasis or pneumonia. The lungs are otherwise clear. The heart size is normal. There is no pleural effusion. There is no pneumothorax. IMPRESSION: Mild left basilar atelectasis or pneumonia. Otherwise unremarkable chest radiograph. Electronically viewed and signed by .Good Hernandez MD, MD on 10/17/2018 13:37 CT abdomen pelvis Pending TREATMENT/DISPOSITION The patient presents for hematuria and urinary retention. After discussion with the patient's urologist, Dr. Ulloa, the patient suprapubic catheter was replaced by myself in the emergency department without complication. There is significant drainage of toni bloody urine. I am concerned about obstructive uropathy as the patient does not have acute on chronic kidney disease. There is also evidence of a urinary tract infection. The patient does have a severe leukocytosis greater than 30. Once a CBC returned, I was concerned about the possibility of sepsis, and a septic work-up was initiated. The patient's lactic acid is 3.3, meeting criteria for severe sepsis. The patient was given a dose of cefepime and a sepsis bolus was initiated. The patient's urologist requested that a CT of the abdomen and pelvis without contrast to be completed to assess for the possibility of nephrolithiasis. This was ordered and will be followed up on by the urologist and the admitting physician. The patient's urinalysis reportedly demonstrates 0 white cells and 0 red cells, but I do not believe this to be true given the appearance of the patient's urine. I did send off a CK to evaluate for rhabdomyolysis in case this is all myoglobin. The patient is already being fluid resuscitated. SEPSIS NOTE SIRS Criteria: Tachycardia, leukocytosis Infectious source: Urinary tract infection End organ damage indicated by: Lactate > 2.0 mmol/L, Cr > 2.0 SEPSIS MANAGEMENT Time to recognize sepsis: 13:00 Time to recognize severe sepsis: 13:43. Time to recognize septic shock: No septic shock at this time. 3 HOUR BUNDLE Blood cultures x 2 before abx: Yes 30 ml/kg NS bolus completed Initial lactate 3.3 Repeat lactate pending SEPTIC SHOCK ASSESSMENT: NO lactic acid > 4.0 NO persistent hypotension (SBP < 90 or 40 mmHg drop, MAP < 65) despite 30 L/kg IV fluid bolus CRITICAL CARE Critical care time 35 minutes Emergent fluid management while maintaining close respiratory support. Provision of immediate and broad-spectrum antibiotic therapy. Simultaneous assessment for possible sources in order to direct targeted therapy. Consideration for invasive and chemical support to prevent cardiopulmonary collapse. Critical care time is independent of procedures performed. ADMISSION The patient will be admitted to Dr. Samson in accordance with the patient's insurance. The patient was accepted to a [facility] at 1:30 PM on October 17, 2018. Disclaimer: Inadvertent spelling and grammatical errors are likely due to EHR/dictation software use and do not reflect on the overall quality of patient care. Note that the electronic time recorded on this note does not necessarily reflect the actual time of the patient encounter. Departure Diagnosis: Primary Impression: Severe sepsis Additional Impressions: Obstructive uropathy Urinary tract infection Urinary tract infection type: acute cystitis Hematuria presence: with hematuria Qualified Codes: N30.01 - Acute cystitis with hematuria Acute kidney injury superimposed on chronic kidney disease Tachycardia Leukocytosis Leukocytosis type: unspecified Qualified Codes: D72.829 - Elevated white blood cell count, unspecified Lactic acidosis High anion gap metabolic acidosis Condition: Serious RONI TRIPLETT MD Oct 17, 2018 14:25
[2018-10-17] MEDS ORDERED: traMADol 50 MG TAB PO PRN (17:00)
[2018-10-17] MEDS: SOD CHLORIDE 0.9% 1,000 ML IV SCH (17:40)
[2018-10-17 17:46] VITALS: Ht 182.9 cm; Wt 101.0 kg
[2018-10-17 19:40] VITALS: BP 115/69; PULSE 94; RESP 18
[2018-10-17] MEDS: DOCUSATE SODIUM 100 MG CAP PO SCH (20:13)
[2018-10-17] MEDS: TERAZOSIN 5 MG CAP PO SCH (20:14)
[2018-10-17] MEDS: METOPROLOL 25 MG TAB PO SCH (20:14)
--- NOTE | 2018-10-17 20:26 | HP ---
DATE OF ADMISSION: 10/17/2018 CHIEF COMPLAINT: Hematuria. HISTORY OF PRESENT ILLNESS: The patient is a 68-year-old gentleman well known to me from previous several admissions. The patient has multiple sclerosis and is mostly wheelchair bound. The patient also has history of neurogenic bladder requiring suprapubic catheter which is being changed by Dr. Ulloa at [facility]. The patient also has history of osteoporosis, depression and possible benign prostatic hypertrophy. The patient's nurse from [facility] called me that patient has blood coming out from suprapubic catheter; however, the patient was not complaining of pain. Instead, he was complaining of fatigue. His vital signs at the [facility] revealed blood pressure of 157/83, pulse of 140, O2 sat 88% to 92%. The patient's blood sugar was 133. Temperature was 97.4. The patient was sent to [facility] ER for further evaluation and management. The patient denies any chest pain or shortness of breath. The patient did have nonproductive cough. The patient was passing blood clot from suprapubic catheter. Dr. Ulloa was contacted by ER physician, Dr. Harvinder Saunders. The patient was empirically given IV cefepime and is being admitted for further evaluation and management. The patient denied any history of headache, dizziness, syncope. No history of sore throat. No history of chills. No history of abdominal pain. No history of leg edema. No history of dizziness. The patient has weakness in all extremities. REVIEW OF SYSTEMS: A total of 12 systems were reviewed and all pertinent positive and negative findings have been described in HPI. Rest of the systems is unremarkable. PAST MEDICAL HISTORY: As stated above. In addition, the patient was admitted back in 2017 at [facility] due to severe sepsis secondary to polymicrobial urinary tract infection. PAST SURGICAL HISTORY: The patient is status post bilateral knee surgery and suprapubic catheter placement. ALLERGIES: 1. PENICILLIN. 2. SULFA. SOCIAL HISTORY: No smoking or alcohol. The patient lives in long-term facility. MEDICATION LIST: Reviewed. FAMILY HISTORY: Noncontributory to the patient's condition. PHYSICAL EXAMINATION: GENERAL: Revealed the patient to be awake, alert, fairly oriented. VITAL SIGNS: Upon arrival in the ER, temperature 98.2, pulse 138, respirations 20, blood pressure 149/80, O2 saturation 96% to 97% on room air. HEENT: Atraumatic, normocephalic head. Conjunctivae and lids are normal. Pupils are round, reactive to light. Nose and ears are normal externally. NECK: Supple. No mass, no thyromegaly. CHEST: Fairly clear. No use of accessory muscles. CARDIOVASCULAR: Regular rate and rhythm. S1, S2 normal. No murmur. ABDOMEN: Soft, nondistended, nontender. Hematuria present from suprapubic catheter. EXTREMITIES: No edema. Pedal pulse palpable. The patient has bilateral DTI, both heels. SKIN: The patient has excoriation dermatitis in the perineal area including groin. NEUROLOGIC: The patient is awake, alert, fairly oriented with quadriparesis. LABORATORY DATA: Done in the ER, WBC 31.6, hemoglobin 17.1, platelet 223, 94.7% neutrophils, no bands. Sodium 142, potassium 4.2, BUN 45, creatinine 2.8, glucose 167. Initial serum lactate was 3.3. Calcium 9.5. CPK 51. The patient's creatinine back in 2017 was 1.3. IMAGING STUDIES: Done in the ER included chest x-ray which revealed mild left basilar atelectasis/pneumonia. CT of the abdomen and pelvis revealed mild bilateral collecting system dilatation improved from prior examination with suprapubic catheter in place, findings are of urinary retention, chronic trabeculation of bladder and mild prostatomegaly, no obstructive renal, ureteral or bladder stones, no renal mass, mild bibasilar atelectasis and stable 2 cm pancreatic tail cystic lesion, overall no interval change. Findings are compatible with chronic urinary retention and trabeculation of the bladder. MICROBIOLOGY: Urine examination was positive for nitrite. IMPRESSION: 1. Sepsis most likely due to urinary tract infection; however due to nonproductive cough and x-ray finding, we will also need to consider early pneumonia in the differential diagnosis. The patient has been started on IV cefepime and we will also give breathing treatment, symptomatic treatment for cough & will do follow up cxr tomorrow. I spoke with Dr. Rob Godfrey for infectious disease consult. Dr. Ulloa was notified by Dr.Geoffrey Saunders from the ER. 2. Acute on chronic kidney disease. We will give IV fluids and monitor renal function closely. We will also call nephrology consultation. 3. Multiple sclerosis. No recent exacerbation. The patient continues to follow up with a neurologist as an outpatient. We will resume his SNF medication for multiple sclerosis if available. 4. Hypertension. Continue metoprolol as tolerated. 5. Possible history of benign prostatic hypertrophy. Continue Hytrin & flomax. For deep venous thrombosis prophylaxis, we will use SCD since patient has active bleeding from suprapubic catheter. 6. Osteoporosis. Hold off fosamex due to creatinine of 2.8 The patient also takes Adderall prescribed by his neurologist. We will continue once available along with the Ampyra which he was getting it at long-term facility for multiple sclerosis. Further recommendation will depend on patient's hospital course and recommendation from multiple consultants. Plan of care was discussed with Dr.Geoffrey Saunders physician. Dictated By: GISELA ROWAN/LEIGH Conf#: [id number] DID#: [id number] MTDD
[2018-10-17] MEDS ORDERED: TAMSULOSIN (SR) 0.4 MG CAP PO SCH (21:00)
[2018-10-17] MEDS ORDERED: BETHANECHOL 25 MG TAB PO SCH (21:00)
--- NOTE | 2018-10-17 21:06 | CONS ---
DATE OF ADMISSION: 10/17/2018 DATE OF CONSULTATION: 10/17/2018 TYPE OF CONSULTATION: Infectious disease. REASON FOR CONSULTATION: Antibiotic management. HISTORY OF PRESENT ILLNESS: Bari Gonzalez is a 68-year-old male with numerous problems, who comes in with increased heart rate and bleeding from his Carson catheter. His past problems include: 1. Multiple sclerosis, complicated by urinary retention. 2. Status post suprapubic Carson catheter, which has been in place for 2 days. The patient is follow ed by Dr. Ulloa. The patient presents with several days of general feeling of being unwell with ur inary retention and hematuria. He does remember when the last drainage from the suprapubic catheter. He has been draining bright red blood. He was tachycardic in triage. He does not have fever or ch ills. He does not report trauma or injury. The patient had urinary tract infection in the past that led to hematuria and urinary obstruction. He is concerned that this is what could be going on today . He has no chest pain, nausea or vomiting. He has suprapubic discomfort, but no abdominal pain. H e has generalized weakness secondary to his multiple sclerosis. PAST MEDICAL HISTORY: Includes surgery for bilateral knee replacements. The patient also has hypert ension, hyperlipidemia, major depressive disorder; recurrent urinary retention, status post suprapubi c Carson catheter. FAMILY HISTORY: Noncontributory. SOCIAL HISTORY: Does not smoke, drink or abuse drugs. ALLERGIES: NONE TO PENICILLIN, SULFA OR FOODS. MEDICATIONS: Per chart. REVIEW OF SYSTEMS: As per HPI. PHYSICAL EXAMINATION: GENERAL: The patient is a well-developed, well-nourished male. He is chronically ill, in no acute d istress. SKIN: Without generalized rash. HEENT: Within normal limits. NECK: Supple. LYMPH NODES: None palpable. CHEST: Decreased breath sounds at the bases. HEART: Tachycardic without murmur or gallop. Regular rhythm. ABDOMEN: He has suprapubic fullness. Urostomy is present with a suprapubic catheter in place with n o drainage. EXTREMITIES: Without cyanosis, clubbing, or edema. RECTAL AND GENITAL: Deferred. NEUROLOGIC: The patient is awake and oriented. He is limited by his multiple sclerosis. ANCILLARY LABORATORY DATA: White count of 31.6 with 95% neutrophils, H and H of 17.1 and 51.1, plate let count . BUN and creatinine 25/2.85. His urine is positive for nitrite, no leukocyte estera se and he has no white cells per high-power field, which goes against significant urinary tract infec tion though he has urinary retention. The patient was started on cefepime. He has, however, significant leukocytosis with a left shift and this is concerning for systemic infection. His BUN and creatinine is also elevated at 45 and 2.85. White count was 31.6 as noted. Chest x-ray shows mild basilar atelectasis. CT scan of the ab domen and pelvis shows mild bilateral collecting system dilatation with improvement from prior exam w ith a suprapubic catheter in place. FINDINGS: Suggest urinary retention, chronic trabeculation of the bladder and mild prostatomegaly. Urologic followup is suggested. No obstruction of the kidneys, ureters and there is no bladder stone s, mild basilar atelectasis and stable 2 cm pancreatic tail cystic lesion. IMPRESSION AND PLAN: The patient has signs and symptoms of significant sepsis secondary to urinary r etention, even though his urinalysis is not impressive. We will continue him on the cefepime. I fred l dictate my findings to Dr. Greer. I want to thank you very much for asking us to see this unfor tunate gentleman. Parenthetically, HE IS ALLERGIC TO PENICILLIN AND SULFA, but the cefepime should b e fine. Dictated By: INGRIS CAMACHO MD, JD/NTS Conf#: [id number] DID#: [id number] CC: GISELA GREER MD;*EndCC*
[2018-10-18] MEDS: LEVALBUTEROL (NEB) 0.63 MG/3 ML AMP HHN SCH ×3 (00:39→15:03)
[2018-10-18 01:53] VITALS: BP 91/53; PULSE 103; RESP 16
[2018-10-18] MEDS: SOD CHLORIDE 0.9% 1,000 ML IV SCH ×4 (03:00→23:00)
--- NOTE | 2018-10-18 07:49 | CONS ---
Assessment/Plan Assessment/Plan Hospital Course (Demo Recall) 68-year-old male known to wi. He is a resident of [facility] and has a chronic suprapubic tube which I have been changing every month for him. He was sent to the emergency room from the [facility] facility because of gross hematuria. The suprapubic tube was changed in the emergency room and the patient was admitted for further care. Patient is known to have a history of multiple sclerosis and neurogenic bladder. And because of that he had his suprapubic tube inserted and that has been replaced every month without a problem. On admission the patient was found to have leukocytosis with a white count of31.6 The suprapubic tube has been changed and now the urine is clear was sediment in it. The CT scan of the abdomen and pelvis did not show any stones or masses. Most likely the patient does have urinary tract infection and he has been started on antibiotic and a urine culture is pending. For now we shall continue the antibiotics and hydrate him. Consultation Date/Type/Reason Admit Date/Time Oct 17, 2018 at 13:30 Date of Consultation: Oct 18, 2018 Type of Consult Urology Reason for Consultation Gross hematuria Requesting Provider: GISELA GREER MD Date/Time of Note DATE: 10/18/18 TIME: 07:38 Hx of Present Illness 68-year-old male known to me. He is a resident of [facility] and has a chronic suprapubic tube which I have been changing every month for him. He was sent to the emergency room from the [facility] facility because of gross hematuria. The suprapubic tube was changed in the emergency room and the patient was admitted for further care. Patient is known to have a history of multiple sclerosis and neurogenic bladder. And because of that he had his suprapubic tube inserted and that has been replaced every month without a problem. Constitutional: no complaints Eyes: no complaints ENT: no complaints Respiratory: no complaints; No shortness of breath Cardiovascular: no complaints; No chest pain Gastrointestinal: no complaints Genitourinary: hematuria Musculoskeletal: other (Patient is wheelchair-bound and bedbound) Skin: no complaints Neurologic: other (Paraplegic) Endocrine: no complaints Lymphatic: no complaints Psychological: no complaints Immunologic: no complaints Past Medical History Medical History: hypertension, other (Multiple sclerosis) Home Meds Reported Medications Tamsulosin Hcl* (Flomax*) 0.4 Mg Cap.er.24h, 0.4 MG PO HS, CAP 10/17/18 Alendronate Sodium* (Fosamax*) 70 Mg Tablet, 70 MG PO EVERY THURSDAY, #4 TAB 10/17/18 Terazosin Hcl* (Terazosin Hcl*) 10 Mg Capsule, 10 MG PO HS, CAP 10/17/18 Metoprolol Tartrate* (Lopressor*) 25 Mg Tab, 25 MG PO BID WITH MEALS, #60 TAB HOLD IF SBP BELOW 110 OR HR BELOW 60/MIN 10/17/18 [place]-3/Dha/Epa/Fish Oil (FISH OIL 1,000 MG SOFTGEL) 1 Each Capsule, 2 EACH PO DAILY, CAP 10/17/18 Acetaminophen* (Acetaminophen*) 650 Mg Tablet, 650 MG PO Q6H PRN for MILD PAIN LEVEL 1-3, #30 TAB 10/17/18 Acetaminophen* (Acetaminophen*) 500 MG Extra Strength Tablet, 1000 MG PO Q4 PRN for MODERATE PAIN LEVEL 4-6, TAB 10/17/18 Tramadol Hcl* (Ultram*) 50 Mg Tablet, 50 MG PO BID PRN for PAIN, TAB 10/17/18 Bethanechol Chloride* (Urecholine*) 25 Mg Tab, 25 MG PO QID, TAB 10/17/18 Cran/Vitc/Mannose/Inulin/Brom (Uti-Stat Liquid) 3,875 Mg/30 Ml Liquid, 3875 MG PO BID 10/17/18 Cranberry Extract (Cranberry) 425 Mg Capsule, 425 MG PO BID, CAP 10/17/18 Docusate Sodium* (Colace*) 100 Mg Capsule, 200 MG PO QHS, #30 CAP 10/17/18 Dalfampridine (Ampyra) 10 Mg Tab.sr.12h, 10 MG PO BID, #60 TAB 10/17/18 Amphet Kdh-[id number]-[id number]-Amphet (Adderall) 20 Mg Tablet, 20 MG PO DAILY, TAB 10/17/18 Discontinued Reported Medications Metoprolol Tartrate* (Lopressor*) 25 Mg Tab, 25 MG ORAL BID, #16 09/15/16 Citalopram Hydrobromide* (Citalopram Hydrobromide*) 10 Mg Tablet, 10 MG ORAL BID, #90 09/15/16 Famotidine* (Famotidine*) 20 Mg Tablet, 20 MG ORAL DAILY, #31 09/15/16 Alendronate Sodium* (Fosamax*) 70 Mg Tablet, 70 MG ORAL WEEKLY, #4 09/15/16 Bethanechol Chloride* (Bethanechol Chloride*) 25 Mg Tablet, 25 MG PO QID, TAB 03/28/15 Tamsulosin Hcl* (Tamsulosin Hcl*) 0.4 Mg Cap.er.24h, 0.8 MG PO HS, CAP 03/28/15 Glatiramer Acetate (Copaxone) 40 Mg/1 Ml Syringe, 40 MG SQ MONWEDFRI 03/28/15 Amantadine Hcl* (Amantadine Hcl*) 100 Mg Tablet, 100 MG PO QAM, TAB 03/18/14 Mirtazapine* (Mirtazapine*) 30 Mg Tablet, 15 MG PO DAILY, TAB 03/18/14 Terazosin Hcl* (Terazosin Hcl*) 10 Mg Capsule, 10 MG PO HS, CAP 03/18/14 Dalfampridine (Ampyra) 10 Mg Tab.sr.12h, 10 MG PO BID 03/18/14 Discontinued Scripts Multivitamins* (Theragran*) 1 Tab Tab, 1 TAB PO DAILY, #30 TAB Prov:HUMZA CALHOUN M.D. 03/26/14 Medications Current Medications Ondansetron HCl (Zofran Inj) 4 mg BRIDGE ORDER PRN IV NAUSEA/VOMITING; Start 10/17/18 at 13:30; Stop 10/18/18 at 13:29 Acetaminophen (Tylenol Tab) 650 mg ER BRIDGE PRN PO .MILD PAIN 1-3 OR TEMP; Start 10/17/18 at 13:30; Stop 10/18/18 at 13:29 Sodium Chloride 1,000 ml @ 100 mls/hr Q10H IV Last administered on 10/18/18at 06:08; Admin Dose 100 MLS/HR; Start 10/17/18 at 17:00 Cefepime HCl 50 ml @ 100 mls/hr Q24H IVPB ; Start 10/18/18 at 13:00 Acetaminophen (Tylenol Tab) 650 mg Q4H PRN PO MILD PAIN(1-3)OR ELEVATED TEMP; Start 10/17/18 at 17:00 Tramadol HCl (Ultram) 50 mg Q6H PRN PO MODERATE PAIN LEVEL 4-6; Start 10/17/18 at 17:00 Bethanechol Chloride (Urecholine) 25 mg QID PO Last administered on 10/17/18at 2 0:13; Admin Dose 25 MG; Start 10/17/18 at 21:00 Docusate Sodium (Colace) 200 mg HS PO Last administered on 10/17/18at 20:13; Admin Dose 200 MG; Start 10/17/18 at 21:00 Metoprolol Tartrate (Lopressor) 25 mg BID PO Last administered on 10/17/18at 20:14; Admin Dose 25 MG; Start 10/17/18 at 21:00 Tamsulosin HCl (Flomax) 0.4 mg HS PO Last administered on 10/17/18 20:13; Admin Dose 0.4 MG; Start 10/17/18 at 21:00 Terazosin HCl (Hytrin) 10 mg HS PO Last administered on 10/17/18at 20:14; Admin Dose 10 MG; Start 10/17/18 at 21:00 Guaifenesin/ Dextromethorphan (Robitussin Dm Liquid Cup) 10 ml Q4H PRN PO COUGH; Start 10/17/18 at 19:00 Levalbuterol (Xopenex Neb) 0.63 mg Q8H RESP THERAPY HHN Last administered on 10/18/18at 00:39; Admin Dose 0.63 MG; Start 10/18/18 at 00:00 Allergies: Coded Allergies: Penicillins (Verified Allergy, Unknown, HIVES, 10/17/18) PT STATES HE GETS HIVES WHEN HE GOT PENICILLIN Sulfa (Sulfonamide Antibiotics) (Verified Allergy, Unknown, UNKNOWN, 10/17/18) PT ONLY KNOWS THAT HES ALLERGIC TO IT WHEN HE WAS YOUNGER Past Surgical History Past Surgical Hx: other (Left inguinal hernia repair and bilateral knee arthroscopies and insertion of suprapubic tube) Social History Alcohol Use: none Smoking Status: Never smoker Exam/Review of Systems Exam Vitals Vital Signs Date Temp Pulse Resp B/P (MAP) Pulse Ox O2 O2 Flow FiO2 Time Delivery Rate 10/18/18 98.3 103 16 91/53 (66) 94 Room Air 01:53 10/18/18 2.0 00:47 10/18/18 27 00:46 Intake and Output 10/17/18 10/17/18 10/18/18 1515:00 23:00 07:00 IntakeIntake Total 240 ml 1000 ml OutputOutput Total 700 ml BalanceBalance -460 ml 1000 ml Constitutional: alert, oriented Psych: no complaints Head: normocephalic Eyes: nl conjunctiva ENMT: nl external ears & nose Neck: supple, non-tender Respiratory: normal air movement; No wheezing Cardiovascular: No jugular venous distention (JVD) Gastrointestinal: soft, other (Obese abdomen, has a suprapubic tube in place that is draining clear urine today with a lot of sediment in it) Musculoskeletal: other (Paraplegia) Extremities: No calf tenderness Neurological: nl mental status Results Result Diagram: 10/18/18 0434 10/18/18 0433 Results 24hrs Laboratory Tests Test 10/17/18 11:43 10/17/18 13:00 10/17/18 13:43 10/17/18 14:53 White Blood Count 31.6 #H Red Blood Count 5.65 # Hemoglobin 17.1 # Hematocrit 51.1 # Mean Corpuscular 90.4 Volume Mean Corpuscular 30.3 Hemoglobin Mean Corpuscular 33.5 Hemoglobin Concent Red Cell 13.3 Distribution Width Platelet Count 223 # Mean Platelet Volume 8.1 Immature 0.900 H Granulocytes % Neutrophils % 94.7 H Lymphocytes % 0.6 L Monocytes % 3.3 Eosinophils % 0.0 Basophils % 0.5 Nucleated Red Blood 0.0 Cells % Immature 0.290 H Granulocytes # Neutrophils # 29.9 H Lymphocytes # 0.2 L Monocytes # 1.0 H Eosinophils # 0.0 Basophils # 0.2 H Nucleated Red Blood 0.0 Cells # Prothrombin Time 14.4 Prothrombin Time 1.1 Ratio INR International 1.11 Normalized Ratio Activated 30.0 Partial Thromboplast Time Sodium Level 142 Potassium Level 4.2 Chloride Level 106 Carbon Dioxide Level 18 L Anion Gap 18 H Blood Urea Nitrogen 45 H Creatinine 2.85 H Est Glomerular 22 L Filtrat Rate mL/min Glucose Level 167 Calcium Level 9.5 Urine Color [place]ASIA Urine Clarity CLOUDY A Urine pH 8.0 Urine Specific 1.020 [place] Urine Ketones 1+ H Urine Nitrite POSITIVE A Urine Bilirubin NEGATIVE Urine Urobilinogen NEGATIVE Urine Leukocyte NEGATIVE Esterase Urine Microscopic 0 RBC Urine Microscopic 0 WBC Urine Squamous FEW Epithelial Cells Urine Mucus MODERATE Urine Hemoglobin 2+ H Urine Glucose 1+ H Urine Total Protein 3+ H POC Venous Lactate 3.3 *H Creatine Kinase 51 Test 10/17/18 14:56 10/17/18 17:13 10/18/18 04:33 10/18/18 04:34 Lactic Acid Level 4.3 *H 2.2 *H 1.2 Sodium Level 141 Potassium Level 4.5 Chloride Level 111 H Carbon Dioxide Level 20 L Anion Gap 10 # Blood Urea Nitrogen 50 H Creatinine 2.12 H Est Glomerular 31 L Filtrat Rate mL/min Glucose Level 134 Calcium Level 8.1 L White Blood Count 21.3 #H Red Blood Count 4.25 #L Hemoglobin 12.7 #L Hematocrit 38.7 #L Mean Corpuscular 91.1 Volume Mean Corpuscular 29.9 Hemoglobin Mean Corpuscular 32.8 Hemoglobin Concent Red Cell 13.7 Distribution Width Platelet Count 158 # Mean Platelet Volume 8.8 Immature 1.600 H Granulocytes % Neutrophils % 89.8 H Lymphocytes % 2.3 L Monocytes % 5.3 Eosinophils % 0.7 Basophils % 0.3 Nucleated Red Blood 0.0 Cells % Immature 0.350 H Granulocytes # Neutrophils # 19.1 H Lymphocytes # 0.5 L Monocytes # 1.1 H Eosinophils # 0.2 Basophils # 0.1 Nucleated Red Blood 0.0 Cells # Imaging Imaging CT scan of the abdomen and pelvis: 1. Mild bilateral collecting system dilatation, improved from the prior exam with a suprapubic catheter in place. Findings suggest urinary retention, chronic trabeculation of the bladder, and mild prostatomegaly. Urologic follow-up is suggested. No obstructing renal, ureteral, or bladder stone. No solid renal mass. 2. Mild bibasilar atelectasis and stable 2 cm pancreatic tail cystic lesion. Overall, no interval change. Medications Medication Current Medications Ondansetron HCl (Zofran Inj) 4 mg BRIDGE ORDER PRN IV NAUSEA/VOMITING; Start 10/17/18 at 13:30; Stop 10/18/18 at 13:29 Acetaminophen (Tylenol Tab) 650 mg ER BRIDGE PRN PO .MILD PAIN 1-3 OR TEMP; Start 10/17/18 at 13:30; Stop 10/18/18 at 13:29 Sodium Chloride 1,000 ml @ 100 mls/hr Q10H IV Last administered on 10/18/18 06:08; Admin Dose 100 MLS/HR; Start 10/17/18 at 17:00 Cefepime HCl 50 ml @ 100 mls/hr Q24H IVPB ; Start 10/18/18 at 13:00 Acetaminophen (Tylenol Tab) 650 mg Q4H PRN PO MILD PAIN(1-3)OR ELEVATED TEMP; Start 10/17/18 at 17:00 Tramadol HCl (Ultram) 50 mg Q6H PRN PO MODERATE PAIN LEVEL 4-6; Start 10/17/18 at 17:00 Bethanechol Chloride (Urecholine) 25 mg QID PO Last administered on 10/17/18 20:13; Admin Dose 25 MG; Start 10/17/18 at 21:00 Docusate Sodium (Colace) 200 mg HS PO Last administered on 10/17/18 20:13; Admin Dose 200 MG; Start 10/17/18 at 21:00 Metoprolol Tartrate (Lopressor) 25 mg BID PO Last administered on 10/17/18 20:14; Admin Dose 25 MG; Start 10/17/18 at 21:00 Tamsulosin HCl (Flomax) 0.4 mg HS PO Last administered on 10/17/18 20:13; Admin Dose 0.4 MG; Start 10/17/18 at 21:00 Terazosin HCl (Hytrin) 10 mg HS PO Last administered on 10/17/18 20:14; Admin Dose 10 MG; Start 10/17/18 at 21:00 Guaifenesin/ Dextromethorphan (Robitussin Dm Liquid Cup) 10 ml Q4H PRN PO COUGH; Start 10/17/18 at 19:00 Levalbuterol (Xopenex Neb) 0.63 mg Q8H RESP THERAPY HHN Last administered on 10/18/18 00:39; Admin Dose 0.63 MG; Start 10/18/18 at 00:00 KEYUR BERNSTEIN MD Oct 18, 2018 07:49
[2018-10-18 08:20] VITALS: BP 94/55; PULSE 94; RESP 15
[2018-10-18] MEDS: METOPROLOL 25 MG TAB PO SCH ×2 (09:00→21:01)
[2018-10-18] MEDS: CEFEPIME 1GM/50 ML (PMX) 50 ML IVPB SCH (12:34)
[2018-10-18] MEDS: GUAIFENESIN/DM 5ML CUP PO PRN ×3 (12:40→23:00)
--- NOTE | 2018-10-18 13:08 | PN ---
Date/Time of Note Date/Time of Note DATE: 10/18/18 TIME: 13:07 Assessment/Plan VTE Prophylaxis Risk score (from Ns)>0 risk: 5 SCD applied (from Ns): Yes Pharmacological prophylaxis: NA/contraindicated Pharm contraindication: bleeding Lines/Catheters IV [facility] Type [facility] Peripheral IV Urinary Cath still in place: Yes Reason Cath still needed: urinary retention Assessment/Plan Hospital Course Patient is awake alert denies any pain denies fever. Patient's condition and plan of care discussed with patient and patient's sister at the bedside, all questions answered. Assessment/Plan -Sepsis most likely due to urinary tract infection and early pneumonia. Continue antibiotics per ID. Dr. Godfrey is following in infection disease consultation. -Neurogenic bladder with suprapubic catheter. Dr. Ulloa is following a neurology consultation, suprapubic catheter was changed. -BPH. Continue Hytrin. -Acute on chronic kidney disease, continue IV fluids, monitor BUN and creatinine. -Multiple sclerosis. Continue Ampyra. -Hypertension. Continue metoprolol. -Osteoporosis. Continue Fosamax. Further recommendation will depend on patient's hospital course and recommendation from multiple consultants. Plan of care was discussed with Dr. Samson. Result Diagram: 10/18/18 0434 10/18/18 0433 Results 24hrs Laboratory Tests Test 10/17/18 13:43 10/17/18 14:53 10/17/18 14:56 10/17/18 17:13 POC Venous Lactate 3.3 *H Creatine Kinase 51 Lactic Acid Level 4.3 *H 2.2 *H Test 10/18/18 04:33 10/18/18 04:34 Sodium Level 141 Potassium Level 4.5 Chloride Level 111 H Carbon Dioxide Level 20 L Anion Gap 10 # Blood Urea Nitrogen 50 H Creatinine 2.12 H Est Glomerular 31 L Filtrat Rate mL/min Glucose Level 134 Lactic Acid Level 1.2 Calcium Level 8.1 L White Blood Count 21.3 #H Red Blood Count 4.25 #L Hemoglobin 12.7 #L Hematocrit 38.7 #L Mean Corpuscular 91.1 Volume Mean Corpuscular 29.9 Hemoglobin Mean Corpuscular 32.8 Hemoglobin Concent Red Cell 13.7 Distribution Width Platelet Count 158 # Mean Platelet Volume 8.8 Immature 1.600 H Granulocytes % Neutrophils % 89.8 H Lymphocytes % 2.3 L Monocytes % 5.3 Eosinophils % 0.7 Basophils % 0.3 Nucleated Red Blood 0.0 Cells % Immature 0.350 H Granulocytes # Neutrophils # 19.1 H Lymphocytes # 0.5 L Monocytes # 1.1 H Eosinophils # 0.2 Basophils # 0.1 Nucleated Red Blood 0.0 Cells # Exam/Review of Systems Exam Vitals Vital Signs Date Temp Pulse Resp B/P (MAP) Pulse Ox O2 O2 Flow FiO2 Time Delivery Rate 10/18/18 80 15 96 Nasal 27 08:35 Cannula 10/18/18 2.0 08:35 10/18/18 98.3 94/55 (68) 08:20 Intake and Output 10/17/18 10/17/18 10/18/18 1515:00 23:00 07:00 IntakeIntake Total 240 ml 1000 ml OutputOutput Total 700 ml BalanceBalance -460 ml 1000 ml Constitutional: alert, oriented Head: normocephalic Neck: supple Respiratory: clear to auscultation Cardiovascular: nl pulses Gastrointestinal: soft, non-tender Genitourinary - Male: other (Suprapubic catheter) Extremities: normal pulses Neurological: nl mental status Skin: nl turgor Results Results 24hrs Laboratory Tests Test 10/17/18 13:43 10/17/18 14:53 10/17/18 14:56 10/17/18 17:13 POC Venous Lactate 3.3 *H Creatine Kinase 51 Lactic Acid Level 4.3 *H 2.2 *H Test 10/18/18 04:33 10/18/18 04:34 Sodium Level 141 Potassium Level 4.5 Chloride Level 111 H Carbon Dioxide Level 20 L Anion Gap 10 # Blood Urea Nitrogen 50 H Creatinine 2.12 H Est Glomerular 31 L Filtrat Rate mL/min Glucose Level 134 Lactic Acid Level 1.2 Calcium Level 8.1 L White Blood Count 21.3 #H Red Blood Count 4.25 #L Hemoglobin 12.7 #L Hematocrit 38.7 #L Mean Corpuscular 91.1 Volume Mean Corpuscular 29.9 Hemoglobin Mean Corpuscular 32.8 Hemoglobin Concent Red Cell 13.7 Distribution Width Platelet Count 158 # Mean Platelet Volume 8.8 Immature 1.600 H Granulocytes % Neutrophils % 89.8 H Lymphocytes % 2.3 L Monocytes % 5.3 Eosinophils % 0.7 Basophils % 0.3 Nucleated Red Blood 0.0 Cells % Immature 0.350 H Granulocytes # Neutrophils # 19.1 H Lymphocytes # 0.5 L Monocytes # 1.1 H Eosinophils # 0.2 Basophils # 0.1 Nucleated Red Blood 0.0 Cells # Medications Medication Current Medications Ondansetron HCl (Zofran Inj) 4 mg BRIDGE ORDER PRN IV NAUSEA/VOMITING; Start 10/17/18 at 13:30; Stop 10/18/18 at 13:29 Acetaminophen (Tylenol Tab) 650 mg ER BRIDGE PRN PO .MILD PAIN 1-3 OR TEMP; Start 10/17/18 at 13:30; Stop 10/18/18 at 13:29 Sodium Chloride 1,000 ml @ 100 mls/hr Q10H IV Last administered on 10/18/18at 06:08; Admin Dose 100 MLS/HR; Start 10/17/18 at 17:00 Cefepime HCl 50 ml @ 100 mls/hr Q24H IVPB Last administered on 10/18/18at 12:34; Admin Dose 100 MLS/HR; Start 10/18/18 at 13:00 Acetaminophen (Tylenol Tab) 650 mg Q4H PRN PO MILD PAIN(1-3)OR ELEVATED TEMP; Start 10/17/18 at 17:00 Tramadol HCl (Ultram) 50 mg Q6H PRN PO MODERATE PAIN LEVEL 4-6; Start 10/17/18 at 17:00 Docusate Sodium (Colace) 200 mg HS PO Last administered on 10/17/18at 20:13; Admin Dose 200 MG; Start 10/17/18 at 21:00 Metoprolol Tartrate (Lopressor) 25 mg BID PO Last administered on 10/17/18at 20:14; Admin Dose 25 MG; Start 10/17/18 at 21:00 Terazosin HCl (Hytrin) 10 mg HS PO Last administered on 10/17/18at 20:14; Admin Dose 10 MG; Start 10/17/18 at 21:00 Guaifenesin/ Dextromethorphan (Robitussin Dm Liquid Cup) 10 ml Q4H PRN PO COUGH Last administered on 10/18/18at 12:40; Admin Dose 10 ML; Start 10/17/18 at 19:00 Levalbuterol (Xopenex Neb) 0.63 mg Q8H RESP THERAPY HHN Last administered on 10/18/18at 08:34; Admin Dose 0.63 MG; Start 10/18/18 at 00:00 CLARIBEL HERNANDEZ Oct 18, 2018 13:08
--- NOTE | 2018-10-18 14:32 | CONS ---
Assessment/Plan Assessment/Plan Hospital Course (Demo Recall) Patient is alert feels better today looks comfortable no fevers overnight WBC 21.3 platelets 158 neutrophils 89.8 BUN 50 creatinine 2.12 lactic acid 2.2 urine culture was consistent with contaminant Chest x-ray this morning revealed increased interstitial markings as well as left lung base patchy consolidation versus atelectasis Allergy: Penicillins, sulfa Antimicrobials: Patient is on cefepime Physical examination: Well-developed well-nourished elderly man who is alert in no distress. Head atraumatic normocephalic sclera nonicteric vehicle mucosa dry oropharynx clear. Patient has halitosis. Neck is supple chest rise symmetrical. Breath sounds diminished bases. Heart: S1-S2. Abdomen soft, bowel tones present. Extremities without cyanosis, bilateral lower extremities trace edema. Assessment: 1. Sepsis, present on admission 2. Pneumonia, healthcare associated 3. Possible urinary tract infection as per urinalysis 4. Acute renal failure 5. Neurogenic bladder 6. Multiple sclerosis Plan: Patient is doing better, continue present care antibiotics, repeat urine culture Consultation Date/Type/Reason Admit Date/Time Oct 17, 2018 at 13:30 Initial Consult Date 10/18/18 Type of Consult id Requesting Provider: GISELA GREER MD Date/Time of Note DATE: 10/18/18 TIME: 14:32 Exam/Review of Systems Exam Vitals Vital Signs Date Temp Pulse Resp B/P (MAP) Pulse Ox O2 O2 Flow FiO2 Time Delivery Rate 10/18/18 80 15 96 Nasal 27 08:35 Cannula 10/18/18 2.0 08:35 10/18/18 98.3 94/55 (68) 08:20 Intake and Output 10/17/18 10/17/18 10/18/18 1515:00 23:00 07:00 IntakeIntake Total 240 ml 1000 ml OutputOutput Total 700 ml BalanceBalance -460 ml 1000 ml Results Result Diagram: 10/18/18 0434 10/18/18 0433 Results 24hrs Laboratory Tests Test 10/17/18 14:53 10/17/18 14:56 10/17/18 17:13 10/18/18 04:33 Creatine Kinase 51 Lactic Acid Level 4.3 *H 2.2 *H 1.2 Sodium Level 141 Potassium Level 4.5 Chloride Level 111 H Carbon Dioxide Level 20 L Anion Gap 10 # Blood Urea Nitrogen 50 H Creatinine 2.12 H Est Glomerular 31 L Filtrat Rate mL/min Glucose Level 134 Calcium Level 8.1 L Test 10/18/18 04:34 White Blood Count 21.3 #H Red Blood Count 4.25 #L Hemoglobin 12.7 #L Hematocrit 38.7 #L Mean Corpuscular 91.1 Volume Mean Corpuscular 29.9 Hemoglobin Mean Corpuscular 32.8 Hemoglobin Concent Red Cell 13.7 Distribution Width Platelet Count 158 # Mean Platelet Volume 8.8 Immature 1.600 H Granulocytes % Neutrophils % 89.8 H Lymphocytes % 2.3 L Monocytes % 5.3 Eosinophils % 0.7 Basophils % 0.3 Nucleated Red Blood 0.0 Cells % Immature 0.350 H Granulocytes # Neutrophils # 19.1 H Lymphocytes # 0.5 L Monocytes # 1.1 H Eosinophils # 0.2 Basophils # 0.1 Nucleated Red Blood 0.0 Cells # Medications Medication Current Medications Sodium Chloride 1,000 ml @ 100 mls/hr Q10H IV Last administered on 10/18/18at 06:08; Admin Dose 100 MLS/HR; Start 10/17/18 at 17:00 Cefepime HCl 50 ml @ 100 mls/hr Q24H IVPB Last administered on 10/18/18at 12:34; Admin Dose 100 MLS/HR; Start 10/18/18 at 13:00 Acetaminophen (Tylenol Tab) 650 mg Q4H PRN PO MILD PAIN(1-3)OR ELEVATED TEMP; Start 10/17/18 at 17:00 Tramadol HCl (Ultram) 50 mg Q6H PRN PO MODERATE PAIN LEVEL 4-6; Start 10/17/18 at 17:00 Docusate Sodium (Colace) 200 mg HS PO Last administered on 10/17/18at 20:13; Admin Dose 200 MG; Start 10/17/18 at 21:00 Metoprolol Tartrate (Lopressor) 25 mg BID PO Last administered on 10/17/18at 20: 14; Admin Dose 25 MG; Start 10/17/18 at 21:00 Terazosin HCl (Hytrin) 10 mg HS PO Last administered on 10/17/18at 20:14; Admin Dose 10 MG; Start 10/17/18 at 21:00 Guaifenesin/ Dextromethorphan (Robitussin Dm Liquid Cup) 10 ml Q4H PRN PO COUGH Last administered on 10/18/18at 12:40; Admin Dose 10 ML; Start 10/17/18 at 19:00 Levalbuterol (Xopenex Neb) 0.63 mg Q8H RESP THERAPY HHN Last administered on 10/18/18at 08:34; Admin Dose 0.63 MG; Start 10/18/18 at 00:00 KAVITA ANDERSON NP Oct 18, 2018 14:32
[2018-10-18 14:59] VITALS: BP 133/59; PULSE 101; RESP 18
[2018-10-18 20:30] VITALS: BP 123/69; PULSE 97; RESP 18
[2018-10-18] MEDS: TERAZOSIN 5 MG CAP PO SCH (21:01)
[2018-10-18] MEDS: DOCUSATE SODIUM 100 MG CAP PO SCH (21:01)
[2018-10-19] MEDS: SOD CHLORIDE 0.9% 1,000 ML IV SCH ×2 (03:08→13:30)
[2018-10-19 03:12] VITALS: BP 102/59; PULSE 79; RESP 18
[2018-10-19] MEDS: GUAIFENESIN/DM 5ML CUP PO PRN ×2 (06:29→10:48)
[2018-10-19 07:54] VITALS: BP 139/70; PULSE 74; RESP 19
--- NOTE | 2018-10-19 08:02 | CONS ---
Consult Date/Type/Reason Admit Date/Time Oct 17, 2018 at 13:30 Initial Consult Date 10/18/18 Type of Consultation: Urology Reason for Consultation Urinary tract infection and hematuria Requesting Provider: GISELA GREER MD Date/Time of Note DATE: 10/19/18 TIME: 08:00 Subjective Patient is awake and feeling comfortable he has been coughing and spitting mucus Objective Vitals Vital Signs Date Temp Pulse Resp B/P (MAP) Pulse Ox O2 O2 Flow FiO2 Time Delivery Rate 10/19/18 98.4 74 19 139/70 97 Nasal 07:54 (93) Cannula 10/19/18 2.0 27 02:44 Intake and Output 10/18/18 10/18/18 10/19/18 1414:59 22:59 06:59 IntakeIntake Total 290 ml 1800 ml 1600 ml OutputOutput Total 900 ml 1500 ml BalanceBalance -610 ml 1800 ml 100 ml Exam The suprapubic tube is draining well. The urine is clear but it has a lot of sediment in it from the infection Results/Medications Result Diagram: 10/18/18 0434 10/18/18 0433 Home Meds Reported Medications Tamsulosin Hcl* (Flomax*) 0.4 Mg Cap.er.24h, 0.4 MG PO HS, CAP 10/17/18 Alendronate Sodium* (Fosamax*) 70 Mg Tablet, 70 MG PO EVERY THURSDAY, #4 TAB 10/17/18 Terazosin Hcl* (Terazosin Hcl*) 10 Mg Capsule, 10 MG PO HS, CAP 10/17/18 Metoprolol Tartrate* (Lopressor*) 25 Mg Tab, 25 MG PO BID WITH MEALS, #60 TAB HOLD IF SBP BELOW 110 OR HR BELOW 60/MIN 10/17/18 [place]-3/Dha/Epa/Fish Oil (FISH OIL 1,000 MG SOFTGEL) 1 Each Capsule, 2 EACH PO D AILY, CAP 10/17/18 Acetaminophen* (Acetaminophen*) 650 Mg Tablet, 650 MG PO Q6H PRN for MILD PAIN LEVEL 1-3, #30 TAB 10/17/18 Acetaminophen* (Acetaminophen*) 500 MG Extra Strength Tablet, 1000 MG PO Q4 PRN for MODERATE PAIN LEVEL 4-6, TAB 10/17/18 Tramadol Hcl* (Ultram*) 50 Mg Tablet, 50 MG PO BID PRN for PAIN, TAB 10/17/18 Bethanechol Chloride* (Urecholine*) 25 Mg Tab, 25 MG PO QID, TAB 10/17/18 Cran/Vitc/Mannose/Inulin/Brom (Uti-Stat Liquid) 3,875 Mg/30 Ml Liquid, 3875 MG PO BID 10/17/18 Cranberry Extract (Cranberry) 425 Mg Capsule, 425 MG PO BID, CAP 10/17/18 Docusate Sodium* (Colace*) 100 Mg Capsule, 200 MG PO QHS, #30 CAP 10/17/18 Dalfampridine (Ampyra) 10 Mg Tab.sr.12h, 10 MG PO BID, #60 TAB 10/17/18 Amphet Cwm-Dqjell-U-Amphet (Adderall) 20 Mg Tablet, 20 MG PO DAILY, TAB 10/17/18 Discontinued Reported Medications Metoprolol Tartrate* (Lopressor*) 25 Mg Tab, 25 MG ORAL BID, #16 09/15/16 Citalopram Hydrobromide* (Citalopram Hydrobromide*) 10 Mg Tablet, 10 MG ORAL BID, #90 09/15/16 Famotidine* (Famotidine*) 20 Mg Tablet, 20 MG ORAL DAILY, #31 09/15/16 Alendronate Sodium* (Fosamax*) 70 Mg Tablet, 70 MG ORAL WEEKLY, #4 09/15/16 Bethanechol Chloride* (Bethanechol Chloride*) 25 Mg Tablet, 25 MG PO QID, TAB 03/28/15 Tamsulosin Hcl* (Tamsulosin Hcl*) 0.4 Mg Cap.er.24h, 0.8 MG PO HS, CAP 03/28/15 Glatiramer Acetate (Copaxone) 40 Mg/1 Ml Syringe, 40 MG SQ MONWEDFRI 03/28/15 Amantadine Hcl* (Amantadine Hcl*) 100 Mg Tablet, 100 MG PO QAM, TAB 03/18/14 Mirtazapine* (Mirtazapine*) 30 Mg Tablet, 15 MG PO DAILY, TAB 03/18/14 Terazosin Hcl* (Terazosin Hcl*) 10 Mg Capsule, 10 MG PO HS, CAP 03/18/14 Dalfampridine (Ampyra) 10 Mg Tab.sr.12h, 10 MG PO BID 03/18/14 Discontinued Scripts Multivitamins* (Theragran*) 1 Tab Tab, 1 TAB PO DAILY, #30 TAB Prov:HUMZA CALHOUN M.D. 03/26/14 Medications Current Medications Sodium Chloride 1,000 ml @ 100 mls/hr Q10H IV Last administered on 10/19/18 03:08; Admin Dose 100 MLS/HR; Start 10/17/18 at 17:00 Cefepime HCl 50 ml @ 100 mls/hr Q24H IVPB Last administered on 10/18/18 12:34; Admin Dose 100 MLS/HR; Start 10/18/18 at 13:00 Acetaminophen (Tylenol Tab) 650 mg Q4H PRN PO MILD PAIN(1-3)OR ELEVATED TEMP; Start 10/17/18 at 17:00 Tramadol HCl (Ultram) 50 mg Q6H PRN PO MODERATE PAIN LEVEL 4-6; Start 10/17/18 at 17:00 Docusate Sodium (Colace) 200 mg HS PO Last administered on 10/18/18at 21:01; Admin Dose 200 MG; Start 10/17/18 at 21:00 Metoprolol Tartrate (Lopressor) 25 mg BID PO Last administered on 10/18/18 21:01; Admin Dose 25 MG; Start 10/17/18 at 21:00 Terazosin HCl (Hytrin) 10 mg HS PO Last administered on 10/18/18 21:01; Admin Dose 10 MG; Start 10/17/18 at 21:00 Guaifenesin/ Dextromethorphan (Robitussin Dm Liquid Cup) 10 ml Q4H PRN PO COUGH Last administered on 10/19/18 06:29; Admin Dose 10 ML; Start 10/17/18 at 19:00 Levalbuterol (Xopenex Neb) 0.63 mg Q8H RESP THERAPY HHN Last administered on 10/18/18 15:03; Admin Dose 0.63 MG; Start 10/18/18 at 00:00 Assessment/Plan Hospital Course (Demo Recall) 68-year-old male known to me. He is a resident [facility] and has a chronic suprapubic tube which I have been changing every month for him. He was sent to the emergency room from the [facility] because of gross hematuria. The suprapubic tube was changed in the emergency room and the patient was admitted for further care. Patient is known to have a history of multiple sclerosis and neurogenic bladder. And because of that he had his suprapubic tube inserted and that has been replaced every month without a problem. On admission the patient was found to have leukocytosis with a white count of31.6 The suprapubic tube was changed and now the urine is clear with sediment in it. The CT scan of the abdomen and pelvis did not show any stones or masses. Patient does have urinary tract infection. Continue the cefepime KEYUR BERNSTEIN MD Oct 19, 2018 08:02
[2018-10-19] MEDS: METOPROLOL 25 MG TAB PO SCH ×2 (08:50→21:58)
[2018-10-19] MEDS: LEVALBUTEROL (NEB) 0.63 MG/3 ML AMP HHN SCH ×3 (08:56→15:01)
--- NOTE | 2018-10-19 13:41 | PN ---
Date/Time of Note Date/Time of Note DATE: 10/19/18 TIME: 13:37 Assessment/Plan VTE Prophylaxis Risk score (from Ns)>0 risk: 4 SCD applied (from Ns): Yes Pharmacological prophylaxis: NA/contraindicated Pharm contraindication: bleeding Lines/Catheters IV C[facility]ter Type (from [facility] Peripheral IV Urinary Cath still in place: Yes Reason Cath still needed: urinary retention Assessment/Plan Hospital Course Patient complains of productive cough not relieved by Robitussin, will add Hycodan syrup as needed, collect sputum for culture, continue current antibiotic. Patient is complains of constipation, will continue Colace, we will add bisacodyl as needed. 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 Assessment/Plan -Sepsis most likely due to urinary tract infection and early pneumonia. Continue antibiotics per ID. Dr. Godfrey is following in infection disease consultation. -Neurogenic bladder with suprapubic catheter. Dr. Ulloa is following a neurology consultation, suprapubic catheter was changed. -BPH. Continue Hytrin. -Acute on chronic kidney disease, continue IV fluids, monitor BUN and creatinine. Dr. River is asked to see patient in nephrology consultation. -Multiple sclerosis. Continue Ampyra. -Hypertension. Continue metoprolol. -Osteoporosis. Continue Fosamax. Further recommendations will depend on clinical course. Plan of care was discussed with Dr. Samson. Result Diagram: 10/18/18 0434 10/18/18 0433 Exam/Review of Systems Exam Vitals Vital Signs Date Temp Pulse Resp B/P (MAP) Pulse Ox O2 O2 Flow FiO2 Time Delivery Rate 10/19/18 98.4 74 19 139/70 97 Nasal 07:54 (93) Cannula 10/19/18 2.0 27 02:44 Intake and Output 10/18/18 10/18/18 10/19/18 1515:00 23:00 07:00 IntakeIntake Total 290 ml 1800 ml 1600 ml OutputOutput Total 900 ml 1500 ml BalanceBalance -610 ml 1800 ml 100 ml Exam Constitutional: alert, oriented Respiratory: clear to auscultation Cardiovascular: nl pulses Gastrointestinal: soft, non-tender Genitourinary - Male: other (Suprapubic catheter) Extremities: normal pulses Neurological: nl mental status Skin: nl turgor Medications Medication Current Medications Sodium Chloride 1,000 ml @ 100 mls/hr Q10H IV Last administered on 10/19/18 13:30; Admin Dose 100 MLS/HR; Start 10/17/18 at 17:00 Cefepime HCl 50 ml @ 100 mls/hr Q24H IVPB Last administered on 10/18/18 12:34; Admin Dose 100 MLS/HR; Start 10/18/18 at 13:00 Acetaminophen (Tylenol Tab) 650 mg Q4H PRN PO MILD PAIN(1-3)OR ELEVATED TEMP; Start 10/17/18 at 17:00 Tramadol HCl (Ultram) 50 mg Q6H PRN PO MODERATE PAIN LEVEL 4-6; Start 10/17/18 at 17:00 Docusate Sodium (Colace) 200 mg HS PO Last administered on 10/18/18 21:01; Admin Dose 200 MG; Start 10/17/18 at 21:00 Metoprolol Tartrate (Lopressor) 25 mg BID PO Last administered on 10/19/18 08:50; Admin Dose 25 MG; Start 10/17/18 at 21:00 Terazosin HCl (Hytrin) 10 mg HS PO Last administered on 10/18/18 21:01; Admin Dose 10 MG; Start 10/17/18 at 21:00 Guaifenesin/ Dextromethorphan (Robitussin Dm Liquid Cup) 10 ml Q4H PRN PO COUGH Last administered on 10/19/18 10:48; Admin Dose 10 ML; Start 10/17/18 at 19:00 Levalbuterol (Xopenex Neb) 0.63 mg Q8H RESP THERAPY HHN Last administered on 10/19/18 08:56; Admin Dose 0.63 MG; Start 10/18/18 at 00:00 Hydrocodone Bit/ Homatropine Methylb (Hycodan Liquid) 10 ml Q6H PRN PO COUGH; Start 10/19/18 at 12:30 Bisacodyl (Dulcolax) 10 mg DAILY PRN PO CONSTIPATION; Start 10/19/18 at 12:30 CLARIBEL HERNANDEZ Oct 19, 2018 13:41
[2018-10-19] MEDS: BISACODYL (EC) 5 MG TAB PO PRN (13:51)
[2018-10-19] MEDS: CEFEPIME 1GM/50 ML (PMX) 50 ML IVPB SCH (13:51)
[2018-10-19 14:20] VITALS: BP 124/62; PULSE 81; RESP 18
--- NOTE | 2018-10-19 15:25 | CONS ---
Assessment/Plan Assessment/Plan Hospital Course (Demo Recall) No acute events. Patient is complaining of cough no fevers overnight no labs today. Leave urine culture on admission grew gram-negative rods, blood culture remain negative Antimicrobials: Cefepime Allergy: Penicillins, sulfa Physical examination: Well-developed well-nourished elderly man who is alert in no distress. Head atraumatic normocephalic sclera nonicteric vehicle mucosa dry oropharynx clear. Patient has halitosis. Neck is supple chest rise symmetrical. Breath sounds diminished bases. Heart: S1-S2. Abdomen soft, bowel tones present. Extremities without cyanosis, bilateral lower extremities trace edema. Assessment: 1. Sepsis, present on admission 2. Pneumonia, healthcare associated, rule out aspiration 3. GNR urinary tract infection 4. Acute renal failure 5. Neurogenic bladder 6. Multiple sclerosis Plan: Stable, will send sputum culture, add doxycycline, consider swallow evaluation Consultation Date/Type/Reason Admit Date/Time Oct 17, 2018 at 13:30 Initial Consult Date 10/18/18 Type of Consult id Requesting Provider: GISELA GREER MD Date/Time of Note DATE: 10/19/18 TIME: 15:24 Exam/Review of Systems Exam Vitals Vital Signs Date Temp Pulse Resp B/P (MAP) Pulse Ox O2 O2 Flow FiO2 Time Delivery Rate 10/19/18 2.0 15:11 10/19/18 72 18 95 Nasal 15:09 Cannula 10/19/18 98.0 124/62 14:20 (82) 10/19/18 27 02:44 Intake and Output 10/18/18 10/18/18 10/19/18 1515:00 23:00 07:00 IntakeIntake Total 290 ml 1800 ml 1600 ml OutputOutput Total 900 ml 1500 ml BalanceBalance -610 ml 1800 ml 100 ml Results Result Diagram: 10/18/18 0434 10/18/18 0433 Medications Medication Current Medications Sodium Chloride 1,000 ml @ 100 mls/hr Q10H IV Last administered on 10/19/18at 13:30; Admin Dose 100 MLS/HR; Start 10/17/18 at 17:00 Cefepime HCl 50 ml @ 100 mls/hr Q24H IVPB Last administered on 10/19/18at 13:51; Admin Dose 100 MLS/HR; Start 10/18/18 at 13:00 Acetaminophen (Tylenol Tab) 650 mg Q4H PRN PO MILD PAIN(1-3)OR ELEVATED TEMP; Start 10/17/18 at 17:00 Tramadol HCl (Ultram) 50 mg Q6H PRN PO MODERATE PAIN LEVEL 4-6; Start 10/17/18 at 17:00 Docusate Sodium (Colace) 200 mg HS PO Last administered on 10/18/18 21:01; Admin Dose 200 MG; Start 10/17/18 at 21:00 Metoprolol Tartrate (Lopressor) 25 mg BID PO Last administered on 10/19/18at 0 8:50; Admin Dose 25 MG; Start 10/17/18 at 21:00 Terazosin HCl (Hytrin) 10 mg HS PO Last administered on 10/18/18at 21:01; Admin Dose 10 MG; Start 10/17/18 at 21:00 Guaifenesin/ Dextromethorphan (Robitussin Dm Liquid Cup) 10 ml Q4H PRN PO COUGH Last administered on 10/19/18at 10:48; Admin Dose 10 ML; Start 10/17/18 at 19:00 Levalbuterol (Xopenex Neb) 0.63 mg Q8H RESP THERAPY HHN Last administered on 10/19/18 15:01; Admin Dose 0.63 MG; Start 10/18/18 at 00:00 Hydrocodone Bit/ Homatropine Methylb (Hycodan Liquid) 10 ml Q6H PRN PO COUGH; Start 10/19/18 at 12:30 Bisacodyl (Dulcolax) 10 mg DAILY PRN PO CONSTIPATION Last administered on 10/19/18at 13:51; Admin Dose 10 MG; Start 10/19/18 at 12:30 KAVITA ANDERSON NP Oct 19, 2018 15:25
[2018-10-19] MEDS: HYDROCODONE/HOMATROPINE 5ML CUP PO PRN (15:53)
--- NOTE | 2018-10-19 19:43 | CONS ---
DATE OF ADMISSION: 10/17/2018 DATE OF CONSULTATION: 10/19/2018 TYPE OF CONSULTATION: Nephrology. REASON FOR CONSULTATION: Acute kidney injury, CKD. PHYSICIAN REQUESTING CONSULT: Dr. Greer. HISTORY OF PRESENT ILLNESS: This is a 68-year-old male with a past medical history of multiple scler osis, wheelchair bound, history of neurogenic bladder requiring suprapubic catheter with monthly exch roxanne by Dr. Ulloa. History of osteoporosis, depression, BPH, who presents to [facility] due to ongoing hematuria. Upon arrival to the emergency room, the patient found to be hypert ensive. The patient's urinalysis showed evidence of possible UTI. The patient was started on antibi otic therapy and admitted to [facility]/surg for evaluation for sepsis. While on med/surg, the patient has been receiving IV fluids, antibiotic therapy. In terms of patient's renal history, the patient has underlying CKD with previous baseline creatinine s ranging from 1.5 to 2.0 mg/dL. On admission, the patient's creatinine 2.82 mg/dL, which is improve d with IV hydration. The patient denies any hemoptysis, hematemesis, hematochezia. PAST MEDICAL HISTORY: See above, history of chronic kidney disease stage III, history of neurogenic bladder, history of multiple sclerosis, history of osteoporosis, depression, BPH. PAST SURGICAL HISTORY: Status post bilateral knee surgery, status post suprapubic catheter placement . FAMILY HISTORY: No family history of kidney disease. ALLERGIES: PLEASE SEE LIST. SOCIAL HISTORY: Does not drink, smoke or do drugs. REVIEW OF SYSTEMS: A 14-point review of systems conducted. Pertinent positives stated in HPI, other carty negative. PHYSICAL EXAMINATION: VITAL SIGNS: Blood pressure 124/62, respiration 18, pulse 81, temperature 98.0. HEENT: Head is normocephalic. NECK: Supple. HEART: Regular rate. LUNGS: Show diminished breath sounds at the base. ABDOMEN: Soft, nontender to palpation without rebound or guarding. EXTREMITIES: Negative for clubbing, cyanosis, no edema. DERMATOLOGIC: No rashes. MUSCULOSKELETAL: No joint effusion. NEUROLOGIC: No focal deficits. MEDICATIONS: Reviewed. LABORATORY DATA: Reviewed. Urinalysis has been reviewed. IMAGING STUDIES: Reviewed. ASSESSMENT AND PLAN: This is a 68-year-old male who presents with: 1. Nonoliguric acute kidney injury on top of chronic kidney disease stage III with previous baseline creatinine between 1.5 to 2.2 mg/dL. Etiology of acute kidney injury is secondary to hemodynamics, possible obstructive uropathy, sepsis. The patient's CT scan shows evidence of bilateral collecting system dilatation. The patient is status post suprapubic catheter exchange. Renal function has been improving with supportive care, fluids and antibiotic therapy. Urinalysis shows no evidence of acti ve sediment. Recommendation is to continue current treatment plan. Continue IV hydration and antibi otic therapy, continue to renally dose all meds, avoid nephrotoxins. Please note, we will check a re nal ultrasound to evaluate renal parenchyma. 2. Anemia, mild. Monitor hemoglobin and hematocrit levels. 3. Mineral bone disorder, monitor calcium and phosphorus levels. 4. Metabolic acidosis secondary to acute kidney injury. IV fluids, continue to monitor. 5. Severe sepsis secondary to urinary tract infection. Continue antibiotic regimen. Lactic acid le vels have been improving. 6. History of neurogenic bladder, status post suprapubic catheter exchange. Continue to monitor. F ollow up with urology. 7. History of multiple sclerosis. Continue to monitor. 8. Pneumonia. Continue current antibiotic therapy. 9. Benign prostatic hypertrophy. Continue Hytrin. 10. Osteoporosis. Continue Fosamax. Thank you, Dr. Greer, for this interesting consult. It will be a pleasure to follow the patient w guillermo nguyen throughout the hospital course. Dictated By: ASHOK BARNARD DO NR/NTS Conf#: [id number] DID#: [id number] CC: GISELA GREER MD;*EndCC*
[2018-10-19 20:06] VITALS: BP 131/61; PULSE 87; RESP 18
[2018-10-19] MEDS: DOXYCYCLINE 100 MG TAB PO SCH (21:56)
[2018-10-19] MEDS: DOCUSATE SODIUM 100 MG CAP PO SCH (21:57)
[2018-10-19] MEDS: TERAZOSIN 5 MG CAP PO SCH (21:57)
[2018-10-20] MEDS: SOD CHLORIDE 0.9% 1,000 ML IV SCH ×2 (00:12→09:20)
[2018-10-20] MEDS: HYDROCODONE/HOMATROPINE 5ML CUP PO PRN ×3 (00:46→16:24)
[2018-10-20 00:49] VITALS: BP 131/63; PULSE 88; RESP 18
[2018-10-20 07:29] VITALS: BP 127/77; PULSE 71; RESP 20
[2018-10-20] MEDS: LEVALBUTEROL (NEB) 0.63 MG/3 ML AMP HHN SCH ×3 (07:59→16:15)
--- NOTE | 2018-10-20 08:39 | CONS ---
Consult Date/Type/Reason Admit Date/Time Oct 17, 2018 at 13:30 Initial Consult Date 10/18/18 Type of Consultation: Urology Reason for Consultation Urinary tract infection and gross hematuria Requesting Provider: GISELA GREER MD Date/Time of Note DATE: 10/20/18 TIME: 08:37 Subjective The patient is resting comfortable and denies any pain. Objective Vitals Vital Signs Date Temp Pulse Resp B/P (MAP) Pulse Ox O2 O2 Flow FiO2 Time Delivery Rate 10/20/18 96 2.0 07:45 10/20/18 59 16 Nasal 07:45 Cannula 10/20/18 97.0 127/77 07:29 (94) 10/19/18 27 02:44 Intake and Output 10/19/18 10/19/18 10/20/18 1515:00 23:00 07:00 IntakeIntake Total 1050 ml 550 ml 1450 ml OutputOutput Total 1800 ml 1300 ml BalanceBalance 1050 ml -1250 ml 150 ml Exam The suprapubic tube is in place and draining clear urine. It has less sediment today than before. Results/Medications Result Diagram: 10/20/18 0431 10/20/18 0431 Results 24 hrs Laboratory Tests Test 10/19/18 18:35 10/20/18 04:31 Urine Color YELLOW Urine Clarity TURBID A Urine pH 5.0 Urine Specific Shorter 1.012 Urine Ketones NEGATIVE Urine Nitrite NEGATIVE Urine Bilirubin NEGATIVE Urine Urobilinogen NEGATIVE Urine Leukocyte Esterase 3+ H Urine Microscopic RBC 47 H Urine Microscopic WBC > 182 H Urine Bacteria FEW A Urine Mucus FEW A Urine Hemoglobin 3+ H Urine Random Creatinine 62.90 Urine Random Sodium 140 H Urine Glucose NEGATIVE Urine Total Protein 34.0 H White Blood Count 7.7 # Red Blood Count 3.84 L Hemoglobin 11.6 L Hematocrit 35.4 L Mean Corpuscular Volume 92.2 Mean Corpuscular Hemoglobin 30.2 Mean Corpuscular Hemoglobin Concent 32.8 Red Cell Distribution Width 13.7 Platelet Count 177 Mean Platelet Volume 8.5 Immature Granulocytes % 0.300 Neutrophils % 69.5 Lymphocytes % 8.0 L Monocytes % 12.4 H Eosinophils % 9.2 H Basophils % 0.6 Nucleated Red Blood Cells % 0.0 Immature Granulocytes # 0.020 Neutrophils # 5.4 Lymphocytes # 0.6 L Monocytes # 1.0 H Eosinophils # 0.7 H Basophils # 0.1 Nucleated Red Blood Cells # 0.0 Sodium Level 142 Potassium Level 4.3 Chloride Level 114 H Carbon Dioxide Level 23 Anion Gap 5 Blood Urea Nitrogen 20 # Creatinine 1.22 Est Glomerular Filtrat Rate mL/min 59 L Glucose Level 107 Calcium Level 7.8 L Home Meds Reported Medications Tamsulosin Hcl* (Flomax*) 0.4 Mg Cap.er.24h, 0.4 MG PO HS, CAP 10/17/18 Alendronate Sodium* (Fosamax*) 70 Mg Tablet, 70 MG PO EVERY THURSDAY, #4 TAB 10/17/18 Terazosin Hcl* (Terazosin Hcl*) 10 Mg Capsule, 10 MG PO HS, CAP 10/17/18 Metoprolol Tartrate* (Lopressor*) 25 Mg Tab, 25 MG PO BID WITH MEALS, #60 TAB HOLD IF SBP BELOW 110 OR HR BELOW 60/MIN 10/17/18 [place]-3/Dha/Epa/Fish Oil (FISH OIL 1,000 MG SOFTGEL) 1 Each Capsule, 2 EACH PO DAILY, CAP 10/17/18 Acetaminophen* (Acetaminophen*) 650 Mg Tablet, 650 MG PO Q6H PRN for MILD PAIN LEVEL 1-3, #30 TAB 10/17/18 Acetaminophen* (Acetaminophen*) 500 MG Extra Strength Tablet, 1000 MG PO Q4 PRN for MODERATE PAIN LEVEL 4-6, TAB 10/17/18 Tramadol Hcl* (Ultram*) 50 Mg Tablet, 50 MG PO BID PRN for PAIN, TAB 10/17/18 Bethanechol Chloride* (Urecholine*) 25 Mg Tab, 25 MG PO QID, TAB 10/17/18 Cran/Vitc/Mannose/Inulin/Brom (Uti-Stat Liquid) 3,875 Mg/30 Ml Liquid, 3875 MG PO BID 10/17/18 Cranberry Extract (Cranberry) 425 Mg Capsule, 425 MG PO BID, CAP 10/17/18 Docusate Sodium* (Colace*) 100 Mg Capsule, 200 MG PO QHS, #30 CAP 10/17/18 Dalfampridine (Ampyra) 10 Mg Tab.sr.12h, 10 MG PO BID, #60 TAB 10/17/18 Amphet Ofq-Rdkfaz-N-Amphet (Adderall) 20 Mg Tablet, 20 MG PO DAILY, TAB 10/17/18 Discontinued Reported Medications Metoprolol Tartrate* (Lopressor*) 25 Mg Tab, 25 MG ORAL BID, #16 09/15/16 Citalopram Hydrobromide* (Citalopram Hydrobromide*) 10 Mg Tablet, 10 MG ORAL BID, #90 09/15/16 Famotidine* (Famotidine*) 20 Mg Tablet, 20 MG ORAL DAILY, #31 09/15/16 Alendronate Sodium* (Fosamax*) 70 Mg Tablet, 70 MG ORAL WEEKLY, #4 09/15/16 Bethanechol Chloride* (Bethanechol Chloride*) 25 Mg Tablet, 25 MG PO QID, TAB 03/28/15 Tamsulosin Hcl* (Tamsulosin Hcl*) 0.4 Mg Cap.er.24h, 0.8 MG PO HS, CAP 03/28/15 Glatiramer Acetate (Copaxone) 40 Mg/1 Ml Syringe, 40 MG SQ MONWEDFRI 03/28/15 Amantadine Hcl* (Amantadine Hcl*) 100 Mg Tablet, 100 MG PO QAM, TAB 03/18/14 Mirtazapine* (Mirtazapine*) 30 Mg Tablet, 15 MG PO DAILY, TAB 03/18/14 Terazosin Hcl* (Terazosin Hcl*) 10 Mg Capsule, 10 MG PO HS, CAP 03/18/14 Dalfampridine (Ampyra) 10 Mg Tab.sr.12h, 10 MG PO BID 03/18/14 Discontinued Scripts Multivitamins* (Theragran*) 1 Tab Tab, 1 TAB PO DAILY, #30 TAB Prov:HUMZA CALHOUN M.D. 03/26/14 Medications Current Medications Sodium Chloride 1,000 ml @ 100 mls/hr Q10H IV Last administered on 10/20/18at 00:12; Admin Dose 100 MLS/HR; Start 10/17/18 at 17:00 Cefepime HCl 50 ml @ 100 mls/hr Q24H IVPB Last administered on 10/19/18at 13:51; Admin Dose 100 MLS/HR; Start 10/18/18 at 13:00 Acetaminophen (Tylenol Tab) 650 mg Q4H PRN PO MILD PAIN(1-3)OR ELEVATED TEMP; Start 10/17/18 at 17:00 Tramadol HCl (Ultram) 50 mg Q6H PRN PO MODERATE PAIN LEVEL 4-6; Start 10/17/18 at 17:00 Docusate Sodium (Colace) 200 mg HS PO Last administered on 10/19/18 21:57; Admin Dose 200 MG; Start 10/17/18 at 21:00 Metoprolol Tartrate (Lopressor) 25 mg BID PO Last administered on 10/19/18 21:58; Admin Dose 25 MG; Start 10/17/18 at 21:00 Terazosin HCl (Hytrin) 10 mg HS PO Last administered on 10/19/18 21:57; Admin Dose 10 MG; Start 10/17/18 at 21:00 Guaifenesin/ Dextromethorphan (Robitussin Dm Liquid Cup) 10 ml Q4H PRN PO COUGH Last administered on 10/19/18 10:48; Admin Dose 10 ML; Start 10/17/18 at 19:00 Levalbuterol (Xopenex Neb) 0.63 mg Q8H RESP THERAPY HHN Last administered on 10/20/18 07:59; Admin Dose 0.63 MG; Start 10/18/18 at 00:00 Hydrocodone Bit/ Homatropine Methylb (Hycodan Liquid) 10 ml Q6H PRN PO COUGH Last administered on 10/20/18 00:46; Admin Dose 10 ML; Start 10/19/18 at 12:30 Bisacodyl (Dulcolax) 10 mg DAILY PRN PO CONSTIPATION Last administered on 10/19/18 13:51; Admin Dose 10 MG; Start 10/19/18 at 12:30 Doxycycline Hyclate (Vibramycin) 100 mg BID PO Last administered on 10/19/18 21:56; Admin Dose 100 MG; Start 10/19/18 at 21:00 Assessment/Plan Hospital Course (Demo Recall) 68-year-old male known to me. [facility] and has a chronic suprapubic tube which I have been changing every month for him. [facility] because of gross hematuria. The suprapubic tube was changed in the emergency room and the patient was admitted for further care. Patient is known to have a history of multiple sclerosis and neurogenic bladder. And because of that he had his suprapubic tube inserted and that has been replaced every month without a problem. On admission the patient was found to have leukocytosis with a white count of31.6 The suprapubic tube was changed and now the urine is clear with less sediment in it. The CT scan of the abdomen and pelvis did not show any stones or masses. The urine culture did show mixed gram negative and positive organisms. Continue the cefepime KEYUR BERNSTEIN MD Oct 20, 2018 08:39
[2018-10-20] MEDS: DOXYCYCLINE 100 MG TAB PO SCH ×2 (09:10→20:34)
[2018-10-20] MEDS: METOPROLOL 25 MG TAB PO SCH ×2 (09:11→20:34)
--- NOTE | 2018-10-20 11:01 | PN ---
DATE: 10/20/2018 SUBJECTIVE: The patient is stable. No events overnight. OBJECTIVE: VITAL SIGNS: Blood pressure is 127/77, respirations 20, pulse 71, temperature 97.0. HEENT: Head is normocephalic. NECK: Supple. HEART: Regular rate. LUNGS: Show diminished breath sounds at the base. ABDOMEN: Soft, nontender to palpation without rebound or guarding. EXTREMITIES: Negative for clubbing, cyanosis, no edema. DERMATOLOGIC: No rashes. MUSCULOSKELETAL: No joint effusion. NEUROLOGIC: No focal deficits. MEDICATIONS: Reviewed. LABORATORY DATA: Reviewed. IMAGING STUDIES: Reviewed. ASSESSMENT AND PLAN: 1. Nonoliguric acute kidney injury on top of chronic kidney disease stage III with previous baseline creatinine of 1.5 to 2.2 mg/dL. Etiology of acute kidney injury is secondary to hemodynamics, possi ble obstructive uropathy. The patient's renal function has improved after suprapubic catheter exchan ge and IV fluids. At this point, continue current treatment plan, supportive care, renally dose all medications. We will discontinue IV hydration. 2. Mild anemia. Monitor hemoglobin and hematocrit levels. 3. Mineral bone disorder, monitor calcium and phosphorus levels. 4. Metabolic acidosis, improved. Continue to monitor. 5. Severe sepsis secondary to urinary tract infection. Continue current antibiotic regimen. Cultur es have been reviewed. 6. Suprapubic catheter, status post exchange by urology. Urinary output has been adequate. 7. History of multiple sclerosis. 8. Pneumonia. Continue current antibiotic regimen. 9. Benign prostatic hypertrophy. Continue Hytrin. 10. History of osteoporosis, on Fosamax. Dictated By: ASHOK BARNARD DO NR/NTS Conf#: [id number] DID#: [id number] CC: GISELA GREER MD;*End*
[2018-10-20] MEDS: CEFEPIME 1GM/50 ML (PMX) 50 ML IVPB SCH (12:14)
[2018-10-20 15:56] VITALS: BP 125/80; PULSE 79; RESP 20
--- NOTE | 2018-10-20 16:16 | CONS ---
Assessment/Plan Assessment/Plan Hospital Course (Demo Recall) Patient is awake still coughing no fevers overnight WBC went down to 7.7 no shift no bands BUN 20 creatinine 1.22 Microbiology: Sputum culture revealed normal respiratory matty. Blood cultures negative. Urine culture grew staph aureus, Klebsiella pneumonia and Proteus mirabilis Antimicrobials: Doxycycline, cefepime Allergy: Penicillins, sulfa Physical examination: Well-developed well-nourished elderly man who is alert in no distress. Head atraumatic normocephalic sclera nonicteric vehicle mucosa dry oropharynx clear. Patient has halitosis. Neck is supple chest rise symmetrical. Breath sounds diminished bases. Heart: S1-S2. Abdomen soft, bowel tones present. Extremities without cyanosis, bilateral lower extremities trace edema. Assessment: 1. Sepsis, resolving 2. Healthcare associated PNA,poss aspiration 3. Polymicrobial urinary tract infection 4. Acute renal failure 5. Neurogenic bladder 6. Multiple sclerosis Plan: Clinically unchanged, WBC trending down, continue antibiotics, await for final cultures Consultation Date/Type/Reason Admit Date/Time Oct 17, 2018 at 13:30 Initial Consult Date 10/18/18 Type of Consult id Requesting Provider: GISELA GREER MD Date/Time of Note DATE: 10/20/18 TIME: 16:16 Exam/Review of Systems Exam Vitals Vital Signs Date Temp Pulse Resp B/P (MAP) Pulse Ox O2 O2 Flow FiO2 Time Delivery Rate 10/20/18 98.4 79 20 125/80 96 Nasal 15:56 (95) Cannula 10/20/18 2.0 07:45 10/19/18 27 02:44 Intake and Output 10/19/18 10/19/18 10/20/18 1515:00 23:00 07:00 IntakeIntake Total 1050 ml 550 ml 1450 ml OutputOutput Total 1800 ml 1300 ml BalanceBalance 1050 ml -1250 ml 150 ml Results Result Diagram: 10/20/18 0431 10/20/18 0431 Results 24hrs Laboratory Tests Test 10/19/18 18:35 10/20/18 04:31 Urine Color YELLOW Urine Clarity TURBID A Urine pH 5.0 Urine Specific [place] 1.012 Urine Ketones NEGATIVE Urine Nitrite NEGATIVE Urine Bilirubin NEGATIVE Urine Urobilinogen NEGATIVE Urine Leukocyte Esterase 3+ H Urine Microscopic RBC 47 H Urine Microscopic WBC > 182 H Urine Bacteria FEW A Urine Mucus FEW A Urine Hemoglobin 3+ H Urine Random Creatinine 62.90 Urine Random Sodium 140 H Urine Glucose NEGATIVE Urine Total Protein 34.0 H White Blood Count 7.7 # Red Blood Count 3.84 L Hemoglobin 11.6 L Hematocrit 35.4 L Mean Corpuscular Volume 92.2 Mean Corpuscular Hemoglobin 30.2 Mean Corpuscular Hemoglobin Concent 32.8 Red Cell Distribution Width 13.7 Platelet Count 177 Mean Platelet Volume 8.5 Immature Granulocytes % 0.300 Neutrophils % 69.5 Lymphocytes % 8.0 L Monocytes % 12.4 H Eosinophils % 9.2 H Basophils % 0.6 Nucleated Red Blood Cells % 0.0 Immature Granulocytes # 0.020 Neutrophils # 5.4 Lymphocytes # 0.6 L Monocytes # 1.0 H Eosinophils # 0.7 H Basophils # 0.1 Nucleated Red Blood Cells # 0.0 Sodium Level 142 Potassium Level 4.3 Chloride Level 114 H Carbon Dioxide Level 23 Anion Gap 5 Blood Urea Nitrogen 20 # Creatinine 1.22 Est Glomerular Filtrat Rate mL/min 59 L Glucose Level 107 Calcium Level 7.8 L Medications Medication Current Medications Cefepime HCl 50 ml @ 100 mls/hr Q24H IVPB Last administered on 10/20/18at 12:14; Admin Dose 100 MLS/HR; Start 10/18/18 at 13:00 Acetaminophen (Tylenol Tab) 650 mg Q4H PRN PO MILD PAIN(1-3)OR ELEVATED TEMP; Start 10/17/18 at 17:00 Tramadol HCl (Ultram) 50 mg Q6H PRN PO MODERATE PAIN LEVEL 4-6; Start 10/17/18 at 17:00 Docusate Sodium (Colace) 200 mg HS PO Last administered on 10/19/18at 21:57; Admin Dose 200 MG; Start 10/17/18 at 21:00 Metoprolol Tartrate (Lopressor) 25 mg BID PO Last administered on 10/20/18at 09:11; Admin Dose 25 MG; Start 10/17/18 at 21:00 Terazosin HCl (Hytrin) 10 mg HS PO Last administered on 10/19/18at 21:57; Admin Dose 10 MG; Start 10/17/18 at 21:00 Guaifenesin/ Dextromethorphan (Robitussin Dm Liquid Cup) 10 ml Q4H PRN PO COUGH Last administered on 10/19/18 10:48; Admin Dose 10 ML; Start 10/17/18 at 19:00 Levalbuterol (Xopenex Neb) 0.63 mg Q8H RESP THERAPY HHN Last administered on 10/20/18 07:59; Admin Dose 0.63 MG; Start 10/18/18 at 00:00 Hydrocodone Bit/ Homatropine Methylb (Hycodan Liquid) 10 ml Q6H PRN PO COUGH Last administered on 10/20/18 09:45; Admin Dose 10 ML; Start 10/19/18 at 12:30 Bisacodyl (Dulcolax) 10 mg DAILY PRN PO CONSTIPATION Last administered on 10/19/18 13:51; Admin Dose 10 MG; Start 10/19/18 at 12:30 Doxycycline Hyclate (Vibramycin) 100 mg BID PO Last administered on 10/20/18 09:10; Admin Dose 100 MG; Start 10/19/18 at 21:00 KAVITA ANDERSON NP Oct 20, 2018 16:16
--- NOTE | 2018-10-20 18:21 | PN ---
Date/Time of Note Date/Time of Note DATE: 10/20/18 TIME: 18:20 Assessment/Plan VTE Prophylaxis Risk score (from N[place])>0 risk: 5 [place] [facility] [place] Pharmacological prophylaxis: NA/contraindicated Pharm contraindication: bleeding Lines/Catheters IV [facility]ter Type (from [facility] [place] [employer] line still needed: Yes Urinary Cath still in place: Yes Reason Cath still needed: urinary retention Assessment/Plan Hospital Course Patient is continues to have productive cough however improved with Hycodan syrup as needed, patient is continued on antibiotics, remains afebrile, good urine output, renal function improved. Assessment/Plan -Sepsis most likely due to urinary tract infection and early pneumonia. Continue antibiotics per ID. Dr. Godfrey is following in infection disease consultation. -Neurogenic bladder with suprapubic catheter. Dr. Ulloa is following a neurology consultation, suprapubic catheter was changed. -BPH. Continue Hytrin. -Acute on chronic kidney disease, resolved. monitor BUN and creatinine. Dr. River is following in nephrology consultation. -Multiple sclerosis. Continue Ampyra. -Hypertension. Continue metoprolol. -Osteoporosis. Continue Fosamax. Further recommendations will depend on clinical course. Plan of care was discussed with Dr. Samson. Result Diagram: 10/20/18 0431 10/20/18 0431 Results 24hrs Laboratory Tests Test 10/19/18 18:35 10/20/18 04:31 Urine Color YELLOW Urine Clarity TURBID A Urine pH 5.0 Urine Specific [place] 1.012 Urine Ketones NEGATIVE Urine Nitrite NEGATIVE Urine Bilirubin NEGATIVE Urine Urobilinogen NEGATIVE Urine Leukocyte Esterase 3+ H Urine Microscopic RBC 47 H Urine Microscopic WBC > 182 H Urine Bacteria FEW A Urine Mucus FEW A Urine Hemoglobin 3+ H Urine Random Creatinine 62.90 Urine Random Sodium 140 H Urine Glucose NEGATIVE Urine Total Protein 34.0 H White Blood Count 7.7 # Red Blood Count 3.84 L Hemoglobin 11.6 L Hematocrit 35.4 L Mean Corpuscular Volume 92.2 Mean Corpuscular Hemoglobin 30.2 Mean Corpuscular Hemoglobin Concent 32.8 Red Cell Distribution Width 13.7 Platelet Count 177 Mean Platelet Volume 8.5 Immature Granulocytes % 0.300 Neutrophils % 69.5 Lymphocytes % 8.0 L Monocytes % 12.4 H Eosinophils % 9.2 H Basophils % 0.6 Nucleated Red Blood Cells % 0.0 Immature Granulocytes # 0.020 Neutrophils # 5.4 Lymphocytes # 0.6 L Monocytes # 1.0 H Eosinophils # 0.7 H Basophils # 0.1 Nucleated Red Blood Cells # 0.0 Sodium Level 142 Potassium Level 4.3 Chloride Level 114 H Carbon Dioxide Level 23 Anion Gap 5 Blood Urea Nitrogen 20 # Creatinine 1.22 Est Glomerular Filtrat Rate mL/min 59 L Glucose Level 107 Calcium Level 7.8 L Exam/Review of Systems Exam Vitals Vital Signs Date Temp Pulse Resp B/P (MAP) Pulse Ox O2 O2 Flow FiO2 Time Delivery Rate 10/20/18 96 Room Air 17:00 10/20/18 72 16 2.0 16:15 10/20/18 98.4 125/80 15:56 (95) 10/19/18 27 02:44 Intake and Output 10/19/18 10/19/18 10/20/18 1515:00 23:00 07:00 IntakeIntake Total 1050 ml 550 ml 1450 ml OutputOutput Total 1800 ml 1300 ml BalanceBalance 1050 ml -1250 ml 150 ml Exam Constitutional: alert, oriented Respiratory: clear to auscultation Cardiovascular: nl pulses Gastrointestinal: soft, non-tender Genitourinary - Male: other (Suprapubic catheter) Extremities: normal pulses Neurological: nl mental status Skin: nl turgor Results Results 24hrs Laboratory Tests Test 10/19/18 18:35 10/20/18 04:31 Urine Color YELLOW Urine Clarity TURBID A Urine pH 5.0 Urine Specific [place] 1.012 Urine Ketones NEGATIVE Urine Nitrite NEGATIVE Urine Bilirubin NEGATIVE Urine Urobilinogen NEGATIVE Urine Leukocyte Esterase 3+ H Urine Microscopic RBC 47 H Urine Microscopic WBC > 182 H Urine Bacteria FEW A Urine Mucus FEW A Urine Hemoglobin 3+ H Urine Random Creatinine 62.90 Urine Random Sodium 140 H Urine Glucose NEGATIVE Urine Total Protein 34.0 H White Blood Count 7.7 # Red Blood Count 3.84 L Hemoglobin 11.6 L Hematocrit 35.4 L Mean Corpuscular Volume 92.2 Mean Corpuscular Hemoglobin 30.2 Mean Corpuscular Hemoglobin Concent 32.8 Red Cell Distribution Width 13.7 Platelet Count 177 Mean Platelet Volume 8.5 Immature Granulocytes % 0.300 Neutrophils % 69.5 Lymphocytes % 8.0 L Monocytes % 12.4 H Eosinophils % 9.2 H Basophils % 0.6 Nucleated Red Blood Cells % 0.0 Immature Granulocytes # 0.020 Neutrophils # 5.4 Lymphocytes # 0.6 L Monocytes # 1.0 H Eosinophils # 0.7 H Basophils # 0.1 Nucleated Red Blood Cells # 0.0 Sodium Level 142 Potassium Level 4.3 Chloride Level 114 H Carbon Dioxide Level 23 Anion Gap 5 Blood Urea Nitrogen 20 # Creatinine 1.22 Est Glomerular Filtrat Rate mL/min 59 L Glucose Level 107 Calcium Level 7.8 L Medications Medication Current Medications Cefepime HCl 50 ml @ 100 mls/hr Q24H IVPB Last administered on 10/20/18 12:14; Admin Dose 100 MLS/HR; Start 10/18/18 at 13:00 Acetaminophen (Tylenol Tab) 650 mg Q4H PRN PO MILD PAIN(1-3)OR ELEVATED TEMP; Start 10/17/18 at 17:00 Tramadol HCl (Ultram) 50 mg Q6H PRN PO MODERATE PAIN LEVEL 4-6; Start 10/17/18 at 17:00 Docusate Sodium (Colace) 200 mg HS PO Last administered on 10/19/18 21:57; Admin Dose 200 MG; Start 10/17/18 at 21:00 Metoprolol Tartrate (Lopressor) 25 mg BID PO Last administered on 10/20/18 0 9:11; Admin Dose 25 MG; Start 10/17/18 at 21:00 Terazosin HCl (Hytrin) 10 mg HS PO Last administered on 10/19/18 21:57; Admin Dose 10 MG; Start 10/17/18 at 21:00 Guaifenesin/ Dextromethorphan (Robitussin Dm Liquid Cup) 10 ml Q4H PRN PO COUGH Last administered on 10/19/18 10:48; Admin Dose 10 ML; Start 10/17/18 at 19:00 Levalbuterol (Xopenex Neb) 0.63 mg Q8H RESP THERAPY HHN Last administered on 10/20/18 16:15; Admin Dose 0.63 MG; Start 10/18/18 at 00:00 Hydrocodone Bit/ Homatropine Methylb (Hycodan Liquid) 10 ml Q6H PRN PO COUGH Last administered on 10/20/18 16:24; Admin Dose 10 ML; Start 10/19/18 at 12:30 Bisacodyl (Dulcolax) 10 mg DAILY PRN PO CONSTIPATION Last administered on at 13:51; Admin Dose 10 MG; Start 10/19/18 at 12:30 Doxycycline Hyclate (Vibramycin) 100 mg BID PO Last administered on 10/20/18at 09:10; Admin Dose 100 MG; Start 10/19/18 at 21:00 CLARIBEL HERNANDEZ Oct 20, 2018 18:21
[2018-10-20] MEDS: BISACODYL (EC) 5 MG TAB PO PRN (18:51)
[2018-10-20 19:20] VITALS: BP 147/71; PULSE 79
[2018-10-20] MEDS: DOCUSATE SODIUM 100 MG CAP PO SCH (20:33)
[2018-10-20] MEDS: TERAZOSIN 5 MG CAP PO SCH (20:34)
[2018-10-21] MEDS: LEVALBUTEROL (NEB) 0.63 MG/3 ML AMP HHN SCH ×3 (00:41→16:20)
[2018-10-21 02:10] VITALS: BP 122/66; PULSE 90
[2018-10-21 07:51] VITALS: BP 124/68; PULSE 88; RESP 18
--- NOTE | 2018-10-21 08:47 | CONS ---
Consult Date/Type/Reason Admit Date/Time Oct 17, 2018 at 13:30 Initial Consult Date 10/18/18 Type of Consultation: Urology Reason for Consultation Gross hematuria and urinary tract infection. Requesting Provider: GISELA GREER MD Date/Time of Note DATE: 10/21/18 TIME: 08:43 Subjective Patient continues to complain of cough and sputum Objective Vitals Vital Signs Date Temp Pulse Resp B/P (MAP) Pulse Ox O2 O2 Flow FiO2 Time Delivery Rate 10/21/18 98.4 88 18 124/68 92 Nasal 2.0 07:51 (86) Cannula 10/21/18 21 00:41 Intake and Output 10/20/18 10/20/18 10/21/18 1515:00 23:00 07:00 IntakeIntake Total 1790 ml 740 ml 1000 ml OutputOutput Total 1400 ml 1800 ml 2500 ml BalanceBalance 390 ml -1060 ml -1500 ml Exam Patient is coughing and has a lot of sputum coming out. The suprapubic tube is draining clear urine. It does have occasional sediment in it. Results/Medications Result Diagram: 10/21/18 0441 10/21/18 0441 Results 24 hrs Laboratory Tests Test 10/21/18 04:41 White Blood Count 6.9 Red Blood Count 4.03 L Hemoglobin 12.0 L Hematocrit 36.0 L Mean Corpuscular Volume 89.3 Mean Corpuscular Hemoglobin 29.8 Mean Corpuscular Hemoglobin Concent 33.3 Red Cell Distribution Width 13.7 Platelet Count 206 Mean Platelet Volume 8.3 Immature Granulocytes % 0.600 H Neutrophils % 60.0 Lymphocytes % 11.0 L Monocytes % 16.4 H Eosinophils % 11.0 H Basophils % 1.0 Nucleated Red Blood Cells % 0.0 Immature Granulocytes # 0.040 H Neutrophils # 4.2 Lymphocytes # 0.8 Monocytes # 1.1 H Eosinophils # 0.8 H Basophils # 0.1 Nucleated Red Blood Cells # 0.0 Sodium Level 143 Potassium Level 4.1 Chloride Level 108 Carbon Dioxide Level 25 Anion Gap 10 # Blood Urea Nitrogen 16 Creatinine 1.22 Est Glomerular Filtrat Rate mL/min 59 L Glucose Level 117 Calcium Level 8.8 Phosphorus Level 4.1 Magnesium Level 2.1 Home Meds Reported Medications Tamsulosin Hcl* (Flomax*) 0.4 Mg Cap.er.24h, 0.4 MG PO HS, CAP 10/17/18 Alendronate Sodium* (Fosamax*) 70 Mg Tablet, 70 MG PO EVERY THURSDAY, #4 TAB 10/17/18 Terazosin Hcl* (Terazosin Hcl*) 10 Mg Capsule, 10 MG PO HS, CAP 10/17/18 Metoprolol Tartrate* (Lopressor*) 25 Mg Tab, 25 MG PO BID WITH MEALS, #60 TAB HOLD IF SBP BELOW 110 OR HR BELOW 60/MIN 10/17/18 Carney-3/Dha/Epa/Fish Oil (FISH OIL 1,000 MG SOFTGEL) 1 Each Capsule, 2 EACH PO DAILY, CAP 10/17/18 Acetaminophen* (Acetaminophen*) 650 Mg Tablet, 650 MG PO Q6H PRN for MILD PAIN LEVEL 1-3, #30 TAB 10/17/18 Acetaminophen* (Acetaminophen*) 500 MG Extra Strength Tablet, 1000 MG PO Q4 PRN for MODERATE PAIN LEVEL 4-6, TAB 10/17/18 Tramadol Hcl* (Ultram*) 50 Mg Tablet, 50 MG PO BID PRN for PAIN, TAB 10/17/18 Bethanechol Chloride* (Urecholine*) 25 Mg Tab, 25 MG PO QID, TAB 10/17/18 Cran/Vitc/Mannose/Inulin/Brom (Uti-Stat Liquid) 3,875 Mg/30 Ml Liquid, 3875 MG PO BID 10/17/18 Cranberry Extract (Cranberry) 425 Mg Capsule, 425 MG PO BID, CAP 10/17/18 Docusate Sodium* (Colace*) 100 Mg Capsule, 200 MG PO QHS, #30 CAP 10/17/18 Dalfampridine (Ampyra) 10 Mg Tab.sr.12h, 10 MG PO BID, #60 TAB 10/17/18 Amphet Yyj-Wuviqg-O-Amphet (Adderall) 20 Mg Tablet, 20 MG PO DAILY, TAB 10/17/18 Discontinued Reported Medications Metoprolol Tartrate* (Lopressor*) 25 Mg Tab, 25 MG ORAL BID, #16 09/15/16 Citalopram Hydrobromide* (Citalopram Hydrobromide*) 10 Mg Tablet, 10 MG ORAL BID, #90 09/15/16 Famotidine* (Famotidine*) 20 Mg Tablet, 20 MG ORAL DAILY, #31 09/15/16 Alendronate Sodium* (Fosamax*) 70 Mg Tablet, 70 MG ORAL WEEKLY, #4 09/15/16 Bethanechol Chloride* (Bethanechol Chloride*) 25 Mg Tablet, 25 MG PO QID, TAB 03/28/15 Tamsulosin Hcl* (Tamsulosin Hcl*) 0.4 Mg Cap.er.24h, 0.8 MG PO HS, CAP 03/28/15 Glatiramer Acetate (Copaxone) 40 Mg/1 Ml Syringe, 40 MG SQ MONWEDFRI 03/28/15 Amantadine Hcl* (Amantadine Hcl*) 100 Mg Tablet, 100 MG PO QAM, TAB 03/18/14 Mirtazapine* (Mirtazapine*) 30 Mg Tablet, 15 MG PO DAILY, TAB 03/18/14 Terazosin Hcl* (Terazosin Hcl*) 10 Mg Capsule, 10 MG PO HS, CAP 03/18/14 Dalfampridine (Ampyra) 10 Mg Tab.sr.12h, 10 MG PO BID 03/18/14 Discontinued Scripts Multivitamins* (Theragran*) 1 Tab Tab, 1 TAB PO DAILY, #30 TAB Prov:HUMZA CALHOUN M.D. 03/26/14 Medications Current Medications Cefepime HCl 50 ml @ 100 mls/hr Q24H IVPB Last administered on 10/20/18at 12:14; Admin Dose 100 MLS/HR; Start 10/18/18 at 13:00 Acetaminophen (Tylenol Tab) 650 mg Q4H PRN PO MILD PAIN(1-3)OR ELEVATED TEMP; Start 10/17/18 at 17:00 Tramadol HCl (Ultram) 50 mg Q6H PRN PO MODERATE PAIN LEVEL 4-6; Start 10/17/18 at 17:00 Docusate Sodium (Colace) 200 mg HS PO Last administered on 10/20/18at 20:33; Admin Dose 200 MG; Start 10/17/18 at 21:00 Metoprolol Tartrate (Lopressor) 25 mg BID PO Last administered on 10/20/18at 20:34; Admin Dose 25 MG; Start 10/17/18 at 21:00 Terazosin HCl (Hytrin) 10 mg HS PO Last administered on 10/20/18 20:34; Admin Dose 10 MG; Start 10/17/18 at 21:00 Guaifenesin/ Dextromethorphan (Robitussin Dm Liquid Cup) 10 ml Q4H PRN PO COUGH Last administered on 10/19/18 10:48; Admin Dose 10 ML; Start 10/17/18 at 19:00 Levalbuterol (Xopenex Neb) 0.63 mg Q8H RESP THERAPY HHN Last administered on 10/21/18 07:48; Admin Dose 0.63 MG; Start 10/18/18 at 00:00 Hydrocodone Bit/ Homatropine Methylb (Hycodan Liquid) 10 ml Q6H PRN PO COUGH Last administered on 10/20/18 16:24; Admin Dose 10 ML; Start 10/19/18 at 12:30 Bisacodyl (Dulcolax) 10 mg DAILY PRN PO CONSTIPATION Last administered on 10/20/18 18:51; Admin Dose 10 MG; Start 10/19/18 at 12:30 Doxycycline Hyclate (Vibramycin) 100 mg BID PO Last administered on 10/20/18 20:34; Admin Dose 100 MG; Start 10/19/18 at 21:00 Assessment/Plan Hospital Course (Demo Recall) 68-year-old male known to me. He is a resident of retirement facility and has a chronic suprapubic tube which I have been changing every month for him. He was sent to the emergency room from the retirement facility because of gross hematuria. The suprapubic tube was changed in the emergency room and the patient was admitted for further care. Patient is known to have a history of multiple sclerosis and neurogenic bladder. And because of that he had his suprapubic tube inserted and that has been replaced every month without a problem. On admission the patient was found to have leukocytosis with a white count of31.6 The suprapubic tube was changed and now the urine is clear with less sediment in it. The CT scan of the abdomen and pelvis did not show any stones or masses. The urine culture did show mixed gram negative and positive organisms. Patient has been coughing and has a lot of sputum. Chest x-ray from 10/19/2018 showed: There are increased interstitial markings as well as left lung base patchy consolidation versus atelectasis. Patient is on cefepime. Continue antibiotics KEYUR BERNSTEIN MD Oct 21, 2018 08:47
[2018-10-21] MEDS: METOPROLOL 25 MG TAB PO SCH ×2 (09:05→20:29)
[2018-10-21] MEDS: DOXYCYCLINE 100 MG TAB PO SCH ×2 (09:05→20:28)
--- NOTE | 2018-10-21 09:13 | PN ---
DATE: 10/21/2018 SUBJECTIVE: The patient is stable, no events overnight. No fevers, chills, no nausea, no vomiting. OBJECTIVE: VITAL SIGNS: Blood pressure is 124/68, respiration 18, pulse 88, temperature 98.4. HEENT: Head is normocephalic. NECK: Supple. HEART: Regular rate. LUNGS: Show diminished breath sounds at the base. ABDOMEN: Soft, nontender to palpation without rebound or guarding. EXTREMITIES: Negative for clubbing, cyanosis, no edema. DERMATOLOGIC: No rashes. MUSCULOSKELETAL: No joint effusion. NEUROLOGIC: No change in exam. MEDICATIONS: Have been reviewed. LABORATORY DATA: Has been reviewed. IMAGING STUDIES: Have been reviewed. ASSESSMENT AND PLAN: 1. Nonoliguric acute kidney injury on top of chronic kidney disease stage III with previous baseline creatinine of 1.5 mg/dL. Etiology of acute kidney injury is secondary to hemodynamics. Renal funct ion is improved with IV fluids and after replacement of suprapubic catheter. At this point, continue current treatment plan, supportive care, renally dose all meds. 2. Mild anemia. Monitor hemoglobin and hematocrit levels. 3. Mineral bone disorder, monitor calcium and phosphorus levels. 4. Metabolic acidosis, resolved. 5. Sepsis. Continue current antibiotic regimen. Etiology secondary to urinary tract infection. 6. catheter, status post exchange by urology. Continue to monitor. 7. History of multiple sclerosis. 8. Pneumonia. The patient is completing antibiotic course. 9. Benign prostatic hypertrophy. Continue Hytrin. Dictated By: ASHOK BUCKLEY/LEIGH Conf#: [id number] DID#: [id number] CC: GISELA GREER MD;*EndCC*
[2018-10-21] MEDS: CEFEPIME 1GM/50 ML (PMX) 50 ML IVPB SCH (13:11)
[2018-10-21] MEDS: BISACODYL (EC) 5 MG TAB PO PRN (13:11)
[2018-10-21] MEDS: PROMETHAZINE/CODEINE 5ML CUP PO PRN ×2 (13:12→19:33)
--- NOTE | 2018-10-21 14:42 | PN ---
Date/Time of Note Date/Time of Note DATE: 10/21/18 TIME: 14:37 Assessment/Plan VTE Prophylaxis Risk score (from Ns)>0 risk: 7 SCD applied (from Ns): Yes Pharmacological prophylaxis: LMWH Lines/Catheters IV Catheter Type (from [facility] Saline Lock Urinary Cath still in place: Yes Reason Cath still needed: urinary retention Assessment/Plan Hospital Course Patient continues to have productive cough, afebrile denies any shortness of breath denies any chest pain. Good urine output via suprapubic catheter. Continue current care. Assessment/Plan -Sepsis most likely due to urinary tract infection and early pneumonia. Continue antibiotics per ID. Dr. Godfrey is following in infection disease consultation. -Healthcare associated pneumonia -Neurogenic bladder with suprapubic catheter. Dr. Ulloa is following a neurology consultation, suprapubic catheter was changed. -BPH. Continue Hytrin. -Acute on chronic kidney disease, resolved. monitor BUN and creatinine. Dr. River is following in nephrology consultation. -Multiple sclerosis. Continue Ampyra. -Hypertension. Continue metoprolol. -Osteoporosis. Continue Fosamax. Further recommendations will depend on clinical course. Plan of care was discussed with Dr. Samson. Result Diagram: 10/21/18 0441 10/21/18 0441 Results 24hrs Laboratory Tests Test 10/21/18 04:41 White Blood Count 6.9 Red Blood Count 4.03 L Hemoglobin 12.0 L Hematocrit 36.0 L Mean Corpuscular Volume 89.3 Mean Corpuscular Hemoglobin 29.8 Mean Corpuscular Hemoglobin Concent 33.3 Red Cell Distribution Width 13.7 Platelet Count 206 Mean Platelet Volume 8.3 Immature Granulocytes % 0.600 H Neutrophils % 60.0 Lymphocytes % 11.0 L Monocytes % 16.4 H Eosinophils % 11.0 H Basophils % 1.0 Nucleated Red Blood Cells % 0.0 Immature Granulocytes # 0.040 H Neutrophils # 4.2 Lymphocytes # 0.8 Monocytes # 1.1 H Eosinophils # 0.8 H Basophils # 0.1 Nucleated Red Blood Cells # 0.0 Sodium Level 143 Potassium Level 4.1 Chloride Level 108 Carbon Dioxide Level 25 Anion Gap 10 # Blood Urea Nitrogen 16 Creatinine 1.22 Est Glomerular Filtrat Rate mL/min 59 L Glucose Level 117 Calcium Level 8.8 Phosphorus Level 4.1 Magnesium Level 2.1 Exam/Review of Systems Exam Vitals Vital Signs Date Temp Pulse Resp B/P (MAP) Pulse Ox O2 O2 Flow FiO2 Time Delivery Rate 10/21/18 Nasal 2.0 08:00 Cannula 10/21/18 98.4 88 18 124/68 92 07:51 (86) 10/21/18 21 00:41 Intake and Output 10/20/18 10/20/18 10/21/18 1515:00 23:00 07:00 IntakeIntake Total 1790 ml 740 ml 1000 ml OutputOutput Total 1400 ml 1800 ml 2500 ml BalanceBalance 390 ml -1060 ml -1500 ml Exam Constitutional: alert, oriented Respiratory: clear to auscultation Cardiovascular: nl pulses Gastrointestinal: soft, non-tender Genitourinary - Male: other (Suprapubic catheter) Extremities: normal pulses Neurological: nl mental status Skin: nl turgor Results Results 24hrs Laboratory Tests Test 10/21/18 04:41 White Blood Count 6.9 Red Blood Count 4.03 L Hemoglobin 12.0 L Hematocrit 36.0 L Mean Corpuscular Volume 89.3 Mean Corpuscular Hemoglobin 29.8 Mean Corpuscular Hemoglobin Concent 33.3 Red Cell Distribution Width 13.7 Platelet Count 206 Mean Platelet Volume 8.3 Immature Granulocytes % 0.600 H Neutrophils % 60.0 Lymphocytes % 11.0 L Monocytes % 16.4 H Eosinophils % 11.0 H Basophils % 1.0 Nucleated Red Blood Cells % 0.0 Immature Granulocytes # 0.040 H Neutrophils # 4.2 Lymphocytes # 0.8 Monocytes # 1.1 H Eosinophils # 0.8 H Basophils # 0.1 Nucleated Red Blood Cells # 0.0 Sodium Level 143 Potassium Level 4.1 Chloride Level 108 Carbon Dioxide Level 25 Anion Gap 10 # Blood Urea Nitrogen 16 Creatinine 1.22 Est Glomerular Filtrat Rate mL/min 59 L Glucose Level 117 Calcium Level 8.8 Phosphorus Level 4.1 Magnesium Level 2.1 Medications Medication Current Medications Cefepime HCl 50 ml @ 100 mls/hr Q24H IVPB Last administered on 10/21/18at 13:11; Admin Dose 100 MLS/HR; Start 10/18/18 at 13:00 Acetaminophen (Tylenol Tab) 650 mg Q4H PRN PO MILD PAIN(1-3)OR ELEVATED TEMP; Start 10/17/18 at 17:00 Tramadol HCl (Ultram) 50 mg Q6H PRN PO MODERATE PAIN LEVEL 4-6; Start 10/17/18 at 17:00 Docusate Sodium (Colace) 200 mg HS PO Last administered on 10/20/18 20:33; Admin Dose 200 MG; Start 10/17/18 at 21:00 Metoprolol Tartrate (Lopressor) 25 mg BID PO Last administered on 10/21/18 09:05; Admin Dose 25 MG; Start 10/17/18 at 21:00 Terazosin HCl (Hytrin) 10 mg HS PO Last administered on 10/20/18 20:34; Admin Dose 10 MG; Start 10/17/18 at 21:00 Levalbuterol (Xopenex Neb) 0.63 mg Q8H RESP THERAPY HHN Last administered on 10/21/18 07:48; Admin Dose 0.63 MG; Start 10/18/18 at 00:00 Hydrocodone Bit/ Homatropine Methylb (Hycodan Liquid) 10 ml Q6H PRN PO COUGH Last administered on 10/20/18 16:24; Admin Dose 10 ML; Start 10/19/18 at 12:30 Bisacodyl (Dulcolax) 10 mg DAILY PRN PO CONSTIPATION Last administered on 10/21/18 13:11; Admin Dose 10 MG; Start 10/19/18 at 12:30 Doxycycline Hyclate (Vibramycin) 100 mg BID PO Last administered on 10/21/18 09:05; Admin Dose 100 MG; Start 10/19/18 at 21:00 Promethazine HCl/ Codeine (Phenergan/ Codeine) 10 ml Q6H PRN PO COUGH Last administered on 10/21/18 13:12; Admin Dose 10 ML; Start 10/21/18 at 12:30 CLARIBEL HERNANDEZ Oct 21, 2018 14:42
--- NOTE | 2018-10-21 14:56 | CONS ---
Assessment/Plan Assessment/Plan Hospital Course (Demo Recall) Patient is sleeping looks comfortable no fevers overnight. Urine culture repeated 3 days ago grew Klebsiella and MRSA Microbiology: Sputum culture revealed normal respiratory matty. Blood cultures negative. Urine culture grew staph aureus, Klebsiella pneumonia and Proteus mirabilis Antimicrobials: Doxycycline, cefepime Allergy: Penicillins, sulfa Physical examination: Well-developed well-nourished elderly man who is alert in no distress. Head atraumatic normocephalic sclera nonicteric vehicle mucosa dry oropharynx clear. Patient has halitosis. Neck is supple chest rise symmetri ángel. Breath sounds diminished bases. Heart: S1-S2. Abdomen soft, bowel tones present. Extremities without cyanosis, bilateral lower extremities trace edema. Assessment: 1. Sepsis, resolving 2. Healthcare associated PNA, poss aspiration 3. Polymicrobial urinary tract infection 4. Acute renal failure 5. Neurogenic bladder 6. Multiple sclerosis Plan: Clinically unchanged, continue antibiotics Consultation Date/Type/Reason Admit Date/Time Oct 17, 2018 at 13:30 Initial Consult Date 10/18/18 Type of Consult id Requesting Provider: GISELA GREER MD Date/Time of Note DATE: 10/21/18 TIME: 14:54 Exam/Review of Systems Exam Vitals Vital Signs Date Temp Pulse Resp B/P (MAP) Pulse Ox O2 O2 Flow FiO2 Time Delivery Rate 10/21/18 Nasal 2.0 08:00 Cannula 10/21/18 98.4 88 18 124/68 92 07:51 (86) 10/21/18 21 00:41 Intake and Output 10/20/18 10/20/18 10/21/18 1515:00 23:00 07:00 IntakeIntake Total 1790 ml 740 ml 1000 ml OutputOutput Total 1400 ml 1800 ml 2500 ml BalanceBalance 390 ml -1060 ml -1500 ml Results Result Diagram: 10/21/18 0441 10/21/18 0441 Results 24hrs Laboratory Tests Test 10/21/18 04:41 White Blood Count 6.9 Red Blood Count 4.03 L Hemoglobin 12.0 L Hematocrit 36.0 L Mean Corpuscular Volume 89.3 Mean Corpuscular Hemoglobin 29.8 Mean Corpuscular Hemoglobin Concent 33.3 Red Cell Distribution Width 13.7 Platelet Count 206 Mean Platelet Volume 8.3 Immature Granulocytes % 0.600 H Neutrophils % 60.0 Lymphocytes % 11.0 L Monocytes % 16.4 H Eosinophils % 11.0 H Basophils % 1.0 Nucleated Red Blood Cells % 0.0 Immature Granulocytes # 0.040 H Neutrophils # 4.2 Lymphocytes # 0.8 Monocytes # 1.1 H Eosinophils # 0.8 H Basophils # 0.1 Nucleated Red Blood Cells # 0.0 Sodium Level 143 Potassium Level 4.1 Chloride Level 108 Carbon Dioxide Level 25 Anion Gap 10 # Blood Urea Nitrogen 16 Creatinine 1.22 Est Glomerular Filtrat Rate mL/min 59 L Glucose Level 117 Calcium Level 8.8 Phosphorus Level 4.1 Magnesium Level 2.1 Medications Medication Current Medications Cefepime HCl 50 ml @ 100 mls/hr Q24H IVPB Last administered on 10/21/18 13:11; Admin Dose 100 MLS/HR; Start 10/18/18 at 13:00 Acetaminophen (Tylenol Tab) 650 mg Q4H PRN PO MILD PAIN(1-3)OR ELEVATED TEMP; Start 10/17/18 at 17:00 Tramadol HCl (Ultram) 50 mg Q6H PRN PO MODERATE PAIN LEVEL 4-6; Start 10/17/18 at 17:00 Docusate Sodium (Colace) 200 mg HS PO Last administered on 10/20/18 20:33; Admin Dose 200 MG; Start 10/17/18 at 21:00 Metoprolol Tartrate (Lopressor) 25 mg BID PO Last administered on 10/21/18 09:05; Admin Dose 25 MG; Start 10/17/18 at 21:00 Terazosin HCl (Hytrin) 10 mg HS PO Last administered on 10/20/18 20:34; Admin Dose 10 MG; Start 10/17/18 at 21:00 Levalbuterol (Xopenex Neb) 0.63 mg Q8H RESP THERAPY HHN Last administered on 10/21/18 07:48; Admin Dose 0.63 MG; Start 10/18/18 at 00:00 Bisacodyl (Dulcolax) 10 mg DAILY PRN PO CONSTIPATION Last administered on 10/21/18 13:11; Admin Dose 10 MG; Start 10/19/18 at 12:30 Doxycycline Hyclate (Vibramycin) 100 mg BID PO Last administered on 10/21/18 09:05; Admin Dose 100 MG; Start 10/19/18 at 21:00 Promethazine HCl/ Codeine (Phenergan/ Codeine) 10 ml Q6H PRN PO COUGH Last administered on 10/21/18at 13:12; Admin Dose 10 ML; Start 10/21/18 at 12:30 KAVITA ANDERSON NP Oct 21, 2018 14:56
[2018-10-21 15:14] VITALS: BP 132/70; PULSE 76; RESP 18
[2018-10-21 19:45] VITALS: BP 111/67; PULSE 78; RESP 20
[2018-10-21] MEDS: DOCUSATE SODIUM 100 MG CAP PO SCH (20:29)
[2018-10-21] MEDS: TERAZOSIN 5 MG CAP PO SCH (20:29)
[2018-10-22] MEDS: LEVALBUTEROL (NEB) 0.63 MG/3 ML AMP HHN SCH ×3 (01:06→17:21)
[2018-10-22 02:00] VITALS: BP 126/70; PULSE 87; RESP 20
[2018-10-22] MEDS: PROMETHAZINE/CODEINE 5ML CUP PO PRN (02:25)
--- NOTE | 2018-10-22 07:50 | CONS ---
Consult Date/Type/Reason Admit Date/Time Oct 17, 2018 at 13:30 Initial Consult Date 10/18/18 Type of Consultation: Urology Reason for Consultation Hematuria Requesting Provider: GISELA GREER MD Date/Time of Note DATE: 10/22/18 TIME: 07:48 Subjective Patient is awake and alert and comfortable but he continues to have a cough. Objective Vitals Vital Signs Date Temp Pulse Resp B/P (MAP) Pulse Ox O2 O2 Flow FiO2 Time Delivery Rate 10/22/18 98.0 87 20 126/70 92 02:00 (88) 10/22/18 2.0 01:09 10/22/18 Nasal 01:06 Cannula 10/21/18 21 00:41 Intake and Output 10/21/18 10/21/18 10/22/18 1515:00 23:00 07:00 IntakeIntake Total 410 ml 300 ml 800 ml OutputOutput Total 1450 ml 1100 ml BalanceBalance 410 ml -1150 ml -300 ml Exam The suprapubic tube is draining well and the urine is now clear without sediment in it. Results/Medications Result Diagram: 10/21/18 0441 10/21/18 0441 Home Meds Reported Medications Tamsulosin Hcl* (Flomax*) 0.4 Mg Cap.er.24h, 0.4 MG PO HS, CAP 10/17/18 Alendronate Sodium* (Fosamax*) 70 Mg Tablet, 70 MG PO EVERY THURSDAY, #4 TAB 10/17/18 Terazosin Hcl* (Terazosin Hcl*) 10 Mg Capsule, 10 MG PO HS, CAP 10/17/18 Metoprolol Tartrate* (Lopressor*) 25 Mg Tab, 25 MG PO BID WITH MEALS, #60 TAB HOLD IF SBP BELOW 110 OR HR BELOW 60/MIN 10/17/18 [place]-3/Dha/Epa/Fish Oil (FISH OIL 1,000 MG SOFTGEL) 1 Each Capsule, 2 EACH PO DAILY, CAP 10/17/18 Acetaminophen* (Acetaminophen*) 650 Mg Tablet, 650 MG PO Q6H PRN for MILD PAIN LEVEL 1-3, #30 TAB 10/17/18 Acetaminophen* (Acetaminophen*) 500 MG Extra Strength Tablet, 1000 MG PO Q4 PRN for MODERATE PAIN LEVEL 4-6, TAB 10/17/18 Tramadol Hcl* (Ultram*) 50 Mg Tablet, 50 MG PO BID PRN for PAIN, TAB 10/17/18 Bethanechol Chloride* (Urecholine*) 25 Mg Tab, 25 MG PO QID, TAB 10/17/18 Cran/Vitc/Mannose/Inulin/Brom (Uti-Stat Liquid) 3,875 Mg/30 Ml Liquid, 3875 MG PO BID 10/17/18 Cranberry Extract (Cranberry) 425 Mg Capsule, 425 MG PO BID, CAP 10/17/18 Docusate Sodium* (Colace*) 100 Mg Capsule, 200 MG PO QHS, #30 CAP 10/17/18 Dalfampridine (Ampyra) 10 Mg Tab.sr.12h, 10 MG PO BID, #60 TAB 10/17/18 Amphet Qst-Zwdrgy-O-Amphet (Adderall) 20 Mg Tablet, 20 MG PO DAILY, TAB 10/17/18 Discontinued Reported Medications Metoprolol Tartrate* (Lopressor*) 25 Mg Tab, 25 MG ORAL BID, #16 09/15/16 Citalopram Hydrobromide* (Citalopram Hydrobromide*) 10 Mg Tablet, 10 MG ORAL BID, #90 09/15/16 Famotidine* (Famotidine*) 20 Mg Tablet, 20 MG ORAL DAILY, #31 09/15/16 Alendronate Sodium* (Fosamax*) 70 Mg Tablet, 70 MG ORAL WEEKLY, #4 09/15/16 Bethanechol Chloride* (Bethanechol Chloride*) 25 Mg Tablet, 25 MG PO QID, TAB 03/28/15 Tamsulosin Hcl* (Tamsulosin Hcl*) 0.4 Mg Cap.er.24h, 0.8 MG PO HS, CAP 03/28/15 Glatiramer Acetate (Copaxone) 40 Mg/1 Ml Syringe, 40 MG SQ MONWEDFRI 03/28/15 Amantadine Hcl* (Amantadine Hcl*) 100 Mg Tablet, 100 MG PO QAM, TAB 03/18/14 Mirtazapine* (Mirtazapine*) 30 Mg Tablet, 15 MG PO DAILY, TAB 03/18/14 Terazosin Hcl* (Terazosin Hcl*) 10 Mg Capsule, 10 MG PO HS, CAP 03/18/14 Dalfampridine (Ampyra) 10 Mg Tab.sr.12h, 10 MG PO BID 03/18/14 Discontinued Scripts Multivitamins* (Theragran*) 1 Tab Tab, 1 TAB PO DAILY, #30 TAB Prov:HUMZA CALHOUN M.D. 03/26/14 Medications Current Medications Cefepime HCl 50 ml @ 100 mls/hr Q24H IVPB Last administered on 10/21/18 13:11; Admin Dose 100 MLS/HR; Start 10/18/18 at 13:00 Acetaminophen (Tylenol Tab) 650 mg Q4H PRN PO MILD PAIN(1-3)OR ELEVATED TEMP; Start 10/17/18 at 17:00 Tramadol HCl (Ultram) 50 mg Q6H PRN PO MODERATE PAIN LEVEL 4-6; Start 10/17/18 at 17:00 Docusate Sodium (Colace) 200 mg HS PO Last administered on 10/21/18 20:29; Admin Dose 200 MG; Start 10/17/18 at 21:00 Metoprolol Tartrate (Lopressor) 25 mg BID PO Last administered on 10/21/18 20:29; Admin Dose 25 MG; Start 10/17/18 at 21:00 Terazosin HCl (Hytrin) 10 mg HS PO Last administered on 10/21/18 20:29; Admin Dose 10 MG; Start 10/17/18 at 21:00 Levalbuterol (Xopenex Neb) 0.63 mg Q8H RESP THERAPY HHN Last administered on 10/22/18 01:06; Admin Dose 0.63 MG; Start 10/18/18 at 00:00 Bisacodyl (Dulcolax) 10 mg DAILY PRN PO CONSTIPATION Last administered on 10/21/18 13:11; Admin Dose 10 MG; Start 10/19/18 at 12:30 Doxycycline Hyclate (Vibramycin) 100 mg BID PO Last administered on 10/21/18 20:28; Admin Dose 100 MG; Start 10/19/18 at 21:00 Promethazine HCl/ Codeine (Phenergan/ Codeine) 10 ml Q6H PRN PO COUGH Last administered on 10/22/18 02:25; Admin Dose 10 ML; Start 10/21/18 at 12:30 Assessment/Plan Hospital Course (Demo Recall) 68-year-old male known to me. He is a resident of long term facility and has a chronic suprapubic tube which I have been changing every month for him. He was sent to the emergency room from the long term facility because of gross hematuria. The suprapubic tube was changed in the emergency room and the patient was admitted for further care. Patient is known to have a history of multiple sclerosis and neurogenic bladder. And because of that he had his suprapubic tube inserted and that has been replaced every month without a problem. On admission the patient was found to have leukocytosis with a white count of31.6 The suprapubic tube was changed and now the urine is clear and had no sediment in it. Chest x-ray from 10/19/2018 showed: There are increased interstitial markings as well as left lung base patchy consolidation versus atelectasis. Patient is on cefepime. Continue antibiotics KEYUR BERNSTEIN MD Oct 22, 2018 07:50
[2018-10-22] MEDS: DOXYCYCLINE 100 MG TAB PO SCH ×2 (08:38→21:07)
[2018-10-22] MEDS: METOPROLOL 25 MG TAB PO SCH ×2 (08:41→21:08)
[2018-10-22 08:42] VITALS: BP 122/66; RESP 20
--- NOTE | 2018-10-22 08:46 | PN ---
Date/Time of Note Date/Time of Note DATE: 10/22/18 TIME: 08:46 Assessment/Plan VTE Prophylaxis Risk score (from [facility])>0 risk: 7 SCD applied (from [facility]): Yes Pharmacological prophylaxis: other Pharm contraindication: other Lines/Catheters IV Catheter Type (from [facility]): Saline Lock Urinary Cath still in place: Yes Reason Cath still needed: urinary retention Assessment/Plan Assessment/Plan -Sepsis most likely due to urinary tract infection and early pneumonia. Continue antibiotics per ID. Dr. Godfrey is following in infection disease consultation. -Healthcare associated pneumonia -Neurogenic bladder with suprapubic catheter. Dr. Ulloa is following a neurology consultation, suprapubic catheter was changed. -BPH. Continue Hytrin. -Acute on chronic kidney disease, resolved. monitor BUN and creatinine. Dr. River is following in nephrology consultation. -Multiple sclerosis. Continue Ampyra. -Hypertension. Continue metoprolol. -Osteoporosis. Continue Fosamax. Further recommendations will depend on clinical course. Plan of care was discussed with Dr. Samson. Result Diagram: 10/21/18 0441 10/21/18 0441 Subjective 24 Hr Interval Summary Free Text/Dictation afebrile BU/Cr wnl today Suprapubic cath intact; UO 2.5 L/24hr no events last night reported dw staff Constitutional: requiring O2 Eyes: no complaints Respiratory: no complaints Cardiovascular: no complaints Gastrointestinal: no complaints Genitourinary: no complaints Exam/Review of Systems Exam Vitals Vital Signs Date Temp Pulse Resp B/P (MAP) Pulse Ox O2 O2 Flow FiO2 Time Delivery Rate 10/22/18 98.4 20 122/66 91 Nasal 2.0 08:42 (84) Cannula 10/22/18 82 08:10 10/21/18 21 00:41 Intake and Output 10/21/18 10/21/18 10/22/18 1515:00 23:00 07:00 IntakeIntake Total 410 ml 300 ml 800 ml OutputOutput Total 1450 ml 1100 ml BalanceBalance 410 ml -1150 ml -300 ml Constitutional: alert, well developed Psych: nl mood/affect Eyes: nl lids, nl sclera ENMT: nl external ears & nose Neck: non-tender Respiratory: clear to auscultation Cardiovascular: nl pulses, other (s1s2) Gastrointestinal: soft, non-tender Musculoskeletal: muscle weakness Extremities: normal pulses Neurological: other (alert/responsive) Lymph: nontender Medications Medication Current Medications Cefepime HCl 50 ml @ 100 mls/hr Q24H IVPB Last administered on 10/21/18 13:11; Admin Dose 100 MLS/HR; Start 10/18/18 at 13:00 Acetaminophen (Tylenol Tab) 650 mg Q4H PRN PO MILD PAIN(1-3)OR ELEVATED TEMP; Start 10/17/18 at 17:00 Tramadol HCl (Ultram) 50 mg Q6H PRN PO MODERATE PAIN LEVEL 4-6; Start 10/17/18 at 17:00 Docusate Sodium (Colace) 200 mg HS PO Last administered on 10/21/18 20:29; Admin Dose 200 MG; Start 10/17/18 at 21:00 Metoprolol Tartrate (Lopressor) 25 mg BID PO Last administered on 10/22/18 08:41; Admin Dose 25 MG; Start 10/17/18 at 21:00 Terazosin HCl (Hytrin) 10 mg HS PO Last administered on 10/21/18 20:29; Admin Dose 10 MG; Start 10/17/18 at 21:00 Levalbuterol (Xopenex Neb) 0.63 mg Q8H RESP THERAPY HHN Last administered on 10/22/18 08:09; Admin Dose 0.63 MG; Start 10/18/18 at 00:00 Bisacodyl (Dulcolax) 10 mg DAILY PRN PO CONSTIPATION Last administered on 10/21/18 13:11; Admin Dose 10 MG; Start 10/19/18 at 12:30 Doxycycline Hyclate (Vibramycin) 100 mg BID PO Last administered on 10/22/18 08:38; Admin Dose 100 MG; Start 10/19/18 at 21:00 Promethazine HCl/ Codeine (Phenergan/ Codeine) 10 ml Q6H PRN PO COUGH Last administered on 10/22/18 02:25; Admin Dose 10 ML; Start 10/21/18 at 12:30 WHITNEY WEINSTEIN Oct 22, 2018 08:46
--- NOTE | 2018-10-22 08:54 | PN ---
DATE: 10/22/2018 SUBJECTIVE: The patient is stable, no events overnight. No fevers, chills, nausea or vomiting. OBJECTIVE: VITAL SIGNS: Blood pressure is 126/70, respirations 20, pulse 87, temperature 98.0. HEENT: Head is normocephalic. NECK: Supple. HEART: Regular rate. LUNGS: Show diminished breath sounds at the base. ABDOMEN: Soft, nontender to palpation without rebound or guarding. EXTREMITIES: Negative for clubbing, cyanosis, no edema. DERMATOLOGIC: No rashes. MUSCULOSKELETAL: No joint effusion. NEUROLOGIC: No change in exam. MEDICATIONS: The patient's medications have been reviewed. LABORATORY DATA: Reviewed. ASSESSMENT AND PLAN: 1. Nonoliguric acute kidney injury on top of chronic kidney disease stage III with previous baseline creatinine of 1.5 mg/dL. Etiology of acute kidney injury is secondary to hemodynamics, possible com ponent of obstructive uropathy, since resolved. At this point, renal function is improved. Continue current treatment plan, supportive care, renally dose all medications. 2. Mild anemia. Monitor hemoglobin and hematocrit levels. 3. Mineral bone disorder. Monitor calcium and phosphorus levels. 4. Sepsis. The patient is completing antibiotic course. Continue. 5. Suprapubic catheter, status post exchange by Urology. 6. History of multiple sclerosis. 7. Pneumonia. The patient is completing antibiotic regimen. 8. Benign prostatic hypertrophy. Continue Hytrin. Dictated By: ASHOK BUCKLEY/NTS Conf#: [id number] DID#: [id number] CC: GISELA GREER MD;*EndCC*
[2018-10-22] MEDS: CEFEPIME 1GM/50 ML (PMX) 50 ML IVPB SCH (12:36)
--- NOTE | 2018-10-22 14:47 | CONS ---
Assessment/Plan Assessment/Plan Hospital Course (Demo Recall) Awake, feels better, cough improved Microbiology: Sputum culture revealed normal respiratory matty. Blood cultures negative. Urine culture grew staph aureus, Klebsiella pneumonia and Proteus mirabilis Antimicrobials: Doxycycline, cefepime Allergy: Penicillins, sulfa Physical examination: Well-developed well-nourished elderly man who is alert in no distress. Head atraumatic normocephalic sclera nonicteric vehicle mucosa dry oropharynx clear. Patient has halitosis. Neck is supple chest rise symmetrical. Breath sounds diminished bases. Heart: S1-S2. Abdomen soft, bowel tones present. Extremities without cyanosis, bilateral lower extremities trace edema. Assessment: 1. Sepsis, resolving 2. Healthcare associated PNA, poss aspiration 3. Polymicrobial urinary tract infection 4. Acute renal failure 5. Neurogenic bladder 6. Multiple sclerosis Plan: Doing better, continue antibiotics, anticipate discharge on oral Levaquin and doxycycline to complete 10 days Consultation Date/Type/Reason Admit Date/Time Oct 17, 2018 at 13:30 Initial Consult Date 10/18/18 Type of Consult id Requesting Provider: GISELA GREER MD Date/Time of Note DATE: 10/22/18 TIME: 14:46 Exam/Review of Systems Exam Vitals Vital Signs Date Temp Pulse Resp B/P (MAP) Pulse Ox O2 O2 Flow FiO2 Time Delivery Rate 10/22/18 98.4 20 122/66 91 Nasal 2.0 08:42 (84) Cannula 10/22/18 82 08:10 10/21/18 21 00:41 Intake and Output 10/21/18 10/21/18 10/22/18 1515:00 23:00 07:00 IntakeIntake Total 410 ml 300 ml 800 ml OutputOutput Total 1450 ml 1100 ml BalanceBalance 410 ml -1150 ml -300 ml Results Result Diagram: 10/21/18 04410/21/18 044 Medications Medication Current Medications Cefepime HCl 50 ml @ 100 mls/hr Q24H IVPB Last administered on 10/22/18at 12:36; Admin Dose 100 MLS/HR; Start 10/18/18 at 13:00 Acetaminophen (Tylenol Tab) 650 mg Q4H PRN PO MILD PAIN(1-3)OR ELEVATED TEMP; Start 10/17/18 at 17:00 Tramadol HCl (Ultram) 50 mg Q6H PRN PO MODERATE PAIN LEVEL 4-6; Start 10/17/18 at 17:00 Docusate Sodium (Colace) 200 mg HS PO Last administered on 10/21/18 20:29; Admin Dose 200 MG; Start 10/17/18 at 21:00 Metoprolol Tartrate (Lopressor) 25 mg BID PO Last administered on 10/22/18 08:41; Admin Dose 25 MG; Start 10/17/18 at 21:00 Terazosin HCl (Hytrin) 10 mg HS PO Last administered on 10/21/18 20:29; Admin Dose 10 MG; Start 10/17/18 at 21:00 Levalbuterol (Xopenex Neb) 0.63 mg Q8H RESP THERAPY HHN Last administered on 10/22/18 08:09; Admin Dose 0.63 MG; Start 10/18/18 at 00:00 Bisacodyl (Dulcolax) 10 mg DAILY PRN PO CONSTIPATION Last administered on 10/21/18 13:11; Admin Dose 10 MG; Start 10/19/18 at 12:30 Doxycycline Hyclate (Vibramycin) 100 mg BID PO Last administered on 10/22/18 08:38; Admin Dose 100 MG; Start 10/19/18 at 21:00 Promethazine HCl/ Codeine (Phenergan/ Codeine) 10 ml Q6H PRN PO COUGH Last administered on 10/22/18 02:25; Admin Dose 10 ML; Start 10/21/18 at 12:30 KAVITA ANDERSON NP Oct 22, 2018 14:47
[2018-10-22 19:30] VITALS: BP 121/73; PULSE 82; RESP 20
[2018-10-22] MEDS: DOCUSATE SODIUM 100 MG CAP PO SCH (21:07)
[2018-10-22] MEDS: TERAZOSIN 5 MG CAP PO SCH (21:08)
[2018-10-22] MEDS: BISACODYL (EC) 5 MG TAB PO PRN (21:09)
[2018-10-23] MEDS: LEVALBUTEROL (NEB) 0.63 MG/3 ML AMP HHN SCH ×3 (00:35→16:27)
[2018-10-23 01:35] VITALS: BP 107/66; PULSE 84; RESP 18
[2018-10-23] MEDS ORDERED: ALENDRONATE 70 MG TAB PO SCH ×2 (07:00→07:20)
--- NOTE | 2018-10-23 08:43 | PN ---
DATE: 10/23/2018 SUBJECTIVE: The patient is stable. No events overnight. No fevers, chills, nausea or vomiting. OBJECTIVE: VITAL SIGNS: Blood pressure 122/66, pulse 84, respirations 20, temperature 98.4. HEENT: Head is normocephalic. NECK: Supple. HEART: Regular rate. LUNGS: Show diminished breath sounds at the base. ABDOMEN: Soft, nontender to palpation without rebound or guarding. EXTREMITIES: Negative for clubbing, cyanosis, no edema. DERMATOLOGIC: No rashes. MUSCULOSKELETAL: No joint effusion. NEUROLOGIC: No change in exam. MEDICATIONS: Reviewed. LABORATORY DATA: Has been reviewed. IMAGING STUDIES: Have been reviewed. ASSESSMENT AND PLAN: 1. Nonoliguric acute kidney injury on top of chronic kidney disease stage III with previous baseline creatinine of 1.5 mg/dL. Etiology of acute kidney injury is secondary to hemodynamics. Renal funct ion is improved. Continue current treatment plan, supportive care, renally dose all meds. 2. Mild anemia. Monitor hemoglobin and hematocrit levels. 3. Mineral bone disorder. Monitor calcium and phosphorus levels. 4. Sepsis. Patient is completing antibiotic course. 5. Suprapubic catheter, status post exchange. Continue to monitor. Follow up with urology. 6. History of multiple sclerosis. 7. Pneumonia. The patient is completing antibiotic regimen. 8. Benign prostatic hypertrophy. Continue Hytrin. Dictated By: ASHOK BUCKLEY/LEIGH Conf#: [id number] DID#: [id number] CC: GISELA GREER MD;*End*
[2018-10-23 08:58] VITALS: BP 104/62; PULSE 84; RESP 18
[2018-10-23] MEDS: DOXYCYCLINE 100 MG TAB PO SCH ×2 (09:44→20:57)
[2018-10-23] MEDS: METOPROLOL 25 MG TAB PO SCH ×2 (09:44→20:59)
--- NOTE | 2018-10-23 09:56 | CONS ---
Consult Date/Type/Reason Admit Date/Time Oct 17, 2018 at 13:30 Initial Consult Date 10/18/18 Type of Consultation: Urology Reason for Consultation Gross hematuria and that has cleared. Requesting Provider: GISELA GREER MD Date/Time of Note DATE: 10/23/18 TIME: 09:54 Subjective Patient states that his coughing less. His suprapubic tube is draining well and the urine is clear but it does have occasional sediment in it Objective Vitals Vital Signs Date Temp Pulse Resp B/P (MAP) Pulse Ox O2 O2 Flow FiO2 Time Delivery Rate 10/23/18 98.3 84 18 104/62 98 Room Air 08:58 (76) 10/23/18 2.0 08:22 10/21/18 21 00:41 Intake and Output 10/22/18 10/22/18 10/23/18 1414:59 22:59 06:59 IntakeIntake Total 1250 ml 480 ml OutputOutput Total 2700 ml 2000 ml BalanceBalance 1250 ml -2220 ml -2000 ml Exam Suprapubic tube is draining clear urine was some sediment in the tubing. Results/Medications Result Diagram: 10/21/18 0441 10/21/18 0441 Home Meds Reported Medications Tamsulosin Hcl* (Flomax*) 0.4 Mg Cap.er.24h, 0.4 MG PO HS, CAP 10/17/18 Alendronate Sodium* (Fosamax*) 70 Mg Tablet, 70 MG PO EVERY THURSDAY, #4 TAB 10/17/18 Terazosin Hcl* (Terazosin Hcl*) 10 Mg Capsule, 10 MG PO HS, CAP 10/17/18 Metoprolol Tartrate* (Lopressor*) 25 Mg Tab, 25 MG PO BID WITH MEALS, #60 TAB HOLD IF SBP BELOW 110 OR HR BELOW 60/MIN 10/17/18 Robinson-3/Dha/Epa/Fish Oil (FISH OIL 1,000 MG SOFTGEL) 1 Each Capsule, 2 EACH PO DAILY, CAP 10/17/18 Acetaminophen* (Acetaminophen*) 650 Mg Tablet, 650 MG PO Q6H PRN for MILD PAIN LEVEL 1-3, #30 TAB 10/17/18 Acetaminophen* (Acetaminophen*) 500 MG Extra Strength Tablet, 1000 MG PO Q4 PRN for MODERATE PAIN LEVEL 4-6, TAB 10/17/18 Tramadol Hcl* (Ultram*) 50 Mg Tablet, 50 MG PO BID PRN for PAIN, TAB 10/17/18 Bethanechol Chloride* (Urecholine*) 25 Mg Tab, 25 MG PO QID, TAB 10/17/18 Cran/Vitc/Mannose/Inulin/Brom (Uti-Stat Liquid) 3,875 Mg/30 Ml Liquid, 3875 MG PO BID 10/17/18 Cranberry Extract (Cranberry) 425 Mg Capsule, 425 MG PO BID, CAP 10/17/18 Docusate Sodium* (Colace*) 100 Mg Capsule, 200 MG PO QHS, #30 CAP 10/17/18 Dalfampridine (Ampyra) 10 Mg Tab.sr.12h, 10 MG PO BID, #60 TAB 10/17/18 Amphet Loa-Mvxodt-P-Amphet (Adderall) 20 Mg Tablet, 20 MG PO DAILY, TAB 10/17/18 Discontinued Reported Medications Metoprolol Tartrate* (Lopressor*) 25 Mg Tab, 25 MG ORAL BID, #16 09/15/16 Citalopram Hydrobromide* (Citalopram Hydrobromide*) 10 Mg Tablet, 10 MG ORAL BID, #90 09/15/16 Famotidine* (Famotidine*) 20 Mg Tablet, 20 MG ORAL DAILY, #31 09/15/16 Alendronate Sodium* (Fosamax*) 70 Mg Tablet, 70 MG ORAL WEEKLY, #4 09/15/16 Bethanechol Chloride* (Bethanechol Chloride*) 25 Mg Tablet, 25 MG PO QID, TAB 03/28/15 Tamsulosin Hcl* (Tamsulosin Hcl*) 0.4 Mg Cap.er.24h, 0.8 MG PO HS, CAP 03/28/15 Glatiramer Acetate (Copaxone) 40 Mg/1 Ml Syringe, 40 MG SQ MONWEDFRI 03/28/15 Amantadine Hcl* (Amantadine Hcl*) 100 Mg Tablet, 100 MG PO QAM, TAB 03/18/14 Mirtazapine* (Mirtazapine*) 30 Mg Tablet, 15 MG PO DAILY, TAB 03/18/14 Terazosin Hcl* (Terazosin Hcl*) 10 Mg Capsule, 10 MG PO HS, CAP 03/18/14 Dalfampridine (Ampyra) 10 Mg Tab.sr.12h, 10 MG PO BID 03/18/14 Discontinued Scripts Multivitamins* (Theragran*) 1 Tab Tab, 1 TAB PO DAILY, #30 TAB Prov:HUMZA CALHOUN M.D. 03/26/14 Medications Current Medications Cefepime HCl 50 ml @ 100 mls/hr Q24H IVPB Last administered on 10/22/18 12:36; Admin Dose 100 MLS/HR; Start 10/18/18 at 13:00 Acetaminophen (Tylenol Tab) 650 mg Q4H PRN PO MILD PAIN(1-3)OR ELEVATED TEMP; Start 10/17/18 at 17:00 Tramadol HCl (Ultram) 50 mg Q6H PRN PO MODERATE PAIN LEVEL 4-6; Start 10/17/18 at 17:00 Docusate Sodium (Colace) 200 mg HS PO Last administered on 10/22/18 21:07; Admin Dose 200 MG; Start 10/17/18 at 21:00 Metoprolol Tartrate (Lopressor) 25 mg BID PO Last administered on 10/23/18 09:44; Admin Dose 25 MG; Start 10/17/18 at 21:00 Terazosin HCl (Hytrin) 10 mg HS PO Last administered on 10/22/18 21:08; Admin Dose 10 MG; Start 10/17/18 at 21:00 Levalbuterol (Xopenex Neb) 0.63 mg Q8H RESP THERAPY HHN Last administered on 10/23/18 08:21; Admin Dose 0.63 MG; Start 10/18/18 at 00:00 Bisacodyl (Dulcolax) 10 mg DAILY PRN PO CONSTIPATION Last administered on 10/22/18 21:09; Admin Dose 10 MG; Start 10/19/18 at 12:30 Doxycycline Hyclate (Vibramycin) 100 mg BID PO Last administered on 10/23/18 09:44; Admin Dose 100 MG; Start 10/19/18 at 21:00 Promethazine HCl/ Codeine (Phenergan/ Codeine) 10 ml Q6H PRN PO COUGH Last administered on 10/22/18 02:25; Admin Dose 10 ML; Start 10/21/18 at 12:30 Assessment/Plan Hospital Course (Demo Recall) 68-year-old male known to me. He is a resident of residential facility and has a chronic suprapubic tube which I have been changing every month for him. He was sent to the emergency room from the residential facility because of gross hematuria. The suprapubic tube was changed in the emergency room and the patient was admitted for further care. Patient is known to have a history of multiple sclerosis and neurogenic bladder. And because of that he had his suprapubic tube inserted and that has been replaced every month without a problem. On admission the patient was found to have leukocytosis with a white count of31.6 The suprapubic tube was changed and now the urine is clear and had has occasional sediment in it Chest x-ray from 10/19/2018 showed: There are increased interstitial markings as well as left lung base patchy consolidation versus atelectasis. Patient states that he is coughing less. Patient is on cefepime. Continue antibiotics KEYUR BERNSTEIN MD Oct 23, 2018 09:56
--- NOTE | 2018-10-23 10:46 | PN ---
Date/Time of Note Date/Time of Note DATE: 10/23/18 TIME: 10:46 Assessment/Plan VTE Prophylaxis Risk score (from Ns)>0 risk: 7 SCD applied (from Ns): Yes Pharmacological prophylaxis: LMWH Lines/Catheters IV Catheter Type (from Nrs): Saline Lock Urinary Cath still in place: Yes (suprapubic) Reason Cath still needed: skin wounds contaminated by urine Assessment/Plan Hospital Course -Sepsis most likely due to urinary tract infection and early pneumonia. Contin ue antibiotics per ID. Dr. Godfrey is following in infection disease consultation. -Healthcare associated pneumonia -Neurogenic bladder with suprapubic catheter. Dr. Ulloa is following a neurology consultation, suprapubic catheter was changed. -BPH. Continue Hytrin. -Acute on chronic kidney disease, resolved. monitor BUN and creatinine. Dr. River is following in nephrology consultation. -Multiple sclerosis. Continue Ampyra. -Hypertension. Continue metoprolol. -Osteoporosis. Continue Fosamax. Result Diagram: 10/21/1844010/21/18440 Subjective 24 Hr Interval Summary Free Text/Dictation Patient has no complaints but appears sedated Exam/Review of Systems Exam Vitals Vital Signs Date Temp Pulse Resp B/P (MAP) Pulse Ox O2 O2 Flow FiO2 Time Delivery Rate 10/23/18 98.3 84 18 104/62 98 Room Air 08:58 (76) 10/23/18 2.0 08:22 10/21/18 21 00:41 Intake and Output 10/22/18 10/22/18 10/23/18 1515:00 23:00 07:00 IntakeIntake Total 1250 ml 480 ml OutputOutput Total 2700 ml 2000 ml BalanceBalance 1250 ml -2220 ml -2000 ml Constitutional: well developed Head: normocephalic, atraumatic Neck: supple Respiratory: diminished breath sounds Cardiovascular: regular rate and rhythm Gastrointestinal: soft, non-tender Extremities: normal pulses Medications Medication Current Medications Cefepime HCl 50 ml @ 100 mls/hr Q24H IVPB Last administered on 10/22/18at 12:36; Admin Dose 100 MLS/HR; Start 10/18/18 at 13:00 Acetaminophen (Tylenol Tab) 650 mg Q4H PRN PO MILD PAIN(1-3)OR ELEVATED TEMP; Start 10/17/18 at 17:00 Tramadol HCl (Ultram) 50 mg Q6H PRN PO MODERATE PAIN LEVEL 4-6; Start 10/17/18 at 17:00 Docusate Sodium (Colace) 200 mg HS PO Last administered on 10/22/18 21:07; Admin Dose 200 MG; Start 10/17/18 at 21:00 Metoprolol Tartrate (Lopressor) 25 mg BID PO Last administered on 10/23/18 09:44; Admin Dose 25 MG; Start 10/17/18 at 21:00 Terazosin HCl (Hytrin) 10 mg HS PO Last administered on 10/22/18 21:08; Admin Dose 10 MG; Start 10/17/18 at 21:00 Levalbuterol (Xopenex Neb) 0.63 mg Q8H RESP THERAPY HHN Last administered on 10/23/18 08:21; Admin Dose 0.63 MG; Start 10/18/18 at 00:00 Bisacodyl (Dulcolax) 10 mg DAILY PRN PO CONSTIPATION Last administered on 10/22/18 21:09; Admin Dose 10 MG; Start 10/19/18 at 12:30 Doxycycline Hyclate (Vibramycin) 100 mg BID PO Last administered on 10/23/18 09:44; Admin Dose 100 MG; Start 10/19/18 at 21:00 Promethazine HCl/ Codeine (Phenergan/ Codeine) 10 ml Q6H PRN PO COUGH Last administered on 10/22/18 02:25; Admin Dose 10 ML; Start 10/21/18 at 12:30 RAJ FERRER Oct 23, 2018 10:46
[2018-10-23] MEDS: CEFEPIME 1GM/50 ML (PMX) 50 ML IVPB SCH (14:14)
[2018-10-23 14:41] VITALS: BP 115/61; PULSE 89; RESP 18
--- NOTE | 2018-10-23 16:14 | CONS ---
Consultation Date/Type/Reason Admit Date/Time Oct 17, 2018 at 13:30 Initial Consult Date SUBJECTIVE: Pt is awake, alert, afebrile VS: stable T: 98.0 LABS: Reviewed. none today Microbiology: Sputum culture revealed normal respiratory matty. Blood cultures negative. Urine culture grew staph aureus, Klebsiella pneumonia and Proteus mirabilis Antimicrobials: Doxycycline, cefepime Allergy: Penicillins, sulfa Physical examination: GEN: Well-developed well-nourished elderly man, who is alert in no distress. HENT:Head atraumatic normocephalic, sclera nonicteric vehicle mucosa dry oropharynx clear. Patient has halitosis. Neck is supple chest rise symmetrical. PULM: Breath sounds diminished bases. Heart: S1-S2. Abdomen: soft, bowel tones present. Extremities without cyanosis, bilateral lower extremities trace edema. Assessment: 1. Sepsis, resolving 2. Healthcare associated PNA, poss aspiration 3. Polymicrobial urinary tract infection 4. Acute renal failure 5. Neurogenic bladder 6. Multiple sclerosis Plan: Pt is continuing to improve. Stable. Continue current antibiotics. CXR from 10/22/18 noted. Anticipate discharge on oral Levaquin and doxycycline to complete 10 days. Requesting Provider: GISELA GREER MD Date/Time of Note DATE: 10/23/18 TIME: 16:11 Exam/Review of Systems Exam Vitals Vital Signs Date Temp Pulse Resp B/P (MAP) Pulse Ox O2 O2 Flow FiO2 Time Delivery Rate 10/23/18 98.0 89 18 115/61 98 Room Air 14:41 (79) 10/23/18 2.0 08:22 10/21/18 21 00:41 Intake and Output 10/22/18 10/22/18 10/23/18 1515:00 23:00 07:00 IntakeIntake Total 1250 ml 480 ml OutputOutput Total 2700 ml 2000 ml BalanceBalance 1250 ml -2220 ml -2000 ml Results Result Diagram: 10/21/18 04410/21/18 044 Medications Medication Current Medications Cefepime HCl 50 ml @ 100 mls/hr Q24H IVPB Last administered on 10/23/18at 14:14; Admin Dose 100 MLS/HR; Start 10/18/18 at 13:00 Acetaminophen (Tylenol Tab) 650 mg Q4H PRN PO MILD PAIN(1-3)OR ELEVATED TEMP; Start 10/17/18 at 17:00 Tramadol HCl (Ultram) 50 mg Q6H PRN PO MODERATE PAIN LEVEL 4-6; Start 10/17/18 at 17:00 Docusate Sodium (Colace) 200 mg HS PO Last administered on 10/22/18 21:07; Admin Dose 200 MG; Start 10/17/18 at 21:00 Metoprolol Tartrate (Lopressor) 25 mg BID PO Last administered on 10/23/18 09:44; Admin Dose 25 MG; Start 10/17/18 at 21:00 Terazosin HCl (Hytrin) 10 mg HS PO Last administered on 10/22/18 21:08; Admin Dose 10 MG; Start 10/17/18 at 21:00 Levalbuterol (Xopenex Neb) 0.63 mg Q8H RESP THERAPY HHN Last administered on 10/23/18 08:21; Admin Dose 0.63 MG; Start 10/18/18 at 00:00 Bisacodyl (Dulcolax) 10 mg DAILY PRN PO CONSTIPATION Last administered on 10/22/18 21:09; Admin Dose 10 MG; Start 10/19/18 at 12:30 Doxycycline Hyclate (Vibramycin) 100 mg BID PO Last administered on 10/23/18 09:44; Admin Dose 100 MG; Start 10/19/18 at 21:00 Promethazine HCl/ Codeine (Phenergan/ Codeine) 10 ml Q6H PRN PO COUGH Last administered on 10/22/18 02:25; Admin Dose 10 ML; Start 10/21/18 at 12:30 AMARJIT BATISTA Oct 23, 2018 16:14
[2018-10-23 20:05] VITALS: BP 126/74; PULSE 91; RESP 20
[2018-10-23] MEDS: BISACODYL (EC) 5 MG TAB PO PRN (20:57)
[2018-10-23] MEDS: DOCUSATE SODIUM 100 MG CAP PO SCH (20:58)
[2018-10-23] MEDS: TERAZOSIN 5 MG CAP PO SCH (20:58)
[2018-10-24] MEDS: LEVALBUTEROL (NEB) 0.63 MG/3 ML AMP HHN SCH ×3 (00:32→16:04)
[2018-10-24 08:02] VITALS: BP 117/78; PULSE 83; RESP 18
[2018-10-24] MEDS: METOPROLOL 25 MG TAB PO SCH ×2 (09:46→21:00)
[2018-10-24] MEDS: DOXYCYCLINE 100 MG TAB PO SCH ×2 (09:46→21:03)
--- NOTE | 2018-10-24 10:41 | PN ---
DATE: 10/24/2018 SUBJECTIVE: The patient is stable. No events overnight. No fevers, chills, nausea or vomiting. OBJECTIVE: VITAL SIGNS: Blood pressure is 126/74, respirations 20, pulse 91, temperature 98.3. HEENT: Head is normocephalic. NECK: Supple. HEART: Regular rate. LUNGS: Show diminished breath sounds at the base. ABDOMEN: Soft, nontender to palpation without rebound or guarding. EXTREMITIES: Negative for clubbing, cyanosis, no edema. DERMATOLOGIC: No rashes. MUSCULOSKELETAL: No joint effusion. NEUROLOGIC: No change in exam. MEDICATIONS: Reviewed. LABORATORY DATA: Reviewed. IMAGING STUDIES: Reviewed. ASSESSMENT AND PLAN: 1. Nonoliguric acute kidney injury on top of chronic kidney disease stage III with previous baseline creatinine around 1.5 mg/dL. Etiology of acute kidney injury is secondary to hemodynamics. Renal f unction is improved. Continue current treatment plan, supportive care and renally dose all medicatio ns. 2. Anemia. Monitor hemoglobin and hematocrit levels. 3. Mineral bone disorder. Monitor calcium and phosphorus levels. 4. Sepsis. The patient is completing antibiotic course. 5. Suprapubic catheter, status post exchange. Continue to monitor. Follow up with urology. 6. History of multiple sclerosis. 7. Pneumonia. The patient is completing antibiotic regimen. 8. Benign prostatic hypertrophy. Continue Hytrin. Dictated By: ASHOK BUCKLEY/LEIGH Conf#: [id number] DID#: [id number] CC: GISELA GREER MD;*End*
--- NOTE | 2018-10-24 11:36 | PN ---
Date/Time of Note Date/Time of Note DATE: 10/24/18 TIME: 11:35 Assessment/Plan VTE Prophylaxis Risk score (from Ns)>0 risk: 5 SCD applied (from Ns): Yes Pharmacological prophylaxis: LMWH Lines/Catheters IV Catheter Type (from Nrs): Saline Lock Urinary Cath still in place: No Assessment/Plan Hospital Course -Sepsis most likely due to urinary tract infection and early pneumonia. Co ntinue antibiotics per ID. Dr. Godfrey is following in infection disease consultation. -Healthcare associated pneumonia -Neurogenic bladder with suprapubic catheter. Dr. Ulloa is following a neuro logy consultation, suprapubic catheter was changed. -BPH. Continue Hytrin. -Acute on chronic kidney disease, resolved. monitor BUN and creatinine. Dr. River is following in nephrology consultation. -Multiple sclerosis. Continue Ampyra. -Hypertension. Continue metoprolol. -Osteoporosis. Continue Fosamax. Result Diagram: 10/21/1844010/21/18440 Subjective 24 Hr Interval Summary Free Text/Dictation Patient has no complaints Exam/Review of Systems Exam Vitals Vital Signs Date Temp Pulse Resp B/P (MAP) Pulse Ox O2 O2 Flow FiO2 Time Delivery Rate 10/24/18 98.3 83 18 117/78 99 Room Air 08:02 (91) 10/24/18 21 07:51 10/23/18 2.0 19:49 Intake and Output 10/23/18 10/23/18 10/24/18 1515:00 23:00 07:00 IntakeIntake Total 50 ml 800 ml 300 ml OutputOutput Total 950 ml BalanceBalance 50 ml -150 ml 300 ml Constitutional: well developed Head: normocephalic, atraumatic Neck: supple Respiratory: clear to auscultation Cardiovascular: regular rate and rhythm Gastrointestinal: soft, non-tender Extremities: normal pulses Medications Medication Current Medications Cefepime HCl 50 ml @ 100 mls/hr Q24H IVPB Last administered on 10/23/18at 14:14; Admin Dose 100 MLS/HR; Start 10/18/18 at 13:00 Acetaminophen (Tylenol Tab) 650 mg Q4H PRN PO MILD PAIN(1-3)OR ELEVATED TEMP; Start 10/17/18 at 17:00 Tramadol HCl (Ultram) 50 mg Q6H PRN PO MODERATE PAIN LEVEL 4-6; Start 10/17/18 at 17:00 Docusate Sodium (Colace) 200 mg HS PO Last administered on 10/23/18 20:58; Admin Dose 200 MG; Start 10/17/18 at 21:00 Metoprolol Tartrate (Lopressor) 25 mg BID PO Last administered on 10/24/18 09:46; Admin Dose 25 MG; Start 10/17/18 at 21:00 Terazosin HCl (Hytrin) 10 mg HS PO Last administered on 10/23/18 20:58; Admin Dose 10 MG; Start 10/17/18 at 21:00 Levalbuterol (Xopenex Neb) 0.63 mg Q8H RESP THERAPY HHN Last administered on 10/24/18 07:45; Admin Dose 0.63 MG; Start 10/18/18 at 00:00 Bisacodyl (Dulcolax) 10 mg DAILY PRN PO CONSTIPATION Last administered on 10/23/18 20:57; Admin Dose 10 MG; Start 10/19/18 at 12:30 Doxycycline Hyclate (Vibramycin) 100 mg BID PO Last administered on 10/24/18 09:46; Admin Dose 100 MG; Start 10/19/18 at 21:00 Promethazine HCl/ Codeine (Phenergan/ Codeine) 10 ml Q6H PRN PO COUGH Last administered on 10/22/18 02:25; Admin Dose 10 ML; Start 10/21/18 at 12:30 RAJ FERRER Oct 24, 2018 11:36
--- NOTE | 2018-10-24 12:08 | CONS ---
Consultation Date/Type/Reason Admit Date/Time Oct 17, 2018 at 13:30 Initial Consult Date SUBJECTIVE: Pt is awake, alert, afebrile. No acute events over night. VS: stable T: 98.3 LABS: Reviewed. none today Microbiology: Sputum culture revealed normal respiratory matty. Blood cultures negative. Urine culture grew staph aureus, Klebsiella pneumonia and Proteus mirabilis Antimicrobials: Doxycycline, cefepime Allergy: Penicillins, sulfa Physical examination: GEN: Well-developed well-nourished elderly man, who is alert in no distress. HENT:Head atraumatic normocephalic, sclera nonicteric vehicle mucosa dry oropharynx clear. Patient has halitosis. Neck is supple chest rise symmetrical. PULM: Breath sounds diminished bases. Heart: S1-S2. Abdomen: soft, bowel tones present. Extremities without cyanosis, bilateral lower extremities trace edema. Assessment: 1. Sepsis, resolving 2. Healthcare associated PNA, poss aspiration 3. Polymicrobial urinary tract infection 4. Acute renal failure 5. Neurogenic bladder 6. Multiple sclerosis Plan: Pt is continuing to improve. Stable. Continue current antibiotics. Anticipate discharge on oral Levaquin and doxycycline to complete 10 days. Requesting Provider: GISELA GREER MD Date/Time of Note DATE: 10/24/18 TIME: 12:07 Exam/Review of Systems Exam Vitals Vital Signs Date Temp Pulse Resp B/P (MAP) Pulse Ox O2 O2 Flow FiO2 Time Delivery Rate 10/24/18 98.3 83 18 117/78 99 Room Air 08:02 (91) 10/24/18 21 07:51 10/23/18 2.0 19:49 Intake and Output 10/23/18 10/23/18 10/24/18 1515:00 23:00 07:00 IntakeIntake Total 50 ml 800 ml 300 ml OutputOutput Total 950 ml BalanceBalance 50 ml -150 ml 300 ml Results Result Diagram: 10/21/18 04410/21/18 044 Medications Medication Current Medications Cefepime HCl 50 ml @ 100 mls/hr Q24H IVPB Last administered on 10/23/18at 14:14; Admin Dose 100 MLS/HR; Start 10/18/18 at 13:00 Acetaminophen (Tylenol Tab) 650 mg Q4H PRN PO MILD PAIN(1-3)OR ELEVATED TEMP; Start 10/17/18 at 17:00 Tramadol HCl (Ultram) 50 mg Q6H PRN PO MODERATE PAIN LEVEL 4-6; Start 10/17/18 at 17:00 Docusate Sodium (Colace) 200 mg HS PO Last administered on 10/23/18 20:58; Admin Dose 200 MG; Start 10/17/18 at 21:00 Metoprolol Tartrate (Lopressor) 25 mg BID PO Last administered on 10/24/18 09:46; Admin Dose 25 MG; Start 10/17/18 at 21:00 Terazosin HCl (Hytrin) 10 mg HS PO Last administered on 10/23/18 20:58; Admin Dose 10 MG; Start 10/17/18 at 21:00 Levalbuterol (Xopenex Neb) 0.63 mg Q8H RESP THERAPY HHN Last administered on 10/24/18 07:45; Admin Dose 0.63 MG; Start 10/18/18 at 00:00 Bisacodyl (Dulcolax) 10 mg DAILY PRN PO CONSTIPATION Last administered on 10/23/18 20:57; Admin Dose 10 MG; Start 10/19/18 at 12:30 Doxycycline Hyclate (Vibramycin) 100 mg BID PO Last administered on 10/24/18 09:46; Admin Dose 100 MG; Start 10/19/18 at 21:00 Promethazine HCl/ Codeine (Phenergan/ Codeine) 10 ml Q6H PRN PO COUGH Last administered on 10/22/18 02:25; Admin Dose 10 ML; Start 10/21/18 at 12:30 AMARJIT BATISTA Oct 24, 2018 12:08
[2018-10-24] MEDS: CEFEPIME 1GM/50 ML (PMX) 50 ML IVPB SCH (12:53)
[2018-10-24] MEDS ORDERED: BISACODYL 10 MG SUPP PR PRN (14:00)
[2018-10-24 19:50] VITALS: BP 104/63; PULSE 84; RESP 18
[2018-10-24] MEDS: TERAZOSIN 5 MG CAP PO SCH (21:04)
[2018-10-24] MEDS: DOCUSATE SODIUM 100 MG CAP PO SCH (21:04)
[2018-10-25] MEDS: LEVALBUTEROL (NEB) 0.63 MG/3 ML AMP HHN SCH ×3 (01:03→15:08)
[2018-10-25 02:22] VITALS: BP 119/75; PULSE 91; RESP 18
[2018-10-25 07:43] VITALS: BP 113/75; PULSE 76; RESP 18
[2018-10-25] MEDS: DOXYCYCLINE 100 MG TAB PO SCH ×2 (09:04→22:08)
[2018-10-25] MEDS: METOPROLOL 25 MG TAB PO SCH ×2 (09:05→22:08)
--- NOTE | 2018-10-25 09:05 | PN ---
DATE: 10/25/2018 SUBJECTIVE: The patient is stable, no fevers, chills, nausea, vomiting. OBJECTIVE: VITAL SIGNS: Blood pressure is 113/75, pulse 76, respirations 18, temperature 98.0. HEENT: Head is normocephalic. NECK: Supple. HEART: Regular rate. LUNGS: Show diminished breath sounds at the base. ABDOMEN: Soft, nontender to palpation. No rebound or guarding. EXTREMITIES: Negative for clubbing, cyanosis, no edema. DERMATOLOGIC: No rashes. MUSCULOSKELETAL: No joint effusion. NEUROLOGIC: No change in exam. MEDICATIONS: Reviewed. LABORATORY DATA: Has been reviewed. IMAGING STUDIES: Have been reviewed. ASSESSMENT AND PLAN: 1. Nonoliguric acute kidney injury on top of chronic kidney disease stage III with baseline creatini ne around 1.5 mg/dL. Etiology of acute kidney injury is secondary to hemodynamics. Renal function i s improved, approaching baseline. Continue current treatment plan, supportive care, renally dose all meds. 2. Anemia. Monitor hemoglobin and hematocrit levels. 3. Mineral bone disorder. Monitor calcium levels. 4. Sepsis. The patient is completing antibiotic course. 5. History of suprapubic catheter, status post exchange. Continue to monitor. Follow up with urolo gy. 6. History of multiple sclerosis. 7. Pneumonia. Continue antibiotic regimen. 8. Benign prostatic hypertrophy. Continue Hytrin. Dictated By: ASHOK BUCKLEY/LEIGH Conf#: [id number] DID#: [id number] CC: GISELA GREER MD;*End*
[2018-10-25] MEDS: PROMETHAZINE/CODEINE 5ML CUP PO PRN (09:08)
[2018-10-25] MEDS: CEFEPIME 1GM/50 ML (PMX) 50 ML IVPB SCH (13:43)
--- NOTE | 2018-10-25 14:31 | CONS ---
Assessment/Plan Assessment/Plan Hospital Course (Demo Recall) Awake, feels better, no cough Microbiology: Sputum culture revealed normal respiratory matty. Blood cultures negative. Urine culture grew staph aureus, Klebsiella pneumonia and Proteus mirabilis Antimicrobials: Doxycycline, cefepime Allergy: Penicillins, sulfa Physical examination: Well-developed well-nourished elderly man who is alert in no distress. Head atraumatic normocephalic sclera nonicteric vehicle mucosa dry oropharynx clear. Patient has halitosis. Neck is supple chest rise symmetrical. Breath sounds diminished bases. Heart: S1-S2. Abdomen soft, bowel tones present. Extremities without cyanosis, bilateral lower extremities trace edema. Assessment: 1. Sepsis, resolving 2. Healthcare associated PNA, poss aspiration 3. Polymicrobial urinary tract infection 4. Acute renal failure 5. Neurogenic bladder 6. Multiple sclerosis Plan: Stable, will dc abx in am Consultation Date/Type/Reason Admit Date/Time Oct 17, 2018 at 13:30 Initial Consult Date 10/18/18 Type of Consult id Requesting Provider: GISELA GREER MD Date/Time of Note DATE: 10/25/18 TIME: 14:30 Exam/Review of Systems Exam Vitals Vital Signs Date Temp Pulse Resp B/P (MAP) Pulse Ox O2 O2 Flow FiO2 Time Delivery Rate 10/25/18 76 19 96 21 08:16 10/25/18 98.0 113/75 Room Air 07:43 (88) 10/23/18 2.0 19:49 Intake and Output 10/24/18 10/24/18 10/25/18 1515:00 23:00 07:00 IntakeIntake Total 50 ml 490 ml OutputOutput Total 900 ml BalanceBalance 50 ml -410 ml Results Result Diagram: 10/21/18 0441 10/25/18 0441 Results 24hrs Laboratory Tests Test 10/25/18 04:41 Sodium Level 140 Potassium Level 4.3 Chloride Level 104 Carbon Dioxide Level 24 Anion Gap 12 Blood Urea Nitrogen 31 H Creatinine 1.31 H Est Glomerular Filtrat Rate mL/min 55 L Glucose Level 127 Calcium Level 9.2 Phosphorus Level 3.9 Magnesium Level 2.1 Medications Medication Current Medications Cefepime HCl 50 ml @ 100 mls/hr Q24H IVPB Last administered on 10/25/18at 13:43; Admin Dose 100 MLS/HR; Start 10/18/18 at 13:00 Acetaminophen (Tylenol Tab) 650 mg Q4H PRN PO MILD PAIN(1-3)OR ELEVATED TEMP; Start 10/17/18 at 17:00 Tramadol HCl (Ultram) 50 mg Q6H PRN PO MODERATE PAIN LEVEL 4-6; Start 10/17/18 at 17:00 Docusate Sodium (Colace) 200 mg HS PO Last administered on 10/24/18 21:04; Admin Dose 200 MG; Start 10/17/18 at 21:00 Metoprolol Tartrate (Lopressor) 25 mg BID PO Last administered on 10/25/18 09:05; Admin Dose 25 MG; Start 10/17/18 at 21:00 Terazosin HCl (Hytrin) 10 mg HS PO Last administered on 10/24/18 21:04; Admin Dose 10 MG; Start 10/17/18 at 21:00 Levalbuterol (Xopenex Neb) 0.63 mg Q8H RESP THERAPY HHN Last administered on 10/25/18 08:16; Admin Dose 0.63 MG; Start 10/18/18 at 00:00 Bisacodyl (Dulcolax) 10 mg DAILY PRN PO CONSTIPATION Last administered on 10/23/18 20:57; Admin Dose 10 MG; Start 10/19/18 at 12:30 Doxycycline Hyclate (Vibramycin) 100 mg BID PO Last administered on 10/25/18 09:04; Admin Dose 100 MG; Start 10/19/18 at 21:00 Promethazine HCl/ Codeine (Phenergan/ Codeine) 10 ml Q6H PRN PO COUGH Last administered on 10/25/18 09:08; Admin Dose 10 ML; Start 10/21/18 at 12:30 Bisacodyl (Dulcolax Supp) 10 mg DAILY PRN [place] CONSTIPATION Last administered on 10/24/18 13:54; Admin Dose 10 MG; Start 10/24/18 at 14:00 KAVITA ANDERSON NP Oct 25, 2018 14:31
[2018-10-25 14:36] VITALS: BP 119/72; PULSE 80; RESP 18
--- NOTE | 2018-10-25 18:05 | PN ---
Date/Time of Note Date/Time of Note DATE: 10/25/18 TIME: 18:05 Assessment/Plan VTE Prophylaxis Risk score (from [facility] [place])>0 risk: 4 SCD applied (from [facility] [place]): Yes Pharmacological prophylaxis: NA/contraindicated Pharm contraindication: bleeding Lines/Catheters IV Catheter Type (from [facility]): Saline Lock Urinary Cath still in place: Yes Reason Cath still needed: urinary retention Assessment/Plan Hospital Course Patient continues to complain of cough, remains afebrile, good urine output via suprapubic catheter. Continued on abx. Assessment/Plan -Sepsis most likely due to urinary tract infection and early pneumonia. Continue antibiotics per ID. Dr. Godfrey is following in infection disease consultation. -Healthcare associated pneumonia -Neurogenic bladder with suprapubic catheter. Dr. Ulloa is following a neurology consultation, suprapubic catheter was changed. -BPH. Continue Hytrin. -Acute on chronic kidney disease, resolved. monitor BUN and creatinine. Dr. River is following in nephrology consultation. -Multiple sclerosis. Continue Ampyra. -Hypertension. Continue metoprolol. -Osteoporosis. Continue Fosamax. Further recommendations will depend on clinical course. Plan of care was discussed with Dr. Samson. Result Diagram: 10/21/18 0441 10/25/18 0441 Results 24hrs Laboratory Tests Test 10/25/18 04:41 Sodium Level 140 Potassium Level 4.3 Chloride Level 104 Carbon Dioxide Level 24 Anion Gap 12 Blood Urea Nitrogen 31 H Creatinine 1.31 H Est Glomerular Filtrat Rate mL/min 55 L Glucose Level 127 Calcium Level 9.2 Phosphorus Level 3.9 Magnesium Level 2.1 Exam/Review of Systems Exam Vitals Vital Signs Date Temp Pulse Resp B/P (MAP) Pulse Ox O2 O2 Flow FiO2 Time Delivery Rate 10/25/18 84 18 94 21 15:09 10/25/18 97.8 119/72 Nasal 2.0 14:36 (88) Cannula Intake and Output 10/24/18 10/24/18 10/25/18 1515:00 23:00 07:00 IntakeIntake Total 50 ml 490 ml OutputOutput Total 900 ml BalanceBalance 50 ml -410 ml Exam Constitutional: alert, oriented Respiratory: clear to auscultation Cardiovascular: nl pulses Gastrointestinal: soft, non-tender Genitourinary - Male: other (Suprapubic catheter) Extremities: normal pulses Neurological: nl mental status Skin: nl turgor Results Results 24hrs Laboratory Tests Test 10/25/18 04:41 Sodium Level 140 Potassium Level 4.3 Chloride Level 104 Carbon Dioxide Level 24 Anion Gap 12 Blood Urea Nitrogen 31 H Creatinine 1.31 H Est Glomerular Filtrat Rate mL/min 55 L Glucose Level 127 Calcium Level 9.2 Phosphorus Level 3.9 Magnesium Level 2.1 Medications Medication Current Medications Cefepime HCl 50 ml @ 100 mls/hr Q24H IVPB Last administered on 10/25/18 13:43; Admin Dose 100 MLS/HR; Start 10/18/18 at 13:00 Acetaminophen (Tylenol Tab) 650 mg Q4H PRN PO MILD PAIN(1-3)OR ELEVATED TEMP; Start 10/17/18 at 17:00 Tramadol HCl (Ultram) 50 mg Q6H PRN PO MODERATE PAIN LEVEL 4-6; Start 10/17/18 at 17:00 Docusate Sodium (Colace) 200 mg HS PO Last administered on 10/24/18 21:04; Admin Dose 200 MG; Start 10/17/18 at 21:00 Metoprolol Tartrate (Lopressor) 25 mg BID PO Last administered on 10/25/18 09:05; Admin Dose 25 MG; Start 10/17/18 at 21:00 Terazosin HCl (Hytrin) 10 mg HS PO Last administered on 10/24/18 21:04; Admin Dose 10 MG; Start 10/17/18 at 21:00 Levalbuterol (Xopenex Neb) 0.63 mg Q8H RESP THERAPY HHN Last administered on 10/25/18 15:08; Admin Dose 0.63 MG; Start 10/18/18 at 00:00 Bisacodyl (Dulcolax) 10 mg DAILY PRN PO CONSTIPATION Last administered on 10/23/18 20:57; Admin Dose 10 MG; Start 10/19/18 at 12:30 Doxycycline Hyclate (Vibramycin) 100 mg BID PO Last administered on 10/25/18 09:04; Admin Dose 100 MG; Start 10/19/18 at 21:00 Promethazine HCl/ Codeine (Phenergan/ Codeine) 10 ml Q6H PRN PO COUGH Last administered on 7/1/19at 09:08; Admin Dose 10 ML; Start 10/21/18 at 12:30 Bisacodyl (Dulcolax Supp) 10 mg DAILY PRN [place] CONSTIPATION Last administered on 10/24/18at 13:54; Admin Dose 10 MG; Start 10/24/18 at 14:00 CLARIBEL HERNANDEZ Oct 25, 2018 18:05
[2018-10-25 20:10] VITALS: BP 117/68; PULSE 84; RESP 18
[2018-10-25] MEDS: TERAZOSIN 5 MG CAP PO SCH (22:07)
[2018-10-25] MEDS: DOCUSATE SODIUM 100 MG CAP PO SCH (22:07)
[2018-10-26] MEDS: LEVALBUTEROL (NEB) 0.63 MG/3 ML AMP HHN SCH ×4 (00:09→23:26)
[2018-10-26 01:38] VITALS: BP 97/66; PULSE 85; RESP 18
[2018-10-26 07:54] VITALS: BP 108/63; PULSE 80; RESP 15
[2018-10-26] MEDS: DOXYCYCLINE 100 MG TAB PO SCH (08:08)
[2018-10-26] MEDS: METOPROLOL 25 MG TAB PO SCH ×2 (08:08→20:44)
--- NOTE | 2018-10-26 08:13 | CONS ---
Consult Date/Type/Reason Admit Date/Time Oct 17, 2018 at 13:30 Initial Consult Date 10/18/18 Type of Consultation: Urology Reason for Consultation Gross hematuria Requesting Provider: GISELA GREER MD Date/Time of Note DATE: 10/26/18 TIME: 08:11 Subjective No changes in his condition. No new events. Objective Vitals Vital Signs Date Temp Pulse Resp B/P (MAP) Pulse Ox O2 O2 Flow FiO2 Time Delivery Rate 10/26/18 97.9 80 15 108/63 94 Room Air 07:54 (78) 10/26/18 21 00:10 10/25/18 2.0 14:36 Intake and Output 10/25/18 10/25/18 10/26/18 1515:00 23:00 07:00 IntakeIntake Total 570 ml 400 ml OutputOutput Total 550 ml 750 ml BalanceBalance 570 ml -150 ml -750 ml Exam Suprapubic catheter is draining well. The urine is clear to very light pink Results/Medications Result Diagram: 10/26/18 0443 10/26/183 Results 24 hrs Laboratory Tests Test 10/26/18 04:43 White Blood Count 8.7 # Red Blood Count 4.62 L Hemoglobin 13.8 L Hematocrit 41.4 L Mean Corpuscular Volume 89.6 Mean Corpuscular Hemoglobin 29.9 Mean Corpuscular Hemoglobin Concent 33.3 Red Cell Distribution Width 13.4 Platelet Count 312 # Mean Platelet Volume 8.0 Immature Granulocytes % 2.300 H Neutrophils % 61.4 Lymphocytes % 17.4 Monocytes % 9.8 Eosinophils % 7.7 H Basophils % 1.4 Nucleated Red Blood Cells % 0.0 Immature Granulocytes # 0.200 H Neutrophils # 5.4 Lymphocytes # 1.5 Monocytes # 0.9 Eosinophils # 0.7 H Basophils # 0.1 Nucleated Red Blood Cells # 0.0 Sodium Level 140 Potassium Level 4.6 Chloride Level 103 Carbon Dioxide Level 26 Anion Gap 11 Blood Urea Nitrogen 30 H Creatinine 1.45 H Est Glomerular Filtrat Rate mL/min 49 L Glucose Level 116 Calcium Level 9.1 Phosphorus Level 4.0 Magnesium Level 2.2 Home Meds Reported Medications Tamsulosin Hcl* (Flomax*) 0.4 Mg Cap.er.24h, 0.4 MG PO HS, CAP 10/17/18 Alendronate Sodium* (Fosamax*) 70 Mg Tablet, 70 MG PO EVERY THURSDAY, #4 TAB 10/17/18 Terazosin Hcl* (Terazosin Hcl*) 10 Mg Capsule, 10 MG PO HS, CAP 10/17/18 Metoprolol Tartrate* (Lopressor*) 25 Mg Tab, 25 MG PO BID WITH MEALS, #60 TAB HOLD IF SBP BELOW 110 OR HR BELOW 60/MIN 10/17/18 [place]-3/Dha/Epa/Fish Oil (FISH OIL 1,000 MG SOFTGEL) 1 Each Capsule, 2 EACH PO DAILY, CAP 10/17/18 Acetaminophen* (Acetaminophen*) 650 Mg Tablet, 650 MG PO Q6H PRN for MILD PAIN LEVEL 1-3, #30 TAB 10/17/18 Acetaminophen* (Acetaminophen*) 500 MG Extra Strength Tablet, 1000 MG PO Q4 PRN for MODERATE PAIN LEVEL 4-6, TAB 10/17/18 Tramadol Hcl* (Ultram*) 50 Mg Tablet, 50 MG PO BID PRN for PAIN, TAB 10/17/18 Bethanechol Chloride* (Urecholine*) 25 Mg Tab, 25 MG PO QID, TAB 10/17/18 Cran/Vitc/Mannose/Inulin/Brom (Uti-Stat Liquid) 3,875 Mg/30 Ml Liquid, 3875 MG PO BID 10/17/18 Cranberry Extract (Cranberry) 425 Mg Capsule, 425 MG PO BID, CAP 10/17/18 Docusate Sodium* (Colace*) 100 Mg Capsule, 200 MG PO QHS, #30 CAP 10/17/18 Dalfampridine (Ampyra) 10 Mg Tab.sr.12h, 10 MG PO BID, #60 TAB 10/17/18 Amphet Qok-Yjnjop-W-Amphet (Adderall) 20 Mg Tablet, 20 MG PO DAILY, TAB 10/17/18 Medications Current Medications Cefepime HCl 50 ml @ 100 mls/hr Q24H IVPB Last administered on 10/25/18at 13:43; Admin Dose 100 MLS/HR; Start 10/18/18 at 13:00 Acetaminophen (Tylenol Tab) 650 mg Q4H PRN PO MILD PAIN(1-3)OR ELEVATED TEMP; Start 10/17/18 at 17:00 Tramadol HCl (Ultram) 50 mg Q6H PRN PO MODERATE PAIN LEVEL 4-6; Start 10/17/18 at 17:00 Docusate Sodium (Colace) 200 mg HS PO Last administered on 10/25/18 22:07; Admin Dose 200 MG; Start 10/17/18 at 21:00 Metoprolol Tartrate (Lopressor) 25 mg BID PO Last administered on 10/25/18 22:08; Admin Dose 25 MG; Start 10/17/18 at 21:00 Terazosin HCl (Hytrin) 10 mg HS PO Last administered on 10/25/18 22:07; Admin Dose 10 MG; Start 10/17/18 at 21:00 Levalbuterol (Xopenex Neb) 0.63 mg Q8H RESP THERAPY HHN Last administered on 10/26/18 00:09; Admin Dose 0.63 MG; Start 10/18/18 at 00:00 Bisacodyl (Dulcolax) 10 mg DAILY PRN PO CONSTIPATION Last administered on 10/23/18 20:57; Admin Dose 10 MG; Start 10/19/18 at 12:30 Doxycycline Hyclate (Vibramycin) 100 mg BID PO Last administered on 10/26/18 08:08; Admin Dose 100 MG; Start 10/19/18 at 21:00 Promethazine HCl/ Codeine (Phenergan/ Codeine) 10 ml Q6H PRN PO COUGH Last administered on 10/25/18 09:08; Admin Dose 10 ML; Start 10/21/18 at 12:30 Bisacodyl (Dulcolax Supp) 10 mg DAILY PRN [place] CONSTIPATION Last administered on 10/24/18 13:54; Admin Dose 10 MG; Start 10/24/18 at 14:00 Assessment/Plan Hospital Course (Demo Recall) 68-year-old male known to me. He is a resident of intermediate facility and has a chronic suprapubic tube which I have been changing every month for him. He was sent to the emergency room from the intermediate facility because of gross hematuria. The suprapubic tube was changed in the emergency room and the patient was admitted for further care. Patient is known to have a history of multiple sclerosis and neurogenic bladder. And because of that he had his suprapubic tube inserted and that has been replaced every month without a problem. On admission the patient was found to have leukocytosis with a white count of31.6 The suprapubic tube was changed and now the urine is clear to very light pink. He grew MRSA in his urine. His white count is normal. Continue the present treatment KEYUR BERNSTEIN MD Oct 26, 2018 08:13
--- NOTE | 2018-10-26 08:43 | PN ---
DATE: 10/26/2018 SUBJECTIVE: The patient is stable, no events overnight. OBJECTIVE: VITAL SIGNS: Blood pressure is 97/66, respiration 18, pulse 85, temperature 98.6. HEENT: Head is normocephalic. NECK: Supple. HEART: Regular rate. LUNGS: Show diminished breath sounds at the base. ABDOMEN: Soft, nontender to palpation without rebound or guarding. EXTREMITIES: Negative for clubbing, cyanosis, no edema. DERMATOLOGIC: No rashes. MUSCULOSKELETAL: No joint effusion. NEUROLOGIC: No change in exam. MEDICATIONS: Have been reviewed. IMAGING STUDIES: Have been reviewed. ASSESSMENT AND PLAN: 1. Nonoliguric acute kidney injury on top of chronic kidney disease with previous baseline creatinin e around 1.5 mg/dL. Etiology of acute kidney injury is secondary to hemodynamics. The patient's divina al function has initially improved with IV fluids. Creatinine, however, has been increasing in the l ast several days, likely approaching previous baseline. Will continue to monitor closely and continu e supportive care, and renally dose all meds. 2. Anemia. Monitor hemoglobin and hematocrit levels. 3. Mineral bone disorder. Monitor calcium and phosphorus levels. 4. Sepsis. The patient is completing antibiotic course. 5. Suprapubic catheter, status post exchange. Continue to monitor. 6. History of multiple sclerosis. 7. Pneumonia. Continue current regimen. 8. Benign prostatic hypertrophy. Continue Hytrin. Dictated By: ASHOK BARNARD DO NR/NTS Conf#: [id number] DID#: [id number] CC: GISELA GREER MD;*End*
--- NOTE | 2018-10-26 12:14 | CONS ---
Assessment/Plan Assessment/Plan Hospital Course (Demo Recall) No acute changes, looks comfortable, no fevers Microbiology: Sputum culture revealed normal respiratory matty. Blood cultures negative. Urine culture grew staph aureus, Klebsiella pneumonia and Proteus mirabilis Antimicrobials: Doxycycline, cefepime Allergy: Penicillins, sulfa Physical examination: Well-developed well-nourished elderly man who is alert in no distress. Head atraumatic normocephalic sclera nonicteric vehicle mucosa dry oropharynx clear. Patient has halitosis. Neck is supple chest rise symmetrical. Breath sounds diminished bases. Heart: S1-S2. Abdomen soft, erica l tones present. Extremities without cyanosis, bilateral lower extremities trace edema. Assessment: 1. Sepsis, resolving 2. Healthcare associated PNA, poss aspiration 3. Polymicrobial urinary tract infection 4. Acute renal failure 5. Neurogenic bladder 6. Multiple sclerosis Plan: Stable, dc abx and observe Consultation Date/Type/Reason Admit Date/Time Oct 17, 2018 at 13:30 Initial Consult Date 10/18/18 Type of Consult id Requesting Provider: GISELA GREER MD Date/Time of Note DATE: 10/26/18 TIME: 12:13 Exam/Review of Systems Exam Vitals Vital Signs Date Temp Pulse Resp B/P (MAP) Pulse Ox O2 O2 Flow FiO2 Time Delivery Rate 10/26/18 77 18 93 21 08:19 10/26/18 97.9 108/63 Room Air 07:54 (78) 10/25/18 2.0 14:36 Intake and Output 10/25/18 10/25/18 10/26/18 1515:00 23:00 07:00 IntakeIntake Total 570 ml 400 ml OutputOutput Total 550 ml 750 ml BalanceBalance 570 ml -150 ml -750 ml Results Result Diagram: 10/26/18 0443 10/26/18 0443 Results 24hrs Laboratory Tests Test 10/26/18 04:43 White Blood Count 8.7 # Red Blood Count 4.62 L Hemoglobin 13.8 L Hematocrit 41.4 L Mean Corpuscular Volume 89.6 Mean Corpuscular Hemoglobin 29.9 Mean Corpuscular Hemoglobin Concent 33.3 Red Cell Distribution Width 13.4 Platelet Count 312 # Mean Platelet Volume 8.0 Immature Granulocytes % 2.300 H Neutrophils % 61.4 Lymphocytes % 17.4 Monocytes % 9.8 Eosinophils % 7.7 H Basophils % 1.4 Nucleated Red Blood Cells % 0.0 Immature Granulocytes # 0.200 H Neutrophils # 5.4 Lymphocytes # 1.5 Monocytes # 0.9 Eosinophils # 0.7 H Basophils # 0.1 Nucleated Red Blood Cells # 0.0 Sodium Level 140 Potassium Level 4.6 Chloride Level 103 Carbon Dioxide Level 26 Anion Gap 11 Blood Urea Nitrogen 30 H Creatinine 1.45 H Est Glomerular Filtrat Rate mL/min 49 L Glucose Level 116 Calcium Level 9.1 Phosphorus Level 4.0 Magnesium Level 2.2 Medications Medication Current Medications Cefepime HCl 50 ml @ 100 mls/hr Q24H IVPB Last administered on 10/25/18at 13:43; Admin Dose 100 MLS/HR; Start 10/18/18 at 13:00 Acetaminophen (Tylenol Tab) 650 mg Q4H PRN PO MILD PAIN(1-3)OR ELEVATED TEMP; Start 10/17/18 at 17:00 Tramadol HCl (Ultram) 50 mg Q6H PRN PO MODERATE PAIN LEVEL 4-6; Start 10/17/18 at 17:00 Docusate Sodium (Colace) 200 mg HS PO Last administered on 10/25/18at 22:07; Admin Dose 200 MG; Start 10/17/18 at 21:00 Metoprolol Tartrate (Lopressor) 25 mg BID PO Last administered on 10/25/18at 22:08; Admin Dose 25 MG; Start 10/17/18 at 21:00 Terazosin HCl (Hytrin) 10 mg HS PO Last administered on 10/25/18at 22:07; Admin Dose 10 MG; Start 10/17/18 at 21:00 Levalbuterol (Xopenex Neb) 0.63 mg Q8H RESP THERAPY HHN Last administered on 10/26/18 08:19; Admin Dose 0.63 MG; Start 10/18/18 at 00:00 Bisacodyl (Dulcolax) 10 mg DAILY PRN PO CONSTIPATION Last administered on 10/23/18at 20:57; Admin Dose 10 MG; Start 10/19/18 at 12:30 Doxycycline Hyclate (Vibramycin) 100 mg BID PO Last administered on 10/26/18 08:08; Admin Dose 100 MG; Start 10/19/18 at 21:00 Promethazine HCl/ Codeine (Phenergan/ Codeine) 10 ml Q6H PRN PO COUGH Last administered on 10/25/18at 09:08; Admin Dose 10 ML; Start 10/21/18 at 12:30 Bisacodyl (Dulcolax Supp) 10 mg DAILY PRN [place] CONSTIPATION Last administered on 10/24/18at 13:54; Admin Dose 10 MG; Start 10/24/18 at 14:00 Polyethylene Glycol (Miralax) 17 gm DAILY PO ; Start 10/26/18 at 12:00 KAVITA ANDERSON NP Oct 26, 2018 12:14
[2018-10-26] MEDS: POLYETHYLENE GLYCOL 17 GM PACKET PO SCH (12:54)
[2018-10-26 14:56] VITALS: BP 96/59; PULSE 82; RESP 18
--- NOTE | 2018-10-26 17:19 | PN ---
Date/Time of Note Date/Time of Note DATE: 10/26/18 TIME: 17:18 Assessment/Plan VTE Prophylaxis Risk score (from [facility])>0 risk: 5 SCD applied (from [facility]): Yes Pharmacological prophylaxis: LMWH Lines/Catheters IV C[facility]ter Type (from [facility]): Peripheral IV Urinary Cath still in place: Yes Reason Cath still needed: urinary retention Assessment/Plan Hospital Course Patient denies any fever chills, urine output is adequate completed antibiotics continue to monitor renal function, DC planning Assessment/Plan -Sepsis most likely due to urinary tract infection and early pneumonia. Continue antibiotics per ID. Dr. Godfrey is following in infection disease consultation. -Healthcare associated pneumonia -Neurogenic bladder with suprapubic catheter. Dr. Ulloa is following a neurology consultation, suprapubic catheter was changed. -BPH. Continue Hytrin. -Acute on chronic kidney disease, resolved. monitor BUN and creatinine. Dr. River is following in nephrology consultation. -Multiple sclerosis. Continue Ampyra. -Hypertension. Continue metoprolol. -Osteoporosis. Continue Fosamax. Further recommendations will depend on clinical course. Plan of care was discussed with Dr. Samson. Result Diagram: 10/26/18 0443 10/26/18 0443 Results 24hrs Laboratory Tests Test 10/26/18 04:43 White Blood Count 8.7 # Red Blood Count 4.62 L Hemoglobin 13.8 L Hematocrit 41.4 L Mean Corpuscular Volume 89.6 Mean Corpuscular Hemoglobin 29.9 Mean Corpuscular Hemoglobin Concent 33.3 Red Cell Distribution Width 13.4 Platelet Count 312 # Mean Platelet Volume 8.0 Immature Granulocytes % 2.300 H Neutrophils % 61.4 Lymphocytes % 17.4 Monocytes % 9.8 Eosinophils % 7.7 H Basophils % 1.4 Nucleated Red Blood Cells % 0.0 Immature Granulocytes # 0.200 H Neutrophils # 5.4 Lymphocytes # 1.5 Monocytes # 0.9 Eosinophils # 0.7 H Basophils # 0.1 Nucleated Red Blood Cells # 0.0 Sodium Level 140 Potassium Level 4.6 Chloride Level 103 Carbon Dioxide Level 26 Anion Gap 11 Blood Urea Nitrogen 30 H Creatinine 1.45 H Est Glomerular Filtrat Rate mL/min 49 L Glucose Level 116 Calcium Level 9.1 Phosphorus Level 4.0 Magnesium Level 2.2 Exam/Review of Systems Exam Vitals Vital Signs Date Temp Pulse Resp B/P (MAP) Pulse Ox O2 O2 Flow FiO2 Time Delivery Rate 10/26/18 76 16 95 21 16:05 10/26/18 98.6 96/59 (71) 14:56 10/26/18 Room Air 07:54 10/25/18 2.0 14:36 Intake and Output 10/25/18 10/25/18 10/26/18 1515:00 23:00 07:00 IntakeIntake Total 570 ml 400 ml OutputOutput Total 550 ml 750 ml BalanceBalance 570 ml -150 ml -750 ml Exam Constitutional: alert, oriented Respiratory: clear to auscultation Cardiovascular: nl pulses Gastrointestinal: soft, non-tender Genitourinary - Male: other (Suprapubic catheter) Extremities: normal pulses Neurological: nl mental status Skin: nl turgor Results Results 24hrs Laboratory Tests Test 10/26/18 04:43 White Blood Count 8.7 # Red Blood Count 4.62 L Hemoglobin 13.8 L Hematocrit 41.4 L Mean Corpuscular Volume 89.6 Mean Corpuscular Hemoglobin 29.9 Mean Corpuscular Hemoglobin Concent 33.3 Red Cell Distribution Width 13.4 Platelet Count 312 # Mean Platelet Volume 8.0 Immature Granulocytes % 2.300 H Neutrophils % 61.4 Lymphocytes % 17.4 Monocytes % 9.8 Eosinophils % 7.7 H Basophils % 1.4 Nucleated Red Blood Cells % 0.0 Immature Granulocytes # 0.200 H Neutrophils # 5.4 Lymphocytes # 1.5 Monocytes # 0.9 Eosinophils # 0.7 H Basophils # 0.1 Nucleated Red Blood Cells # 0.0 Sodium Level 140 Potassium Level 4.6 Chloride Level 103 Carbon Dioxide Level 26 Anion Gap 11 Blood Urea Nitrogen 30 H Creatinine 1.45 H Est Glomerular Filtrat Rate mL/min 49 L Glucose Level 116 Calcium Level 9.1 Phosphorus Level 4.0 Magnesium Level 2.2 Medications Medication Current Medications Acetaminophen (Tylenol Tab) 650 mg Q4H PRN PO MILD PAIN(1-3)OR ELEVATED TEMP; Start 10/17/18 at 17:00 Tramadol HCl (Ultram) 50 mg Q6H PRN PO MODERATE PAIN LEVEL 4-6; Start 10/17/18 at 17:00 Docusate Sodium (Colace) 200 mg HS PO Last administered on 10/25/18at 22:07; Admin Dose 200 MG; Start 10/17/18 at 21:00 Metoprolol Tartrate (Lopressor) 25 mg BID PO Last administered on 10/25/18 22:08; Admin Dose 25 MG; Start 10/17/18 at 21:00 Terazosin HCl (Hytrin) 10 mg HS PO Last administered on 10/25/18 22:07; Admin Dose 10 MG; Start 10/17/18 at 21:00 Levalbuterol (Xopenex Neb) 0.63 mg Q8H RESP THERAPY HHN Last administered on 10/26/18 16:05; Admin Dose 0.63 MG; Start 10/18/18 at 00:00 Bisacodyl (Dulcolax) 10 mg DAILY PRN PO CONSTIPATION Last administered on 10/23/18 20:57; Admin Dose 10 MG; Start 10/19/18 at 12:30 Promethazine HCl/ Codeine (Phenergan/ Codeine) 10 ml Q6H PRN PO COUGH Last administered on 10/25/18 09:08; Admin Dose 10 ML; Start 10/21/18 at 12:30 Bisacodyl (Dulcolax Supp) 10 mg DAILY PRN [place] CONSTIPATION Last administered on 10/24/18 13:54; Admin Dose 10 MG; Start 10/24/18 at 14:00 Polyethylene Glycol (Miralax) 17 gm DAILY PO Last administered on 10/26/18 12:54; Admin Dose 17 GM; Start 10/26/18 at 12:00 CLARIBEL HERNANDEZ Oct 26, 2018 17:19
[2018-10-26 20:03] VITALS: BP 117/76; PULSE 79; RESP 18
[2018-10-26] MEDS: DOCUSATE SODIUM 100 MG CAP PO SCH (20:44)
[2018-10-26] MEDS: TERAZOSIN 5 MG CAP PO SCH (20:44)
[2018-10-27 01:53] VITALS: BP 97/69; PULSE 75; RESP 18
[2018-10-27 08:00] VITALS: BP 133/71; PULSE 76; RESP 16
[2018-10-27] MEDS: LEVALBUTEROL (NEB) 0.63 MG/3 ML AMP HHN SCH (08:04)
--- NOTE | 2018-10-27 08:04 | CONS ---
Consult Date/Type/Reason Admit Date/Time Oct 17, 2018 at 13:30 Initial Consult Date 10/18/18 Type of Consultation: Urology Reason for Consultation Hematuria and urinary tract infection Requesting Provider: GISELA GREER MD Date/Time of Note DATE: 10/27/18 TIME: 08:02 Subjective Patient states that he is feeling better. He is not coughing. Objective Vitals Vital Signs Date Temp Pulse Resp B/P (MAP) Pulse Ox O2 O2 Flow FiO2 Time Delivery Rate 10/27/18 98.0 76 16 133/71 93 Room Air 08:00 (91) 10/26/18 21 23:29 10/25/18 2.0 14:36 Intake and Output 10/26/18 10/26/18 10/27/18 1515:00 23:00 07:00 IntakeIntake Total 200 ml 200 ml OutputOutput Total 650 ml 1000 ml BalanceBalance 200 ml -450 ml -1000 ml Exam Suprapubic tube is draining clear urine. There is no hematuria Results/Medications Result Diagram: 10/27/18 0433 10/27/18 0433 Results 24 hrs Laboratory Tests Test 10/27/18 04:33 White Blood Count 9.3 Red Blood Count 4.60 L Hemoglobin 13.8 L Hematocrit 41.4 L Mean Corpuscular Volume 90.0 Mean Corpuscular Hemoglobin 30.0 Mean Corpuscular Hemoglobin Concent 33.3 Red Cell Distribution Width 13.3 Platelet Count 324 Mean Platelet Volume 8.0 Immature Granulocytes % 1.900 H Neutrophils % 63.1 Lymphocytes % 16.8 Monocytes % 9.6 Eosinophils % 7.5 H Basophils % 1.1 Nucleated Red Blood Cells % 0.0 Immature Granulocytes # 0.180 H Neutrophils # 5.8 Lymphocytes # 1.6 Monocytes # 0.9 Eosinophils # 0.7 H Basophils # 0.1 Nucleated Red Blood Cells # 0.0 Sodium Level 141 Potassium Level 5.0 Chloride Level 104 Carbon Dioxide Level 27 Anion Gap 10 Blood Urea Nitrogen 29 H Creatinine 1.49 H Est Glomerular Filtrat Rate mL/min 47 L Glucose Level 119 Calcium Level 8.9 Phosphorus Level 4.1 Magnesium Level 2.2 Home Meds Reported Medications Tamsulosin Hcl* (Flomax*) 0.4 Mg Cap.er.24h, 0.4 MG PO HS, CAP 10/17/18 Alendronate Sodium* (Fosamax*) 70 Mg Tablet, 70 MG PO EVERY THURSDAY, #4 TAB 10/17/18 Terazosin Hcl* (Terazosin Hcl*) 10 Mg Capsule, 10 MG PO HS, CAP 10/17/18 Metoprolol Tartrate* (Lopressor*) 25 Mg Tab, 25 MG PO BID WITH MEALS, #60 TAB HOLD IF SBP BELOW 110 OR HR BELOW 60/MIN 10/17/18 [place]-3/Dha/Epa/Fish Oil (FISH OIL 1,000 MG SOFTGEL) 1 Each Capsule, 2 EACH PO DAILY, CAP 10/17/18 Acetaminophen* (Acetaminophen*) 650 Mg Tablet, 650 MG PO Q6H PRN for MILD PAIN LEVEL 1-3, #30 TAB 10/17/18 Acetaminophen* (Acetaminophen*) 500 MG Extra Strength Tablet, 1000 MG PO Q4 PRN for MODERATE PAIN LEVEL 4-6, TAB 10/17/18 Tramadol Hcl* (Ultram*) 50 Mg Tablet, 50 MG PO BID PRN for PAIN, TAB 10/17/18 Bethanechol Chloride* (Urecholine*) 25 Mg Tab, 25 MG PO QID, TAB 10/17/18 Cran/Vitc/Mannose/Inulin/Brom (Uti-Stat Liquid) 3,875 Mg/30 Ml Liquid, 3875 MG PO BID 10/17/18 Cranberry Extract (Cranberry) 425 Mg Capsule, 425 MG PO BID, CAP 10/17/18 Docusate Sodium* (Colace*) 100 Mg Capsule, 200 MG PO QHS, #30 CAP 10/17/18 Dalfampridine (Ampyra) 10 Mg Tab.sr.12h, 10 MG PO BID, #60 TAB 10/17/18 Amphet Egz-Jfjqkb-U-Amphet (Adderall) 20 Mg Tablet, 20 MG PO DAILY, TAB 10/17/18 Medications Current Medications Acetaminophen (Tylenol Tab) 650 mg Q4H PRN PO MILD PAIN(1-3)OR ELEVATED TEMP; Start 10/17/18 at 17:00 Tramadol HCl (Ultram) 50 mg Q6H PRN PO MODERATE PAIN LEVEL 4-6; Start 10/17/18 at 17:00 Docusate Sodium (Colace) 200 mg HS PO Last administered on 10/26/18at 20:44; Admin Dose 200 MG; Start 10/17/18 at 21:00 Metoprolol Tartrate (Lopressor) 25 mg BID PO Last administered on 10/26/18 20:44; Admin Dose 25 MG; Start 10/17/18 at 21:00 Terazosin HCl (Hytrin) 10 mg HS PO Last administered on 10/26/18 20:44; Admin Dose 10 MG; Start 10/17/18 at 21:00 Levalbuterol (Xopenex Neb) 0.63 mg Q8H RESP THERAPY HHN Last administered on 10/26/18 23:26; Admin Dose 0.63 MG; Start 10/18/18 at 00:00 Bisacodyl (Dulcolax) 10 mg DAILY PRN PO CONSTIPATION Last administered on 10/23/18 20:57; Admin Dose 10 MG; Start 10/19/18 at 12:30 Promethazine HCl/ Codeine (Phenergan/ Codeine) 10 ml Q6H PRN PO COUGH Last administered on 10/25/18 09:08; Admin Dose 10 ML; Start 10/21/18 at 12:30 Bisacodyl (Dulcolax Supp) 10 mg DAILY PRN [place] CONSTIPATION Last administered on 10/24/18 13:54; Admin Dose 10 MG; Start 10/24/18 at 14:00 Polyethylene Glycol (Miralax) 17 gm DAILY PO Last administered on 10/26/18 12:54; Admin Dose 17 GM; Start 10/26/18 at 12:00 Assessment/Plan Hospital Course (Demo Recall) 68-year-old male known to me. He is a resident of senior care facility and has a chronic suprapubic tube which I have been changing every month for him. He was sent to the emergency room from the senior care facility because of gross hematuria. The suprapubic tube was changed in the emergency room and the patient was admitted for further care. Patient is known to have a history of multiple sclerosis and neurogenic bladder. And because of that he had his suprapubic tube inserted and that has been replaced every month without a problem. On admission the patient was found to have leukocytosis with a white count of31.6 The suprapubic tube was changed and the urine is clear. He grew MRSA in his urine. His white count is normal. Continue the present treatment KEYUR BERNSTEIN MD Oct 27, 2018 08:04
[2018-10-27] MEDS: POLYETHYLENE GLYCOL 17 GM PACKET PO SCH (08:15)
[2018-10-27] MEDS: METOPROLOL 25 MG TAB PO SCH (08:16)
--- NOTE | 2018-10-27 09:33 | PN ---
DATE: 10/27/2018 SUBJECTIVE: The patient is stable, no events overnight. OBJECTIVE: VITAL SIGNS: Blood pressure is 133/71, pulse 76, respirations 16, temperature 98.0. HEENT: Head is normocephalic. NECK: Supple. HEART: Regular rate. LUNGS: Show diminished breath sounds at the base. ABDOMEN: Soft, nontender to palpation without rebound or guarding. EXTREMITIES: Negative for clubbing, cyanosis. No edema. DERMATOLOGIC: No rashes. MUSCULOSKELETAL: No joint effusion. NEUROLOGIC: No change in exam. MEDICATIONS: The patient's medication have been reviewed. LABORATORY DATA: Has been reviewed. IMAGING STUDIES: Have been reviewed. ASSESSMENT AND PLAN: 1. Nonoliguric acute kidney injury on top of chronic kidney disease with a previous baseline creatin ine of 1.5 mg/dL. Etiology of acute kidney injury is secondary to hemodynamics. Renal function has stabilized returning back to baseline creatinine. At this point, continue current treatment plan, lin pportive care, renally dose all meds. 2. Anemia. Monitor hemoglobin and hematocrit levels. 3. Mineral bone disorder, monitor calcium and phosphorus levels. 4. Sepsis. The patient is completing antibiotic course. 5. Suprapubic catheter, status post exchange. Continue to monitor. 6. History of multiple sclerosis. 7. Pneumonia. The patient will continue current antibiotics. 8. Benign prostatic hypertrophy. Continue Hytrin. Dictated By: ASHOK BUCKLEY/LEIGH Conf#: [id number] DID#: [id number] CC: GISELA GREER MD;*End*
--- NOTE | 2018-10-27 12:37 | DS ---
Date/Time of Note Date/Time of Note DATE: 10/27/18 TIME: 12:32 Discharge Summary Admission/Discharge Info Admit Date/Time Oct 17, 2018 at 13:30 Discharge Date/Time Patient Condition: Stable Hx of Present Illness The patient is a 68-year-old gentleman well known to me from previous several admissions. The patient has multiple sclerosis and is mostly wheelchair bound. The patient also has history of neurogenic bladder requiring suprapubic catheter which is being changed by Dr. Ulloa at [facility]. The patient also has history of osteoporosis, depression and possible benign prostatic hypertrophy. The patient's nurse from [facility] called me that patient has blood coming out from suprapubic catheter; however, the patient was not complaining of pain. Instead, he was complaining of fatigue. His vital signs at the [facility] revealed blood pressure of 157/83, pulse of 140, O2 sat 88% to 92%. The patient's blood sugar was 133. Temperature was 97.4. The patient was sent to [facility] ER for further evaluation and management. The patient denies any chest pain or shortness of breath. The patient did have nonproductive cough. The patient was passing blood clot from suprapubic catheter. Dr. Ulloa was contacted by ER physician, Dr. Harvinder Saunders. The patient was empirically given IV cefepime and is being admitted for further evaluation and management. The patient denied any history of headache, dizziness, syncope. No history of sore throat. No history of chills. No history of abdominal pain. No history of leg edema. No history of dizziness. The patient has weakness in all extremities. Hospital Course Patient discharged to [facility] -Sepsis most likely due to urinary tract infection and early pneumonia, resolved. Continue antibiotics per ID. Dr. Godfrey is following in infection disease consultation. -Healthcare associated pneumonia, pleated treatment with antibiotic. -Neurogenic bladder with suprapubic catheter. Dr. Ulloa is following a neurology consultation, suprapubic catheter was changed. -BPH. Continue Hytrin. -Acute on chronic kidney disease, resolved. monitor BUN and creatinine. Creatinine decreased to previous baseline of 1.5. Dr. River is following in nephrology consultation. -Multiple sclerosis. Continue Ampyra. -Hypertension. Continue metoprolol. -Osteoporosis. Continue Fosamax. Plan of care was discussed with Dr. Samson. Home Meds Reported Medications Tamsulosin Hcl* (Flomax*) 0.4 Mg Cap.er.24h, 0.4 MG PO HS, CAP 10/17/18 Alendronate Sodium* (Fosamax*) 70 Mg Tablet, 70 MG PO EVERY THURSDAY, #4 TAB 10/17/18 Terazosin Hcl* (Terazosin Hcl*) 10 Mg Capsule, 10 MG PO HS, CAP 10/17/18 Metoprolol Tartrate* (Lopressor*) 25 Mg Tab, 25 MG PO BID WITH MEALS, #60 TAB HOLD IF SBP BELOW 110 OR HR BELOW 60/MIN 10/17/18 [place]-3/Dha/Epa/Fish Oil (FISH OIL 1,000 MG SOFTGEL) 1 Each Capsule, 2 EACH PO DAILY, CAP 10/17/18 Acetaminophen* (Acetaminophen*) 650 Mg Tablet, 650 MG PO Q6H PRN for MILD PAIN LEVEL 1-3, #30 TAB 10/17/18 Acetaminophen* (Acetaminophen*) 500 MG Extra Strength Tablet, 1000 MG PO Q4 PRN for MODERATE PAIN LEVEL 4-6, TAB 10/17/18 Tramadol Hcl* (Ultram*) 50 Mg Tablet, 50 MG PO BID PRN for PAIN, TAB 10/17/18 Bethanechol Chloride* (Urecholine*) 25 Mg Tab, 25 MG PO QID, TAB 10/17/18 Cran/Vitc/Mannose/Inulin/Brom (Uti-Stat Liquid) 3,875 Mg/30 Ml Liquid, 3875 MG PO BID 10/17/18 Cranberry Extract (Cranberry) 425 Mg Capsule, 425 MG PO BID, CAP 10/17/18 Docusate Sodium* (Colace*) 100 Mg Capsule, 200 MG PO QHS, #30 CAP 10/17/18 Dalfampridine (Ampyra) 10 Mg Tab.sr.12h, 10 MG PO BID, #60 TAB 10/17/18 Amphet Zay-Owfsvv-X-Amphet (Adderall) 20 Mg Tablet, 20 MG PO DAILY, TAB 10/17/18 Primary Care Provider Dong Samson MD Time spent on discharge: > 30 minutes Pending Labs Laboratory Tests Test 10/27/18 04:33 White Blood Count 9.3 10^3/ul (4.8-10.8) Red Blood Count 4.60 10^6/ul (4.70-6.10) Hemoglobin 13.8 g/dl (14.0-18.0) Hematocrit 41.4 % (42.0-52.0) Mean Corpuscular Volume 90.0 fl (82.0-101.0) Mean Corpuscular Hemoglobin 30.0 pg (29.0-33.0) Mean Corpuscular Hemoglobin Concent 33.3 g/dl (32.0-37.0) Red Cell Distribution Width 13.3 % (11.5-14.5) Platelet Count 324 10^3/UL (140-415) Mean Platelet Volume 8.0 fl (7.4-10.4) Immature Granulocytes % 1.900 % (0.001-0.429) Neutrophils % 63.1 % (39.0-77.0) Lymphocytes % 16.8 % (15.0-51.0) Monocytes % 9.6 % (0.0-11.0) Eosinophils % 7.5 % (0.0-7.0) Basophils % 1.1 % (0.0-2.0) Nucleated Red Blood Cells % 0.0 /100WBC (0.0-0.0) Immature Granulocytes # 0.180 10^3/ul (0.0-0.031) Neutrophils # 5.8 10^3/ul (1.6-7.5) Lymphocytes # 1.6 10^3/ul (0.8-2.9) Monocytes # 0.9 10^3/ul (0.3-0.9) Eosinophils # 0.7 10^3/ul (0.0-0.5) Basophils # 0.1 10^3/ul (0.0-0.1) Nucleated Red Blood Cells # 0.0 10^3/ul (0.0-0.0) Sodium Level 141 mmol/L (135-144) Potassium Level 5.0 mmol/L (3.5-5.1) Chloride Level 104 mmol/L (97-110) Carbon Dioxide Level 27 mmol/L (21-31) Anion Gap 10 (5-13) Blood Urea Nitrogen 29 mg/dl (7-20) Creatinine 1.49 mg/dl (0.61-1.24) Est Glomerular Filtrat Rate mL/min 47 mL/min (>60) Glucose Level 119 mg/dl (70-220) Calcium Level 8.9 mg/dl (8.4-10.2) Phosphorus Level 4.1 mg/dl (2.5-4.9) Magnesium Level 2.2 mg/dl (1.7-2.5) CLARIBEL HERNANDEZ Oct 27, 2018 12:37
[2018-10-27 13:49] VITALS: BP 129/69; PULSE 75; RESP 18
--- NOTE | 2018-10-27 14:02 | CONS ---
Assessment/Plan Assessment/Plan Hospital Course (Demo Recall) No acute changes. Alert, feels good Microbiology: Sputum culture revealed normal respiratory matty. Blood cultures negative. Urine culture grew staph aureus, Klebsiella pneumonia and Proteus mirabilis Antimicrobials: none Allergy: Penicillins, sulfa Physical examination: Well-developed well-nourished elderly man who is alert in no distress. Head atraumatic normocephalic sclera nonicteric vehicle mucosa dry oropharynx clear. Patient has halitosis. Neck is supple chest rise symmetri ángel. Breath sounds diminished bases. Heart: S1-S2. Abdomen soft, bowel tones present. Extremities without cyanosis, bilateral lower extremities trace edema. Assessment: 1. Status post sepsis 2. Healthcare associated PNA, poss aspiration, resolved 3. Status post polymicrobial urinary tract infection 4. Acute renal failure on admission 5. Neurogenic bladder 6. Multiple sclerosis Plan: Remains stable, completed Abx, pending discharge arrangements Consultation Date/Type/Reason Admit Date/Time Oct 17, 2018 at 13:30 Initial Consult Date 10/18/18 Type of Consult id Requesting Provider: GISELA GREER MD Date/Time of Note DATE: 10/27/18 TIME: 14:00 Exam/Review of Systems Exam Vitals Vital Signs Date Temp Pulse Resp B/P (MAP) Pulse Ox O2 O2 Flow FiO2 Time Delivery Rate 10/27/18 98.2 75 18 129/69 94 13:49 (89) 10/27/18 Room Air 08:00 10/27/18 21 07:49 10/25/18 2.0 14:36 Intake and Output 10/26/18 10/26/18 10/27/18 1414:59 22:59 06:59 IntakeIntake Total 200 ml 200 ml OutputOutput Total 650 ml 1000 ml BalanceBalance 200 ml -450 ml -1000 ml Results Result Diagram: 10/27/18 0433 10/27/18 0433 Results 24hrs Laboratory Tests Test 10/27/18 04:33 White Blood Count 9.3 Red Blood Count 4.60 L Hemoglobin 13.8 L Hematocrit 41.4 L Mean Corpuscular Volume 90.0 Mean Corpuscular Hemoglobin 30.0 Mean Corpuscular Hemoglobin Concent 33.3 Red Cell Distribution Width 13.3 Platelet Count 324 Mean Platelet Volume 8.0 Immature Granulocytes % 1.900 H Neutrophils % 63.1 Lymphocytes % 16.8 Monocytes % 9.6 Eosinophils % 7.5 H Basophils % 1.1 Nucleated Red Blood Cells % 0.0 Immature Granulocytes # 0.180 H Neutrophils # 5.8 Lymphocytes # 1.6 Monocytes # 0.9 Eosinophils # 0.7 H Basophils # 0.1 Nucleated Red Blood Cells # 0.0 Sodium Level 141 Potassium Level 5.0 Chloride Level 104 Carbon Dioxide Level 27 Anion Gap 10 Blood Urea Nitrogen 29 H Creatinine 1.49 H Est Glomerular Filtrat Rate mL/min 47 L Glucose Level 119 Calcium Level 8.9 Phosphorus Level 4.1 Magnesium Level 2.2 Medications Medication Current Medications Acetaminophen (Tylenol Tab) 650 mg Q4H PRN PO MILD PAIN(1-3)OR ELEVATED TEMP; Start 10/17/18 at 17:00 Tramadol HCl (Ultram) 50 mg Q6H PRN PO MODERATE PAIN LEVEL 4-6; Start 10/17/18 at 17:00 Docusate Sodium (Colace) 200 mg HS PO Last administered on 10/26/18 20:44; Admin Dose 200 MG; Start 10/17/18 at 21:00 Metoprolol Tartrate (Lopressor) 25 mg BID PO Last administered on 10/27/18 08:16; Admin Dose 25 MG; Start 10/17/18 at 21:00 Terazosin HCl (Hytrin) 10 mg HS PO Last administered on 10/26/18 20:44; Admin Dose 10 MG; Start 10/17/18 at 21:00 Levalbuterol (Xopenex Neb) 0.63 mg Q8H RESP THERAPY HHN Last administered on 10/27/18 08:04; Admin Dose 0.63 MG; Start 10/18/18 at 00:00 Bisacodyl (Dulcolax) 10 mg DAILY PRN PO CONSTIPATION Last administered on 10/23/18 20:57; Admin Dose 10 MG; Start 10/19/18 at 12:30 Promethazine HCl/ Codeine (Phenergan/ Codeine) 10 ml Q6H PRN PO COUGH Last administered on 10/25/18 09:08; Admin Dose 10 ML; Start 10/21/18 at 12:30 Bisacodyl (Dulcolax Supp) 10 mg DAILY PRN [place] CONSTIPATION Last administered on 6/30/19at 13:54; Admin Dose 10 MG; Start 10/24/18 at 14:00 Polyethylene Glycol (Miralax) 17 gm DAILY PO Last administered on 10/27/18at 08:15; Admin Dose 17 GM; Start 10/26/18 at 12:00 KAVITA ANDERSON NP Oct 27, 2018 14:02
== END 2018-10-27 15:16 | DRG 871 ==
LOC: E/R 10:58 → MS1 13:30
PROVIDERS: ADMIT Internal Medicine; ATTEND Internal Medicine
DX: A41.9 Sepsis, unspecified organism (principal); J18.9 Pneumonia, unspecified organism; N17.9 Acute kidney failure, unspecified; E87.2 Acidosis; N39.0 Urinary tract infection, site not specified; R65.20 Severe sepsis without septic shock; G35 Multiple sclerosis; I12.9 Hypertensive chronic kidney disease with stage 1 through stage 4 chronic kidney disease, or unspecified chronic kidney disease; N18.3 Chronic kidney disease, stage 3 (moderate); N40.0 Benign prostatic hyperplasia without lower urinary tract symptoms; M81.0 Age-related osteoporosis without current pathological fracture; N31.9 Neuromuscular dysfunction of bladder, unspecified; Z96.0 Presence of urogenital implants; R31.0 Gross hematuria; Z99.3 Dependence on wheelchair; Z74.01 Bed confinement status; K59.00 Constipation, unspecified; B96.1 Klebsiella pneumoniae [K. pneumoniae] as the cause of diseases classified elsewhere; B96.4 Proteus (mirabilis) (morganii) as the cause of diseases classified elsewhere; B95.61 Methicillin susceptible Staphylococcus aureus infection as the cause of diseases classified elsewhere
CPT/HCPCS: 36415; 71045; 74176; 76775; 80048; 81001; 81003; 82043; 82550; 83605; 83735; 84100; 84155; 84300; 85025; 85610; 85730; 87070; 87081; 87086; 93005; 94640; 94664; 96374; 97161; 97530; J0692; J7030